=== PATIENT | female | born 1995 | race Caucasian/White ===

== ENCOUNTER → 2022-03-19 | Outpatient (CLI) | payer OTHER, SELFPAY ==
[2022-03-27 15:16] LABS: HPV Reflexed? NOT INDICATED
== END | disposition home or self-care (01) ==
PROVIDERS: Referring Provider Obstetrics & Gynecology; Visit Provider Obstetrics & Gynecology
DX: Z12.4 Encounter for screening for malignant neoplasm of cervix (principal)
CPT/HCPCS: 88175; G0145

== ENCOUNTER → 2024-02-29 | Outpatient (CLI) | payer OTHER, SELFPAY ==
[2024-02-29 18:03] LABS: hCG Titer Quant., Serum < 1 mIU/mL (1-3)
== END | disposition home or self-care (01) ==
PROVIDERS: PCP Family Medicine; Referring Provider Obstetrics & Gynecology; Visit Provider Obstetrics & Gynecology
DX: O20.9 Hemorrhage in early pregnancy, unspecified (principal); Z3A.00 Weeks of gestation of pregnancy not specified
CPT/HCPCS: 36415; 84702

== ENCOUNTER → 2024-08-16 | Outpatient (CLI) | payer OTHER, SELFPAY ==
[2024-08-16 12:13] LABS: Absolute Lymphocyte Count 2.32 X10^3/uL (0.83-4.51); Absolute Neutrophil Count 10.4 X10^3/uL (2.0-7.7); Basophil# 0.07 X10^3/uL; Basophil% 0.5 % (0-1); Eosinophil# 0.03 X10^3/uL; Eosinophils% 0.2 % (0-5); Hematocrit 40.3 % (37-47); Hemoglobin 14.1 g/dL (12.0-15.0); Lymphocyte # 2.32 X10^3/ul (0.83-4.51); Lymphocyte % 17.1 % (19-41); Mean Corpuscular Hgb 30.7 pg (27.0-32.0); Mean Corpuscular Volume 87.6 fL (81-99); Mean Platelet Vol. 11.5 fl (6.2-12.0); Monocyte# 0.68 X10^3/uL; NRBC Flagged by Analyzer 0 % (0-5); Neutrophil # 10.37 X10^3/uL (2.7-7.7); Neutrophil % 76.8 % (47-70); Platelet Count 282 K/mm3 (150-450); RBC Distribution Width CV 12.8 % (11.6-14.6); RBC Distribution Width SD 40.5 fl (35.1-43.9); White Blood Count 13.5 K/mm3 (4.4-11.0)
[2024-08-16 13:06] LABS: HIV - WCH Non-Reactive (Nonreactive); Hepatitis B Surface Antigen Non-Reactive (Nonreactive); Hepatitis C Antibody Non-Reactive (Nonreactive); Rubella IgG Reactive (Nonreactive); Syphilis Antibodies Non-reactive
[2024-08-18 23:07] LABS: Chlamydia By Nucleic Acid AMP Negative (Negative); Gonococcus By Nucleic Acid AMP Negative (Negative)
[2024-08-19 10:08] LABS: HPV APTIMA, High Risk Negative (Negative)
== END | disposition home or self-care (01) ==
LOC: BWCLAB 11:02
PROVIDERS: Obstetrics & Gynecology; PCP Family Medicine; Referring Provider Obstetrics & Gynecology; Visit Provider Obstetrics & Gynecology
DX: O09.90 Supervision of high risk pregnancy, unspecified, unspecified trimester (principal); Z3A.00 Weeks of gestation of pregnancy not specified
CPT/HCPCS: 36415; 85025; 86703; 86762; 86780; 86803; 86850; 86900; 86901; 87086; 87088; 87340; 87491; 87591; 87624; 88175; G0145

== ENCOUNTER → 2024-12-14 | Outpatient (CLI) | payer OTHER, SELFPAY ==
[2024-12-14 16:54] LABS: Absolute Lymphocyte Count 2.62 X10^3/uL (0.83-4.51); Absolute Neutrophil Count 13.6 X10^3/uL (2.0-7.7); Basophil# 0.06 X10^3/uL; Basophil% 0.3 % (0-1); Eosinophil# 0.12 X10^3/uL; Eosinophils% 0.7 % (0-5); Hematocrit 37.2 % (37-47); Hemoglobin 12.3 g/dL (12.0-15.0); Lymphocyte # 2.62 X10^3/ul (0.83-4.51); Lymphocyte % 15.1 % (19-41); Mean Corp Hgb Conc 33.1 g/dL (32-36); Mean Corpuscular Hgb 31.1 pg (27.0-32.0); Mean Corpuscular Volume 94.2 fL (81-99); Mean Platelet Vol. 11.3 fl (6.2-12.0); Monocyte% 4.6 % (0-10); NRBC Flagged by Analyzer 0 % (0-5); Neutrophil # 13.63 X10^3/uL (2.7-7.7); Neutrophil % 78.6 % (47-70); Platelet Count 272 K/mm3 (150-450); RBC Distribution Width CV 13.7 % (11.6-14.6); RBC Distribution Width SD 47.5 fl (35.1-43.9); Red Blood Count 3.95 M/mm3 (4.2-5.4); White Blood Count 17.4 K/mm3 (4.4-11.0)
[2024-12-15 11:29] LABS: Glucose Challenge Gest 1H 50g 159 mg/dL (70-140); HIV Nonreactive (Nonreactive); Syphilis Antibodies Nonreactive (Nonreactive)
== END | disposition home or self-care (01) ==
PROVIDERS: PCP Family Medicine; Visit Provider Obstetrics & Gynecology
DX: Z34.92 Encounter for supervision of normal pregnancy, unspecified, second trimester (principal); Z13.1 Encounter for screening for diabetes mellitus
CPT/HCPCS: 36415; 82950; 85025; 86703; 86780

== ENCOUNTER → 2024-12-27 | Outpatient (CLI) | payer OTHER, SELFPAY ==
--- OUTSIDE RECORDS SUMMARY | 2024-12-27 07:00 | XMS RPT_ITS | CCD ---
Author Organization [facility] Care Team Providers Care Aircraft Body Repairer Name Role Phone Avtar Marley Unavailable Unavailable JONNATHAN , DR ETIENNE Rudd Primary Care Physician Jonnathan , Etienne Primary Care Provider Jonnathan NGUYEN, Dr. Mustafa Primary Care Provider Jonnathan NGUEYN, Dr. Mustafa Referring Provider Dr. Malena Bean DO Attending Provider Reggie Means DO, Dr. Guy Referring Provider Heather Mahmood CNM Attending Provider Clarence VOSS, Dr. Carlisle Attending Provider Merlyn Acharya Attending Provider [phone] Jonnathan, Etienne Referring Unavailable Vande VeldeMalena Attending Unavailabl e Jonnathan, Etienne Primary Care Unavailable Jonnathan, Etienne Referring Unavailable Vande Velde, Malena Attending Unavailabl e Jonnathan, Etienne Primary Care Unavailable Jonnathan, Etienne Primary Care Unavailable Jonnathan, Etienne Referring Unavailable Vande Velde, Malena Attending Unavailabl e Jonnathan, Etienne Primary Care Unavailable Jonnathan, Etienne Referring Unavailable Vande Velde, Malena Attending Unavailabl e Jonnathan, Etienne Primary Care Unavailable Vande VeldeMalena Referring Unavailabl e Vande VeldeMalena Attending Unavailabl e Jonnathan, Etienne Primary Care Unavailable Vande VeldeMalena Attending Unavailabl e Vande VeldeMalena Referring Unavailabl e Vande Velde, Malena Referring Unavailabl e Vande VeldeMalena Attending Unavailabl e Jonnathan, Etienne Primary Care Unavailable Jonnathan, Etienne Primary Care Unavailable Malena Bean Attending Unavailabl e Jonnathan, Etienne Primary Care Unavailable Jonnathan, Etienne Referring Unavailable Merlyn Rios NP Attending Unavailable Jonnathan, Etienne Primary Care Unavailable Jonnathan, Etienne Referring Unavailable Heather Mahmood Attending Unavailable Jonnathan, Etienne Primary Care Unavailable Jonnathan, Etienne Referring Unavailable Maylin Lima Attending Unavailable Jonnathan, Etienne Primary Care Unavailable Jonnathan, Etienne Referring Unavailable Heather Mahmood Attending Unavailable VIRYEMALENA Referring Unavailab IRMA Garcia Attending Unavailable JONNATHAN, ETIENNE Primary Care Unavailable JONNATHAN, ETIENNE Primary Care Unavailable KATIA, ZACK Attending Unavailable JONNATHAN, ETIENNE Referring Unavailable JONNATHAN, ETIENNE Referring Unavailable JONNATHAN, ETIENNE Primary Care Unavailable KATIA, ZACK Attending Unavailable JONNATHAN, ETIENNE Primary Care Unavailable MARCANTHONY, MAYLIN Castilol Referring Unavailabl e JODIE FELIX Attending Unavailable WINSOME OLIVAS Attending Unavailable IRMA NORIEGA Referring Unavailable JONNATHAN, ETIENNE Primary Care Unavailable ALLAN LUTZ Attending Unavailable JONNATHAN, ETIENNE Primary Care Unavailable MARCANTHONY, MAYLIN E Referring Unavailabl e ALLAN LUTZ Attending Unavailable ALLAN LUTZ Referring Unavailable JONNATHAN, ETIENNE Primary Care Unavailable MALENA SCHNEIDER Referring Unavailab IRMA Garcia Attending Unavailable JONNATHAN, ETIENNE Primary Care Unavailable Holthouser CCC-CRYPTOGRAPHIC MACHINE OPERATOR, Ajilene G Unavailable Un available Medications Current Medications Medication Drug Class(es) Dates Sig (Normalized) Sig (Original) Multivit 17-Uwfl-Ubrfef 1-Dha (Pnv-Dha) 27 mg iron-1 mg -300 mg capsule (1 source) Start: 07-29-2024 Multivit 59-Ybzh-Wfycmf 1-Dha (Pnv-Dha) 27 mg iron-1 mg -300 mg capsule Active NMA PO July 29, 2024 1:00am Vit w/Vw-Uhrfzjygx-ZG (PNV PO) (2 sources) Vit w/Kv-Yarhciigr-QN (PNV PO) Take by mouth daily Active Completed/Discontinued Medications Medication Drug Class(es) Dates Sig (Normalized) Sig (Original) Norethindrone-E.Es tradiol-Iron (4 sources) Estrogen Start: 05-11-2023 End: 03-14-2024 take 1 tablet by mouth once daily Norethindrone-E.Est radiol-Iron (Lo Loestrin Fe) 1 mg-10 mcg (24)/10 mcg (2) tablet Discontinued 1 {tbl} PO DAILY May 11, 2023 12:11pm March 14, 2024 9:57am Start: 03-20-2023 End: 05-11-2023 take 1 tablet by mouth once daily Norethindrone-E.Estradiol-Iron (Lo Loest rin Fe) 1 mg-10 mcg (24)/10 mcg (2) tablet Discontinued 1 {tbl} PO DAILY March 20, 2023 1:32pm May 11, 2023 12:11pm Start: 03-19-2022 End: 03-20-2023 take 1 tablet by mouth once daily Norethindrone-E.Estradiol-Iron (Lo Loest rin Fe) 1 mg-10 mcg (24)/10 mcg (2) tablet Discontinued 1 {tbl} PO DAILY March 19, 2022 12:00am March 20, 2023 1:32pm Start: 11-23-2019 take 1 tablet by addy th once daily Lo Loestrin Fe oral tablet Dose = 1 tab( s), Oral, qDay, # 84 tab(s), 0 Refill(s) Start Date: 11/23/19 Status: Ordered lidocaine 0.05 mg/mg topical ointment (1 source) Antiarrhythmic, Amide Local Anesthetic Start: 03-19-2022 End: 05-11-2023 Lidocaine 5 % ointment Discontinued 1 NMA TOPICAL DAILY as needed for dyspareun March 19, 2022 12:00am May 11, 2023 11:45am Problems Active Problems Problem Classification Problem Date Documented Da te Episodic/Chronic Administrative/social admission (1 source) finding; Translations: [Other specified counseling] Onset: 11-11-2024 12-14-2024 Episodic Immunizations and screening for infectious disease (1 source) Encounter for immunization; Translations: [Encounter for immunization] Onset: 12-14-2024 Episodic Other complications of ; puerperium affecting management of mother (7 sources) condition affecting obstetrical care of mother; Translations: [ 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, fetus 1 of multiple gestation] Onset: 10-13-2024 11-10-2024 Episodic Comment on above: seen on anatomy US, treatment center referral. echo. Gave info on [facility] Other complications of (3 sources) H/O: miscarriage; Translations: [Supervision of with other poor reproductive or obstetric history, unspecified trimester] 10-07-2024 Episodic Comment on above: January 2024, 6 weeks Other complications of (3 sources) High risk ; Translations: [Supervision of high risk , unspecified, unspecified trimester] 10-07-2024 Episodic Other congenital anomalies (1 source) Cleft palate with cleft lip; Translations: [Unspecified cleft palate with unilateral cleft lip] 12-26-2024 Chronic Other female genital disorders (3 sources) Pain in female genitalia on intercourse; Translations: [Unspecified dyspareunia] 10-07-2024 Chronic Comment on above: lidocaine topical, v aginismus, PFPT. discussed dilators vs excision of hymenal remnant. Other female genital disorders (1 source) Unspecified dyspareunia; Translations: [Unspecified dyspareunia] Onset: 09-09-2024 Chronic Other and delivery including normal (14 sources) ; Translations: [Encounter for supervision of normal , unspecified, unspecified trimester] Onset: 10-07-2024 12-14-2024 Episodic Comment on above: NIPT low risk, katherine er neg. PRR , JONATHAN 5, gender surprise for family Nicanor Other screening for suspected conditions (not mental disorders or infectious disease) (1 source) Encounter for screening for diabetes mellitus; Translations: [Encounter for screening for diabetes mellitus] Onset: 12-20-2024 Episodic Residual codes; unclassified (1 source) 18 weeks gestation of ; Translations: [18 weeks gestation of ] Onset: 10-07-2024 Episodic Spontaneous (1 source) with abortive outcome; Translations: [Complete or unspecified spontaneous without complication] 07-29-2024 Episodic Past or Other Problems Problem Classification Problem Date Documented Da te Episodic/Chronic Hemorrhage during ; abruptio placenta; placenta previa (4 sources) Antepartum hemorrhage; Translations: [Hemorrhage in early , unspecified] Onset: 09-09-2024 10-07-2024 Episodic Other complications of (1 source) Supervision of high risk , unspecified, unspecified trimester; Translations: [Supervision of high risk , unspecified, unspecified trimester] Onset: 09-09-2024 Episodic Other complications of (1 source) Supervision of with other poor reproductive or obstetric history, unspecified trimester; Translations: [Supervision of with other poor reproductive or obstetric history, unspecified trimester] Onset: 09-09-2024 Episodic Residual codes; unclassified (1 source) 14 weeks gestation of ; Translations: [14 weeks gestation of ] Onset: 09-09-2024 Episodic Results Test Name Value Interpretation Reference Range Facility Progress Noteon 12-26-2024 Parts Department Supervisor Authentication Interface Message Text Jesus Asher is a 29 y.o. female with who is otherwise healthy, , whose ultrasound was found to have evidence of a cleft lip and palate. She has a family history of clefting (paternal (father's older sister) cousin-male). Father has no family history of clefting or craniofacial anomalies. She does not exposure to medications/drugs during conception or . There are no other environmental that may be implicated. Her main concerns are regarding 1. Feeding, 2. Timing of correction and 3. Overall health and development implications in the presence of a cleft. Her previous records, including the 19-wk ultrasound were reviewed. 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 The rest of the visit was spent in counseling the family regarding the issues mentioned above. We described the ultrasound findings of cleft lip and palate. We explained that cleft lip/palate can occur as an isolated finding (up to ~95%), as part of a chromosome disorder, or as part of another genetic syndrome with additional defects and/or intellectual disability. We explained that cleft lip/palate can be surgically repaired, but there may be residual difficulty with feeding and speech. Some children may need additional surgeries as they get older. Other associated problems can include issues with dentition, hearing loss, and other developmental problems. We explained that most cases of isolated cleft lip/palate are caused by a combination of genetic and environmental (multifactorial inheritance) with a 3-5% recurrence risk. The first step in the treatment of her child is to align the premaxilla with the lateral arches. I will refer this child to our tobacco packing machine operator for this process. After alignment of the arches the child will be ready for correction of the lip and nasal deformity. The lip correction is typically performed at around 4-5 months of age. Lastly, the palate is closed around 7-8 months of age. This will be before speech development and will hopefully provide the best chance for normal speech. I reviewed this with the parents and also reviewed other patient photographs and they understand the plan of care. During the first 1-2 months we will continue to keep in close contact to assure that the baby is feeding well and gaining weight. We also had her see our craniofacial coordinator so they can follow up with our [facility]io[facility] for a multidisciplinary evaluation after . They met with our administrator social welfare as well. I spent a total of 45 minutes with this patient, of which, >30 minutes was spent counseling and/or coordinating care. We discussed a summary of the treatment plan with the patient and family including details on coordination of care. Our discussion included: timing and duration of surgery; intraoperative details; possible risks (infection, bleeding, risk of injury to surrounding structures, possible recurrence and need for further surgery), benefits and surgical options; expected postoperative course and outcomes. Zack Douglass MD, FACS Chief, Division of Plastic Surgery [facility] 12/26/2024 Normal [facility] Glucose Challenge Gest 1H 50 minh 12-15-2024 GLU GEST 50g 1H 159 mg/dL High 70-140 [facility] Comment on above: Performed By: #### L 3890.6006, L509.8002, L100.0100, L501.0250 #### [facility] [address] [place], [place], [address] HIVon 12-15-2024 HIV Non-Reactive Normal Nonreactive [facility] Comment on above: Result Comment: Non- Reactive Reactive Repeatedly reactive samples must be confirmed according to CDC recommended confirmatory algorithms. The subresults for either HIVAG or AHIV can be used as an aid in the selection of the confirmation algorithm for reactive samples. Send out specimens with Reactive results to [facility] for confirmation. Order the HIV antibody detection and differentiation: #[id number] Performed By: #### L 3890.6006, L509.8002, L100.0100, L501.0250 #### [facility] [address] [place], [address] Syphilis Antibodieson 2024 Syphilis Abs Non-Reactive Normal Nonreactive [facility] Comment on above: Performed By: #### L 3890.6006, L509.8002, L100.0100, L501.0250 #### [facility] [address] [place], [address] CBC W/Diff, Automatedon 11-25 Absolute Lymph 2.62 X10 3/uL Normal 0.83-4.51 [facility] Comment on above: Performed By: #### L 3890.6006, L509.8002, L100.0100, L501.0250 #### [facility] [address] [place], [address] Absolute Neut 13.6 X10 3/uL High 2.0-7.7 [facility] Comment on above: Performed By: #### L 3890.6006, L509.8002, L100.0100, L501.0250 #### [facility] [address] [place], [address] Basophils/100 WBC (Bld) 0.3 % Normal 0-1 [facility] Comment on above: Performed By: #### L 3890.6006, L509.8002, L100.0100, L501.0250 #### [facility] [address] [place], [address] Eosinophils/100 WBC (Bld) 0.7 % Normal 0-5 [facility] Comment on above: Performed By: #### L 3890.6006, L509.8002, L100.0100, L501.0250 #### [facility] [address] [place], [address] Erythrocyte distribution width (RBC) [Ratio] 13.7 % Normal 11.6-14.6 [facility] Comment on above: Performed By: #### L 3890.6006, L509.8002, L100.0100, L501.0250 #### [facility] [address] [place], [address] Hematocrit (Bld) [Volume fraction] 37.2 % Normal 37-47 [facility] Comment on above: Performed By: #### L 3890.6006, L509.8002, L100.0100, L501.0250 #### [facility] [address] [place], [address] Hemoglobin (Bld) [Mass/Vol] 12.3 g/dL Normal 12.0-15.0 [facility] Comment on above: Performed By: #### L 3890.6006, L509.8002, L100.0100, L501.0250 #### [facility] [address] [place], [address] IG% 0.700 Normal 0.0-0.9 [facility] Comment on above: Result Comment: IG% - Immature Granulocytes (promyelocytes, myelocytes and metamyelocytes) > 1% indicates that a LEFT SHIFT is Present. Performed By: #### L 3890.6006, L509.8002, L100.0100, L501.0250 #### [facility] [address] [place], [address] Lymphocytes/100 WBC (Bld) 15.1 % Low 19-41 [facility] Comment on above: Performed By: #### L 3890.6006, L509.8002, L100.0100, L501.0250 #### [facility] [address] [place], [address] MCH (RBC) [Entitic mass] 31.1 pg Normal 27.0-32.0 [facility] Comment on above: Performed By: #### L 3890.6006, L509.8002, L100.0100, L501.0250 #### [facility] [address] [place], [address] MCHC (RBC) [Mass/Vol] 33.1 g/dL Normal 32-36 [facility] Comment on above: Performed By: #### L 3890.6006, L509.8002, L100.0100, L501.0250 #### [facility] [address] [place], [address] MCV (RBC) [Entitic vol] 94.2 fL Normal 81-99 [facility] Comment on above: Performed By: #### L 3890.6006, L509.8002, L100.0100, L501.0250 #### [facility] [address] [place], [address] Monocytes/100 WBC (Bld) 4.6 % Normal 0-10 [facility] Comment on above: Performed By: #### L 3890.6006, L509.8002, L100.0100, L501.0250 #### [facility] [address] [place], [address] Neutrophils/100 WBC (Bld) 78.6 % High 47-70 [facility] Comment on above: Performed By: #### L 3890.6006, L509.8002, L100.0100, L501.0250 #### [facility] [address] [place], [address] Nucleated RBC (Bld) [#/Vol] 0 10*3/uL Normal 0-5 [facility] Comment on above: Performed By: #### L 3890.6006, L509.8002, L100.0100, L501.0250 #### [facility] [address] [place], [address] Platelet mean volume (Bld) [Entitic vol] 11.3 fL Normal 6.2-12.0 [facility] Comment on above: Performed By: #### L 3890.6006, L509.8002, L100.0100, L501.0250 #### [facility] [address] [place], [address] Platelets (Bld) [#/Vol] 272 10*3/uL Normal 150-450 [facility] Comment on above: Performed By: #### L 3890.6006, L509.8002, L100.0100, L501.0250 #### [facility] [address] [place], [address] RBC (Bld) [#/Vol] 3.95 10*6/uL Low 4.2-5.4 [facility] Comment on above: Performed By: #### L 3890.6006, L509.8002, L100.0100, L501.0250 #### [facility] [address] [place], [address] RDW SD 47.5 fl High 35.1-43.9 [facility] Comment on above: Performed By: #### L 3890.6006, L509.8002, L100.0100, L501.0250 #### [facility] [address] [place], [address] WBC (Bld) [#/Vol] 17.4 10*3/uL High 4.4-11.0 [facility] Comment on above: Performed By: #### L 3890.6006, L509.8002, L100.0100, L501.0250 #### [facility] [address] [place], [address] Building Drafting Officer Office Visit Reporton 12-14-2024 Building Drafting Officer Office Visit Report [facility] [address], [address] [place] [address] OFFICE VISIT Date of Service: 12/14/24 MR#: [id number] Acct: [id number] Name: JESUS ASHER Rep #: [id number] : 1995 Provider: Dr. Malena Galdamez DO Age/Sex: 29/F Location: [facility] Status: Signed Intake Vital Signs 11/02/24 13:43 11/28/24 14:48 12/14/24 13:09 12/14/24 13:09 Height 5 ft 3 in 5 ft 3 in 5 ft 3 in 5 ft 3 in Weight: 125 lb 6 oz BMI 22.1 BP 122/76 H Intake Visit Reasons: 28 wk ob/glucose Software Sales Required: No Is patient in pain?: No Allergies No Known Allergies Allergy (Verified 12/14/24 13:09) Medications ???Medication ???Instructions ???Recorded ???Confirmed ???Type multivitamin no.47-iron fum 27 cap PO 07/29/24 12/14/24 History mg-folate no.1 1 mg-dha 300 mg capsule (PNV-DHA) Last Menstrual Period: 05/29/24 Zika: Zika virus screening: Negative : No PFSH PFSH Medical History Complete Dysmenorrhea Surgical History H/O wisdom tooth extraction Family History Grandmother Breast cancer Social History adopted: No household members: spouse current occupational status: employed 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 occupational exposures/hazards: No pets and animals: Yes pets and animals: dog(s) history of recent travel: Yes ([place]-Nov) out of state: Yes out of country: No sexually active: Yes Smoking Status: Never smoker alcohol intake: current details: social- not while substance use type: does not use well-balanced diet: daily or most days caffeine: Yes Type: coffee Number of servings: 1 eating out: 1-3 times/week during the past year weight has: remained stable what type of physical activity do you participate in: walking and yoga frequency: 1-2 times per week duration: 30-45 minutes/day nic/pentecostal: Orthodoxy seatbelt use: always do you feel safe at home: Yes additional social history: [place]- data analyzation Patient works at [employer] History 2 Elective abortions Hx Para 0 Spontaneous abortions 1 Hx # Term Pregnancies Ectopic pregnancies Hx # Pregnancies Multiple births # of living children 0 Past Pregnancies Del. Date Name GA/Weeks Outcome Route Bth Weight Gen Labor Lgth Anesthesia Del Locatn Provider FOB 02/18/24 6 spontaneous HPI 28 wk ob/glucose Details: JESUS ASHER is a 29 year old who presents for routine OB visit. OB Visit JONATHAN Calculator Estimated Delivery Date Method Current WG Current Estimate 03/05/25 LMP (Certain) 28w 3d Other Estimates 03/11/25 Ultrasound #1 27w 4d Expected Delivery Route/Plan Labor Preferences- CB/BF classes: [] labor support person: [] labor intervention preferences: [] pain management options preferred: [] cut cord/dad catch: [] : [] PP control planned: [] discussed possible routes of delivery and associated risks: [] special requests: [] Specific Issue/Plans Covid status: [] Flu vaccine: [] Tdap vaccine: [] Rhogam: [] LARC form signed: [] Problem list reviewed and updated with the most current plan of care details and appropriate orders placed. Relevant counseling for the gestational age provided. Continue routine care and follow up unless otherwise noted in visit notes/problem list details Initial Weight: Not Recorded Date -???-???-???-???-??? -???-???-???-???-??? -???-???- EGA Weight BP Urine Prot -???-???-???-???-??? -???-???-???-???-??? -???-???- Glucose FHR FuHt Pres Dilation -???-???-???-???-??? -???-???-???-???-??? -???-???- Effaced St Visit Note 08/16/24 -???-???-???-???-??? -???-???-???-???-??? -???-???- 11w 2d 104 lb 6 oz 130/80 -???-???-???-???-??? -???-???-???-???-??? -???-???- 185 -???-???-???-???-??? -???-???-???-???-??? -???-???- JV- CRL cons istent with LMP. Desires nipt. 09/09/24 -???-???-???-???-??? -???-???-???-???-??? -???-???- 14w 5d 106 lb 4 oz 127/84 Negative -???-???-???-???-??? -???-???-???-???-??? -???-???- Negative 150 -???-???-???-???-??? -???-???-???-???-??? -???-???- KW- no vb/cr amping. US scheduled. feeling better. AFP discussed and declines at this time. stretching and chiropractor for hip pain. 10/07/24 -???-???-???-???-??? -???-???-???-???-??? -???-???- 18w 5d 110 lb 6 oz 137/71 Negative -???-???-???-???-??? -???-???-???-???-??? -???-???- Negative 150 -???-???-???-???-??? -???-???-???-???-??? -???-???- SM- no vb cr amping 11/02/24 - (more content not included)... Normal [facility] - Chemistry and C hemistry - challengeOrdered By: Malena Means on 11-28-2024 Glucose Ql (U) Negative [facility] - UrinalysisOrder ed By: Malena Means on 11-28-2024 Protein Ql (U) Negative [facility] Building Drafting Officer Office Visit Reporton 11-28-2024 Building Drafting Officer Office Visit Report [facility] [address], [address] [place] [address] OFFICE VISIT Date of Service: 11/28/24 MR#: [id number] Acct: [id number] Name: JESUS ASHER Rep #: [id number] : 1995 Provider: Dr. Malena Galdamez DO Age/Sex: 28/F Location: [facility] Status: Signed Intake Vital Signs 10/07/24 15:03 11/02/24 13:43 11/28/24 14:46 11/28/24 14:48 Height 5 ft 3 in 5 ft 3 in 5 ft 3 in 5 ft 3 in Weight: 122 lb 4 oz BMI 21.7 BP 126/79 H Intake Visit Reasons: 26 WK OB Software Sales Required: No Allergies No Known Allergies Allergy (Verified 11/28/24 14:45) Medications ???Medication ???Instructions ???Recorded ???Confirmed ???Type multivitamin no.47-iron fum 27 cap PO 07/29/24 11/28/24 History mg-folate no.1 1 mg-dha 300 mg capsule (PNV-DHA) Last Menstrual Period: 05/29/24 Zika: Zika virus screening: Negative : No PFSH PFSH Medical History Complete Dysmenorrhea Surgical History H/O wisdom tooth extraction Family History Grandmother Breast cancer Social History adopted: No household members: spouse current occupational status: employed 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 occupational exposures/hazards: No pets and animals: Yes pets and animals: dog(s) history of recent travel: Yes ([place]-May) out of state: Yes out of country: No sexually active: Yes Smoking Status: Never smoker alcohol intake: current details: social- not while substance use type: does not use well-balanced diet: daily or most days caffeine: Yes Type: coffee Number of servings: 1 eating out: 1-3 times/week during the past year weight has: remained stable what type of physical activity do you participate in: walking and yoga frequency: 1-2 times per week duration: 30-45 minutes/day nic/pentecostal: Orthodoxy seatbelt use: always do you feel safe at home: Yes additional social history: [place]- data analyzation Patient works at [employer] History 2 Elective abortions Hx Para 0 Spontaneous abortions 1 Hx # Term Pregnancies Ectopic pregnancies Hx # Pregnancies Multiple births # of living children 0 Past Pregnancies Del. Date Name GA/Weeks Outcome Route Bth Weight Infant Gen Labor Lgth Anesthesia Del [facility] Provider FOB 02/18/24 6 spontaneous HPI 26 WK OB Details: JESUS ASHER is a 28 year old who presents for routine OB visit. OB Visit JONATHAN Calculator Estimated Delivery Date Method Current WG Current Estimate 03/05/25 LMP (Certain) 26w 1d Other Estimates 03/11/25 Ultrasound #1 25w 2d Expected Delivery Route/Plan Labor Preferences- CB/BF classes: [] labor support person: [] labor intervention preferences: [] pain management options preferred: [] cut cord/dad catch: [] : [] PP control planned: [] discussed possible routes of delivery and associated risks: [] special requests: [] Specific Issue/Plans Covid status: [] Flu vaccine: [] Tdap vaccine: [] Rhogam: [] LARC form signed: [] Problem list reviewed and updated with the most current plan of care details and appropriate orders placed. Relevant counseling for the gestational age provided. Continue routine care and follow up unless otherwise noted in visit notes/problem list details Initial Weight: Not Recorded Date -???-???-???-???-??? -???-???-???-???-??? -???-???- EGA Weight BP Urine Prot -???-???-???-???-??? -???-???-???-???-??? -???-???- Glucose FHR FuHt Pres Dilation -???-???-???-???-??? -???-???-???-???-??? -???-???- Effaced St Visit Note 08/16/24 -???-???-???-???-??? -???-???-???-???-??? -???-???- 11w 2d 104 lb 6 oz 130/80 -???-???-???-???-??? -???-???-???-???-??? -???-???- 185 -???-???-???-???-??? -???-???-???-???-??? -???-???- JV- CRL cons istent with LMP. Desires nipt. 09/09/24 -???-???-???-???-??? -???-???-???-???-??? -???-???- 14w 5d 106 lb 4 oz 127/84 Negative -???-???-???-???-??? -???-???-???-???-??? -???-???- Negative 150 -???-???-???-???-??? -???-???-???-???-??? -???-???- KW- no vb/cr amping. US scheduled. feeling better. AFP discussed and declines at this time. stretching and chiropractor for hip pain. 10/07/24 -???-???-???-???-??? -???-???-???-???-??? -???-???- 18w 5d 110 lb 6 oz 137/71 Negative -???-???-???-???-??? -???-???-???-???-??? -???-???- Negative 150 -???-???-???-???-??? -???-???-???-???-??? -???-???- SM- no vb cr amping 11/02/24 -???-???-???-???-??? -???-???-???-???-??? -?? (more content not included)... Normal [facility] Progress Noteon 11-10-2024 Parts Department Supervisor Authentication Interface Message Text [facility] - NEW PATIENT ASSESSMENT: I am pleased to report that today's echocardiogram was normal. There is no evidence of cardiovascular disease. Following the echocardiogram, I met with Ms. Asher to discuss today's findings and recommendations. I reviewed the normal cardiac anatomy, and explained that there is no evidence of significant cardiac disease in the fetus. I explained the limitations of echocardiography in general, including our inability to rule out mild valve abnormalities, smaller VSDs, certain aortic arch abnormalities, and persistent patency of the ductus arteriosus or the interatrial communication after . PLAN: Follow-up appointment, Heart Center: As needed. Preferred delivery location: No preference After , follow-up with Pediatric Cardiology: NOT indicated if isolated cleft lip and palate MAY BE indicated IF the baby is diagnosed with a genetic condition that is associated with congenital heart defects (ex: 22q11.2 deletion syndrome, CHARGE syndrome, Stickler Syndrome, etc) MAY BE indicated IF the home care physical therapist hears a murmur or otherwise is concerned SUBJECTIVE: We had the pleasure of seeing Jesus Asher in Cardiology at the [facility] at [facility] on 11/10/2024 at the request of Dr. Irma Noriega. Ms. Asher was referred due to cleft lip and palate. Obstetric History: Ms. Asher is 2 para 0 at [id number] estimated due date 03/05/2025. Number of fetuses: 1 - male Delivery Hospital, preferred: [place] Past medical history: Past Medical History: Diagnosis Date Treatment Center Plan of Care Current medications: Medications Ordered Prior to Encounter[1] Allergies: Allergies[2] Family history: The family history was reviewed and is otherwise negative for congenital heart disease, sudden unexplained , arrhythmia. Social History: Jesus Asher lives with her family in [place], [place]. OBJECTIVE: Echocardiogram (11/10/2024): (see Epic for full details) Maternal BMI: Body mass index is 21.61 kg/m . Total encounter time was 20 minutes, which includes chart review, counseling, documentation and/or coordination of care. This is separate from the time spent performing and interpreting the echocardiogram. Portions of this medical record have been created using voice recognition software and may have minor errors which are inherent in voice recognition systems. Winsome Olivas DO (he/him/his) Jury Consultant [place] [address] Toll-Free: [email or web address] [1] Current Outpatient Medications on File Prior to Visit Medication Sig Dispense Refill Vit w/Nk-Hnwcwcfll-RJ (PNV PO) Take by mouth daily No current facility-administere d medications on file prior to visit. [2] No Known Allergies Normal [facility] Parts Department Supervisor Authentication Interface Message Text [facility] Consult INDICATION FOR CONSULT: Cleft lip and suspected to be cleft palate HISTORY OF PRESENT ILLNESS: Patient is a 28 y.o. at 23w4d who presents for consultation regarding Cleft lip and suspected to be cleft palate. Obstetrical History OB History Para Term AB Living 2 0 0 0 1 0 SAB IAB Ectopic Multiple Live Births 1 0 0 0 0 # Outcome Date GA Lbr Darinel/2nd Weight Sex Type Anes PTL Lv 2 Current 1 SAB 01/2024 6w0d SAB Comments: no D&C needed History of a cousin with cleft lip as well. Past Medical History: Diagnosis Date Treatment Center Plan of Care Past Surgical History: Procedure Laterality Date WISDOM TOOTH EXTRACTION 2013 FAMILY HISTORY: See Genetic Counseling note Outpatient Medications Marked as Taking for the 11/10/24 encounter (Office Visit) with Allan Lutz MD Medication Sig Dispense Refill Vit w/Uc-Uiavywsye-CK (PNV PO) Take by mouth daily Social History Socioeconomic History Marital status: Spouse name: Not on file Number of children: Not on file Years of education: Not on file Highest education level: Not on file Occupational History Not on file Tobacco Use Smoking status: Never Smokeless tobacco: Never Substance and Sexual Activity Alcohol use: Not Currently Drug use: Never Sexual activity: Not on file Other Topics Concern Not on file Social History Narrative Not on file Social Drivers of Health Food Insecurity: Not on file Transportation Needs: Not on file Housing Stability: Not on file Allergies[1] Review of Systems - negative unless otherwise specified above Vitals: 11/10/24 0737 BP: 122/66 Pulse: 90 Resp: 18 SpO2: 98% Weight: 53 kg (116 lb 14.4 oz) BMI Readings from Last 1 Encounters: 11/10/24 21.61 kg/m Physical Examination: General appearance - alert, well appearing, and in no distress Mental status - alert, oriented to person, place, and time Chest - No difficulty with breathing Heart - Normal Rate Abdomen - Non tender during US exam Pelvic - Deferred Extremities - no edema noted Ultrasound performed today in the office: 1. Single, living IUP at 23w 4d by clinical JONATHAN. 2. EFW is 631 g at 49% with the Abdominal circumference at 65%. 3. Amniotic fluid volume appeared normal 4. Placenta is anterior. 5. Visualized anatomy appears normal besides the below, with limitations. 6. Left sided unilateral cutaneous defect of superior lip that extends through the alveolar ridge and appears to extend the secondary palate but not confirmed. Uvula not observed today. My Impression and recommendations include the following: Jesus Asher is a 28 y.o. year old at 23w4d 1) Today we discussed the above ultrasound finding. We discussed cleft lip including the degrees and definition. We then discussed the absence of additional ultrasound findings today. We discussed the possible genetic association at approximately 10 to 15% with unilateral complete cleft lip and palate. We discussed amniocentesis for diagnostic testing including the risk and benefits of the procedure. We discussed the cosmetic appearance of the child as well as the mechanical problem with breast-feeding/feedi ng in general. Patient will be followed with our treatment center and meet with pediatric plastics as well as . There is a 2 to 3% recurrence risk in future pregnancies. Patient will meet with genetic counseling to discuss amniocentesis and further genetic testing. All questions concerns addressed. Jesus Asher also met with our genetic counselor, see separate documentation for counseling. She met Rosalinda Julio, Clinical Tamale Maker from the [facility]. Rosalinda will continue to help coordinate and care. 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 Cell free DNA aneuploidy screening is low risk. Declined invasive testing. Plan: 1. Continued obstetrical care with her primary zone maintenance technician is recommended. 2. Follow up q4 weeks to evaluate biometric parameters and anatomy. These are planned with the [facility]. 3. echocardiogram completed. 4. surveillance as follows: as clinically indicated. 5. consultation with Plastic Surgery/Cleft Clinic and will be arranged. 6. Delivery is appropriate at your local institution. 7. Mode and timing of delivery are based on the usual obstetrical indications. 8. Management in the normal nursery appropriate unless clinically needs additional care. 9. Cleft lip/palate management per hospital protocol. 10. Follow up with [facility] within the first week of life. Please call [phone]. 11. Consultation with Medical Genetic (more content not included)... Normal [facility] Laboratory - Chemistry and C hemistry - challengeOrdered By: Merlyn Rios on 11-02-2024 Glucose Ql (U) Negative [facility] Laboratory - UrinalysisOrder ed By: Merlyn Rios on 11-02-2024 Protein Ql (U) Negative [facility] Building Drafting Officer Office Visit Reporton 11-02-2024 Building Drafting Officer Office Visit Report [facility] [address], [address] [place] [address] OFFICE VISIT Date of Service: 11/02/24 MR#: [id number] Acct: [id number] Name: JESUS ASEHR Rep #: [id number] : 1995 Provider: AIDEE crow Age/Sex: 28/F Location: [facility] Status: Signed Intake Vital Signs 09/09/24 14:14 10/07/24 15:03 11/02/24 13:43 Height 5 ft 3 in 5 ft 3 in 5 ft 3 in Weight: 116 lb 8 oz BMI 20.6 BP 120/72 Intake Visit Reasons: 22wk ob Chief Complaint: 22 Week OB Software Sales Required: No Is patient in pain?: No Allergies No Known Allergies Allergy (Verified 11/02/24 13:42) Medications ???Medication ???Instructions ???Recorded ???Confirmed ???Type multivitamin no.47-iron fum 27 cap PO 07/29/24 11/02/24 History mg-folate no.1 1 mg-dha 300 mg capsule (PNV-DHA) Last Menstrual Period: 05/29/24 Zika: Zika virus screening: Negative : No PFSH PFSH Medical History Complete Dysmenorrhea Surgical History H/O wisdom tooth extraction Family History Grandmother Breast cancer Social History adopted: No household members: spouse current occupational status: employed 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 occupational exposures/hazards: No pets and animals: Yes pets and animals: dog(s) history of recent travel: Yes ([place]-Nov) out of state: Yes out of country: No sexually active: Yes Smoking Status: Never smoker alcohol intake: current details: social- not while substance use type: does not use well-balanced diet: daily or most days caffeine: Yes Type: coffee Number of servings: 1 eating out: 1-3 times/week during the past year weight has: remained stable what type of physical activity do you participate in: walking and yoga frequency: 1-2 times per week duration: 30-45 minutes/day nic/pentecostal: Orthodoxy seatbelt use: always do you feel safe at home: Yes additional social history: [place]- data analyzation Patient works at [employer] History 2 Elective abortions Hx Para 0 Spontaneous abortions 1 Hx # Term Pregnancies Ectopic pregnancies Hx # Pregnancies Multiple births # of living children 0 Past Pregnancies Del. Date Name GA/Weeks Outcome Route Bth Weight Gen Labor Lgth Anesthesia Del Locatn Provider FOB 02/18/24 6 spontaneous HPI 22wk ob Details: JESUS ASHER is a 28 year old who presents for routine OB visit. OB Visit JONATHAN Calculator Estimated Delivery Date Method Current WG Current Estimate 03/05/25 LMP (Certain) 22w 3d Other Estimates 03/11/25 Ultrasound #1 21w 4d Expected Delivery Route/Plan Labor Preferences- CB/BF classes: [] labor support person: [] labor intervention preferences: [] pain management options preferred: [] cut cord/dad catch: [] : [] PP control planned: [] discussed possible routes of delivery and associated risks: [] special requests: [] Specific Issue/Plans Covid status: [] Flu vaccine: [] Tdap vaccine: [] Rhogam: [] LARC form signed: [] Problem list reviewed and updated with the most current plan of care details and appropriate orders placed. Relevant counseling for the gestational age provided. Continue routine care and follow up unless otherwise noted in visit notes/problem list details Initial Weight: Not Recorded Date -???-???-???-???-??? -???-???-???-???-??? -???-???- EGA Weight BP Urine Prot -???-???-???-???-??? -???-???-???-???-??? -???-???- Glucose FHR FuHt Pres Dilation -???-???-???-???-??? -???-???-???-???-??? -???-???- Effaced St Visit Note 08/16/24 -???-???-???-???-??? -???-???-???-???-??? -???-???- 11w 2d 104 lb 6 oz 130/80 -???-???-???-???-??? -???-???-???-???-??? -???-???- 185 -???-???-???-???-??? -???-???-???-???-??? -???-???- JV- CRL cons istent with LMP. Desires nipt. 09/09/24 -???-???-???-???-??? -???-???-???-???-??? -???-???- 14w 5d 106 lb 4 oz 127/84 Negative -???-???-???-???-??? -???-???-???-???-??? -???-???- Negative 150 -???-???-???-???-??? -???-???-???-???-??? -???-???- KW- no vb/cr amping. US scheduled. feeling better. AFP discussed and declines at this time. stretching and chiropractor for hip pain. 10/07/24 -???-???-???-???-??? -???-???-???-???-??? -???-???- 18w 5d 110 lb 6 oz 137/71 Negative -???-???-???-???-??? -???-???-???-???-??? -???-???- Negative 150 -???-???-???-???-??? -???-???-???-???-??? -???-???- SM- no vb cr amping 11/02/24 -???-???-???-???-??? -?? (more content not included)... Normal [facility] Progress Noteon 10-13-2024 Parts Department Supervisor Authentication Interface Message Text [facility]- MEDICINE CONSULT Referring/Requesting Provider: Malena Schneider, * PCP: Etienne De Santiago DO INDICATION FOR CONSULT: cleft lip and palate This is a telemedicine video visit requested by the patient/guardian that was performed with the patient's location at [place] office and the provider's location at [facility]. HISTORY OF PRESENT ILLNESS: Patient is a 28 y.o. at 19w4d who presents for consultation regarding cleft lip and palate diagnosed on today's anatomy ultrasound. OB History Para Term AB Living 2 0 0 0 1 0 SAB IAB Ectopic Multiple Live Births 1 0 0 0 0 # Outcome Date GA Lbr Darinel/2nd Weight Sex Type Anes PTL Lv 2 Current 1 SAB 01/2024 6w0d SAB Comments: no D&C needed Past Medical History: Diagnosis Date Treatment Center Plan of Care Past Surgical History: Procedure Laterality Date WISDOM TOOTH EXTRACTION 2013 PERTINENT FAMILY HISTORY: Family History Problem Relation Age of Onset Mitral Valve Regurgitation Mother Breast Cancer Maternal Grandmother MEDS: Outpatient Medications Marked as Taking for the 10/13/24 encounter (Telehealth) with Irma Noriega, Medication Sig Dispense Refill Vit w/Wz-Mbdklyqnj-NY (PNV PO) Take by mouth daily ALLERGY: Allergies[1] REVIEW OF SYSTEMS: ROS negative PHYSICAL EXAM: VITAL SIGNS: Ht 160 cm LMP 05/29/2024 Physical Exam via video assessment AAOx3, Resp effort normal IMAGIN. Medeiros living intrauterine at 19w 4d with biometry consistent with clinical dates. 2. Unilateral (left) cleft lip and palate. 3. The remainder of the anatomic survey was adequately visualized and appeared normal. 5. Amniotic fluid appeared normal. 5. Placenta is anterior, grade 0. Placenta appears low-lying. 6. Transvaginal cervical length to evaluate for risk for labor was performed and appeared normal, 39.1 mm. LABS: Low risk cell free and negative Horizon carrier screen per patient report IMPRESSION AND RECOMMENDATIONS: Jesus is a 28 y.o. at 19w4d with Active Non-Hospital Problems Diagnosis Date Noted Cleft lip and palate, , affecting care of mother, antepartum 10/13/2024 1. We reviewed the ultrasound findings of cleft lip and palate. 2. [facility], including coordination of care. 3. Growth every 4 weeks. 4. echocardiogram ordered with pediatric cardiology. 5. Recheck placental location at 28 weeks. Follow up with [facility] in 4 weeks. Chart review and preparation: 5 minutes. Face to face: 12 minutes. Documentation and care coordination: 15 minutes. Total time spent on patient care today: 32 minutes. [1] No Known Allergies Normal [facility] Laboratory - Chemistry and C hemistry - challengeOrdered By: Maylin Lima on 10-07-2024 Glucose Ql (U) Negative [facility] - UrinalysisOrder ed By: Maylin Lima on 10-07-2024 Protein Ql (U) Negative [facility] Building Drafting Officer Office Visit Reporton 10-07-2024 Building Drafting Officer Office Visit Report [facility] [address], [address] [place] [address] OFFICE VISIT Date of Service: 10/07/24 MR#: [id number] Acct: [id number] Name: JESUS ASHER Rep #: [id number] : 1995 Provider: Dr. Maylin manjarrez MD Age/Sex: 28/F Location: [facility] Status: Signed Intake Vital Signs 08/16/24 10:17 09/09/24 14:14 10/07/24 15:02 10/07/24 15:03 Height 5 ft 3 in 5 ft 3 in 5 ft 3 in 5 ft 3 in Weight: 110 lb 6 oz BMI 19.5 BP 137/71 H Intake Visit Reasons: 18 wk ob Software Sales Required: No Is patient in pain?: No Feel stressed/tense/nervo us/anxious/difficult y sleeping: not at all Allergies No Known Allergies Allergy (Verified 10/07/24 15:02) Medications ???Medication ???Instructions ???Recorded ???Confirmed ???Type multivitamin no.47-iron fum 27 cap PO 07/29/24 10/07/24 History mg-folate no.1 1 mg-dha 300 mg capsule (PNV-DHA) Last Menstrual Period: 05/29/24 Zika: Zika virus screening: Negative : No Have you fallen in the past year?: No PFSH PFSH Medical History Complete Dysmenorrhea Surgical History H/O wisdom tooth extraction Family History Grandmother Breast cancer Social History adopted: No household members: spouse current occupational status: employed 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 occupational exposures/hazards: No pets and animals: Yes pets and animals: dog(s) history of recent travel: Yes ([place]) out of state: Yes out of country: No sexually active: Yes Smoking Status: Never smoker alcohol intake: current details: social- not while substance use type: does not use well-balanced diet: daily or most days caffeine: Yes Type: coffee Number of servings: 1 eating out: 1-3 times/week during the past year weight has: remained stable what type of physical activity do you participate in: walking and yoga frequency: 1-2 times per week duration: 30-45 minutes/day nic/pentecostal: Orthodoxy seatbelt use: always do you feel safe at home: Yes additional social history: [place]- data analyzation Patient works at [employer] History 2 Elective abortions Hx Para 0 Spontaneous abortions 1 Hx # Term Pregnancies Ectopic pregnancies Hx # Pregnancies Multiple births # of living children 0 Past Pregnancies Del. Date Name GA/Weeks Outcome Route Bth Weight Infant Gen [facility] F[facility] 02/18/24 6 spontaneous HPI 18 wk ob Details: JESUS ASHER is a 28 year old who presents for routine OB visit. OB Visit JONATHAN Calculator Estimated Delivery Date Method Current WG Current Estimate 03/05/25 LMP (Certain) 18w 5d Other Estimates 03/11/25 Ultrasound #1 17w 6d Expected Delivery Route/Plan Labor Preferences- CB/BF classes: [] labor support person: [] labor intervention preferences: [] pain management options preferred: [] cut cord/dad catch: [] : [] PP control planned: [] discussed possible routes of delivery and associated risks: [] special requests: [] Specific Issue/Plans Covid status: [] Flu vaccine: [] Tdap vaccine: [] Rhogam: [] LARC form signed: [] Problem list reviewed and updated with the most current plan of care details and appropriate orders placed. Relevant counseling for the gestational age provided. Continue routine care and follow up unless otherwise noted in visit notes/problem list details Initial Weight: Not Recorded Date -???-???-???-???-??? -???-???-???-???-??? -???-???- EGA Weight BP Urine Prot -???-???-???-???-??? -???-???-???-???-??? -???-???- Glucose FHR FuHt Pres Dilation -???-???-???-???-??? -???-???-???-???-??? -???-???- Effaced St Visit Note 08/16/24 -???-???-???-???-??? -???-???-???-???-??? -???-???- 11w 2d 104 lb 6 oz 130/80 -???-???-???-???-??? -???-???-???-???-??? -???-???- 185 -???-???-???-???-??? -???-???-???-???-??? -???-???- JV- CRL cons istent with LMP. Desires nipt. 09/09/24 -???-???-???-???-??? -???-???-???-???-??? -???-???- 14w 5d 106 lb 4 oz 127/84 Negative -???-???-???-???-??? -???-???-???-???-??? -???-???- Negative 150 -???-???-???-???-??? -???-???-???-???-??? -???-???- KW- no vb/cr amping. US scheduled. feeling better. AFP discussed and declines at this time. stretching and chiropractor for hip pain. 10/07/24 -???-???-???-???-??? -???-???-???-???-??? -???-???- 18w 5d 110 lb 6 oz 137/71 Negative -???-???-???-???-??? -???-???-???-???-??? -???-???- Negative 150 -???-? (more content not included)... Normal [facility] - Chemistry and C hemistry - challengeOrdered By: Heather Mahmood on 09-09-2024 Glucose Ql (U) Negative [facility] - UrinalysisOrder ed By: Heather Mahmood on 09-09-2024 Protein Ql (U) Negative [facility] Building Drafting Officer Office Visit Reporton 09-09-2024 Building Drafting Officer Office Visit Report [facility] [address], [address] [place] [address] OFFICE VISIT Date of Service: 09/09/24 MR#: [id number] Acct: [id number] Name: JESUS ASHER Rep #: [id number] : 1995 Provider: MATT Harrison ams Age/Sex: 28/F Location: [facility] Status: Signed Intake Vital Signs 03/14/24 09:59 08/16/24 10:17 09/09/24 14:14 Height 5 ft 3 in 5 ft 3 in 5 ft 3 in Weight: 106 lb 4 oz BMI 18.8 BP 127/84 H Intake Visit Reasons: 14wk OB Chief Complaint: 14 wk OB Is patient in pain?: No Allergies No Known Allergies Allergy (Verified 09/09/24 14:18) Medications ???Medication ???Instructions ???Recorded ???Confirmed ???Type multivitamin no.47-iron fum 27 cap PO 07/29/24 09/09/24 History mg-folate no.1 1 mg-dha 300 mg capsule (PNV-DHA) Last Menstrual Period: 05/29/24 : No PFSH PFSH Medical History Complete Dysmenorrhea Surgical History H/O wisdom tooth extraction Family History Grandmother Breast cancer Social History adopted: No household members: spouse current occupational status: employed 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 occupational exposures/hazards: No pets and animals: Yes pets and animals: dog(s) history of recent travel: Yes ([place]) out of state: Yes out of country: No sexually active: Yes Smoking Status: Never smoker alcohol intake: current details: social- not while substance use type: does not use well-balanced diet: daily or most days caffeine: Yes Type: coffee Number of servings: 1 eating out: 1-3 times/week during the past year weight has: remained stable what type of physical activity do you participate in: walking and yoga frequency: 1-2 times per week duration: 30-45 minutes/day nic/pentecostal: Orthodoxy seatbelt use: always do you feel safe at home: Yes additional social history: [place]- data analyzation Patient works at [employer] History 2 Elective abortions Hx Para 0 Spontaneous abortions 1 Hx # Term Pregnancies Ectopic pregnancies Hx # Pregnancies Multiple births # of living children 0 Past Pregnancies Del. Date Name GA/Weeks Outcome Route Bth Weight Gen Labor Lgth Anesthesia Del Locatn Provider FOB 02/18/24 6 spontaneous HPI 14wk OB Details: JESUS ASHER is a 28 year old who presents for routine OB visit. OB Visit JONATHAN Calculator Estimated Delivery Date Method Current WG Current Estimate 03/05/25 LMP (Certain) 14w 5d Other Estimates 03/11/25 Ultrasound #1 13w 6d Expected Delivery Route/Plan Labor Preferences- CB/BF classes: [] labor support person: [] labor intervention preferences: [] pain management options preferred: [] cut cord/dad catch: [] : [] PP control planned: [] discussed possible routes of delivery and associated risks: [] special requests: [] Specific Issue/Plans Covid status: [] Flu vaccine: [] Tdap vaccine: [] Rhogam: [] LARC form signed: [] Problem list reviewed and updated with the most current plan of care details and appropriate orders placed. Relevant counseling for the gestational age provided. Continue routine care and follow up unless otherwise noted in visit notes/problem list details Initial Weight: Not Recorded Date -???-???-???-???-??? -???-???-???-???-??? -???-???- EGA Weight BP Urine Prot -???-???-???-???-??? -???-???-???-???-??? -???-???- Glucose FHR FuHt Pres Dilation -???-???-???-???-??? -???-???-???-???-??? -???-???- Effaced St Visit Note 08/16/24 -???-???-???-???-??? -???-???-???-???-??? -???-???- 11w 2d 104 lb 6 oz 130/80 -???-???-???-???-??? -???-???-???-???-??? -???-???- 185 -???-???-???-???-??? -???-???-???-???-??? -???-???- JV- CRL cons istent with LMP. Desires nipt. 09/09/24 -???-???-???-???-??? -???-???-???-???-??? -???-???- 14w 5d 106 lb 4 oz 127/84 Negative -???-???-???-???-??? -???-???-???-???-??? -???-???- Negative 150 -???-???-???-???-??? -???-???-???-???-??? -???-???- KW- no vb/cr amping. US scheduled. feeling better. AFP discussed and declines at this time. stretching and chiropractor for hip pain. ACOG First Trimester First Trimester: Discussed ROS Const Reports system reviewed and no additional complaints, except as documented Eyes Reports system reviewed and no additional complaints, except as documented ENT Reports system reviewed and no additional complaints, except as documented Card Reports system reviewed and no ad (more content not included)... Normal [facility] PAP IG HPV APTIMA 16/18,45on 08-19-2024 ADEQ Comment Normal . [facility] Comment on above: Order Comment: Speci men Comment: [id number] Specimen Comment: Source.............Cervix Specimen Comment: LMP / Prev Treat...[id number] Specimen Comment: Other.............. Specimen Comment: No. of containers..01 ThinPrep Vial Result Comment: Sati sfactory for evaluation. Endocervical and/or squamous metaplastic cells (endocervical component) are present. Performed By: #### L 7400.0280 #### [facility] [address] [place], [place], [id number] COMM . Normal . [facility] Comment on above: Order Comment: Speci men Comment: [id number] Specimen Comment: Source.............Cervix Specimen Comment: LMP / Prev Treat...[id number] Specimen Comment: Other.............. Specimen Comment: No. of containers..01 ThinPrep Vial Performed By: #### L 7400.0280 #### [facility] [address] [place], [address] COMMENT Comment Normal . [facility] Comment on above: Order Comment: Speci men Comment: [id number] Specimen Comment: Source.............Cervix Specimen Comment: LMP / Prev Treat...[id number] Specimen Comment: Other.............. Specimen Comment: No. of containers..01 ThinPrep Vial Result Comment: This liquid based ThinPrep(R) pap test was screened with the use of an image guided system. Performed By: #### L 7400.0280 #### [facility] [address] [place], [place], [id number] DIAG Comment Normal . [facility] Comment on above: Order Comment: Speci men Comment: [id number] Specimen Comment: Source.............Cervix Specimen Comment: LMP / Prev Treat...[id number] Specimen Comment: Other.............. Specimen Comment: No. of containers..01 ThinPrep Vial Result Comment: NEGA TIVE FOR INTRAEPITHELIAL LESION OR MALIGNANCY. Performed By: #### L 7400.0280 #### [facility] [address] [place], [place], [address] HPV APTIMA, HR Negative Normal Negative [facility] Comment on above: Order Comment: Speci men Comment: [id number] Specimen Comment: Source.............Cervix Specimen Comment: LMP / Prev Treat...[id number] Specimen Comment: Other.............. Specimen Comment: No. of containers..01 ThinPrep Vial Result Comment: This nucleic acid amplification test detects fourteen high- risk HPV types (16,18,31,33,35,39,45,51,52,56,58,59,66,68) without differentiation. Performed By: #### L 7400.0280 #### [facility] [address] [place], [place], [id number] HPV Elina Rfx Comment Normal . [facility] Comment on above: Order Comment: Speci men Comment: [id number] Specimen Comment: Source.............Cervix Specimen Comment: LMP / Prev Treat...[id number] Specimen Comment: Other.............. Specimen Comment: No. of containers..01 ThinPrep Vial Result Comment: Crit eria not met, HPV Genotype not performed. Performed at: [address] [id number] High School Math Tutor: Shabnam Mcnair MD, Phone: [phone] Performed at: =[address] [id number] High School Math Tutor: Shabnam Mcnair MD, Phone: [phone] Performed By: #### L 7400.0280 #### [facility] [address] [place], [place], [address] PAPSMR Comment Normal . [facility] Comment on above: Order Comment: Speci men Comment: [id number] Specimen Comment: Source.............Cervix Specimen Comment: LMP / Prev Treat...[id number] Specimen Comment: Other.............. Specimen Comment: No. of containers..01 ThinPrep Vial Result Comment: The Pap smear is a screening test designed to aid in the detection of premalignant and malignant conditions of the uterine cervix. It is not a diagnostic procedure and should not be used as the sole means of detecting cervical cancer. Both false-positive and false-negative reports do occur. Performed By: #### L 7400.0280 #### [facility] [address] [place], [place], [address] PERFORM Comment Normal . [facility] Comment on above: Order Comment: Speci men Comment: [id number] Specimen Comment: Source.............Cervix Specimen Comment: LMP / Prev Treat...[id number] Specimen Comment: Other.............. Specimen Comment: No. of containers..01 ThinPrep Vial Result Comment: Karolina Griffith Senior Biostatistician/Group Leader (ASCP) Performed By: #### L 7400.0280 #### [facility] [address] [place], [place], [address] Urine Cultureon 08-19-2024 URC Mixed Gram Positive Organisms Gary Count 11,000-25,000 MIXC Mixed contaminants. Submit a new specimen if indicated. Normal [facility] Comment on above: Performed By: #### M 100.2200, L7000.1800 #### [facility] [address] [place], [place], [address] Chlamydia/GC LUCAS aptimaon CHLAMY,NUC ACID Negative Normal Negative [facility] Comment on above: Performed By: #### M 100.2200, L7000.1800 #### [facility] [address] [place], [place], [id number] GC BY NUC ACID Negative Normal Negative [facility] Comment on above: Result Comment: Perf ormed at: =G - [facility] [address] [id number] High School Math Tutor: Shabnam Mcnair MD, Phone: [phone] Performed By: #### M 100.2200, L7000.1800 #### [facility] [address] [place], [place], [phone] Absolute lymphocyte countOrd ered By: Maylin Lima on 08-16-2024 Lymphocytes Auto (Unsp spec) [#/Vol] 2.32 10*3/uL 0.83-4.51 [facility] Absolute neutrophil countOrd ered By: Maylin Lima on 08-16-2024 Neutrophils (Bld) [#/Vol] 10.4 10*3/uL High 2.0-7.7 [facility] Automated lymphocyte count a s percentage of total leukocytesOrdered By: Maylin Lima on 08-16-2024 Lymphocytes/100 WBC Auto (Unsp spec) 17.1 % Low 19-41 [facility] Basophil percentageOrdered B y: Maylin Lima on 08-16-2024 Basophils/100 WBC (Bld) 0.5 % 0-1 [facility] CBC W/Diff, Automatedon 07-28 Absolute Lymph 2.32 X10 3/uL Normal 0.83-4.51 [facility] Comment on above: Performed By: #### L 3890.6005, L509.8000, L100.0100, L509.4005, BTS, L3890.6300, L900.0098, L3890.6100 ####[facility] [address] [place], [address] Absolute Neut 10.4 X10 3/uL High 2.0-7.7 [facility] Comment on above: Performed By: #### L 3890.6005, L509.8000, L100.0100, L509.4005, BTS, L3890.6300, L900.0098, L3890.6100 ####[facility] [address] [place], [address] Basophils/100 WBC (Bld) 0.5 % Normal 0-1 [facility] Comment on above: Performed By: #### L 3890.6005, L509.8000, L100.0100, L509.4005, BTS, L3890.6300, L900.0098, L3890.6100 ####[facility] [address] [place], [address] Eosinophils/100 WBC (Bld) 0.2 % Normal 0-5 [facility] Comment on above: Performed By: #### L 3890.6005, L509.8000, L100.0100, L509.4005, BTS, L3890.6300, L900.0098, L3890.6100 ####[facility] [address] [place], [address] Erythrocyte distribution width (RBC) [Ratio] 12.8 % Normal 11.6-14.6 [facility] Comment on above: Performed By: #### L 3890.6005, L509.8000, L100.0100, L509.4005, BTS, L3890.6300, L900.0098, L3890.6100 ####[facility] [address] [place], [address] Hematocrit (Bld) [Volume fraction] 40.3 % Normal 37-47 [facility] Comment on above: Performed By: #### L 3890.6005, L509.8000, L100.0100, L509.4005, BTS, L3890.6300, L900.0098, L3890.6100 ####[facility] [address] [place], [address] Hemoglobin (Bld) [Mass/Vol] 14.1 g/dL Normal 12.0-15.0 [facility] Comment on above: Performed By: #### L 3890.6005, L509.8000, L100.0100, L509.4005, BTS, L3890.6300, L900.0098, L3890.6100 ####[facility] [address] [place], [address] IG% 0.400 Normal 0.0-0.9 [facility] Comment on above: Result Comment: IG% - Immature Granulocytes (promyelocytes, myelocytes and metamyelocytes) > 1% indicates that a LEFT SHIFT is Present. Performed By: #### L 3890.6005, L509.8000, L100.0100, L509.4005, BTS, L3890.6300, L900.0098, L3890.6100 ####[facility] [address] [place], [address] Lymphocytes/100 WBC (Bld) 17.1 % Low 19-41 [facility] Comment on above: Performed By: #### L 3890.6005, L509.8000, L100.0100, L509.4005, BTS, L3890.6300, L900.0098, L3890.6100 ####[facility] [address] [place], [address] MCH (RBC) [Entitic mass] 30.7 pg Normal 27.0-32.0 [facility] Comment on above: Performed By: #### L 3890.6005, L509.8000, L100.0100, L509.4005, BTS, L3890.6300, L900.0098, L3890.6100 ####[facility] [address] [place], [address] MCHC (RBC) [Mass/Vol] 35.0 g/dL Normal 32-36 [facility] Comment on above: Performed By: #### L 3890.6005, L509.8000, L100.0100, L509.4005, BTS, L3890.6300, L900.0098, L3890.6100 ####[facility] [address] [place], [address] MCV (RBC) [Entitic vol] 87.6 fL Normal 81-99 [facility] Comment on above: Performed By: #### L 3890.6005, L509.8000, L100.0100, L509.4005, BTS, L3890.6300, L900.0098, L3890.6100 ####[facility] [address] [place], [address] Monocytes/100 WBC (Bld) 5.0 % Normal 0-10 [facility] Comment on above: Performed By: #### L 3890.6005, L509.8000, L100.0100, L509.4005, BTS, L3890.6300, L900.0098, L3890.6100 ####[facility] [address] [place], [address] Neutrophils/100 WBC (Bld) 76.8 % High 47-70 [facility] Comment on above: Performed By: #### L 3890.6005, L509.8000, L100.0100, L509.4005, BTS, L3890.6300, L900.0098, L3890.6100 ####[facility] [address] [place], [address] Nucleated RBC (Bld) [#/Vol] 0 10*3/uL Normal 0-5 [facility] Comment on above: Performed By: #### L 3890.6005, L509.8000, L100.0100, L509.4005, BTS, L3890.6300, L900.0098, L3890.6100 ####[facility] [address] [place], [address] Platelet mean volume (Bld) [Entitic vol] 11.5 fL Normal 6.2-12.0 [facility] Comment on above: Performed By: #### L 3890.6005, L509.8000, L100.0100, L509.4005, BTS, L3890.6300, L900.0098, L3890.6100 ####[facility] [address] [place], [address] Platelets (Bld) [#/Vol] 282 10*3/uL Normal 150-450 [facility] Comment on above: Performed By: #### L 3890.6005, L509.8000, L100.0100, L509.4005, BTS, L3890.6300, L900.0098, L3890.6100 ####[facility] [address] [place], [address] RBC (Bld) [#/Vol] 4.60 10*6/uL Normal 4.2-5.4 [facility] Comment on above: Performed By: #### L 3890.6005, L509.8000, L100.0100, L509.4005, BTS, L3890.6300, L900.0098, L3890.6100 ####[facility] [address] [place], [address] RDW SD 40.5 fl Normal 35.1-43.9 [facility] Comment on above: Performed By: #### L 3890.6005, L509.8000, L100.0100, L509.4005, BTS, L3890.6300, L900.0098, L3890.6100 ####[facility] [address] [place], [address] WBC (Bld) [#/Vol] 13.5 10*3/uL High 4.4-11.0 [facility] Comment on above: Performed By: #### L 3890.6005, L509.8000, L100.0100, L509.4005, BTS, L3890.6300, L900.0098, L3890.6100 ####[facility] [address] [place], [place], [id number] Cervical or vaginal specimen microscopic examination by liquid based cytology (reportOrdered By: Malena Means on 08-16-2024 Cytology report Cyto stain.thin prep Doc (Cvx/Vag) Comment . [facility] Comment on above: Criteria not met, HP V Genotype not performed.Performed at: [facility] [address] [id number] Director: Shabnam Mcnair MD, Phone: [phone] at: =[facility] [id number] Director: Shabnam Mcnair MD, Phone: [phone] Cervical or vagninal specime n microscopic examination by cytology stain (reported asOrdered By: Malena Means on 08-16-2024 Cytology report Cyto stain Doc (Cvx/Vag) Comment . [facility] Comment on above: The Pap smear is a s creening test designed to aid in thedetection of premalignant and malignant conditions of theuterine cervix. It is not a diagnostic procedure andshould not be used as the sole means of detecting cervicalcancer. Both false-positive and false-negative reports dooccur. Chlamydia trachomatis rRNA d etection by probe and target amplification methodOrdered By: Maylin Lima on 08-16-2024 C. trachomatis rRNA LUCAS+probe Ql (Unsp spec) Negative Negative [facility] Detection in cervical specim en of any of human papilloma virus (HPV) 16, 18, 31, 33,Ordered By: Malena Means on 08-16-2024 HPV 16+18+31+33+35+39+45+51 +52+56+58+59+66+68 DNA Probe+sig amp Ql (Cvx) Negative Negative [facility] Comment on above: This nucleic acid am plification test detects fourteen high-risk HPV types (16,18,31,33,35,39,45,51,52,56,58,59,66,68)without differentiation. Eosinophil percentageOrdered By: Maylin Lima on 08-16-2024 Eosinophils/100 WBC (Bld) 0.2 % 0-5 [facility] Erythrocyte distribution wid th ratioOrdered By: Maylin Lima on 08-16-2024 Erythrocyte distribution width (RBC) [Ratio] 12.8 % 11.6-14.6 [facility] Erythrocyte distribution wid th standard deviationOrdered By: Maylin Lima on 08-16-2024 Erythrocyte distribution width (RBC) [Ratio] 40.5 fl 35.1-43.9 [facility] HIV - WCHon 08-16-2024 HIV Non-Reactive Normal Nonreactive [facility] Comment on above: Order Comment: Reaso n for Exam: Performed By: #### L 3890.6005, L509.8000, L100.0100, L509.4005, BTS, L3890.6300, L900.0098, L3890.6100 ####[facility] [address] [place], [place], [id number] HIV 1 and HIV-2 antibody ass ay with HIV-1 p24 antigen detectionOrdered By: Maylin Lima on 08-16-2024 HIV 1+2 Ab+HIV1 p24 Ag IA Ql Non-Reactive Nonreactive [facility] Hematocrit Auto (Bld) [Volum e fraction]Ordered By: Maylin Lima on 08-16-2024 Hematocrit (Bld) [Volume fraction] 40.3 % 37-47 [facility] Hemoglobin measurementOrdere d By: Maylin Lima on 08-16-2024 Hemoglobin (Bld) [Mass/Vol] 14.1 g/dL 12.0-15.0 [facility] Hepatitis B Surface Antigeno n 08-16-2024 HEP B Surf Ag Non-Reactive Normal Nonreactive [facility] Comment on above: Order Comment: Reaso n for Exam: Performed By: #### L 3890.6005, L509.8000, L100.0100, L509.4005, BTS, L3890.6300, L900.0098, L3890.6100 ####[facility] [address] [place], [place], [phone]) Hepatitis C Antibodyon 08-16 Hepatitis C AB Non-Reactive Normal Nonreactive [facility] Comment on above: Order Comment: Reaso n for Exam: Result Comment: Non Reactive: < 0.8 Equivocal: >/= 0.8 to < 1.0 Reactive: >/= 1.0 The CDC requires that a reactive/equivocal HCV antibody result be sent out for confirmation. HCV Quant by PCR testing. Performed By: #### L 3890.6005, L509.8000, L100.0100, L509.4005, BTS, L3890.6300, L900.0098, L3890.6100 ####[facility] [address], [address] Immature granulocytes/100 WB C Auto (Bld)Ordered By: Maylin Lima on 08-16-2024 Immature granulocytes/100 WBC (Bld) 0.400 % 0.0-0.9 [facility] Comment on above: IG% - Immature Granu locytes (promyelocytes, myelocytes and metamyelocytes) > 1% indicates that a LEFT SHIFT is Present. L509.8000on 08-16-2024 Syphilis Abs Non-Reactive Normal [facility] Comment on above: Order Comment: Reaso n for Exam: Performed By: #### L 3890.6005, L509.8000, L100.0100, L509.4005, BTS, L3890.6300, L900.0098, L3890.6100 ####[facility] [address] [place], [place], [id number] Laboratory - CytologyOrdered By: Malena Means on 08-16-2024 Station Installer And Repairer Cyto stain Nom (Cvx/Vag) [ID] Comment . [facility] Comment on above: Karolina Kerdieh, Cytote chnologist (ASCP) Laboratory - Miscellaneous t estsOrdered By: Malena Means on 08-16-2024 Service comment (Unsp spec) [Interp] . . [facility] MCV (mean corpuscular volume ) determinationOrdered By: Maylin Lima on 08-16-2024 MCV (RBC) [Entitic vol] 87.6 fL 81-99 [facility] Mean corpuscular hemoglobin (MCH) determinationOrdered By: Maylin Lima on 08-16-2024 MCH (RBC) [Entitic mass] 30.7 pg 27.0-32.0 [facility] Mean corpuscular hemoglobin concentration (MCHC) determinationOrdered By: Maylin Lima on 08-16-2024 MCHC (RBC) [Mass/Vol] 35.0 g/dL 32-36 [facility] Mean platelet volume determi nationOrdered By: Maylin Lima on 08-16-2024 Platelet mean volume (Bld) [Entitic vol] 11.5 fL 6.2-12.0 [facility] Monocyte percentageOrdered B y: Maylin Lima on 08-16-2024 Monocytes/100 WBC (Bld) 5.0 % 0-10 [facility] NATERAon 08-16-2024 NATURA SEE SCANNED REPORT Normal [facility] Comment on above: Order Comment: Comme nts: elects NIPT Carrier Performed By: #### L 3890.6005, L509.8000, L100.0100, L509.4005, BTS, L3890.6300, L900.0098, L3890.6100 ####[facility] [address] [place], [place], [id number] Neisseria gonorrhoeae nuclei c acid detection by amplified probe techniqueOrdered By: Maylin Lima on 08-16-2024 N. gonorrhoeae DNA LUCAS+probe Ql (Unsp spec) Negative Negative [facility] Comment on above: Performed at: =[facility] [address] [id number] Director: Shabnam Mcnair MD, Phone: [phone] Neutrophil percentageOrdered By: Maylin Lima on 08-16-2024 Neutrophils/100 WBC (Bld) 76.8 % High 47-70 [facility] No Panel InformationOrdered By: Malena Means on 08-16-2024 Pap Smear Specimen Adequacy Comment . [facility] Comment on above: Satisfactory for tammy luation. Endocervical and/or squamous metaplasticcells (endocervical component) are present. Nucleated red blood cell per centageOrdered By: Maylin Lima on 08-16-2024 Nucleated RBC/100 WBC (Bld) [Ratio] 0 % 0-5 [facility] Building Drafting Officer Office Visit Reporton 08-16-2024 Building Drafting Officer Office Visit Report [facility] [address], [address] [place] [address] OFFICE VISIT Date of Service: 08/16/24 MR#: [id number] Acct: [id number] Name: JESUS ASHER KEIRA Rep #: [id number] : 1995 Provider: Dr. Malena Galdamez DO Age/Sex: 28/F Location: [facility] Status: Signed Intake Vital Signs 03/14/24 09:59 08/16/24 10:17 08/16/24 10:17 Height 5 ft 3 in 5 ft 3 in 5 ft 3 in Weight: 104 lb 6 oz BMI 18.4 BP 130/80 H Intake Visit Reasons: NOB LMP 11 Software Sales Required: No Is patient in pain?: No Allergies No Known Allergies Allergy (Verified 08/16/24 10:17) Medications ???Medication ???Instructions ???Recorded ???Confirmed ???Type multivitamin no.47-iron fum 27 cap PO 07/29/24 08/16/24 History mg-folate no.1 1 mg-dha 300 mg capsule (PNV-DHA) Last Menstrual Period: 05/29/24 Zika: Zika virus screening: Negative : No PFSH PFSH Medical History Complete Dysmenorrhea Surgical History H/O wisdom tooth extraction Family History Grandmother Breast cancer Social History adopted: No household members: spouse service: No current occupational status: employed 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 occupational exposures/hazards: No pets and animals: Yes pets and animals: dog(s) history of recent travel: Yes ([place]) out of state: Yes out of country: No sexually active: Yes Smoking Status: Never smoker alcohol intake: current details: social- not while substance use type: does not use well-balanced diet: daily or most days caffeine: Yes Type: coffee Number of servings: 1 eating out: 1-3 times/week during the past year weight has: remained stable what type of physical activity do you participate in: walking and yoga frequency: 1-2 times per week duration: 30-45 minutes/day nic/pentecostal: Orthodoxy seatbelt use: always do you feel safe at home: Yes additional social history: [place]- data analyzation Patient works at [employer] History 2 Elective abortions Hx Para 0 Spontaneous abortions 1 Hx # Term Pregnancies Ectopic pregnancies Hx # Pregnancies Multiple births # of living children 0 Past Pregnancies Del. Date Name GA/Weeks Outcome Route Bth Weight Infant Gen [facility]18[facility]24 6 spontaneous HPI NOB LMP 11/3 Details: JESUS ASHER is a 28 year old who presents for New OB visit. OB Visit JONATHAN Calculator Estimated Delivery Date Method Current WG Current Estimate 03/05/25 LMP (Certain) 11w 2d Other Estimates 03/11/25 Ultrasound #1 10w 3d Comments: HIV: Urine Culture: Sequential Screen: NIPT Screen: Estimated Due Date: 03/05/25 Expected Delivery Route/Plan Labor Preferences- CB/BF classes: [] labor support person: [] labor intervention preferences: [] pain management options preferred: [] cut cord/dad catch: [] : [] PP control planned: [] discussed possible routes of delivery and associated risks: [] special requests: [] Specific Issue/Plans Covid status: [] Flu vaccine: [] Tdap vaccine: [] Rhogam: [] LARC form signed: [] Problem list reviewed and updated with the most current plan of care details and appropriate orders placed. Relevant counseling for the gestational age provided. Continue routine care and follow up unless otherwise noted in visit notes/problem list details Initial Weight: Not Recorded Date -???-???-???-???-??? -???-???-???-???-??? -???-???- EGA Weight BP Urine Prot -???-???-???-???-??? -???-???-???-???-??? -???-???- Glucose FHR FuHt Pres Dilation -???-???-???-???-??? -???-???-???-???-??? -???-???- Effaced St Visit Note 08/16/24 -???-???-???-???-??? -???-???-???-???-??? -???-???- 11w 2d 104 lb 6 oz 130/80 -???-???-???-???-??? -???-???-???-???-??? -???-???- 185 -???-???-???-???-??? -???-???-???-???-??? -???-???- JV- CRL cons istent with LMP. Desires nipt. Menstrual History Last Menstrual Period: 05/29/24 Reported LMP: definite Normal amount/duration: Yes Frequency in days: irregular [id number] On hormonal BC at conception: No hCG+: 06/30/24 Antepartum Record Genetic Screening: Congenital Heart Defect: Other, Neural Tube Defect: Other, Hemoglobinopathy Or Carrier: Partner (brother platelet disorder ), Cystic Fibrosis: Other, Chromosome Abnormality: Other, Alvaro-Sachs: Other, Hemophilia: Other, Intellectual Disability/Autism: Other, Recurrent Loss (more content not included)... Normal [facility] Platelet countOrdered By: Lebron Lima on 08-16-2024 Platelets (Bld) [#/Vol] 282 10*3/uL 150-450 [facility] RBC Auto (Bld) [#/Vol]Ordere d By: Maylin Lima on 08-16-2024 RBC (Bld) [#/Vol] 4.60 10*6/uL 4.2-5.4 [facility] Rubella IgGon 08-16-2024 Rubella IgG Reactive Normal Nonreactive [facility] Comment on above: Order Comment: Reaso n for Exam: Result Comment: Anti body Results Interpretation of Immune Status Non Reactive Presumed Non-Immune Equivocal Equivocal Reactive Presumed Immune Performed By: #### L 3890.6005, L509.8000, L100.0100, L509.4005, BTS, L3890.6300, L900.0098, L3890.6100 ####[facility] [id number] [place], [address] Serum Treponema species anti body detectionOrdered By: Maylin Lima on 08-16-2024 Treponema sp Ab Ql (S) Non-Reactive [facility] Type AND Screenon 08-16-2024 ABO and Rh group Nom (Bld) Blood group B Rh(D) positive Normal [facility] Comment on above: Order Comment: PN Performed By: #### L 3890.6005, L509.8000, L100.0100, L509.4005, BTS, L3890.6300, L900.0098, L3890.6100 ####[facility] [id number] [place], [address] Urine cultureOrdered By: Lee Lima on 08-16-2024 Bacteria identified Cx Nom (U) Positive Abnormal [facility] White blood cell (WBC) count Ordered By: Maylin Lima on 08-16-2024 WBC (Bld) [#/Vol] 13.5 10*3/uL High 4.4-11.0 [facility] Building Drafting Officer Office Visit Reporton 03-14-2024 Building Drafting Officer Office Visit Report [facility] [address], [address] [place] [address] OFFICE VISIT Date of Service: 03/14/24 MR#: [id number] Acct: [id number] Name: JESUS ASHER Rep #: [id number] : 1995 Provider: Dr. Malena Galdamez DO Age/Sex: 28/F Location: [facility] Status: Signed Intake Vital Signs 02/08/24 17:45 03/14/24 09:57 03/14/24 09:59 Height 5 ft 3 in 5 ft 3 in 5 ft 3 in Weight: 102 lb 4 oz BMI 18.1 BP 125/86 H Intake Visit Reasons: Miscarriage F/U Software Sales Required: No Is patient in pain?: No Allergies No Known Allergies Allergy (Verified 03/14/24 09:57) Post menopausal: No Patient : No : No PFSH Medical History Dysmenorrhea Surgical History H/O wisdom tooth extraction Family History Grandmother Breast cancer Social History Smoking Status: Never smoker alcohol intake: current details: social substance use type: does not use caffeine: Yes what type of physical activity do you participate in: walking and yoga frequency: 1-2 times per week seatbelt use: always do you feel safe at home: Yes additional social history: [place]- data analyzation Patient works at [employer] HPI Miscarriage F/U Details: JESUS ASHER is a 28 year old who presents for follow up early miscarriage. she was on ocps for many years, stopped in September and was having regular periods x 4 months. Her LMP was January 01. She got a pos test on February 06 and then bled on February 17. Her last quant we did was <1. Her significant other has never fathered children and this was the first time she ever got . History 1 Elective abortions Hx Para 0 Spontaneous abortions 1 Hx # Term Pregnancies Ectopic pregnancies Hx # Pregnancies Multiple births # of living children 0 ROS Const ROS Unobtainable: All systems reviewed are unremarkable except as noted in H Resp Resp: Reports system reviewed and no additional complaints, except as documented; Denies cough GI GI: Reports as per HPI Psych Psych: Reports system reviewed and no additional complaints, except as documented Exam Const General: cooperative, healthy appearing, comfortable and no acute distress Resp Effort Inspection: normal respiratory effort Skin General: no rashes or lesions noted Psych Appearance: grossly normal Speech and Movement: speech and movement normal Coding Level of Care Code Off vis,est,level 3 Diagnoses Complete O03.9 Assessment and Plan Assessment and Plan (1) Complete : Status: Acute Plan: plan to start pnv. pt to track cycles and call when gets a positive test to order quant levels. rx for vulvodynia cream sent to pharmacy. 03/14/24 1029 Date [facility] Signature: Date (if applicable) CC: Normal [facility] hCG Titer Quant., Serumon HCG QUANT. < 1 Normal 1-3 [facility] Comment on above: Result Comment: hCG levels with Gestational Age Gestational Age hCG mIU/mL (IU/L) 0.2 - 1 week 5 - 50 1-2 weeks 50 - 500 2-3 weeks 100 - 5000 3-4 weeks 500 - 74184 4-5 weeks 1000 - 30412 5-6 weeks 20451 - 100,000 6-8 weeks 72495 - 200,000 2-3 months 09736 - 100,000 Performed By: #### L 700.8000 #### [facility] [place], [address] .Auto Diffon 03-29-2022 Basophil, Absolute 0.1 10 3/mcL Normal 0.0-0.2 [facility] ([place]) Comment on above: Performed By: #### G FR, CMP, TSH, LIPID #### [address] [address] Basophils/100 WBC (Bld) 1.0 % Normal 0.0-2.5 A [facility] ([place]) Comment on above: Performed By: #### G FR, CMP, TSH, LIPID #### [address] [address] Eosinophil, Absolute 0.1 10 3/mcL Normal 0.0-0.4 [facility] ([place]) Comment on above: Performed By: #### G FR, CMP, TSH, LIPID #### [address] [address] Eosinophils/100 WBC (Bld) 1.0 % Normal 0.0-7.0 [facility] ([place] Comment on above: Performed By: #### G FR, CMP, TSH, LIPID #### [address] [address] Lymphocyte, Absolute 2.8 10 3/mcL Normal 0.8-3.9 [facility] ([place]) Comment on above: Performed By: #### G FR, CMP, TSH, LIPID #### [address] [address] Lymphocytes/100 WBC (Bld) 32.1 % Normal 10.0-50.0 [facility] ([place] Comment on above: Performed By: #### G FR, CMP, TSH, LIPID #### [address] [address] Monocyte, Absolute 0.5 10 3/mcL Normal 0.2-1.0 [facility] ([place]) Comment on above: Performed By: #### G FR, CMP, TSH, LIPID #### [address] [address] Monocytes/100 WBC (Bld) 5.7 % Normal 1.7-13.0 A [facility] ([place]) Comment on above: Performed By: #### G FR, CMP, TSH, LIPID #### [address] [address] Neutrophils/100 WBC (Bld) 60.2 % Normal 37.0-80.0 [facility] ([place] Comment on above: Performed By: #### G FR, CMP, TSH, LIPID #### [address] [address] .GFRon 03-29-2022 GFR 99 ml/min/1.73sqm Normal [facility] ([place] Comment on above: Result Comment: GFR Population mean for , Non- Americans Ages 20-29 = 116 mL/min/1.73 sq.m. Ages 30-39 = 107 mL/min/1.73 sq.m. Ages 40-49 = 99 mL/min/1.73 sq.m. Ages 50-59 = 93 mL/min/1.73 sq.m. Ages 60-69 = 85 mL/min/1.73 sq.m. Ages 70+ = 75 mL/min/1.73 sq.m. Chronic Kidney Disease: Less than 60 mL/min/1.73 square meters End Stage Renal Disease: Less than 15 mL/min/1.73 square meters Performed By: #### G FR, CMP, TSH, LIPID #### [address] [address] GFR Non- 82 ml/min/1.73sqm Normal [facility] ([place] Comment on above: Result Comment: GFR Population mean for , Non- Americans Ages 20-29 = 116 mL/min/1.73 sq.m. Ages 30-39 = 107 mL/min/1.73 sq.m. Ages 40-49 = 99 mL/min/1.73 sq.m. Ages 50-59 = 93 mL/min/1.73 sq.m. Ages 60-69 = 85 mL/min/1.73 sq.m. Ages 70+ = 75 mL/min/1.73 sq.m. Chronic Kidney Disease: Less than 60 mL/min/1.73 square meters End Stage Renal Disease: Less than 15 mL/min/1.73 square meters Performed By: #### G FR, CMP, TSH, LIPID #### [place] [address] .NEUABSon 03-29-2022 Neutrophil, Absolute 5.2 10 3/mcL Normal 2.9-6.2 [facility] ([place]) Comment on above: Performed By: #### G FR, CMP, TSH, LIPID #### [place] [address] CBCon 03-29-2022 Erythrocyte distribution width (RBC) [Ratio] 13.2 % Normal 11.5-14.5 [facility] ([place] Comment on above: Performed By: #### G FR, CMP, TSH, LIPID #### [place] [address] Hematocrit (Bld) [Volume fraction] 43.4 % Normal 37.0-47.0 [facility] ([place] Comment on above: Performed By: #### G FR, CMP, TSH, LIPID #### [place] [address] Hgb 14.9 G/dL Normal 12.0-16.0 [facility] ([place] Comment on above: Performed By: #### G FR, CMP, TSH, LIPID #### [place] [address] MCH (RBC) [Entitic mass] 29.9 pg Normal 27.0-31.2 [facility] ([place] Comment on above: Performed By: #### G FR, CMP, TSH, LIPID #### [place] [address] MCHC 34.3 G/dL Normal 33.0-37.0 [facility] ([place] Comment on above: Performed By: #### G FR, CMP, TSH, LIPID #### [place] [address] MCV (RBC) [Entitic vol] 87.4 fL Normal 80.0-94.0 A [facility] ([place] Comment on above: Performed By: #### G FR, CMP, TSH, LIPID #### [address] [address] Platelet 267 10 3/mcL Normal 130-400 [facility] ([place] Comment on above: Performed By: #### G FR, CMP, TSH, LIPID #### [address] [address] Platelet mean volume (Bld) [Entitic vol] 9.6 fL Normal 7.4-10.4 [facility] ([place] Comment on above: Performed By: #### G FR, CMP, TSH, LIPID #### [address] [address] RBC 4.97 10 6/mcL Normal 4.20-5.40 [facility] ([place] Comment on above: Performed By: #### G FR, CMP, TSH, LIPID #### [address] [address] WBC 8.7 10 3/mcL Normal 4.6-10.8 [facility] ([place] Comment on above: Performed By: #### G FR, CMP, TSH, LIPID #### [address] [address] CMPon 03-29-2022 Albumin Level 4.0 G/dL Normal 3.5-5.0 [facility] ([place] Comment on above: Performed By: #### G FR, CMP, TSH, LIPID #### [address] [address] Albumin/Globulin [Mass ratio] 1.1 {ratio} Normal 1.1-2.5 [facility] ([place] Comment on above: Performed By: #### G FR, CMP, TSH, LIPID #### [address] [address] ALP [Catalytic activity/Vol] 60 U/L Normal 40-135 [facility] ([place] Comment on above: Performed By: #### G FR, CMP, TSH, LIPID #### [address] [address] ALT [Catalytic activity/Vol] 19 U/L Normal 14-59 [facility] ([place] Comment on above: Performed By: #### G FR, CMP, TSH, LIPID #### [address] [address] AST [Catalytic activity/Vol] 18 U/L Normal 10-40 [facility] ([place] Comment on above: Performed By: #### G FR, CMP, TSH, LIPID #### [address] [address] Bili Total 1.2 mg/dL High 0.2-1.0 [facility] ([place] Comment on above: Result Comment: Use of this assay is not recommended for patients undergoing treatment with eltrombopag due to the potential for falsely elevated results. Performed By: #### G FR, CMP, TSH, LIPID #### [address] [address] BUN/Creatinine Ratio 13 ratio Normal 7-27 [facility] ([place]) Comment on above: Performed By: #### G FR, CMP, TSH, LIPID #### [address] [address] Calcium [Mass/Vol] 9.5 mg/dL Normal 8.4-10.2 [facility] ([place]) Comment on above: Performed By: #### G FR, CMP, TSH, LIPID #### [address] [address] Chloride [Moles/Vol] 104 mmol/L Normal 98-107 [facility] ([place]) Comment on above: Performed By: #### G FR, CMP, TSH, LIPID #### [address] [address] CO2 [Moles/Vol] 28 mmol/L Normal 22-29 [facility] ([place] Comment on above: Performed By: #### G FR, CMP, TSH, LIPID #### [address] [address] Creatinine [Mass/Vol] 0.83 mg/dL Normal 0.55-1.02 [facility] ([place]) Comment on above: Performed By: #### G FR, CMP, TSH, LIPID #### [address] [address] Electrolyte Balance 7.0 mEq/L Normal 4.0-15.0 [facility] Comment on above: Performed By: #### G FR, CMP, TSH, LIPID #### [address] [address] Globulin 3.8 G/dL Normal [facility] ([place] Comment on above: Performed By: #### G FR, CMP, TSH, LIPID #### [address] [address] Glucose [Mass/Vol] 81 mg/dL Normal 70-105 [facility] ([place] Comment on above: Performed By: #### G FR, CMP, TSH, LIPID #### [address] [address] Potassium [Moles/Vol] 5.3 mmol/L High 3.5-5.1 [facility] ([place]) Comment on above: Performed By: #### G FR, CMP, TSH, LIPID #### [address] [address] Sodium [Moles/Vol] 139 mmol/L Normal 136-145 [facility] ([place] Comment on above: Performed By: #### G FR, CMP, TSH, LIPID #### [address] [address] Total Protein 7.8 G/dL Normal 6.4-8.2 [facility] ([place] Comment on above: Performed By: #### G FR, CMP, TSH, LIPID #### [address] [address] Urea nitrogen [Mass/Vol] 11 mg/dL Normal 7-18 [facility] ([place] Comment on above: Performed By: #### G FR, CMP, TSH, LIPID #### [address] [address] LABORATORYOrdered By: Cherise Faith on 03-29-2022 Albumin BCP dye [Mass/Vol] 4.0 G/dL Invalid Interpretation Code 3.5 - 5.0 G/dL AO ADM SS Albumin/Globulin [Mass ratio] 1.1 {ratio} Invalid Interpretation Code 1.1 - 2.5 ratio AO ADM SS ALP [Catalytic activity/Vol] 60 U/L Invalid Interpretation Code 40 - 135 U/L AO ADM SS ALT With P-5'-P [Catalytic activity/Vol] 19 U/L Invalid Interpretation Code 14 - 59 U/L AO ADM SS AST With P-5'-P [Catalytic activity/Vol] 18 U/L Invalid Interpretation Code 10 - 40 U/L AO ADM SS Basophil, Absolute 0.1 103/mcL Invalid Interpretation Code 0.0 - 0.2 10^3/mcL AO Workflow SS Basophils/100 WBC (Bld) 1.0 % Invalid Interpretation Code 0.0 - 2.5 % AO Workflow SS Bilirubin [Mass/Vol] 1.2 mg/dL Invalid Interpretation Code 0.2 - 1.0 mg/dL AO ADM SS Calcium [Mass/Vol] 9.5 mg/dL Invalid Interpretation Code 8.4 - 10.2 mg/dL AO ADM SS Chloride [Moles/Vol] 104 mmol/L Invalid Interpretation Code 98 - 107 mmol/L AO ADM SS Cholesterol [Mass/Vol] 192 mg/dL Invalid Interpretation Code 0 - 200 mg/dL AO ADM SS Cholesterol in HDL [Mass/Vol] 57 mg/dL Invalid Interpretation Code 40 - 60 mg/dL AO ADM SS Cholesterol in LDL [Mass/Vol] 115 mg/dL Invalid Interpretation Code 0 - 130 mg/dL AO ADM SS CO2 [Moles/Vol] 28 mmol/L Invalid Interpretation Code 22 - 29 mmol/L AO ADM SS Creatinine [Mass/Vol] 0.83 mg/dL Invalid Interpretation Code 0.55 - 1.02 mg/dL AO ADM SS Electrolyte Balance 7.0 mEq/L Invalid Interpretation Code 4.0 - 15.0 mEq/L AO ADM SS Eosinophil, Absolute 0.1 103/mcL Invalid Interpretation Code 0.0 - 0.4 10^3/mcL AO Workflow SS Eosinophils/100 WBC (Bld) 1.0 % Invalid Interpretation Code 0.0 - 7.0 % AO Workflow SS Erythrocyte distribution width (RBC) [Ratio] 13.2 % Invalid Interpretation Code 11.5 - 14.5 % AO Workflow SS Globulin 3.8 G/dL Invalid Interpretation Code AO ADM SS Glucose [Mass/Vol] 81 mg/dL Invalid Interpretation Code 70 - 105 mg/dL AO ADM SS Hematocrit (Bld) [Volume fraction] 43.4 % Invalid Interpretation Code 37.0 - 47.0 % AO Workflow SS Hemoglobin (Bld) [Mass/Vol] 14.9 G/dL Invalid Interpretation Code 12.0 - 16.0 G/dL AO Workflow SS Lymphocyte, Absolute 2.8 103/mcL Invalid Interpretation Code 0.8 - 3.9 10^3/mcL AO Workflow SS Lymphocytes/100 WBC (Bld) 32.1 % Invalid Interpretation Code 10.0 - 50.0 % AO Workflow SS MCH (RBC) [Entitic mass] 29.9 pg Invalid Interpretation Code 27.0 - 31.2 pg AO Workflow SS MCHC 34.3 G/dL Invalid Interpretation Code 33.0 - 37.0 G/dL AO Workflow SS MCV (RBC) [Entitic vol] 87.4 fL Invalid Interpretation Code 80.0 - 94.0 fL AO Workflow SS Monocyte, Absolute 0.5 103/mcL Invalid Interpretation Code 0.2 - 1.0 10^3/mcL AO Workflow SS Monocytes/100 WBC (Bld) 5.7 % Invalid Interpretation Code 1.7 - 13.0 % AO Workflow SS Neutrophil, Absolute 5.2 103/mcL Invalid Interpretation Code 2.9 - 6.2 10^3/mcL AO Workflow SS Neutrophils/100 WBC (Bld) 60.2 % Invalid Interpretation Code 37.0 - 80.0 % AO Workflow SS Platelet mean volume (Bld) [Entitic vol] 9.6 fL Invalid Interpretation Code 7.4 - 10.4 fL AO Workflow SS Platelets (Bld) [#/Vol] 267 103/mcL Invalid Interpretation Code 130 - 400 10^3/mcL AO Workflow SS Potassium [Moles/Vol] 5.3 mmol/L Invalid Interpretation Code 3.5 - 5.1 mmol/L AO ADM SS Protein [Mass/Vol] 7.8 G/dL Invalid Interpretation Code 6.4 - 8.2 G/dL AO ADM SS RBC (Bld) [#/Vol] 4.97 106/mcL Invalid Interpretation Code 4.20 - 5.40 10^6/mcL AO Workflow SS Sodium [Moles/Vol] 139 mmol/L Invalid Interpretation Code 136 - 145 mmol/L AO ADM SS Triglyceride [Mass/Vol] 99 mg/dL Invalid Interpretation Code 0 - 150 mg/dL AO ADM SS TSH Qn 1.45 m[IU]/L Invalid Interpretation Code 0.36 - 3.74 mcIU/mL AO ADM SS Urea nitrogen [Mass/Vol] 11 mg/dL Invalid Interpretation Code 7 - 18 mg/dL AO ADM SS Urea nitrogen/Creatinine [Mass ratio] 13 ratio Invalid Interpretation Code 7 - 27 ratio AO ADM SS WBC (Bld) [#/Vol] 8.7 103/mcL Invalid Interpretation Code 4.6 - 10.8 10^3/mcL AO Workflow SS LABORATORYOrdered By: SYSTEM SYSTEM on 03-29-2022 GFR 99 ml/min/1.73sqm Invalid Interpretation Code AO Chemistry S GFR Non- 82 ml/min/1.73sqm Invalid Interpretation Code AO Chemistry S LIPIDon 03-29-2022 Cholesterol [Mass/Vol] 192 mg/dL Normal 0-200 [facility] ([place]) Comment on above: Result Comment: Chol esterol Reference Interval: Less than 200 Desirable 200-239 Borderline high risk 240 and above High risk Performed By: #### G FR, CMP, TSH, LIPID #### [address] [address] Cholesterol in HDL [Mass/Vol] 57 mg/dL Normal 40-60 [facility] ([place]) Comment on above: Performed By: #### G FR, CMP, TSH, LIPID #### [address] [address] Cholesterol in LDL [Mass/Vol] 115 mg/dL Normal 0-130 [facility] ([place]) Comment on above: Performed By: #### G FR, CMP, TSH, LIPID #### [address] [address] Triglyceride [Mass/Vol] 99 mg/dL Normal 0-150 A [facility] ([place]) Comment on above: Result Comment: Trig lyceride Reference Interval: Less than 150 Normal 150-199 Borderline high risk 200-499 High risk 500 or higher Very high risk Performed By: #### G FR, CMP, TSH, LIPID #### [place] [address] [place], [place] [address] TSHon 03-29-2022 TSH Qn 1.45 m[IU]/L Normal 0.36-3.74 [facility] ([place]) Comment on above: Performed By: #### G FR, CMP, TSH, LIPID #### [facility] [address] [place], [place] [address] Covid 19 Resultson 1 SARS-CoV-2 (COVID-19) RNA LUCAS+probe Ql (Unsp spec) NEGATIVE COVID-19 Test Coronaviruses are common world-wide and are the cause of many common colds. SARS-COV2 is a new coronavirus that began circulating worldwide in 2019 so we are calling it COVID-19. It has been estimated that four out of five patients with COVID-19 will recover at home without the need for medical attention. Symptoms of COVID-19 may include cough, fever, shortness of breath, loss of taste or smell and other flu-like symptoms including chills, sore muscles, sore throat, and headache. Severe illness is more common in older people and people with other health problems such as high blood pressure, obesity, and immune system problems. If the test is positive, you have COVID-19. You will be contacted by the ordering physicians office and instructed to remain on home isolation, in accordance with CDC guidelines. You may also be contacted by the [place] Department [facility] to see if any of your close contacts may have been exposed to the virus and need to quarantine. If the test is negative, you likely do not have COVID-19 at this time, but you still may have a different illness that can spread to other people (like Influenza, or the Flu) and could still be at risk for getting COVID-19. We recommend that you stay away from other people to limit the spread of illness until your symptoms are improving and you are fever-free for 24 hours without the use of fever lowering medications such as acetaminophen or ibuprofen. No test is 100% accurate so if you are still concerned you may have COVID-19, talk to your doctor about the need to continue to stay away from others. Medicines Unless your provider told you not to use the following: Acetaminophen (Tylenol and others) is generally safe. Anti-inflammatory medications, such as Ibuprofen (Advil or Motrin) or Naproxen (Aleve) can also be used. Udze-ygv-ldvwuzp cough and cold medicines can be used according to the instructions on the package. Some xvhp-osw-zlffvzy medicines also contain acetaminophen. Make sure you are not taking more than your recommended dose. For those not hospitalized, there is no specific treatment available for this illness. Antibiotics do not treat Coronaviruses. Follow-Up Follow up with your doctor by scheduling a virtual visit or consider follow-up at one of our urgent care fever clinics. If you are having difficulty breathing, or are very weak and having difficulty standing, this is a medical emergency. Call 911 or have someone take you to the nearest emergency room immediately. If possible, wear a facemask. Additional guidance from the CDC for patients who tested POSITIVE for COVID-19 How to isolate: Isolate yourself in a specific room at home and limit your contact with others. Use a separate bathroom from other members of the household, when possible. Leave home only to get essential medical care. Do not go to work, school or public areas. Avoid using public transportation, ride-sharing, or taxis. Restrict contact with pets and other animals. If you must care for your pet or be around animals while you are sick, wash your hands before and after your interaction and wear a facemask. Make sure that shared spaces in the home have good airflow, such as by an air conditioner or an opened window, weather permitting. Personal Hygiene Procedures: Wear a face mask when in the same room as other people or pets. If a face mask interferes with your breathing, others should wear a mask when sharing space with you. Frequent hand-washing: wash your hands with soap and water for at least 20 seconds. If soap and water are not available, use alcohol-based hand public health professor. Avoid touching your eyes, nose, and mouth with unwashed hands. Household Hygiene Procedures: Avoid sharing personal household items such as dishes, glassware, cups, eating utensils, towels or bedding with other people or pets in your home. After use, these items should be washed with soap and hot water. Disinfect all high-touch surfaces every day with antibacterial cleaning solutions such as Lysol wipes, bleach, cleansers, etc. High-touch surfaces include tabletops, doorknobs, bathroom fixtures, toilets, phones, keyboards, tablets and bedside tables. Immediately clean any surfaces that may have blood, poop or body fluids on them, using antibacterial cleaning solutions such as Lysol wipes, bleach, cleansers, etc. If clothing or bedding come into contact with blood, poop or body fluids, they should be washed immediately. Follow the directions on the laundry detergent and clothing labels but hot water is recommended when possible. Stopping home isolation precautions: If possible, consult your doctor before stopping home isolation precautions. According to the CDC, you can discontinue home isolation precautions when you have met both of these criteria: Your fever and respiratory symptoms have been gone for 24 nahid (more content not included)... Normal [facility] Covid 19 Resultson 1 SARS-CoV-2 (COVID-19) RNA LUCAS+probe Ql (Unsp spec) NEGATIVE COVID-19 Test Coronaviruses are common world-wide and are the cause of many common colds. SARS-COV2 is a new coronavirus that began circulating worldwide in 2019 so we are calling it COVID-19. It has been estimated that four out of five patients with COVID-19 will recover at home without the need for medical attention. Symptoms of COVID-19 may include cough, fever, shortness of breath, loss of taste or smell and other flu-like symptoms including chills, sore muscles, sore throat, and headache. Severe illness is more common in older people and people with other health problems such as high blood pressure, obesity, and immune system problems. If the test is positive, you have COVID-19. You will be contacted by the ordering physicians office and instructed to remain on home isolation, in accordance with CDC guidelines. You may also be contacted by the [facility] to see if any of your close contacts may have been exposed to the virus and need to quarantine. If the test is negative, you likely do not have COVID-19 at this time, but you still may have a different illness that can spread to other people (like Influenza, or the Flu) and could still be at risk for getting COVID-19. We recommend that you stay away from other people to limit the spread of illness until your symptoms are improving and you are fever-free for 24 hours without the use of fever lowering medications such as acetaminophen or ibuprofen. No test is 100% accurate so if you are still concerned you may have COVID-19, talk to your doctor about the need to continue to stay away from others. Medicines Unless your provider told you not to use the following: Acetaminophen (Tylenol and others) is generally safe. Anti-inflammatory medications, such as Ibuprofen (Advil or Motrin) or Naproxen (Aleve) can also be used. Ppsg-hkv-iksfolg cough and cold medicines can be used according to the instructions on the package. Some joqo-uzv-wxtfagd medicines also contain acetaminophen. Make sure you are not taking more than your recommended dose. For those not hospitalized, there is no specific treatment available for this illness. Antibiotics do not treat Coronaviruses. Follow-Up Follow up with your doctor by scheduling a virtual visit or consider follow-up at one of our urgent care fever clinics. If you are having difficulty breathing, or are very weak and having difficulty standing, this is a medical emergency. Call 911 or have someone take you to the nearest emergency room immediately. If possible, wear a facemask. Additional guidance from the CDC for patients who tested POSITIVE for COVID-19 How to isolate: Isolate yourself in a specific room at home and limit your contact with others. Use a separate bathroom from other members of the household, when possible. Leave home only to get essential medical care. Do not go to work, school or public areas. Avoid using public transportation, ride-sharing, or taxis. Restrict contact with pets and other animals. If you must care for your pet or be around animals while you are sick, wash your hands before and after your interaction and wear a facemask. Make sure that shared spaces in the home have good airflow, such as by an air conditioner or an opened window, weather permitting. Personal Hygiene Procedures: Wear a face mask when in the same room as other people or pets. If a face mask interferes with your breathing, others should wear a mask when sharing space with you. Frequent hand-washing: wash your hands with soap and water for at least 20 seconds. If soap and water are not available, use alcohol-based hand public health professor. Avoid touching your eyes, nose, and mouth with unwashed hands. Household Hygiene Procedures: Avoid sharing personal household items such as dishes, glassware, cups, eating utensils, towels or bedding with other people or pets in your home. After use, these items should be washed with soap and hot water. Disinfect all high-touch surfaces every day with antibacterial cleaning solutions such as Lysol wipes, bleach, cleansers, etc. High-touch surfaces include tabletops, doorknobs, bathroom fixtures, toilets, phones, keyboards, tablets and bedside tables. Immediately clean any surfaces that may have blood, poop or body fluids on them, using antibacterial cleaning solutions such as Lysol wipes, bleach, cleansers, etc. If clothing or bedding come into contact with blood, poop or body fluids, they should be washed immediately. Follow the directions on the laundry detergent and clothing labels but hot water is recommended when possible. Stopping home isolation precautions: If possible, consult your doctor before stopping home isolation precautions. According to the CDC, you can discontinue home isolation precautions when you have met both of these criteria: Your fever and respiratory symptoms have been gone for 24 nahid (more content not included)... Normal [facility] Covid 19 Resultson 1 SARS-CoV-2 (COVID-19) RNA LUCAS+probe Ql (Unsp spec) NEGATIVE COVID-19 Test Coronaviruses are common world-wide and are the cause of many common colds. SARS-COV2 is a new coronavirus that began circulating worldwide in 2019 so we are calling it COVID-19. It has been estimated that four out of five patients with COVID-19 will recover at home without the need for medical attention. Symptoms of COVID-19 may include cough, fever, shortness of breath, loss of taste or smell and other flu-like symptoms including chills, sore muscles, sore throat, and headache. Severe illness is more common in older people and people with other health problems such as high blood pressure, obesity, and immune system problems. If the test is positive, you have COVID-19. You will be contacted by the ordering physicians office and instructed to remain on home isolation, in accordance with CDC guidelines. You may also be contacted by the [facility] to see if any of your close contacts may have been exposed to the virus and need to quarantine. If the test is negative, you likely do not have COVID-19 at this time, but you still may have a different illness that can spread to other people (like Influenza, or the Flu) and could still be at risk for getting COVID-19. We recommend that you stay away from other people to limit the spread of illness until your symptoms are improving and you are fever-free for 24 hours without the use of fever lowering medications such as acetaminophen or ibuprofen. No test is 100% accurate so if you are still concerned you may have COVID-19, talk to your doctor about the need to continue to stay away from others. Medicines Unless your provider told you not to use the following: Acetaminophen (Tylenol and others) is generally safe. Anti-inflammatory medications, such as Ibuprofen (Advil or Motrin) or Naproxen (Aleve) can also be used. Ggvf-lny-lbzxgbp cough and cold medicines can be used according to the instructions on the package. Some ekdh-eld-pjlxiyx medicines also contain acetaminophen. Make sure you are not taking more than your recommended dose. For those not hospitalized, there is no specific treatment available for this illness. Antibiotics do not treat Coronaviruses. Follow-Up Follow up with your doctor by scheduling a virtual visit or consider follow-up at one of our urgent care fever clinics. If you are having difficulty breathing, or are very weak and having difficulty standing, this is a medical emergency. Call 911 or have someone take you to the nearest emergency room immediately. If possible, wear a facemask. Additional guidance from the CDC for patients who tested POSITIVE for COVID-19 How to isolate: Isolate yourself in a specific room at home and limit your contact with others. Use a separate bathroom from other members of the household, when possible. Leave home only to get essential medical care. Do not go to work, school or public areas. Avoid using public transportation, ride-sharing, or taxis. Restrict contact with pets and other animals. If you must care for your pet or be around animals while you are sick, wash your hands before and after your interaction and wear a facemask. Make sure that shared spaces in the home have good airflow, such as by an air conditioner or an opened window, weather permitting. Personal Hygiene Procedures: Wear a face mask when in the same room as other people or pets. If a face mask interferes with your breathing, others should wear a mask when sharing space with you. Frequent hand-washing: wash your hands with soap and water for at least 20 seconds. If soap and water are not available, use alcohol-based hand public health professor. Avoid touching your eyes, nose, and mouth with unwashed hands. Household Hygiene Procedures: Avoid sharing personal household items such as dishes, glassware, cups, eating utensils, towels or bedding with other people or pets in your home. After use, these items should be washed with soap and hot water. Disinfect all high-touch surfaces every day with antibacterial cleaning solutions such as Lysol wipes, bleach, cleansers, etc. High-touch surfaces include tabletops, doorknobs, bathroom fixtures, toilets, phones, keyboards, tablets and bedside tables. Immediately clean any surfaces that may have blood, poop or body fluids on them, using antibacterial cleaning solutions such as Lysol wipes, bleach, cleansers, etc. If clothing or bedding come into contact with blood, poop or body fluids, they should be washed immediately. Follow the directions on the laundry detergent and clothing labels but hot water is recommended when possible. Stopping home isolation precautions: If possible, consult your doctor before stopping home isolation precautions. According to the CDC, you can discontinue home isolation precautions when you have met both of these criteria: Your fever and respiratory symptoms have been gone for 24 nahid (more content not included)... Normal [facility] Covid 19 Resultson 1 SARS-CoV-2 (COVID-19) RNA LUCAS+probe Ql (Unsp spec) NEGATIVE COVID-19 Test Coronaviruses are common world-wide and are the cause of many common colds. SARS-COV2 is a new coronavirus that began circulating worldwide in 2019 so we are calling it COVID-19. It has been estimated that four out of five patients with COVID-19 will recover at home without the need for medical attention. Symptoms of COVID-19 include cough, fever, shortness of breath, loss of taste or smell and other flu-like symptoms including chills, sore muscles, sore throat, and headache. Severe illness is more common in older people and people with other health problems such as high blood pressure, obesity, and immune system problems. If the test is positive, you have COVID-19. You will be contacted by the ordering physicians office and instructed to remain on home isolation, in accordance with CDC guidelines. You may also be contacted by the [facility] to see if any of your close contacts may have been exposed to the virus and need to quarantine. If the test is negative, you likely do not have COVID-19 at this time, but you still may have a different illness that can spread to other people (like Influenza, or the Flu) and could still be at risk for getting COVID-19. We recommend that you stay away from other people to limit the spread of illness until your symptoms are improving and you are fever-free for 24 hours without the use of fever lowering medications such as acetaminophen or ibuprofen. No test is 100% accurate so if you are still concerned you may have COVID-19, talk to your doctor about the need to continue to stay away from others. Medicines Acetaminophen (Tylenol and others) is generally safe. Anti-inflammatory medications, such as Ibuprofen (Advil or Motrin) or Naproxen (Aleve) can also be used. Fhki-ewj-lswhinm cough and cold medicines can be used according to the instructions on the package. Some rftc-sue-cyrksbv medicines also contain acetaminophen. Make sure you are not taking more than your recommended dose For those not hospitalized, there is no specific treatment available for this illness. Antibiotics do not treat Coronaviruses. Follow-Up Follow up with your doctor by scheduling a virtual visit or consider follow-up at one of our urgent care fever clinics. If you are having difficulty breathing, or are very weak and having difficulty standing, this is a medical emergency. Call 911 or have someone take you to the nearest emergency room immediately. If possible, wear a facemask. Additional guidance from the CDC for patients who tested POSITIVE for COVID-19 How to isolate: Isolate yourself in a specific room at home and limit your contact with others. Use a separate bathroom from other members of the household, when possible. Leave home only to get essential medical care. Do not go to work, school or public areas. Avoid using public transportation, ride-sharing, or taxis. Restrict contact with pets and other animals. If you must care for your pet or be around animals while you are sick, wash your hands before and after your interaction and wear a facemask. Make sure that shared spaces in the home have good airflow, such as by an air conditioner or an opened window, weather permitting. Personal Hygiene Procedures: Wear a face mask when in the same room as other people or pets. If a face mask interferes with your breathing, others should wear a mask when sharing space with you. Frequent hand-washing: wash your hands with soap and water for at least 20 seconds. If soap and water are not available, use alcohol-based hand public health professor. Avoid touching your eyes, nose, and mouth with unwashed hands. Household Hygiene Procedures: Avoid sharing personal household items such as dishes, glassware, cups, eating utensils, towels or bedding with other people or pets in your home. After use, these items should be washed with soap and hot water. Disinfect all high-touch surfaces every day with antibacterial cleaning solutions such as Lysol wipes, bleach, cleansers, etc. High-touch surfaces include tabletops, doorknobs, bathroom fixtures, toilets, phones, keyboards, tablets and bedside tables. Immediately clean any surfaces that may have blood, poop or body fluids on them, using antibacterial cleaning solutions such as Lysol wipes, bleach, cleansers, etc. If clothing or bedding come into contact with blood, poop or body fluids, they should be washed immediately. Follow the directions on the laundry detergent and clothing labels but hot water is recommended when possible. Stopping home isolation precautions: If possible, consult your doctor before stopping home isolation precautions. According to the CDC, you can discontinue home isolation precautions when you have met both of these criteria: Your fever and respiratory symptoms have been gone for 24 hours without the use of any medicines like ibuprofen (Motrin) (more content not included)... Normal [facility] Vital Signs Date Time Vital Sign Value Performing Clinician Willie preston 12-14-2024 13:09-0400 Body height 160.[address] Etienne De Santiago DO Work Phone: [facility] 12-14-2024 13:09-0400 Body mass index (BMI) [Ratio] 22.1 kg/m2 Dr. Etienne De Santiago DO Work Phone: [facility] 12-14-2024 13:09-0400 Body weight 56.[address] Etienne De Santiago DO Work Phone: [facility] 12-14-2024 13:09-0400 Diastolic blood pressure 76 mm[Hg] Dr. Etienne De Santiago DO Work Phone: [facility] 12-14-2024 13:09-0400 Systolic blood pressure 122 mm[Hg] Dr. Etienne De Santiago DO Work Phone: [facility] 11-28-2024 14:46-0400 Body mass index (BMI) [Ratio] 21.7 kg/m2 Dr. Etienne De Santiago DO Work Phone: [facility] 11-28-2024 14:46-0400 Body weight 55.[address] Etienne De Santiago DO Work Phone: [facility] 11-28-2024 14:46-0400 Diastolic blood pressure 79 mm[Hg] Dr. Etienne De Santiago DO Work Phone: [facility] 11-28-2024 14:46-0400 Systolic blood pressure 126 mm[Hg] Dr. Etienne De Santiago DO Work Phone: [facility] 11-02-2024 13:43-0400 Body mass index (BMI) [Ratio] 20.6 kg/m2 Dr. Etienne De Santiago DO Work Phone: [facility] 11-02-2024 13:43-0400 Body weight 52.[address] Etienne De Santiago DO Work Phone: [facility] 11-02-2024 13:43-0400 Diastolic blood pressure 72 mm[Hg] Dr. Etienne De Santiago DO Work Phone: [facility] 11-02-2024 13:43-0400 Systolic blood pressure 120 mm[Hg] Dr. Etienne De Santiago DO Work Phone: [facility] 10-07-2024 15:02-0400 Body mass index (BMI) [Ratio] 19.5 kg/m2 Dr. Etienne De Santiago DO Work Phone: [facility] 10-07-2024 15:02-0400 Body weight 50.[address] Etienne De Santiago DO Work Phone: [facility] 10-07-2024 15:02-0400 Diastolic blood pressure 71 mm[Hg] Dr. Etienne De Santiago DO Work Phone: [facility] 10-07-2024 15:02-0400 Systolic blood pressure 137 mm[Hg] Dr. Etienne De Santiago DO Work Phone: [facility] 09-09-2024 14:14-0500 Body mass index (BMI) [Ratio] 18.8 kg/m2 Dr. Etienne De Santiago DO Work Phone: [facility] 09-09-2024 14:14-0500 Body weight 48.[address] Etienne De Santiago DO Work Phone: [facility] 09-09-2024 14:14-0500 Diastolic blood pressure 84 mm[Hg] Dr. Etienne De Santiago DO Work Phone: [facility] 09-09-2024 14:14-0500 Systolic blood pressure 127 mm[Hg] Dr. Etienne De Santiago DO Work Phone: [facility] 08-16-2024 10:17-0500 Body mass index (BMI) [Ratio] 18.4 kg/m2 Dr. Etienne De Santiago DO Work Phone: [facility] 08-16-2024 10:17-0500 Body weight 47.[address] Etienne De Santiago DO Work Phone: [facility] 08-16-2024 10:17-0500 Diastolic blood pressure 80 mm[Hg] Dr. Etienne De Santiago DO Work Phone: [facility] 08-16-2024 10:17-0500 Systolic blood pressure 130 mm[Hg] Dr. Etienne De Santiago DO Work Phone: [facility] Encounters Encounter Date Encounter Type Care Provider Facility Start: 12-29-2024 ambulatory Etienne Jonnathan Facility:[facility] Start: 12-27-2024 ambulatory Etienne Jonnathan Facility:[facility] Start: 12-26-2024 End: 12-26-2024 Subsequent hospital visit by physician Zack Douglass MD [facility] Comment on above: Cleft lip and cleft palate (Primary Dx) Start: 12-26-2024 End: 12-26-2024 ambulatory ETIENNE JONNATHAN [facility] Start: 12-14-2024 End: 12-14-[address] Malena Bean DO -[facility] Work Phone: Start: 12-14-2024 End: 12-14-[address] Etienne De Santiago DO Work Phone: [facility] Work Phone: Start: 12-14-2024 End: 12-14-2024 ambulatory Etienne Jonnathan Facility:[facility] Start: 12-06-2024 End: 12-06-2024 ambulatory ETIENNE JONNATHAN [facility] Start: 11-28-2024 End: 11-28-[address] Malena Bean DO -[facility] Work Phone: Start: 11-28-2024 End: 11-28-2024 ambulatory Etienne Jonnathan Facility:[facility] Start: 11-10-2024 End: 11-10-2024 Subsequent hospital visit by physician Allan Lutz MD Work Phone: [facility] Comment on above: 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, fetus 1 of multiple gestation Start: 11-10-2024 End: 11-10-2024 ambulatory [facility] Start: 11-10-2024 End: 11-10-2024 ambulatory WINSOME OLIVAS [facility] Start: 11-10-2024 End: 11-10-2024 ambulatory [facility] Start: 11-02-2024 End: 11-02-2024 Patient encounter procedure Merlyn HOSKINS -[facility] Work Phone: Start: 11-02-2024 End: 11-02-2024 ambulatory Etienne Jonnathan Facility:[facility] Start: 10-13-2024 End: 10-13-2024 [facility] Start: 10-13-2024 End: 10-13-2024 [facility] Start: 10-07-2024 End: 10-07-[address] Maylin Lima MD -[facility] Work Phone: Start: 10-07-2024 End: 10-07-2024 ambulatory Etienne Jonnathan Facility:[facility] Start: 09-09-2024 End: 09-09-2024 Patient encounter procedure Heather Mahmood CNM -[facility] Work Phone: Start: 09-09-2024 End: 09-09-2024 ambulatory Etienne Jonnathan Facility:[facility] Start: 08-16-2024 End: 08-16-[address] Malena Bean DO -[facility] Work Phone: Start: 08-16-2024 End: 08-16-2024 ambulatory Etienne Jonnathan Facility:[facility] Start: 08-16-2024 End: 08-16-2024 ambulatory Etienne Jonnathan Facility:[facility] Start: 03-14-2024 End: 03-14-2024 ambulatory Etienne Jonnathan Facility:[facility] Start: 02-29-2024 End: 02-29-2024 ambulatory Malena Bean Facility:[facility] Start: 03-29-2022 End: 03-29-[address] ETIENNE DE SANTIAGO DO [facility] Procedures Date Procedure Procedure Detail Performing Clinician Start: 08-16-2024 Liquid based cervica l cytology screening Dr. Etienne De Santiago DO Work Phone: Comment on above: NEGATIVE FOR INTRAEP ITHELIAL LESION OR MALIGNANCY. This liquid based Th inPrep(R) pap test was screened withthe use of an image guided system. Start: 08-16-[address] Etienne De Santiago DO Work Phone: Start: 08-16-2024 Hepatitis B surface antigen measurement Dr. Etienne De Santiago DO Work Phone: Start: 08-16-2024 Hepatitis C antibody measurement Dr. Etienne De Santiago DO Work Phone: Comment on above: Non Reactive: < 0.8 Equivocal: >/= 0.8 to < 1.0 Reactive: >/= 1.0The CDC requires that a reactive/equivocal HCV antibody result be sent out for confirmation. HCV Quant by PCR testing. Start: 08-16-[address] Etienne De Santiago DO Work Phone: Start: 08-16-[address] Etienne De Santiago DO Work Phone: Comment on above: Antibody Results Int erpretation of Immune Status Non Reactive Presumed Non-Immune Equivocal Equivocal Reactive Presumed Immune Start: 06-29-2019 Follow-up visit Plan of Treatment Date Care Activity Detail Author Start: 06-16-2025 Tetanus Diphtheria a nd Pertussis Vaccines (3 - Td or Tdap) Tetanus Diphtheria and Pertussis Vaccines (3 - Td or Tdap) [facility] Start: 03-27-2025 FLU (Season Ended) FLU (Season Ended ) [facility] Start: 01-31-2025 End: 01-31-2025 Professional / ancillary services management 01/31/2025 8:00 AM EDT Ancillary Procedure Visit [facility] [address], [address] [place], [place] [id number] Patient needs scheduled at [facility] US60 on 01/31 at 8:00 a.m. and 02/28 at 8:00 a.m [facility] Comment on above: Patient needs schedu led at [facility] for [facility] US60 on 01/31 at 8:00 a.m. and 02/28 at 8:00 a.m Start: 01-03-2025 End: 01-03-2025 Professional / ancillary services management 01/03/2025 8:00 AM EDT Ancillary Procedure Visit [facility] [address] [place] [address] Growth FTC 60 mins [facility] Comment on above: Growth FTC 60 mins Start: 12-14-2024 CBC W Auto Different ial panel - Blood [facility] Start: 12-14-2024 Measurement of gluco se 2 hours after glucose challenge for glucose tolerance test [facility] Start: 12-14-2024 Serologic test for syphilis [facility] Start: 12-14-2024 [facility] Start: 12-06-2024 End: 12-06-2024 Professional / ancillary services management 12/06/2024 1:30 PM EDT Ancillary Procedure Visit [facility] [address] [place] [address] Growth FTC 60 mins [facility] Comment on above: Growth FTC 60 mins Start: 03-27-2024 COVID-19 (2023-2 5 season) COVID-19 ( season) [facility] Start: 03-27-2024 COVID-19 (2023-2 5 season) COVID-19 ( season) [facility] Start: 03-27-2024 FLU (#1) FLU (#1) [facility] Start: 03-09-2017 Tetanus Diphtheria a nd Pertussis Vaccines (2 - Td or Tdap) Tetanus Diphtheria and Pertussis Vaccines (2 - Td or Tdap) [facility] Start: 2014 Microscopic observat ion [Identifier] in Cervix by Cyto stain Pap Smear [facility] Start: 2012 Hepatitis B (1 of 3 - 19+ 3-dose series) Hepatitis B (1 of 3 - 19+ 3-dose series) [facility] Start: 2009 MenB (1 of 2 - MenB 2-Dose Series Bexsero) MenB (1 of 2 - MenB 2-Dose Series Bexsero) [facility] Start: 2006 Varicella (1 of 2 - 13+ 2-dose series) Varicella (1 of 2 - 13+ 2-dose series) [facility] Start: 1994 MMR (1 of 1 - Standa rd series) MMR (1 of 1 - Standard series) [facility] Erythrocyte mean corpuscular volume determination [facility] Hematocrit [Volume Fraction] of Blood [facility] Hemoglobin [Mass/vol ume] in Blood [facility] Leukocytes [#/volume ] in Blood [facility] Mean corpuscular hemoglobin concentration determination [facility] Mean corpuscular hemoglobin determination [facility] Neutrophil count [facility] Neutrophil percent differential count [facility] Platelets [#/volume] in Blood [facility] Red blood cell count [facility] Red cell distributio n width determination [facility] End: 11-10-2024 [facility] Work Phone: Comment on above: 1 Occurrences starti ng 11/10/2024 until 11/10/2024 Immunizations Immunization Date Immunization Notes Care Provider Fa [facility] 12-14-2024 tetanus toxoid, redu kitty diphtheria toxoid, and acellular pertussis vaccine, adsorbed Dr. Etienne De Santiago DO Work Phone: [facility] Payers Date Payer Category Payer Unknown [employer] [id number] 2024 Self-pay 2024 Unknown [id number] 1995 Unknown [id number] 1993 Unknown [id number] 2.840.1.380790.3.579.2.479 1993 Unknown [id number] 2.16840.1.906555.3.579.2.479 1993 Unknown [id number] 2.840.1.711849.3.579.247 1993 Unknown [id number] 2.840.1.309286.3.579.2479 1993 Unknown [id number] 2.840.1.848701.3.579.247 1993 Unknown [id number] 2.840.1.743817.3.579.247 1993 Unknown [id number] 2.840.1.181132.3.579.2.479 Unknown [id number] 2.840.1.648032.3.579.2.462 Unknown [id number] 2.840.1.203754.3.579.2.462 Unknown [id number] 2.840.1.076353.3.579.2.462 Unknown [id number] 2.840.1.434641.3.579.2.462 Unknown [id number] 2.840.1.389702.3.579.2.462 Unknown [id number] 2.840.1.255461.3.579.2.462 Unknown [id number] 2.840.1.209327.3.579.2.462 Unknown [id number] 2.16840.1.862361.3.579.2.462 Unknown [id number] 2.840.1.358776.3.579.2.462 Unknown [id number] 2.16840.1.443670.3.579.2.462 Unknown [id number] 2.16.840.1.840688.3.579.2.462 Unknown [id number] 2.16.840.1.965765.3.579.2.462 Social History Date Type Detail Facility Assertion Unknown if ever smoked [facility] [employer] Phone: Start: 11-23-2019 End: 10-13-2024 Tobacco smoking status Never smoked tobacco (finding) [facility] Start: 1995 Sex Assigned At Female A [facility] Start: 10-13-2024 Tobacco use and exposure Smokeless tobacco non-user [facility] Start: 11-10-2024 End: 12-26-2024 Alcoholic beverage intake Ex-drinker (finding) [facility] Start: 06-12-[address] [facility] Start: 1995 Sex assigned at Not on file A [facility] Gender identity Not on file [facility] Functional Status Date Assessment Result Facility NEGATED: Highlighted row Functional performance Functional status health issues are not documented [facility] Phone: Mental Status Date Assessment Result Facility NEGATED: Highlighted row Cognitive function [Interpretation] Cognitive status health issues are not documented [facility] Phone: Consult note 12-26-2024 Ancillary Consult - Jailene Ayers CCC-CRYPTOGRAPHIC MACHINE OPERATOR - 12/26/2024 8:40 AM EDT Note Date & Type Note Facility 12-26-2024 Consult note Formatting of th is note might be different from the original. [facility] Speech/Language Pathology Pre-megan Consultation 12/26/2024 Patient Name: Jesus Asher Date of : 1995 Age: 29 y.o. Length of Session: 20 minutes Pain: NPR Pertinent History: Jesus is here today with her self and parent for a consult following a diagnosis for her baby of cleft lip and palate. She has had good reported care until this point. Her has been unremarkable other than the cleft diagnosis. Parents report no family history of cleft/craniofacial anomalies in extended family. Feeding Education: Verbal and written education materials were provided regarding feeding a baby with a cleft lip and/or palate. Discussed in depth the reasoning for feeding difficulties in infants with cleft diagnoses. Reviewed the anatomy needed for sucking and the lack of anatomy present. Reviewed in depth the different specialty cleft bottles (Enfamil, Yoli, and Dr. Ray's Specialty Feeder), including how to assemble, feed with each bottle, and pros/cons of each system. Provided tutorial on holding infants with clefts during feeding (upright, semi-upright, sidelying). Discussed other feeding tips related to feeding an with a cleft (i.e., ensuring nipple is under the intact gumline, burping frequently, completing feeds in under 30 minutes, etc.). Discussed the difficulty related to when a cleft palate is present. We discussed that she will still be able to put her baby to breast for breast milk production and bonding, but that her baby will need support from a bottle to get the nutrition they need to grow. Mom did express interest in pumping and also putting her child to breast. I encouraged mother to talk with our Consultants, who also work with our cleft population so that they can develop a plan that works for her and her baby. We also discussed the need for a quality breast pump, if they plan to primarily feed with breast milk vs formula. Description of Feeding Team: Reviewed that we have comprehensive cleft feeding teams at [facility]. Discussed the members of the team (speech, nutrition, nursing, and social work) and their roles on the team. We discussed the expectation and timeline for feeding team. Reviewed feeding and nutrition evaluation within the first week of life and subsequent follow-up appointments are weekly/biweekly depending on feeding quality and weight gain. Reviewed the importance of weight gain in infants with regard to brain development and timing/readiness for surgery. Reviewed feeding team's role in assisting with feeding progression of cup drinking and spoon feeding. Speech/Language: Verbal education materials were provided regarding how clefts affect speech and how to provide appropriate speech/language stimulation. Discussed how cleft palates impact a baby's ability to produce oral pressure for oral speech sounds, similar to the difficulties they have trying to extract milk while feeding. Parents were taught how their baby may use fewer sounds, but they should continue to model sounds and words the same way they would if their child did not have a cleft. Discussed yearly speech assessment through their child's adolescent years through our yearly craniofacial team visits. Written resources provided included: -Dr. Ray's Specialty Feeding System Assembly and Feeding Instructions (www.[employer]/medical/produ cts/specialty-feeding/) -Nipple Level Selection Guidelines for Parents & Caregivers (www.[employer]/medical/nippl e-guidelines) -Where to Buy Dr. Ray's Specialty Feeding system (www.[employer]/medical/where -to-buy) Equipment provided included: - bag with contact information on side of bag. -Pack of fully assembled Dr. Ray's Specialty feeding systems with Level 1 nipples -2 Level 2 nipples and 2 Transition nipples -Extra blue feeding inserts (blue discs) Recommendations: -Family to contact craniofacial team RN when baby is born to set up initial feeding consultation for an Outpatient Oral Motor Feeding Evaluation, pending initial Plastics visit. Thank you for the referral. MILENA Yeboah [facility] Note 12-26-2024 Ancillary Consult - Jailene Ayers CCC-SLP - 12/26/2024 8:40 AM EDT Note Date & Type Note Facility 12-26-2024 Miscellaneous Notes Formattin g of this note might be different from the original. [facility] Speech/Language Pathology Pre-megan Consultation 12/26/2024 Patient Name: Jesus Asher Date of : 1995 Age: 29 y.o. Length of Session: 20 minutes Pain: NPR Pertinent History: Jesus is here today with her self and parent for a consult following a diagnosis for her baby of cleft lip and palate. She has had good reported care until this point. Her has been unremarkable other than the cleft diagnosis. Parents report no family history of cleft/craniofacial anomalies in extended family. Feeding Education: Verbal and written education materials were provided regarding feeding a baby with a cleft lip and/or palate. Discussed in depth the reasoning for feeding difficulties in infants with cleft diagnoses. Reviewed the anatomy needed for sucking and the lack of anatomy present. Reviewed in depth the different specialty cleft bottles (Enkeyonnamiromel, Yoli, and Dr. Ray's Specialty Feeder), including how to assemble, feed with each bottle, and pros/cons of each system. Provided tutorial on holding infants with clefts during feeding (upright, semi-upright, sidelying). Discussed other feeding tips related to feeding an infant with a cleft (i.e., ensuring nipple is under the intact gumline, burping frequently, completing feeds in under 30 minutes, etc.). Discussed the difficulty related to when a cleft palate is present. We discussed that she will still be able to put her baby to breast for breast milk production and bonding, but that her baby will need support from a bottle to get the nutrition they need to grow. Mom did express interest in pumping and also putting her child to breast. I encouraged mother to talk with our Consultants, who also work with our cleft population so that they can develop a plan that works for her and her baby. We also discussed the need for a quality breast pump, if they plan to primarily feed with breast milk vs formula. Description of Feeding Team: Reviewed that we have comprehensive cleft feeding teams at [facility]. Discussed the members of the team (speech, nutrition, nursing, and social work) and their roles on the team. We discussed the expectation and timeline for feeding team. Reviewed feeding and nutrition evaluation within the first week of life and subsequent follow-up appointments are weekly/biweekly depending on feeding quality and weight gain. Reviewed the importance of weight gain in infants with regard to brain development and timing/readiness for surgery. Reviewed feeding team's role in assisting with feeding progression of cup drinking and spoon feeding. Speech/Language: Verbal education materials were provided regarding how clefts affect speech and how to provide appropriate speech/language stimulation. Discussed how cleft palates impact a baby's ability to produce oral pressure for oral speech sounds, similar to the difficulties they have trying to extract milk while feeding. Parents were taught how their baby may use fewer sounds, but they should continue to model sounds and words the same way they would if their child did not have a cleft. Discussed yearly speech assessment through their child's adolescent years through our yearly craniofacial team visits. Written resources provided included: -Dr. Ray's Specialty Feeding System Assembly and Feeding Instructions (www.[employer]/medical/ products/specialty-feeding/) -Nipple Level Selection Guidelines for Parents & Caregivers (www.[employer]/medical/ nipple-guidelines) -Where to Buy Dr. Ray's Specialty Feeding system (www.[employer]/medical/ rkwhj-oh-xqx) Equipment provided included: - bag with contact information on side of bag. -Pack of fully assembled Dr. Ray's Specialty feeding systems with Level 1 nipples -2 Level 2 nipples and 2 Transition nipples -Extra blue feeding inserts (blue discs) Recommendations: -Family to contact craniofacial team RN when baby is born to set up initial feeding consultation for an Outpatient Oral Motor Feeding Evaluation, pending initial Plastics visit. Thank you for the referral. TA YeboahCRYPTOGRAPHIC MACHINE OPERATOR documented in this encounter [facility] Evaluation note 08-16-2024 Note Date & Type Note Facility 08-16-2024 Evaluation note Diagnosis Onset Date Resolution acute August 16, 2024 10:15am Bleeding in early resolved August 16 10:15am Dyspareunia, female resolved 2024 10:15am History of miscarriage, currently resolved August 16, 2024 10:15am Supervision of high-risk resolved July 10:15am acute September 09, 2024 1:58pm Bleeding in early resolved September 09, 2 025 1:58pm Dyspareunia, female resolved Febru 2024 1:58pm History of miscarriage, currently resolved August 1:58pm Supervision of high-risk resolved August 1:58pm acute October 07 2:50pm Supervision of low-risk acute October 07, 2024 2:50pm Cleft lip and palate, , affecting care of mother, antepartum acute November 02, 2024 1:37pm acute Anabel 9th, 202 5 1:37pm Supervision of low-risk acute November 02, 2024 1:37pm Cleft lip and palate, , affecting care of mother, antepartum acute November 28, 2 025 2:42pm acute November 28, 2024 2:42pm Supervision of low-risk acute November 28, 2024 2: 42pm Cleft lip and palate, , affecting care of mother, antepartum acute December 14, 2024 1:01pm acute December 14, 2024 1:01pm Supervision of low-risk acute December 14, 2024 1 :01pm [facility] Work Phone: Evaluation + Plan note Note Date & Type Note Facility Evaluation + Plan note No data available for this section [facility] Evaluation note Note Date & Type Note Facility Evaluation note Diagnosis 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, fetus 1 of multiple gestation documented in this encounter [facility] Evaluation note Note Date & Type Note Facility Evaluation note Diagnosis Cleft lip and cleft palate- Primary Cleft lip and cleft palate, unspecified documented in this encounter [facility] Discharge instructions Note Date & Type Note Facility Hospital Discharge instructions No data available for this section [facility] Progress note Note Date & Type Note Facility Progress note No data available for this section [facility] Reason for referral (narrative) Note Date & Type Note Facility Reason for referral (narrative) No reason for referral information available [facility] Work Phone: Summary Purpose Family History Relationship Condition Age at Onset Recorded Date/T scotty grandmother Malignant neoplasm of breast Unknown Advance Directives No Advanced Directives Records FoundNo Advanced Directives Records FoundNo Advanced Directives Records FoundNo Advanced Directives Records FoundNo Advanced Directives Records Found Chief Complaint and Reason for Visit Chief Complaint Admit Date NOB LMP /August 16, 2024 1 0:15am 14wk OB September 09, 2024 1:58pm 18 wk ob October 07, 2024 2:5 0pm 22wk ob November 02, 2024 1:37 pm 26 WK OB November 28, 2024 2:42pm 28 wk ob/glucose December 14, 2024 1:01p m Reason for Visit Admit Date August 16, 2024 1 0:15am Bleeding in early July 10:15am Dyspareunia, female August 16, 2024 1 0:15am History of miscarriage, currently pregna nt August 16, 2024 10:15am Supervision of high-risk Janua 2024 10:15am September 09, 2024 1:58pm Bleeding in early August 1:58pm Dyspareunia, female September 09, 2024 1:58pm History of miscarriage, currently pregna nt September 09, 2024 1:58pm Supervision of high-risk Febru teetee 2024 1:58pm October 07, 2024 2:5 0pm Supervision of low-risk October 07, 2024 2:50pm Cleft lip and palate, , affecting care of mother, antepartum November 02, 2024 1:37pm November 02, 2024 1:37 pm Supervision of low-risk November 02, 2024 1:37pm Cleft lip and palate, , affecting care of mother, antepartum November 28, 2024 2:42pm November 28, 2024 2:42pm Supervision of low-risk November 2:42pm Cleft lip and palate, , affecting care of mother, antepartum December 14, 2024 1:01pm December 14, 2024 1:01p m Supervision of low-risk December 142024 1:01pm Additional Source Comments INFORMATION SOURCE (unrecogn ized section and content) DATE CREATED AUTHOR 07/01/2019 Beem DATE CREATED AUTHOR AUTHOR'S ORGANIZ ATION 07/25/2021 [facility] [place] DATE CREATED AUTHOR AUTHOR'S ORGANIZ ATION 04/04/2022 [facility] ([place]) DATE CREATED AUTHOR AUTHOR'S ORGANIZ ATION 12/24/2024 [facility] DATE CREATED AUTHOR AUTHOR'S ORGANIZ ATION 12/26/2024 [facility] Care Team (unrecognized sect ion and content) Care Team Personnel Name: ETIENNE DE SANTIAGO DO Position: P4 Physician - Primary Care Member Role: Primary Care Physician Address: Address: [address] [facility] [place], [place] [address] Care Team Related Persons Name: NICANOR ASHER Address: Home [address] [place], [place] [id number] Address: Temporary [address] [place], [place] [id number] Care Teams (unrecognized sec tion and content) Aircraft Body Repairer Relationship Specialty Start Date End Date Etienne De Santiago DO [address] [place] [address] PCP - General 10/08/24 Team Status: Active Member Role Status Dates Dr. Etienne De Santiago DO Primary Care Provider Active Team Status: Inactive Member Role Status Dates Dr. Etienne De Santiago DO Primary Care Provider Active Start: August 16, 2024 End: August 16, 2024 Dr. Etienne De Santiago DO Referring Provider Active Start: August 16, 2024 End: August 16, 2024 Dr. Malena Bean DO Attending Provider Activ e Start: August 16, 2024 End: August 16, 2024 Team Status: Inactive Member Role Status Dates Dr. Etienne De Santiago DO Primary Care Provider Active Start: August 16, 2024 End: August 16, 2024 Dr. Malena Bean DO Attending Provider Activ e Start: August 16, 2024 End: August 16, 2024 Dr. Malena Bean DO Referring Provider Activ e Start: August 16, 2024 End: August 16, 2024 Team Status: Inactive Member Role Status Dates Dr. Etienne De Santiago DO Primary Care Provider Active Start: September 09, 2024 End: September 09, 2024 Dr. Etienne De Santiago DO Referring Provider Active Start: September 09, 2024 End: September 09, 2024 Heather Mahmood CNM Attending Provider Active S tart: September 09, 2024 End: September 09, 2024 Team Status: Inactive Member Role Status Dates Dr. Etienne De Santiago DO Primary Care Provider Active Start: October 07, 2024 End: October 07, 2024 Dr. Etienne De Santiago DO Referring Provider Active Start: October 07, 2024 End: October 07, 2024 Dr. Maylin Lima MD Attending Provider Active Start: October 07, 2024 End: October 07, 2024 Team Status: Inactive Member Role Status Dates Dr. Etienne De Santiago DO Primary Care Provider Active Start: November 02, 2024 End: November 02, 2024 Dr. Etienne De Santiago DO Referring Provider Active Start: November 02, 2024 End: November 02, 2024 Merlyn Rios NP, CIVIL PREPAREDNESS OFFICER-C Attending Provider Active Start: November 02, 2024 End: November 02, 2024 Team Status: Inactive Member Role Status Dates Dr. Etienne De Santiago DO Primary Care Provider Active Start: November 28, 2024 End: November 28, 2024 Dr. Etienne De Santiago DO Referring Provider Active Start: November 28, 2024 End: November 28, 2024 Dr. Malena Bean DO Attending Provider Activ e Start: November 28, 2024 End: November 28, 2024 Team Status: Inactive Member Role Status Dates Dr. Etienne De Santiago DO Primary Care Provider Active Start: December 14, 2024 End: December 14, 2024 Dr. Etienne De Santiago DO Referring Provider Active Start: December 14, 2024 End: December 14, 2024 Dr. Malena Bean DO Attending Provider Activ e Start: December 14, 2024 End: December 14, 2024 Team Status: Active Member Role Status Dates Dr. Etienne De Santiago DO Primary Care Provider Active Start: December 14, 2024 Dr. Malena Bean DO Attending Provider Activ e Start: December 14, 2024 Aircraft Body Repairer Relationship Specialty Start Date End Date Etienne De Santiago DO [address] [place] [id number] PCP - General 10/08/24 Jailene Ayers [facility]-CRYPTOGRAPHIC [place] [address] Speech Language Pathologist Speech Pathology 12/26/24 Goals (unrecognized section and content) Goals may be documented in a n alternate section FOR RECORDS PERTAINING TO PATIENTS WHO ARE OR HAVE BEEN ENROLLED IN A CHEMICAL DEPENDENCY/SUBSTANCEABUSE PROGRAM, SOME INFORMATION MAY BE OMITTED. This clinical summary was aggregated from multiple sources. Caution should be exercised in using it in the provision of clinical care. This summary normalizes information from multiple sources, and as a consequence, information in this document may materially change the coding, format and clinical context of patient data. In addition, data may be omitted in some cases. CLINICAL DECISIONS SHOULD BE BASED ON THE PRIMARY CLINICAL RECORDS. [employer] [facility]. provides no warranty or guarantee of the accuracy or completeness of information in this document.
[2024-12-27 07:06] LABS: Absolute Lymphocyte Count 3.24 X10^3/uL (0.83-4.51); Absolute Neutrophil Count 13.9 X10^3/uL (2.0-7.7); Basophil# 0.08 X10^3/uL; Basophil% 0.4 % (0-1); Eosinophils% 1.1 % (0-5); Hemoglobin 11.9 g/dL (12.0-15.0); Lymphocyte # 3.24 X10^3/ul (0.83-4.51); Lymphocyte % 17.1 % (19-41); Mean Corpuscular Hgb 31.3 pg (27.0-32.0); Mean Corpuscular Volume 92.1 fL (81-99); Mean Platelet Vol. 10.4 fl (6.2-12.0); Monocyte# 1.21 X10^3/uL; Monocyte% 6.4 % (0-10); NRBC Flagged by Analyzer 0 % (0-5); Neutrophil # 13.85 X10^3/uL (2.7-7.7); Neutrophil % 72.9 % (47-70); Platelet Count 256 K/mm3 (150-450); RBC Distribution Width CV 13.4 % (11.6-14.6); RBC Distribution Width SD 45.2 fl (35.1-43.9)
[2024-12-27 07:28] LABS: Glucose GTT-Gestation. Fasting 101 mg/dL (<105)
[2024-12-27 09:17] LABS: Glucose GTT-Gestational 1 Hr 160 mg/dL (<190)
[2024-12-27 11:14] LABS: Glucose GTT-Gestational 2 Hr 133 mg/dL (<165)
[2024-12-27 11:47] LABS: Glucose GTT-Gestational 3 Hr 124 L (<145)
== END | disposition home or self-care (01) ==
LOC: LAB 06:51
PROVIDERS: PCP Family Medicine; Referring Provider Obstetrics & Gynecology; Visit Provider Obstetrics & Gynecology
DX: D72.829 Elevated white blood cell count, unspecified (principal); O99.113 Other diseases of the blood and blood-forming organs and certain disorders involving the immune mechanism complicating pregnancy, third trimester; Z3A.28 28 weeks gestation of pregnancy
CPT/HCPCS: 36415; 82951; 82952; 85025; 87086; 87088

== ENCOUNTER → 2025-01-03 | Outpatient (CLI) | payer OTHER, SELFPAY ==
--- OUTSIDE RECORDS SUMMARY | 2025-01-03 09:28 | XMS RPT_ITS | CCD ---
Author Organization [facility]iniSy[facility] Care Team Providers Care Pipe Coremaker Name Role Phone Avtar Marley Unavailable Unavailable JONNATHAN , DR ETIENNE Rudd Primary Care Physician Jonnathan , Etienne Primary Care Provider Jonnathan NGUYEN, Dr. Mustafa Primary Care Provider [phone] Jonnathan NGUYEN, Dr. Mustafa Referring Provider Dr. Malena Bean DO Attending Provider Reggie Means DO, Dr. Guy Referring Provider Heather Mahmood CNM Attending Provider Dr. Maylin Cadena MD Attending Provider [phone] Gabriel MANAGER OF INTERNATIONAL-CMerlyn Attending Provider Andria [facility] CONTOUR WIRE SPECIALIST, Jailene Rivas Unavailable Un available Jonnathan , Dr. Mustafa Primary Care Provider [phone] Jonnathan NGUYEN, Dr. Mustafa Referring Provider Dr. Malena Bean DO Attending Provider Reggie Means DO, Dr. Guy Referring Provider ALLAN LUTZ Attending Unavailable JONNATHAN, ETIENNE Primary Care Unavailable MAYLIN CADENA Referring Unavailabl e WINSOME OLIVAS Attending Unavailable IRMA NORIEGA Referring Unavailable JONNATHAN, ETIENNE Primary Care Unavailable JONNATHAN, ETIENNE Primary Care Unavailable MAYLIN CADENA Referring Unavailabl e JODIE FELIX Attending Unavailable JONNATHAN, ETIENNE Referring Unavailable JONNATHAN, ETIENNE Primary Care Unavailable ZACK DOUGLASS Attending Unavailable ALLAN LUTZ Attending Unavailable ALLAN LUTZ Referring Unavailable JONNATHAN, ETIENNE Primary Care Unavailable JONNATHAN, ETIENNE Primary Care Unavailable KATIAZACK YIN Attending Unavailable JONNATHAN, ETIENNE Referring Unavailable SIMEONEVMALENA LYON R Referring Unavailab IRMA Garcia Attending Unavailable JONNATHAN, ETIENNE Primary Care Unavailable VANDEVELDE, MALENA R Referring Unavailab IRMA Garcia Attending Unavailable JONNATHAN, ETIENNE Primary Care Unavailable Jonnathan, Etienne Referring Unavailable [...] e Jonnathan, Etienne Primary Care Unavailable Vande Velde, Malena Referring Unavailabl e Vande Velde, Malena Attending Unavailabl e Vande Velde, Malena Referring Unavailabl e Vande Velde, Malena Attending Unavailabl e Jonnathan, Etienne Primary Care Unavailable Jonnathan, Etienne Primary Care Unavailable Vande Velde, Malena Attending Unavailabl e Vande Velde, Malena Referring Unavailabl e Jonnathan, Etienne Primary Care Unavailable Vande Velde, Malena Attending Unavailabl e Jonnathan, Etienne Primary Care Unavailable Jonnathan, Etienne Referring Unavailable Gabriel MANAGER OF INTERNATIONALMerlyn Attending Unavailable Jonnathan, Etienne Primary Care Unavailable Jonnathan, Etienne Referring Unavailable Maylin Cadena Attending Unavailable Jonnathan, Etienne Primary Care Unavailable Jonnathan, Etienne Referring Unavailable Heather Mahmood Attending Unavailable Jonnathan, Etienne Referring Unavailable Vande Velde, Malena Attending Unavailabl e Jonnathan, Etienne Primary Care Unavailable Medications Current Medications Medication Drug Class(es) Dates Sig (Normalized) Sig (Original) Multivit 40-Nwae-Oxcrje 1-Dha (Pnv-Dha) 27 mg iron-1 mg -300 mg capsule (3 sources) Start: 07-29-2024 Multivit 61-Cnsq-Rffisb 1-Dha (Pnv-Dha) 27 mg iron-1 mg -300 mg capsule Active NMA PO July 29, 2024 1:00am Vit w/Gs-Gzytrseek-RX (PNV PO) (2 sources) Vit w/Fh-Dkmrdjaar-NB (PNV PO) Take by mouth daily Active Completed/Discontinued Medications Medication Drug Class(es) Dates Sig (Normalized) Sig (Original) Norethindrone-E.Es tradiol-Iron (10 sources) Estrogen Start: 05-11-2023 End: 03-14-2024 take [...] Status: Ordered lidocaine 0.05 mg/mg topical ointment (3 sources) Antiarrhythmic, Amide Local Anesthetic Start: 03-19-2022 End: 05-11-2023 Lidocaine 5 % ointment Discontinued 1 NMA TOPICAL DAILY as needed for dyspareun March 19, 2022 12:00am May 11, 2023 11:45am Problems Active Problems Problem Classification Problem Date Documented Da te Episodic/Chronic Administrative/social admission (1 source) finding; Translations: [Other specified counseling] Onset: 11-11-2024 12-14-2024 Episodic Bacterial infection; unspecified site (4 sources) Bacteria present; Translations: [Streptococcus, group B, as the cause of diseases classified elsewhere] 12-29-2024 Episodic Comment on above: treat in labor Diabetes or abnormal glucose tolerance complicating ; childbirth; or the puerperium (4 sources) Abnormal glucose level; Translations: [Abnormal glucose complicating ] 12-29-2024 Episodic Comment on above: normal 3 hour Diseases of white blood cells (5 sources) Leukocytosis; Translations: [Elevated white blood cell count, unspecified] Onset: 12-30-2024 12-29-2024 Chronic Comment on above: redraw in one week Immunizations and screening for infectious disease (1 source) Encounter for immunization; Translations: [Encounter for immunization] Onset: 12-14-2024 Episodic Other complications of ; puerperium affecting management of mother (17 sources) condition affecting obstetrical care of mother; Translations: [ 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, fetus 1 of multiple gestation] Onset: 10-13-2024 11-10-2024 Episodic Comment on above: seen on anatomy US, treatment center referral. echo. Gave info on [facility] worksheet se nt, seen on anatomy US, treatment center referral. echo. Gave info on [facility] Other complications of (7 sources) H/O: miscarriage; Translations: [Supervision of with other poor reproductive or obstetric history, unspecified trimester] 10-07-2024 Episodic Comment on above: January 2024, 6 weeks Other complications of (7 sources) High risk ; Translations: [Supervision of high risk , unspecified, unspecified trimester] 10-07-2024 Episodic Other congenital anomalies (1 source) Cleft palate with cleft lip; Translations: [Unspecified cleft palate with unilateral cleft lip] 12-26-2024 Chronic Other female genital disorders (7 sources) Pain in female genitalia on intercourse; Translations: [Unspecified dyspareunia] 10-07-2024 Chronic Comment on above: lidocaine topical, v aginismus, PFPT. discussed dilators vs excision of hymenal remnant. Other female genital disorders (1 source) Unspecified dyspareunia; Translations: [Unspecified dyspareunia] Onset: 09-09-2024 Chronic Other and delivery including normal (20 sources) ; Translations: [Encounter for supervision of normal , unspecified, unspecified trimester] Onset: 10-07-2024 12-14-2024 Episodic Comment on above: NIPT low risk, katherine er neg. PRR , JONATHAN 03/05/ 5, gender surprise for family Nicanor NIPT low risk, katherine er neg. . GBS+ in urine. Residual codes; unclassified (1 source) 18 weeks gestation of ; Translations: [18 weeks gestation of ] Onset: 10-07-2024 Episodic Spontaneous (3 sources) with abortive outcome; Translations: [Complete or unspecified spontaneous without complication] 07-29-2024 Episodic Past or Other Problems Problem Classification Problem Date Documented Da te Episodic/Chronic Hemorrhage during ; abruptio placenta; placenta previa (8 sources) Antepartum hemorrhage; Translations: [Hemorrhage in early [...] Test Name Value Interpretation Reference Range Facility Esthetician/Owner Office Visit Reporton 12-29-2024 Esthetician/Owner Office Visit Report [facility] [address], [address] [place] [address] OFFICE VISIT Date of Service: 12/29/24 MR#: [id number] Acct: [id number] Name: JESUS ASHER Rep #: [id number] : 1995 Provider: MATT Harrison ams Age/Sex: 29/F Location: [facility] Status: Signed Intake Vital Signs 11/02/24 13:43 12/14/24 13:09 12/29/24 11:42 Height 5 ft 3 in 5 ft 3 in 5 ft 3 in Weight: 129 lb 8 oz BMI 22.9 BP 122/80 H Intake Visit Reasons: 30 wk ob Chief Complaint: 30wk OB Cash Register Balancer Required: No Is patient in pain?: No Allergies No Known Allergies Allergy (Verified 12/29/24 11:40) Medications ???Medication ???Instructions ???Recorded ???Confirmed ???Type multivitamin no.47-iron fum 27 cap PO 07/29/24 12/29/24 History mg-folate no.1 1 mg-dha 300 mg capsule (PNV-DHA) Last Menstrual Period: 05/29/24 : No Have you fallen in the past year?: No PFSH PFSH Medical History Complete Dysmenorrhea Surgical History H/O wisdom tooth extraction Family History Grandmother Breast cancer Social History adopted: No household members: spouse current occupational status: employed 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 Date Name GA/Weeks Outcome Route Bth Weight Infant Gen Labor Lgth Anesthesia Del Darrelatn Provider FOB 02/18/24 6 spontaneous HPI 30 wk ob Details: JESUS ASHER is a 29 year old who presents for routine OB visit. OB Visit JONATHAN Calculator Estimated Delivery Date Method Current WG Current Estimate 03/05/25 LMP (Certain) 30w 4d Other Estimates 03/11/25 Ultrasound #1 29w 5d Expected Delivery Route/Plan Labor Preferences- CB/BF classes: [...] no vb cr amping 11/02/24 -???-???-???-???-??? -???-???-???-???-??? -???-? (more content not included)... Normal [facility] Urine Cultureon 12-29-2024 [facility] Comments: [place] Mixed Gram Positive Organisms Schroeder Count 25,000-50,000 MIXC Mixed contaminants. Submit a new specimen if indicated. Normal [facility] Comment on above: Performed By: #### L 7400.0280 #### [facility] [address] [place], [address] Absolute lymphocyte countOrd ered By: Malena Miguelangel on 12-27-2024 Lymphocytes Auto (Unsp spec) [#/Vol] 3.24 10*3/uL 0.83-4.51 [facility] Absolute neutrophil countOrd ered By: Malena Miguelangel on 12-27-2024 Neutrophils (Bld) [#/Vol] 13.9 10*3/uL High 2.0-7.7 [facility] Automated lymphocyte count a s percentage of total leukocytesOrdered By: Malena Means on 12-27-2024 Lymphocytes/100 WBC Auto (Unsp spec) 17.1 % Low 19-41 [facility] Basophil percentageOrdered B y: Malena Miguelangel on 12-27-2024 Basophils/100 WBC (Bld) 0.4 % 0-1 [facility] CBC W/Diff, Automatedon Absolute Lymph 3.24 X10 3/uL Normal 0.83-4.51 [facility] Comment on above: Order Comment: Comme nts: Thai Baldwin [place] Performed By: #### M 100.2200, L7000.1800 #### [facility] [address] [place], [address] Absolute Neut 13.9 X10 3/uL High 2.0-7.7 [facility] Comment on above: Order Comment: Comme nts: Thai Baldwin AL Performed By: #### M 100.2200, L7000.1800 #### [facility] [address] [place], [address] Basophils/100 WBC (Bld) 0.4 % Normal 0-1 [facility] Comment on above: Order Comment: Comme nts: Thai Baldwin [place] Performed By: #### M 100.2200, L7000.1800 #### [facility] [address] [place], [address] Eosinophils/100 WBC (Bld) 1.1 % Normal 0-5 [facility] Comment on above: Order Comment: Comme nts: Thai Baldwin AL Performed By: #### M 100.2200, L7000.1800 #### [facility] [address] [place], [address] Erythrocyte distribution width (RBC) [Ratio] 13.4 % Normal 11.6-14.6 [facility] Comment on above: Order Comment: Comme nts: Thai Baldwin AL Performed By: #### M 100.2200, L7000.1800 #### [facility] [address] [place], [address] Hematocrit (Bld) [Volume fraction] 35.0 % Low 37-47 [facility] Comment on above: Order Comment: Comme nts: Thai Baldwin [place] Performed By: #### M 100.2200, L7000.1800 #### [facility] [address] [place], [address] Hemoglobin (Bld) [Mass/Vol] 11.9 g/dL Low 12.0-15.0 [facility] Comment on above: Order Comment: Comme nts: Thai Baldwin [place] Performed By: #### M 100.2200, L7000.1800 #### [facility] [address] [place], [address] IG% 2.100 High 0.0-0.9 [facility] Comment on above: Order Comment: Commanna nts: Thai Baldwin AL Result Comment: IG% - Immature Granulocytes (promyelocytes, myelocytes and metamyelocytes) > 1% indicates that a LEFT SHIFT is Present. Performed By: #### M 100.2200, L7000.1800 #### [facility] [address] [place], [address] Lymphocytes/100 WBC (Bld) 17.1 % Low 19-41 [facility] Comment on above: Order Comment: Comme nts: Thai [place], [place] Performed By: #### M 100.2200, L7000.1800 #### [facility] [address] [place], [address] MCH (RBC) [Entitic mass] 31.3 pg Normal 27.0-32.0 [facility] Comment on above: Order Comment: Comme nts: Thai Baldwin AL Performed By: #### M 100.2200, L7000.1800 #### [facility] [address] [place], [address] MCHC (RBC) [Mass/Vol] 34.0 g/dL Normal 32-36 [facility] Comment on above: Order Comment: Comme nts: Thai Baldwin AL Performed By: #### M 100.2200, L7000.1800 #### [facility] [address] [place], [address] MCV (RBC) [Entitic vol] 92.1 fL Normal 81-99 [facility] Comment on above: Order Comment: Comme nts: Thai [place], [place] Performed By: #### M 100.2200, L7000.1800 #### [facility] [address] [place], [address] Monocytes/100 WBC (Bld) 6.4 % Normal 0-10 [facility] Comment on above: Order Comment: Comme nts: Thai [place], [place] Performed By: #### M 100.2200, L7000.1800 #### [facility] [address] [place], [address] Neutrophils/100 WBC (Bld) 72.9 % High 47-70 [facility] Comment on above: Order Comment: Comme nts: [place], [place] Performed By: #### M 100.2200, L7000.1800 #### [facility] [address] [place], [address] Nucleated RBC (Bld) [#/Vol] 0 10*3/uL Normal 0-5 [facility] Comment on above: Order Comment: Comme nts: [place] Performed By: #### M 100.2200, L7000.1800 #### [facility] [address] [place], [address] Platelet mean volume (Bld) [Entitic vol] 10.4 fL Normal 6.2-12.0 [facility] Comment on above: Order Comment: Comme nts: [place] Performed By: #### M 100.2200, L7000.1800 #### [facility] [address] [place], [address] Platelets (Bld) [#/Vol] 256 10*3/uL Normal 150-450 [facility] Comment on above: Order Comment: Comme nts: [place] Performed By: #### M 100.2200, L7000.1800 #### [facility] [address] [place], [address] RBC (Bld) [#/Vol] 3.80 10*6/uL Low 4.2-5.4 [facility] Comment on above: Order Comment: Comme nts: [place] Performed By: #### M 100.2200, L7000.1800 #### [facility] [address] [place], [address] RDW SD 45.2 fl High 35.1-43.9 [facility] Comment on above: Order Comment: Comme nts: [place] Performed By: #### M 100.2200, L7000.1800 #### [facility] [address] [place], [address] WBC (Bld) [#/Vol] 19.0 10*3/uL High 4.4-11.0 [facility] Comment on above: Order Comment: Comme nts: [place] Performed By: #### M 100.2200, L7000.1800 #### [facility] [address] [place], [address] Eosinophil percentageOrdered By: Malena Means on 12-27-2024 Eosinophils/100 WBC (Bld) 1.1 % 0-5 [facility] Erythrocyte distribution wid th ratioOrdered By: Malena Means on 12-27-2024 Erythrocyte distribution width (RBC) [Ratio] 13.4 % 11.6-14.6 [facility] Erythrocyte distribution wid th standard deviationOrdered By: Malena Means on 12-27-2024 Erythrocyte distribution width (RBC) [Ratio] 45.2 fl High 35.1-43.9 [facility] Gestational GTT 3HR 100gon 0 12-27-2024 GEST GTT 100gm Normal [facility] Comment on above: Order Comment: ARASH Vu Result Comment: FAST ING 101 Col: 12/27/24 0659 GLUCOSE TOLERANCE TEST FOR Reference Interval GESTATIONAL DIABETES Fasting <105 mg/dL 1 hour <190 mg/dl 2 hour <165 mg/dl 3 hour <145 mg/dl 1 HR GLU 160 Col: 12/27/24 0833 2 HR GLU 133 Col: 12/27/24 0936 3 HR GLU 124 Col: 12/27/24 1035 Performed By: #### M 100.2200, L7000.1800 #### [facility] [address] [place], [address] Hematocrit Auto (Bld) [Volum e fraction]Ordered By: Malena Means on 12-27-2024 Hematocrit (Bld) [Volume fraction] 35.0 % Low 37-47 [facility] Hemoglobin measurementOrdere d By: Malena Means on 12-27-2024 Hemoglobin (Bld) [Mass/Vol] 11.9 g/dL Low 12.0-15.0 [facility] Immature granulocytes/100 WB C Auto (Bld)Ordered By: Malena Means on 12-27-2024 Immature granulocytes/100 WBC (Bld) 2.100 % High 0.0-0.9 [facility] Comment on above: IG% - Immature Granu locytes (promyelocytes, myelocytes and metamyelocytes) > 1% indicates that a LEFT SHIFT is Present. MCV (mean corpuscular volume ) determinationOrdered By: Malena Means on 12-27-2024 MCV (RBC) [Entitic vol] 92.1 fL 81-99 [facility] Mean corpuscular hemoglobin (MCH) determinationOrdered By: Malena Means on 12-27-2024 MCH (RBC) [Entitic mass] 31.3 pg 27.0-32.0 [facility] Mean corpuscular hemoglobin concentration (MCHC) determinationOrdered By: Malena Means on 12-27-2024 MCHC (RBC) [Mass/Vol] 34.0 g/dL 32-36 [facility] Mean platelet volume determi nationOrdered By: Malena Means on 12-27-2024 Platelet mean volume (Bld) [Entitic vol] 10.4 fL 6.2-12.0 [facility] Monocyte percentageOrdered B y: Malena Means on 12-27-2024 Monocytes/100 WBC (Bld) 6.4 % 0-10 [facility] Neutrophil percentageOrdered By: Malena Means on 12-27-2024 Neutrophils/100 WBC (Bld) 72.9 % High 47-70 [facility] Nucleated red blood cell per centageOrdered By: Malena Means on 12-27-2024 Nucleated RBC/100 WBC (Bld) [Ratio] 0 % 0-5 [facility] Platelet countOrdered By: Joaquin Means on 12-27-2024 Platelets (Bld) [#/Vol] 256 10*3/uL 150-450 [facility] Quantitative serum or plasma 3 hour gestational glucose tolerance panelOrdered By: Malena Means on 12-27-2024 Glucose tolerance 3 hours gestational panel See comment [facility] Comment on above: FASTING 101 Col: 10/18 0659GLUCOSE TOLERANCE TEST FOR Reference Interval GESTATIONAL DIABETES Fasting <105 mg/dL 1 hour <190 mg/dl 2 hour <165 mg/dl 3 hour <145 mg/dl 1 HR GLU 160 Col: 12/27/24 0833 2 HR GLU 133 Col: 12/27/24 0936 3 HR GLU 124 Col: 12/27/24 1035 RBC Auto (Bld) [#/Vol]Ordere d By: Malena Means on 12-27-2024 RBC (Bld) [#/Vol] 3.80 10*6/uL Low 4.2-5.4 [facility] Urine cultureOrdered By: Angelica Means on 12-27-2024 Bacteria identified Cx Nom (U) Positive Abnormal [facility] White blood cell (WBC) count Ordered By: Malena Means on 12-27-2024 WBC (Bld) [#/Vol] 19.0 10*3/uL High 4.4-11.0 [facility] Progress Noteon 12-26-2024 Pipe Bowl Paint Trimmer Authentication Interface Message Text Jesus Asher is [...] I will refer this child to our md pediatric allergist for this process. After alignment of the [...] evaluation after . They met with our social worker assistant as well. I spent a total of [...] MD, FACS Chief, Division of Plastic Surgery [facility] 12/26/2024 Normal [facility] Glucose Challenge Gest 1H 50 minh 12-15-2024 GLU GEST 50g 1H 159 mg/dL High 70-140 [facility] Comment on above: Performed By: #### M 100.2200, L7000.1800 #### [facility] [address] [place], [address] HIVon 12-15-2024 HIV Non-Reactive Normal Nonreactive [facility] Comment on above: Result Comment: Non- Reactive Reactive Repeatedly reactive samples must be confirmed according to CDC recommended confirmatory algorithms. The subresults for either HIVAG or AHIV can be used as an aid in the selection of the confirmation algorithm for reactive samples. Send out specimens with Reactive results to [facility] for confirmation. Order the HIV antibody detection and differentiation: lc#[id number] Performed By: #### M 100.2200, L7000.1800 #### [facility] [address] [place], [place], [address] Syphilis Antibodieson 2024 Syphilis Abs Non-Reactive Normal Nonreactive [facility] Comment on above: Performed By: #### M 100.2200, L7000.1800 #### [facility] [address] [place], [place], [id number] Absolute lymphocyte countOrd ered By: Malena Means on 12-14-2024 Lymphocytes Auto (Unsp spec) [#/Vol] 2.62 10*3/uL 0.83-4.51 [facility] Absolute neutrophil countOrd ered By: Malena Means on 12-14-2024 Neutrophils (Bld) [#/Vol] 13.6 10*3/uL High 2.0-7.7 [facility] Automated lymphocyte count a s percentage of total leukocytesOrdered By: Malena Means on 12-14-2024 Lymphocytes/100 WBC Auto (Unsp spec) 15.1 % Low 19-41 [facility] Basophil percentageOrdered B y: Malena Means on 12-14-2024 Basophils/100 WBC (Bld) 0.3 % 0-1 [facility] CBC W/Diff, Automatedon 11-25 Absolute Lymph 2.62 X10 3/uL Normal 0.83-4.51 [facility] Comment on above: Performed By: #### M 100.2200, L7000.1800 #### [facility] [address] [place], [address] Absolute Neut 13.6 X10 3/uL High 2.0-7.7 [facility] Comment on above: Performed By: #### M 100.2200, L7000.1800 #### [facility] [address] [place], [address] Basophils/100 WBC (Bld) 0.3 % Normal 0-1 [facility] Comment on above: Performed By: #### M 100.2200, L7000.1800 #### [facility] [address] [place], [address] Eosinophils/100 WBC (Bld) 0.7 % Normal 0-5 [facility] Comment on above: Performed By: #### M 100.2200, L7000.1800 #### [facility] [address] [place], [address] Erythrocyte distribution width (RBC) [Ratio] 13.7 % Normal 11.6-14.6 [facility] Comment on above: Performed By: #### M 100.2200, L7000.1800 #### [facility] [address] [place], [address] Hematocrit (Bld) [Volume fraction] 37.2 % Normal 37-47 [facility] Comment on above: Performed By: #### M 100.2200, L7000.1800 #### [facility] [address] [place], [address] Hemoglobin (Bld) [Mass/Vol] 12.3 g/dL Normal 12.0-15.0 [facility] Comment on above: Performed By: #### M 100.2200, L7000.1800 #### [facility] [address] [place], [address] IG% 0.700 Normal 0.0-0.9 [facility] Comment on above: Result Comment: IG% - Immature Granulocytes (promyelocytes, myelocytes and metamyelocytes) > 1% indicates that a LEFT SHIFT is Present. Performed By: #### M 100.2200, L7000.1800 #### [facility] [address] [place], [address] Lymphocytes/100 WBC (Bld) 15.1 % Low 19-41 [facility] Comment on above: Performed By: #### M 100.2200, L7000.1800 #### [facility] [address] [place], [address] MCH (RBC) [Entitic mass] 31.1 pg Normal 27.0-32.0 [facility] Comment on above: Performed By: #### M 100.2200, L7000.1800 #### [facility] [address] [place], [address] MCHC (RBC) [Mass/Vol] 33.1 g/dL Normal 32-36 [facility] Comment on above: Performed By: #### M 100.2200, L7000.1800 #### [facility] [address] [place], [address] MCV (RBC) [Entitic vol] 94.2 fL Normal 81-99 [facility] Comment on above: Performed By: #### M 100.2200, L7000.1800 #### [facility] [address] [place], [address] Monocytes/100 WBC (Bld) 4.6 % Normal 0-10 [facility] Comment on above: Performed By: #### M 100.2200, L7000.1800 #### [facility] [address] [place], [address] Neutrophils/100 WBC (Bld) 78.6 % High 47-70 [facility] Comment on above: Performed By: #### M 100.2200, L7000.1800 #### [facility] [address] [place], [address] Nucleated RBC (Bld) [#/Vol] 0 10*3/uL Normal 0-5 [facility] Comment on above: Performed By: #### M 100.2200, L7000.1800 #### [facility] [address] [place], [address] Platelet mean volume (Bld) [Entitic vol] 11.3 fL Normal 6.2-12.0 [facility] Comment on above: Performed By: #### M 100.2200, L7000.1800 #### [facility] [address] [place], [address] Platelets (Bld) [#/Vol] 272 10*3/uL Normal 150-450 [facility] Comment on above: Performed By: #### M 100.2200, L7000.1800 #### [facility] [address] [place], [address] RBC (Bld) [#/Vol] 3.95 10*6/uL Low 4.2-5.4 [facility] Comment on above: Performed By: #### M 100.2200, L7000.1800 #### [facility] [address] [place], [address] RDW SD 47.5 fl High 35.1-43.9 [facility] Comment on above: Performed By: #### M 100.2200, L7000.1800 #### [facility] [address] [place], [address] WBC (Bld) [#/Vol] 17.4 10*3/uL High 4.4-11.0 [facility] Comment on above: Performed By: #### M 100.2200, L7000.1800 #### [facility] [address] [place], [address] Eosinophil percentageOrdered By: Malena Means on 12-14-2024 Eosinophils/100 WBC (Bld) 0.7 % 0-5 [facility] Erythrocyte distribution wid th ratioOrdered By: Malena Means on 12-14-2024 Erythrocyte distribution width (RBC) [Ratio] 13.7 % 11.6-14.6 [facility] Erythrocyte distribution wid th standard deviationOrdered By: Malena Means on 12-14-2024 Erythrocyte distribution width (RBC) [Ratio] 47.5 fl High 35.1-43.9 [facility] Glucose measurement at 2 nahid rs post-dose gestational glucose tolerance testOrdered By: Malena Means on 12-14-2024 Glucose [Mass/Vol] 159 mg/dL High 70-140 [facility] Hematocrit Auto (Bld) [Volum e fraction]Ordered By: Malena Means on 12-14-2024 Hematocrit (Bld) [Volume fraction] 37.2 % 37-47 [facility] Hemoglobin measurementOrdere d By: Malena Means on 12-14-2024 Hemoglobin (Bld) [Mass/Vol] 12.3 g/dL 12.0-15.0 [facility] Immature granulocytes/100 WB C Auto (Bld)Ordered By: Malena Means on 12-14-2024 Immature granulocytes/100 WBC (Bld) 0.700 % 0.0-0.9 [facility] Comment on above: IG% - Immature Granu locytes (promyelocytes, myelocytes and metamyelocytes) > 1% indicates that a LEFT SHIFT is Present. Laboratory - Chemistry and C hemistry - challengeOrdered By: Malena Means on 12-14-2024 Glucose Ql (U) Negative [facility] - UrinalysisOrder ed By: Malena Means on 12-14-2024 Protein Ql (U) Negative [facility] MCV (mean corpuscular volume ) determinationOrdered By: Malena Means on 12-14-2024 MCV (RBC) [Entitic vol] 94.2 fL 81-99 [facility] Mean corpuscular hemoglobin (MCH) determinationOrdered By: Malena Means on 12-14-2024 MCH (RBC) [Entitic mass] 31.1 pg 27.0-32.0 [facility] Mean corpuscular hemoglobin concentration (MCHC) determinationOrdered By: Malena Means on 12-14-2024 MCHC (RBC) [Mass/Vol] 33.1 g/dL 32-36 [facility] Mean platelet volume determi nationOrdered By: Malena Means on 12-14-2024 Platelet mean volume (Bld) [Entitic vol] 11.3 fL 6.2-12.0 [facility] Monocyte percentageOrdered B y: Malena Means on 12-14-2024 Monocytes/100 WBC (Bld) 4.6 % 0-10 [facility] Neutrophil percentageOrdered By: Malena Means on 12-14-2024 Neutrophils/100 WBC (Bld) 78.6 % High 47-70 [facility] No Panel InformationOrdered By: Malena Means on 12-14-2024 HIV (1&2) Antibody Non-Reactive Nonreactive [facility] Comment on above: Non-ReactiveReactive Repeatedly reactive samples must be confirmed according to CDC recommended confirmatory algorithms. The subresults for either HIVAG or AHIV can be used as an aid in the selection of the confirmation algorithm for reactive samples.Send out specimens with Reactive results to [facility] for confirmation.Order the HIV antibody detection and differentiation: #[id number] Nucleated red blood cell per centageOrdered By: Malena Means on 12-14-2024 Nucleated RBC/100 WBC (Bld) [Ratio] 0 % 0-5 [facility] Esthetician/Owner Office Visit Reporton 12-14-2024 Esthetician/Owner Office Visit Report [facility]'[address], [address] [place] [address] OFFICE VISIT Date of Service: 12/14/24 MR#: [id number] Acct: [id number] Name: HYUNJESUSCHRISTOFER CROCKETT Rep #: [id number] : 1995 Provider: Dr. 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 Normal [facility] Platelet countOrdered By: Joaquin Means on 12-14-2024 Platelets (Bld) [#/Vol] 272 10*3/uL 150-450 [facility] RBC Auto (Bld) [#/Vol]Ordere d By: Malena Means on 12-14-2024 RBC (Bld) [#/Vol] 3.95 10*6/uL Low 4.2-5.4 [facility] White blood cell (WBC) count Ordered By: Malena Means on 12-14-2024 WBC (Bld) [#/Vol] 17.4 10*3/uL High 4.4-11.0 [facility] Laboratory - Chemistry and C hemistry - challengeOrdered By: Malena Means on 11-28-2024 Glucose Ql (U) Negative [facility] - UrinalysisOrder ed By: Malena Means on 11-28-2024 Protein Ql (U) Negative [facility] Esthetician/Owner Office Visit Reporton 11-28-2024 Esthetician/Owner Office Visit Report [facility]'s [address], [address] [place] [address] OFFICE VISIT Date of Service: 11/28/24 MR#: [id number] Acct: [id number] Name: HYUNJESUS HUGHES KEIRA Rep #: [id number] : 1995 Provider: Dr. 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 Date Name GA/Weeks Outcome Route Bth Weight Infant Gen Labor Lgth Anesthesia Del [facility] Provider FOB 02/18/24 6 spontaneous [...] -???-???-???-???-??? -?? (more content not included)... Normal [facility] Progress Noteon 11-10-2024 [employer] Trimmer Authentication Interface Message Text [facility] - [...] Syndrome, etc) MAY BE indicated IF the logistics officer hears a murmur or otherwise is concerned SUBJECTIVE: We had the pleasure of seeing Jesus Asher in Cardiology at the [facility] at [facility] on 11/10/2024 at the request of Dr. Irma Noriega. Ms. Asher was referred due to cleft lip and palate. Obstetric History: Ms. Asher is 2 para 0 at [id number] estimated due date 03/05/2025. Number of fetuses: 1 - male Delivery Hospital, preferred: [place] Past medical history: Past Medical History: Diagnosis Date Treatment Center Plan of Care Current medications: Medications Ordered Prior to Encounter[1] Allergies: Allergies[2] Family history: The family history was reviewed and is otherwise negative for congenital heart disease, sudden unexplained , arrhythmia. Social History: Jesus Asher lives with her family in [place], [place]. OBJECTIVE: Echocardiogram (11/10/2024): (see Epic for [...] voice recognition systems. Winsome Olivas DO (he/him/his) Manager [place] [address] Toll-Free: [email or web address] [1] Current Outpatient Medications on File Prior to Visit Medication Sig Dispense Refill Vit w/Mh-Hvfvjohrv-[place] (PNV PO) Take by mouth daily No current facility-administere d medications on file prior to visit. [2] No Known Allergies Normal [facility] P[employer] Trimmer Authentication Interface Message Text [facility] Consult INDICATION FOR CONSULT: Cleft [...] Lutz MD Medication Sig Dispense Refill Vit w/Dv-Rzdrlymtt-BX (PNV PO) Take by mouth daily Social [...] Impression and recommendations include the following: Jesus Hyun is a 28 y.o. year old at [...] for counseling. She met Rosalinda Julio, Clinical Power Plant Superintendent from the [facility]. Rosalinda will continue to help coordinate and care. 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 Cell free DNA aneuploidy screening is low risk. Declined invasive testing. Plan: 1. Continued obstetrical care with her primary delivery truck driver is recommended. 2. Follow up q4 weeks to evaluate biometric parameters and anatomy. These are planned with the [facility]. 3. echocardiogram completed. 4. surveillance as follows: as clinically indicated. 5. consultation with Plastic Surgery/Cleft Clinic and will be arranged. 6. Delivery is appropriate at your local institution. 7. Mode and timing of delivery are based on the usual obstetrical indications. 8. Management in the normal nursery appropriate unless clinically infant needs additional care. 9. Cleft lip/palate management per hospital protocol. 10. Follow up with [facility]astic [facility] Surgery within the first week of life. Please call [phone]. 11. Consultation with Medical Genetic (more content not included)... Normal [facility] Laboratory - Chemistry and C hemistry - challengeOrdered By: Merlyn Rios on 11-02-2024 Glucose Ql (U) Negative [facility] - UrinalysisOrder ed By: Merlyn Rios on 11-02-2024 Protein Ql (U) Negative [facility] Esthetician/Owner Office Visit Reporton 11-02-2024 Esthetician/Owner Office Visit Report [facility]'s [address], [address] [place] [address] OFFICE VISIT Date of Service: 11/02/24 MR#: [id number] Acct: [id number] Name: JESUS ASHER Rep #: [id number] : 1995 Provider: AIDEE crow Age/Sex: 28/F Location: [facility] Status: Signed Intake Vital Signs 09/09/24 14:14 10/07/24 15:03 11/02/24 13:43 Height 5 ft 3 in 5 ft 3 in 5 ft 3 in Weight: 116 lb 8 oz BMI 20.6 BP 120/72 Intake Visit Reasons: 22wk ob Chief Complaint: 22 Week OB Cash Register Balancer Required: No Is patient in pain?: No [...] spouse current occupational status: employed 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 Date Name GA/Weeks Outcome Route Bth Weight Infant Gen Labor Lgth Anesthesia Del Locatn Provider [...] -???-???-???-???-??? -?? (more content not included)... Normal [facility] Progress Noteon 10-13-2024 [employer] Trimmer Authentication Interface Message Text [facility] MATERNAL- MEDICINE CONSULT Referring/Requesting Provider: Malena Bustillo, * PCP: Etienne De Santiago DO INDICATION FOR CONSULT: cleft lip and palate This is a telemedicine video visit requested by the patient/guardian that was performed with the patient's location at [place] office and the provider's location at [facility]. HISTORY OF PRESENT ILLNESS: Patient is a [...] for the 10/13/24 encounter (Telehealth) with Irma Noriega DO Medication Sig Dispense Refill Vit w/Nu-Wasvrzays-DD (PNV PO) Take by mouth daily ALLERGY: [...] location at 28 weeks. Follow up with [facility] in 4 weeks. Chart review and preparation: 5 minutes. Face to face: 12 minutes. Documentation and care coordination: 15 minutes. Total time spent on patient care today: 32 minutes. [1] No Known Allergies Normal [facility] Laboratory - Chemistry and C hemistry - challengeOrdered By: Maylin Cadena on 10-07-2024 Glucose Ql (U) Negative [facility] - UrinalysisOrder ed By: Maylin Cadena on 10-07-2024 Protein Ql (U) Negative [facility] Esthetician/Owner Office Visit Reporton 10-07-2024 Esthetician/Owner Office Visit Report [facility] [address], [address] [place] [address] OFFICE VISIT Date of Service: 10/07/24 MR#: [id number] Acct: [id number] Name: JESUS ASHER Rep #: [id number] : 1995 Provider: Dr. 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 Date Name GA/Weeks Outcome Route Bth Weight Gen Labor Lgth Anesthesia Del Locatn Provider FOB 02/18/24 6 spontaneous HPI 18 [...] 150 -???-? (more content not included)... Normal [facility] - Chemistry and C hemistry - challengeOrdered By: Heather Mahmood on 09-09-2024 Glucose Ql (U) Negative [facility] - UrinalysisOrder ed By: Heather Mahmood on 09-09-2024 Protein Ql (U) Negative [facility] Esthetician/Owner Office Visit Reporton 09-09-2024 Esthetician/Owner Office Visit Report [address], [address] [place] [address] OFFICE VISIT Date of Service: 09/09/24 MR#: [id number] Acct: [id number] Name: JESUS ASHER Rep #: [id number] : 1995 Provider: MATT Harrison ams Age/Sex: 28/F Location: [facility] Status: Signed Intake Vital Signs 03/14/24 09:59 [...] spouse current occupational status: employed 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 Date Name GA/Weeks Outcome Route Bth Weight [facility] 02/18/24 6 spontaneous HPI 14wk [...] no ad (more content not included)... Normal [facility] PAP IG HPV APTIMA 16/18,45on 08-19-2024 ADEQ Comment Normal . [facility] Comment on above: Order Comment: Speci men Comment: [id number] Specimen Comment: Source.............Cervix Specimen Comment: LMP / Prev Treat...[id number] Specimen Comment: Other.............. Specimen Comment: No. of containers..01 ThinPrep Vial Result Comment: Sati sfactory for evaluation. Endocervical and/or squamous metaplastic cells (endocervical component) are present. Performed By: #### L 7400.0280 #### [facility] [address] [place], [place], [id number] COMM . Normal . [facility] Comment on above: Order Comment: Speci men Comment: [id number] Specimen Comment: Source.............Cervix Specimen Comment: LMP / Prev Treat...[id number] Specimen Comment: Other.............. Specimen Comment: No. of containers..01 ThinPrep Vial Performed By: #### L 7400.0280 #### [facility] [address] [place], [place], [id number] COMMENT Comment Normal . [facility] Comment on above: Order Comment: Speci men Comment: [id number] Specimen Comment: Source.............Cervix Specimen Comment: LMP / Prev Treat...[id number] Specimen Comment: Other.............. Specimen Comment: No. of containers..01 ThinPrep Vial Result Comment: This liquid based ThinPrep(R) pap test was screened with the use of an image guided system. Performed By: #### L 7400.0280 #### [facility] [address] [place], [place], [address] DIAG Comment Normal . [facility] Comment on above: Order Comment: Speci men Comment: [id number] Specimen Comment: Source.............Cervix Specimen Comment: LMP / Prev Treat...[id number] Specimen Comment: Other.............. Specimen Comment: No. of containers..01 ThinPrep Vial Result Comment: NEGA TIVE FOR INTRAEPITHELIAL LESION OR MALIGNANCY. Performed By: #### L 7400.0280 #### [facility] [address] [place], [place], [id number] HPV APTIMA, HR Negative Normal Negative [facility] Comment on above: Order Comment: Speci men Comment: [id number] Specimen Comment: Source.............Cervix Specimen Comment: LMP / Prev Treat...[id number] Specimen Comment: Other.............. Specimen Comment: No. of containers..01 ThinPrep Vial Result Comment: This nucleic acid amplification test detects fourteen high- risk HPV types (16,18,31,33,35,39,45,51,52,56,58,59,66,68) without differentiation. Performed By: #### L 7400.0280 #### [facility] [address] [place], [address] HPV Elina Rfx Comment Normal . [facility] Comment on above: Order Comment: Speci men Comment: [id number] Specimen Comment: Source.............Cervix Specimen Comment: LMP / Prev Treat...[id number] Specimen Comment: Other.............. Specimen Comment: No. of containers..01 ThinPrep Vial Result Comment: Crit eria not met, HPV Genotype not performed. Performed at: [address] [id number] Cat Scan Technologist: Shabnam Mcnair MD, Phone: [phone] Performed at: = - [address] [id number] Cat Scan Technologist: Shabnam Mcnair MD, Phone: [phone] Performed By: #### L 7400.0280 #### [facility] [address] [place], [place], [address] PAPSMR Comment Normal . [facility] Comment on above: Order Comment: Speci men Comment: [id number] Specimen Comment: Source.............Cervix Specimen Comment: LMP / Prev Treat...[id number] Specimen Comment: Other.............. Specimen Comment: No. of [...] occur. Performed By: #### L 7400.0280 #### [facility] [address] [place], [place], [address] PERFORM Comment Normal . [facility] Comment on above: Order Comment: Speci men Comment: [id number] Specimen Comment: Source.............Cervix Specimen Comment: LMP / Prev Treat...[id number] Specimen Comment: Other.............. Specimen Comment: No. of containers..01 ThinPrep Vial Result Comment: Karolina [employer] Truck Driver (ASCP) Performed By: #### L 7400.0280 #### [facility] [address] [place], [place], [address] Urine Cultureon 08-19-2024 [facility] Mixed Gram Positive Organisms Schroeder Count 11,000-25,000 MIXC Mixed contaminants. Submit a new specimen if indicated. Normal [facility] Comment on above: Performed By: #### M 100.2200, L7000.1800 #### [facility] [address] [place], [place], [id number] Chlamydia/GC LUCAS aptimaon CHLAMY,NUC ACID Negative Normal Negative [facility] Comment on above: Performed By: #### M 100.2200, L7000.1800 #### [facility] [address] [place], [place], [address] GC BY NUC ACID Negative Normal Negative [facility] Comment on above: Result Comment: Perf ormed at: =G - [facility] [address], [place] [id number] Cat Scan Technologist: Shabnam Mcnair MD, Phone: [phone] Performed By: #### M 100.2200, L7000.1800 #### [facility] [address] [place], [place], [address] Absolute lymphocyte countOrd ered By: Maylin Cadena on 08-16-2024 Lymphocytes Auto (Unsp spec) [#/Vol] 2.32 10*3/uL 0.83-4.51 [facility] Absolute neutrophil countOrd ered By: Maylin Cadena on 08-16-2024 Neutrophils (Bld) [#/Vol] 10.4 10*3/uL High 2.0-7.7 [facility] Automated lymphocyte count a s percentage of total leukocytesOrdered By: Maylin Cadena on 08-16-2024 Lymphocytes/100 WBC Auto (Unsp spec) 17.1 % Low 19-41 [facility] Basophil percentageOrdered B y: Maylin Cadena on 08-16-2024 Basophils/100 WBC (Bld) 0.5 % 0-1 [facility] CBC W/Diff, Automatedon 07-28 Absolute Lymph 2.32 X10 3/uL Normal 0.83-4.51 [facility] Comment on above: Performed By: #### L 3890.6005, L509.8000, L100.0100, L509.4005, BTS, L3890.6300, L900.0098, L3890.6100 #### [facility] [address] [place], [address] Absolute Neut 10.4 X10 3/uL High 2.0-7.7 [facility] Comment on above: Performed By: #### L 3890.6005, L509.8000, L100.0100, L509.4005, BTS, L3890.6300, L900.0098, L3890.6100 #### [facility] Laboratory [address] [place], [address] Basophils/100 WBC (Bld) 0.5 % Normal 0-1 [facility] Comment on above: Performed By: #### L 3890.6005, L509.8000, L100.0100, L509.4005, BTS, L3890.6300, L900.0098, L3890.6100 #### [facility] Laboratory [address] [place], [address] Eosinophils/100 WBC (Bld) 0.2 % Normal 0-5 [facility] Comment on above: Performed By: #### L 3890.6005, L509.8000, L100.0100, L509.4005, BTS, L3890.6300, L900.0098, L3890.6100 #### [facility] Laboratory [address] [place], [address] Erythrocyte distribution width (RBC) [Ratio] 12.8 % Normal 11.6-14.6 [facility] Comment on above: Performed By: #### L 3890.6005, L509.8000, L100.0100, L509.4005, BTS, L3890.6300, L900.0098, L3890.6100 #### [facility] [address] [place], [address] Hematocrit (Bld) [Volume fraction] 40.3 % Normal 37-47 [facility] Comment on above: Performed By: #### L 3890.6005, L509.8000, L100.0100, L509.4005, BTS, L3890.6300, L900.0098, L3890.6100 #### [facility] [address] [place], [address] Hemoglobin (Bld) [Mass/Vol] 14.1 g/dL Normal 12.0-15.0 [facility] Comment on above: Performed By: #### L 3890.6005, L509.8000, L100.0100, L509.4005, BTS, L3890.6300, L900.0098, L3890.6100 #### [facility] [address] [place], [address] IG% 0.400 Normal 0.0-0.9 [facility] Comment on above: Result Comment: IG% - Immature Granulocytes (promyelocytes, myelocytes and metamyelocytes) > 1% indicates that a LEFT SHIFT is Present. Performed By: #### L 3890.6005, L509.8000, L100.0100, L509.4005, BTS, L3890.6300, L900.0098, L3890.6100 #### [facility] [address] [place], [address] Lymphocytes/100 WBC (Bld) 17.1 % Low 19-41 [facility] Comment on above: Performed By: #### L 3890.6005, L509.8000, L100.0100, L509.4005, BTS, L3890.6300, L900.0098, L3890.6100 #### [facility] Laboratory [address] [place], [address] MCH (RBC) [Entitic mass] 30.7 pg Normal 27.0-32.0 [facility] Comment on above: Performed By: #### L 3890.6005, L509.8000, L100.0100, L509.4005, BTS, L3890.6300, L900.0098, L3890.6100 #### [facility] [address] [place], [address] MCHC (RBC) [Mass/Vol] 35.0 g/dL Normal 32-36 [facility] Comment on above: Performed By: #### L 3890.6005, L509.8000, L100.0100, L509.4005, BTS, L3890.6300, L900.0098, L3890.6100 #### [facility] [address] [place], [address] MCV (RBC) [Entitic vol] 87.6 fL Normal 81-99 [facility] Comment on above: Performed By: #### L 3890.6005, L509.8000, L100.0100, L509.4005, BTS, L3890.6300, L900.0098, L3890.6100 #### [facility] [address] [facility] [place], [address] Monocytes/100 WBC (Bld) 5.0 % Normal 0-10 [facility] Comment on above: Performed By: #### L 3890.6005, L509.8000, L100.0100, L509.4005, BTS, L3890.6300, L900.0098, L3890.6100 #### [facility] [address] [facility] [place], [address] Neutrophils/100 WBC (Bld) 76.8 % High 47-70 [facility] Comment on above: Performed By: #### L 3890.6005, L509.8000, L100.0100, L509.4005, BTS, L3890.6300, L900.0098, L3890.6100 #### [facility] Laboratory [address] [place], [address] Nucleated RBC (Bld) [#/Vol] 0 10*3/uL Normal 0-5 [facility] Comment on above: Performed By: #### L 3890.6005, L509.8000, L100.0100, L509.4005, BTS, L3890.6300, L900.0098, L3890.6100 #### [facility] [address] [place], [address] Platelet mean volume (Bld) [Entitic vol] 11.5 fL Normal 6.2-12.0 [facility] Comment on above: Performed By: #### L 3890.6005, L509.8000, L100.0100, L509.4005, BTS, L3890.6300, L900.0098, L3890.6100 #### [facility] [address] [place], [address] Platelets (Bld) [#/Vol] 282 10*3/uL Normal 150-450 [facility] Comment on above: Performed By: #### L 3890.6005, L509.8000, L100.0100, L509.4005, BTS, L3890.6300, L900.0098, L3890.6100 #### [facility] [address] [place], [address] RBC (Bld) [#/Vol] 4.60 10*6/uL Normal 4.2-5.4 [facility] Comment on above: Performed By: #### L 3890.6005, L509.8000, L100.0100, L509.4005, BTS, L3890.6300, L900.0098, L3890.6100 #### [facility] [address] [place], [address] RDW SD 40.5 fl Normal 35.1-43.9 [facility] Comment on above: Performed By: #### L 3890.6005, L509.8000, L100.0100, L509.4005, BTS, L3890.6300, L900.0098, L3890.6100 #### [facility] [address] [place], [address] WBC (Bld) [#/Vol] 13.5 10*3/uL High 4.4-11.0 [facility] Comment on above: Performed By: #### L 3890.6005, L509.8000, L100.0100, L509.4005, BTS, L3890.6300, L900.0098, L3890.6100 #### [facility] [place], [address] Cervical or vaginal specimen microscopic examination by liquid based cytology (reportOrdered By: Malena Means on 08-16-2024 Cytology report Cyto stain.thin prep Doc (Cvx/Vag) Comment . [facility] Comment on above: Criteria not met, HP V Genotype not performed.Performed at: - [address] [id number] Director: Shabnam Mcnair MD, Phone: [phone] at: =[address] [id number] Director: Shabnam Mcnair MD, Phone: [phone] Cervical or vagninal specime n microscopic examination by cytology stain (reported asOrdered By: Malena Means on 08-16-2024 Cytology report Cyto stain Doc (Cvx/Vag) Comment . [facility] Comment on above: The Pap smear is a s creening test designed to aid in thedetection of premalignant and malignant conditions of theuterine cervix. It is not a diagnostic procedure andshould not be used as the sole means of detecting cervicalcancer. Both false-positive and false-negative reports dooccur. Chlamydia trachomatis rRNA d etection by probe and target amplification methodOrdered By: Maylin Cadena on 08-16-2024 C. trachomatis rRNA LUCAS+probe Ql (Unsp spec) Negative Negative [facility] Detection in cervical specim en of any of human papilloma virus (HPV) 16, 18, 31, 33,Ordered By: Malena Means on 08-16-2024 HPV 16+18+31+33+35+39+45+51 +52+56+58+59+66+68 DNA Probe+sig amp Ql (Cvx) Negative Negative [facility] Comment on above: This nucleic acid am plification test detects fourteen high-risk HPV types (16,18,31,33,35,39,45,51,52,56,58,59,66,68)without differentiation. Eosinophil percentageOrdered By: Maylin Cadena on 08-16-2024 Eosinophils/100 WBC (Bld) 0.2 % 0-5 [facility] Erythrocyte distribution wid th ratioOrdered By: Maylin Cadena on 08-16-2024 Erythrocyte distribution width (RBC) [Ratio] 12.8 % 11.6-14.6 [facility] Erythrocyte distribution wid th standard deviationOrdered By: Maylin Cadena on 08-16-2024 Erythrocyte distribution width (RBC) [Ratio] 40.5 fl 35.1-43.9 [facility] HIV - WCHon 08-16-2024 HIV Non-Reactive Normal Nonreactive [facility] Comment on above: Order Comment: Reaso n for Exam: Performed By: #### L 3890.6005, L509.8000, L100.0100, L509.4005, BTS, L3890.6300, L900.0098, L3890.6100 #### [facility] Laboratory [address] [place] [address], [address] HIV 1 and HIV-2 antibody ass ay with HIV-1 p24 antigen detectionOrdered By: Maylin Cadena on 08-16-2024 HIV 1+2 Ab+HIV1 p24 Ag IA Ql Non-Reactive Nonreactive [facility] Hematocrit Auto (Bld) [Volum e fraction]Ordered By: Maylin Cadena on 08-16-2024 Hematocrit (Bld) [Volume fraction] 40.3 % 37-47 [facility] Hemoglobin measurementOrdere d By: Maylin Cadena on 08-16-2024 Hemoglobin (Bld) [Mass/Vol] 14.1 g/dL 12.0-15.0 [facility] Hepatitis B Surface Antigeno n 08-16-2024 HEP B Surf Ag Non-Reactive Normal Nonreactive [facility] Comment on above: Order Comment: Reaso n for Exam: Performed By: #### L 3890.6005, L509.8000, L100.0100, L509.4005, BTS, L3890.6300, L900.0098, L3890.6100 #### [facility] Laboratory [address] [place], [address] Hepatitis C Antibodyon 08-16 Hepatitis C AB Non-Reactive Normal Nonreactive [facility] Comment on above: Order Comment: Reaso n for Exam: Result Comment: Non Reactive: < 0.8 Equivocal: >/= 0.8 to < 1.0 Reactive: >/= 1.0 The [facility] requires that a reactive/equivocal HCV antibody result be sent out for confirmation. HCV Quant by PCR testing. Performed By: #### L 3890.6005, L509.8000, L100.0100, L509.4005, BTS, L3890.6300, L900.0098, L3890.6100 #### [facility] [address] [place], [address] Immature granulocytes/100 WB C Auto (Bld)Ordered By: Maylin Cadena on 08-16-2024 Immature granulocytes/100 WBC (Bld) 0.400 % 0.0-0.9 [facility] Comment on above: IG% - Immature Granu locytes (promyelocytes, myelocytes and metamyelocytes) > 1% indicates that a LEFT SHIFT is Present. L509.8000on 08-16-2024 Syphilis Abs Non-Reactive Normal [facility] Comment on above: Order Comment: Reaso n for Exam: Performed By: #### L 3890.6005, L509.8000, L100.0100, L509.4005, BTS, L3890.6300, L900.0098, L3890.6100 #### [facility] [address] [place], [address] Laboratory - CytologyOrdered By: Malena Means on 08-16-2024 Security Intelligence Analyst Cyto stain Nom (Cvx/Vag) [ID] Comment . [facility] Comment on above: Karolina Griffith, Cytote chnologist (ASCP) Laboratory - Miscellaneous t estsOrdered By: Malena Means on 08-16-2024 Service comment (Unsp spec) [Interp] . . [facility] MCV (mean corpuscular volume ) determinationOrdered By: Maylin Cadena on 08-16-2024 MCV (RBC) [Entitic vol] 87.6 fL 81-99 [facility] Mean corpuscular hemoglobin (MCH) determinationOrdered By: Maylin Cadena on 08-16-2024 MCH (RBC) [Entitic mass] 30.7 pg 27.0-32.0 [facility] Mean corpuscular hemoglobin concentration (MCHC) determinationOrdered By: Maylin Cadena on 08-16-2024 MCHC (RBC) [Mass/Vol] 35.0 g/dL 32-36 [facility] Mean platelet volume determi nationOrdered By: Maylin Cadena on 08-16-2024 Platelet mean volume (Bld) [Entitic vol] 11.5 fL 6.2-12.0 [facility] Monocyte percentageOrdered B y: Maylin Cadena on 08-16-2024 Monocytes/100 WBC (Bld) 5.0 % 0-10 [facility] NATERAon 08-16-2024 NATURA SEE SCANNED REPORT Normal [facility] Comment on above: Order Comment: Comme nts: elects NIPT Carrier Performed By: #### L 3890.6005, L509.8000, L100.0100, L509.4005, BTS, L3890.6300, L900.0098, L3890.6100 #### [facility] [address] [facility] [place], [place], [id number] Neisseria gonorrhoeae nuclei c acid detection by amplified probe techniqueOrdered By: Maylin Cadena on 08-16-2024 N. gonorrhoeae DNA LUCAS+probe Ql (Unsp spec) Negative Negative [facility] Comment on above: Performed at: =[address] [id number] Director: Shabnam Mcnair MD, Phone: [phone] Neutrophil percentageOrdered By: Maylin Cadena on 08-16-2024 Neutrophils/100 WBC (Bld) 76.8 % High 47-70 [facility] No Panel InformationOrdered By: Malena Means on 08-16-2024 Pap Smear Specimen Adequacy Comment . [facility] Comment on above: Satisfactory for tammy luation. Endocervical and/or squamous metaplasticcells (endocervical component) are present. Nucleated red blood cell per centageOrdered By: Maylin Cadena on 08-16-2024 Nucleated RBC/100 WBC (Bld) [Ratio] 0 % 0-5 [facility] Esthetician/Owner Office Visit Reporton 08-16-2024 Esthetician/Owner Office Visit Report [facility]'s [address], [address] [place] [address] OFFICE VISIT Date of Service: 08/16/24 MR#: [id number] Acct: [id number] Name: JESUS ASHER Rep #: [id number] : 1995 Provider: Dr. 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 Date Name GA/Weeks Outcome Route Bth Weight Gen [facility] FOB 02/18/24 6 spontaneous HPI NOB LMP 05/29 Details: JESUS ASHER is a 28 year [...] Normal amount/duration: Yes Frequency in days: irregular [id number]-23-51 On hormonal BC at conception: No hCG+: 06/30/24 Antepartum Record Genetic Screening: Congenital Heart Defect: Other, Neural Tube Defect: Other, Hemoglobinopathy Or Carrier: Partner (brother platelet disorder ), Cystic Fibrosis: Other, Chromosome Abnormality: Other, Alvaro-Sachs: Other, Hemophilia: Other, Intellectual Disability/Autism: Other, Recurrent Loss (more content not included)... Normal [facility] Platelet countOrdered By: Lebron Cadena on 08-16-2024 Platelets (Bld) [#/Vol] 282 10*3/uL 150-450 [facility] RBC Auto (Bld) [#/Vol]Ordere d By: Maylin Cadena on 08-16-2024 RBC (Bld) [#/Vol] 4.60 10*6/uL 4.2-5.4 [facility] Rubella IgGon 08-16-2024 Rubella IgG Reactive Normal Nonreactive [facility] Comment on above: Order Comment: Reaso n for Exam: Result Comment: Anti body Results Interpretation of Immune Status Non Reactive Presumed Non-Immune Equivocal Equivocal Reactive Presumed Immune Performed By: #### L 3890.6005, L509.8000, L100.0100, L509.4005, BTS, L3890.6300, L900.0098, L3890.6100 #### [facility] Laboratory [address] [place], [place], [id number] Serum Treponema species anti body detectionOrdered By: Maylin Cadena on 08-16-2024 Treponema sp Ab Ql (S) Non-Reactive [facility] Type AND Screenon 08-16-2024 ABO and Rh group Nom (Bld) Blood group B Rh(D) positive Normal [facility] Comment on above: Order Comment: PN Performed By: #### M 100.2200, L7000.1800 #### [facility] [address] [place], [place], [id number] Urine cultureOrdered By: Lee Cadena on 08-16-2024 Bacteria identified Cx Nom (U) Positive Abnormal [facility] White blood cell (WBC) count Ordered By: Maylin Cadena on 08-16-2024 WBC (Bld) [#/Vol] 13.5 10*3/uL High 4.4-11.0 [facility] Esthetician/Owner Office Visit Reporton 03-14-2024 Esthetician/Owner Office Visit Report [facility]'[address], [address] [place] [address] OFFICE VISIT Date of Service: 03/14/24 MR#: [id number] Acct: [id number] Name: JESUS ASHER Rep #: [id number] : 1995 Provider: Dr. 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 03/14/24 1029 Date Malena Bean DO [facility] Signature: Date (if applicable) CC: Normal [facility] hCG Titer Quant., Serumon HCG QUANT. < 1 Normal 1-3 [facility] Comment on above: Result Comment: hCG levels with Gestational Age Gestational Age hCG mIU/mL (IU/L) 0.2 - 1 week 5 - 50 1-2 weeks 50 - 500 2-3 weeks 100 - 5000 3-4 weeks 500 - 88017 4-5 weeks 1000 - 58031 5-6 weeks 98923 - 100,000 6-8 weeks 20351 - 200,000 2-3 months 52410 - 100,000 Performed By: #### M 100.2200, L7000.1800 #### [facility] [address] [place], [place], [id number] .Auto Diffon 03-29-2022 Basophil, Absolute 0.1 10 3/mcL Normal 0.0-0.2 [facility] ([place]) Comment on above: Performed By: #### G FR, CMP, TSH, LIPID #### [place] [address] [place], [place] [address] Basophils/100 WBC (Bld) 1.0 % Normal 0.0-2.5 [facility] ([place]) Comment on above: Performed By: #### G FR, CMP, TSH, LIPID #### [address] [address] Eosinophil, Absolute 0.1 10 3/mcL Normal 0.0-0.4 [facility] ([place]) Comment on above: Performed By: #### G FR, CMP, TSH, LIPID #### [address] [address] Eosinophils/100 WBC (Bld) 1.0 % Normal 0.0-7.0 [facility] ([place]) Comment on above: Performed By: #### G FR, CMP, TSH, LIPID #### [address] [address] Lymphocyte, Absolute 2.8 10 3/mcL Normal 0.8-3.9 [facility] ([place]) Comment on above: Performed By: #### G FR, CMP, TSH, LIPID #### [address] [address] Lymphocytes/100 WBC (Bld) 32.1 % Normal 10.0-50.0 [facility] ([place]) Comment on above: Performed By: #### G FR, CMP, TSH, LIPID #### [address] [address] Monocyte, Absolute 0.5 10 3/mcL Normal 0.2-1.0 [facility] ([place]) Comment on above: Performed By: #### G FR, CMP, TSH, LIPID #### [address] [address] Monocytes/100 WBC (Bld) 5.7 % Normal 1.7-13.0 [facility] ([place]) Comment on above: Performed By: #### G FR, CMP, TSH, LIPID #### [address] [address] Neutrophils/100 WBC (Bld) 60.2 % Normal 37.0-80.0 [facility] ([place]) Comment on above: Performed By: #### G FR, CMP, TSH, LIPID #### Daniel [address] [address] .GFRon 03-29-2022 GFR 99 ml/min/1.73sqm Normal [facility] ([place]) Comment on above: Result Comment: GFR Population [...] #### G FR, CMP, TSH, LIPID #### [address] [address] GFR Non- 82 ml/min/1.73sqm Normal [facility] ([place]) Comment on above: Result Comment: GFR Population [...] #### G FR, CMP, TSH, LIPID #### [address] [address] .NEUABSon 03-29-2022 Neutrophil, Absolute 5.2 10 3/mcL Normal 2.9-6.2 [facility] ([place]) Comment on above: Performed By: #### G FR, CMP, TSH, LIPID #### [address] [address] CBCon 03-29-2022 Erythrocyte distribution width (RBC) [Ratio] 13.2 % Normal 11.5-14.5 [facility] ([place]) Comment on above: Performed By: #### G FR, CMP, TSH, LIPID #### [address] [address] Hematocrit (Bld) [Volume fraction] 43.4 % Normal 37.0-47.0 [facility] ([place]) Comment on above: Performed By: #### G FR, CMP, TSH, LIPID #### [address] [address] Hgb 14.9 G/dL Normal 12.0-16.0 [facility] ([place]) Comment on above: Performed By: #### G FR, CMP, TSH, LIPID #### [address] [address] MCH (RBC) [Entitic mass] 29.9 pg Normal 27.0-31.2 [facility] ([place]) Comment on above: Performed By: #### G FR, CMP, TSH, LIPID #### [address] [address] MCHC 34.3 G/dL Normal 33.0-37.0 [facility] ([place]) Comment on above: Performed By: #### G FR, CMP, TSH, LIPID #### [address] [address] MCV (RBC) [Entitic vol] 87.4 fL Normal 80.0-94.0 [facility] ([place]) Comment on above: Performed By: #### G FR, CMP, TSH, LIPID #### [address] [address] Platelet 267 10 3/mcL Normal 130-400 [facility] ([place]) Comment on above: Performed By: #### G FR, CMP, TSH, LIPID #### [address] [address] Platelet mean volume (Bld) [Entitic vol] 9.6 fL Normal 7.4-10.4 [facility] ([place]) Comment on above: Performed By: #### G FR, CMP, TSH, LIPID #### [address] [address] RBC 4.97 10 6/mcL Normal 4.20-5.40 [facility] ([place]) Comment on above: Performed By: #### G FR, CMP, TSH, LIPID #### [place] [address] WBC 8.7 10 3/mcL Normal 4.6-10.8 [facility] ([place]) Comment on above: Performed By: #### G FR, CMP, TSH, LIPID #### [place] [id number] CMPon 03-29-2022 Albumin Level 4.0 G/dL Normal 3.5-5.0 [facility] ([place]) Comment on above: Performed By: #### G FR, CMP, TSH, LIPID #### [place] [id number] Albumin/Globulin [Mass ratio] 1.1 {ratio} Normal 1.1-2.5 [facility] ([place]) Comment on above: Performed By: #### G FR, CMP, TSH, LIPID #### [address] [address] ALP [Catalytic activity/Vol] 60 U/L Normal 40-135 [facility] ([place]) Comment on above: Performed By: #### G FR, CMP, TSH, LIPID #### [address] [address] ALT [Catalytic activity/Vol] 19 U/L Normal 14-59 [facility] ([place]) Comment on above: Performed By: #### G FR, CMP, TSH, LIPID #### [place] [id number] AST [Catalytic activity/Vol] 18 U/L Normal 10-40 [facility] ([place]) Comment on above: Performed By: #### G FR, CMP, TSH, LIPID #### [address] [address] Bili Total 1.2 mg/dL High 0.2-1.0 [facility] ([place]) Comment on above: Result Comment: Use of this assay is not recommended for patients undergoing treatment with eltrombopag due to the potential for falsely elevated results. Performed By: #### G FR, CMP, TSH, LIPID #### [address] [address] BUN/Creatinine Ratio 13 ratio Normal 7-27 [facility] ([place]) Comment on above: Performed By: #### G FR, CMP, TSH, LIPID #### [address] [address] Calcium [Mass/Vol] 9.5 mg/dL Normal 8.4-10.2 [facility] ([place]) Comment on above: Performed By: #### G FR, CMP, TSH, LIPID #### [address] [address] Chloride [Moles/Vol] 104 mmol/L Normal 98-107 [facility] ([place]) Comment on above: Performed By: #### G FR, CMP, TSH, LIPID #### [address] [address] CO2 [Moles/Vol] 28 mmol/L Normal 22-29 [facility] ([place]) Comment on above: Performed By: #### G FR, CMP, TSH, LIPID #### [address] [address] Creatinine [Mass/Vol] 0.83 mg/dL Normal 0.55-1.02 [facility] ([place]) Comment on above: Performed By: #### G FR, CMP, TSH, LIPID #### [address] [address] Electrolyte Balance 7.0 mEq/L Normal 4.0-15.0 [facility] ([place]) Comment on above: Performed By: #### G FR, CMP, TSH, LIPID #### [address] [address] Globulin 3.8 G/dL Normal [facility] ([place]) Comment on above: Performed By: #### G FR, CMP, TSH, LIPID #### [address] [address] Glucose [Mass/Vol] 81 mg/dL Normal 70-105 [facility] ([place]) Comment on above: Performed By: #### G FR, CMP, TSH, LIPID #### [address] [address] Potassium [Moles/Vol] 5.3 mmol/L High 3.5-5.1 [facility] ([place]) Comment on above: Performed By: #### G FR, CMP, TSH, LIPID #### [address] [address] Sodium [Moles/Vol] 139 mmol/L Normal 136-145 [facility] ([place]) Comment on above: Performed By: #### G FR, CMP, TSH, LIPID #### [address] [address] Total Protein 7.8 G/dL Normal 6.4-8.2 [facility] ([place]) Comment on above: Performed By: #### G FR, CMP, TSH, LIPID #### [address] [address] Urea nitrogen [Mass/Vol] 11 mg/dL Normal 7-18 [facility] ([place]) Comment on above: Performed By: #### G FR, CMP, TSH, LIPID #### [address] [address] LABORATORYOrdered By: Cherise Faith on 03-29-2022 Albumin [...] 03-29-2022 Cholesterol [Mass/Vol] 192 mg/dL Normal 0-200 [facility] ([place]) Comment on above: Result Comment: Chol esterol Reference Interval: Less than 200 Desirable 200-239 Borderline high risk 240 and above High risk Performed By: #### G FR, CMP, TSH, LIPID #### [address] [address] Cholesterol in HDL [Mass/Vol] 57 mg/dL Normal 40-60 [facility] ([place]) Comment on above: Performed By: #### G FR, CMP, TSH, LIPID #### [address] [address] Cholesterol in LDL [Mass/Vol] 115 mg/dL Normal 0-130 [facility] ([place]) Comment on above: Performed By: #### G FR, CMP, TSH, LIPID #### [address] [address] Triglyceride [Mass/Vol] 99 mg/dL Normal 0-150 [facility] ([place]) Comment on above: Result Comment: Trig lyceride Reference Interval: Less than 150 Normal 150-199 Borderline high risk 200-499 High risk 500 or higher Very high risk Performed By: #### G FR, CMP, TSH, LIPID #### [address] [address] TSHon 03-29-2022 TSH Qn 1.45 m[IU]/L Normal 0.36-3.74 [facility] ([place]) Comment on above: Performed By: #### G FR, CMP, TSH, LIPID #### [address] [place], [place] [address] Covid 19 Resultson 1 SARS-CoV-2 (COVID-19) RNA [...] You may also be contacted by the [facility] to see if any of [...] or Naproxen (Aleve) can also be used. Jatu-gyq-xhpixpv cough and cold medicines can be used according to the instructions on the package. Some aygp-ydt-wshsxsb medicines also contain acetaminophen. Make sure you [...] water are not available, use alcohol-based hand protective signal repairer. Avoid touching your eyes, nose, and mouth [...] 24 nahid (more content not included)... Normal [facility] Covid 19 Resultson 1 SARS-CoV-2 (COVID-19) [...] You may also be contacted by the [facility] to see if any of [...] or Naproxen (Aleve) can also be used. Prbp-mrh-qrqqigv cough and cold medicines can be used according to the instructions on the package. Some nrcy-tjt-jevjazu medicines also contain acetaminophen. Make sure you [...] water are not available, use alcohol-based hand protective signal repairer. Avoid touching your eyes, nose, and mouth [...] 24 nahid (more content not included)... Normal [facility] Covid 19 Resultson 1 SARS-CoV-2 (COVID-19) [...] You may also be contacted by the [facility] to see if any of your close [...] or Naproxen (Aleve) can also be used. Hqmn-tne-mtulnre cough and cold medicines can be used according to the instructions on the package. Some qkxo-hpl-qxtvhgm medicines also contain acetaminophen. Make sure you [...] water are not available, use alcohol-based hand protective signal repairer. Avoid touching your eyes, nose, and mouth [...] 24 nahid (more content not included)... Normal [facility] Covid 19 Resultson 1 SARS-CoV-2 (COVID-19) [...] You may also be contacted by the [facility] to see if any of your close [...] or Naproxen (Aleve) can also be used. Srmh-nfa-shwdjym cough and cold medicines can be used according to the instructions on the package. Some jwrh-nly-lidqkfd medicines also contain acetaminophen. Make sure you [...] water are not available, use alcohol-based hand protective signal repairer. Avoid touching your eyes, nose, and mouth [...] ibuprofen (Motrin) (more content not included)... Normal [facility] Vital Signs Date Time Vital Sign Value Performing Clinician Willie preston 12-29-2024 11:42-0400 Body height 160.[address] Etienne De Santiago DO Work Phone: [facility] 12-29-2024 11:42-0400 Body mass index (BMI) [Ratio] 22.9 kg/m2 Dr. Etienne De Santiago DO Work Phone: [facility] 12-29-2024 11:42-0400 Body weight 58.[address] Etienne De Santiago DO Work Phone: [facility] 12-29-2024 11:42-0400 Diastolic blood pressure 80 mm[Hg] Dr. Etienne De Santiago DO Work Phone: [facility] 12-29-2024 11:42-0400 Systolic blood pressure 122 mm[Hg] Dr. Etienne De Santiago DO Work Phone: [facility] 12-14-2024 13:09-0400 Body height 160.[address] Etienne De Santiago DO Work Phone: [facility] 12-14-2024 13:09-0400 Body mass index (BMI) [Ratio] 22.1 kg/m2 Dr. Etienne De Santiago DO Work Phone: [facility] 12-14-2024 13:09-0400 Body weight 56.[address] Etienne De Santiago DO Work Phone: [facility] 12-14-2024 13:09-0400 Diastolic blood pressure 76 mm[Hg] Dr. Etienne De Santiago DO Work Phone: [facility] 12-14-2024 13:09-0400 Systolic blood pressure 122 mm[Hg] Dr. Etienne De Santiago DO Work Phone: [facility] 11-28-2024 14:46-0400 Body mass index (BMI) [Ratio] 21.7 kg/m2 Dr. Etienne De Santiago DO Work Phone: [facility] 11-28-2024 14:46-0400 Body weight 55.[address] Etienne De Santiago DO Work Phone: [facility] 11-28-2024 14:46-0400 Diastolic blood pressure 79 mm[Hg] Dr. Etienne De Santiago DO Work Phone: [facility] 11-28-2024 14:46-0400 Systolic blood pressure 126 mm[Hg] Dr. Etienne De Santiago DO Work Phone: [facility] 11-02-2024 13:43-0400 Body mass index (BMI) [Ratio] 20.6 kg/m2 Dr. Etienne De Santiago DO Work Phone: [facility] 11-02-2024 13:43-0400 Body weight 52.[address] Etienne De Santiago DO Work Phone: [facility] 11-02-2024 13:43-0400 Diastolic blood pressure 72 mm[Hg] Dr. Etienne De Santiago DO Work Phone: [facility] 11-02-2024 13:43-0400 Systolic blood pressure 120 mm[Hg] Dr. Etienne De Santiago DO Work Phone: [facility] 10-07-2024 15:02-0400 Body mass index (BMI) [Ratio] 19.5 kg/m2 Dr. Etienne De Santiago DO Work Phone: [facility] 10-07-2024 15:02-0400 Body weight 50.[address] Etienne De Santiago DO Work Phone: [facility] 10-07-2024 15:02-0400 Diastolic blood pressure 71 mm[Hg] Dr. Etienne De Santiago DO Work Phone: [facility] 10-07-2024 15:02-0400 Systolic blood pressure 137 mm[Hg] Dr. Etienne De Santiago DO Work Phone: [facility] 09-09-2024 14:14-0500 Body mass index (BMI) [Ratio] 18.8 kg/m2 Dr. Etienne De Santiago DO Work Phone: [facility] 09-09-2024 14:14-0500 Body weight 48.[address] Etienne De Santiago DO Work Phone: [facility] 09-09-2024 14:14-0500 Diastolic blood pressure 84 mm[Hg] Dr. Etienne De Santiago DO Work Phone: [facility] 09-09-2024 14:14-0500 Systolic blood pressure 127 mm[Hg] Dr. Etienne De Santiago DO Work Phone: [facility] 08-16-2024 10:17-0500 Body mass index (BMI) [Ratio] 18.4 kg/m2 Dr. Etienne De Santiago DO Work Phone: [facility] 08-16-2024 10:17-0500 Body weight 47.[address] Etienne De Santiago DO Work Phone: [facility] 08-16-2024 10:17-0500 Diastolic blood pressure 80 mm[Hg] Dr. Etienne De Santiago DO Work Phone: [facility] 08-16-2024 10:17-0500 Systolic blood pressure 130 mm[Hg] Dr. Etienne De Santiago DO Work Phone: [facility] Encounters Encounter Date Encounter Type Care Provider Facility Start: 12-29-2024 End: 12-29-2024 Patient encounter procedure Heather Mahmood CNM -[facility] Work Phone: Start: 12-29-2024 End: 12-29-[address] Etienne De Santiago DO Work Phone: [facility] Work Phone: Start: 12-27-2024 End: 12-27-[address] Etienne De Santiago DO Work Phone: [facility] Work Phone: Start: 12-27-2024 End: 12-27-[address] Malena Bean DO -Laboratory Work Phone: Start: 12-26-2024 End: 12-26-2024 Subsequent hospital visit by physician Zack Douglass MD Work Phone: [facility] Comment on above: Cleft lip and cleft palate (Primary Dx) Start: 12-26-2024 End: 12-27-2024 ambulatory ETIENNE DE SANTIAGO [facility] Start: 12-14-2024 End: 12-14-[address] Malena Bean DO -[facility] Work Phone: Start: 12-14-2024 End: 12-14-[address] Etienne De Santiago DO Work Phone: [facility] Work Phone: Start: 12-14-2024 End: 12-14-2024 ambulatory Etienne Jonnathan Facility:[facility] Start: 12-06-2024 End: 12-06-2024 ambulatory ETIENNE JONNATHAN [facility] Start: 11-28-2024 End: 11-28-[address] 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, fetus 1 of multiple gestation Start: 11-10-2024 End: 11-10-2024 ambulatory ALLAN LUTZ [facility] Start: 11-10-2024 End: 11-10-2024 ambulatory WINSOME OLIVAS [facility] Start: 11-10-2024 End: 11-10-2024 ambulatory ALLAN LUTZ [facility] Start: 11-02-2024 End: 11-02-2024 Patient encounter procedure Merlyn HOSKINS -[facility] Work Phone: Start: 11-02-2024 End: 11-02-2024 ambulatory Etienne Jonnathan Facility:[facility] Start: 10-13-2024 End: 10-13-2024 ambulatory MALENA Simon [facility] Start: 10-13-2024 End: 10-13-2024 [facility] Start: 10-07-2024 End: 10-07-[address] Maylin Cadena MD -[facility] Work Phone: Start: 10-07-2024 End: 10-07-2024 ambulatory Etienne Jonnathan Facility:[facility] Start: 09-09-2024 End: 09-09-2024 Patient encounter procedure Heather Mahmood CNM -[facility] Work Phone: Start: 09-09-2024 End: 09-09-2024 ambulatory Etienne Jonnathan Facility:[facility] Start: 08-16-2024 End: 08-16-[address] Malena Bean DO -[facility] Work Phone: Start: 08-16-2024 End: 08-16-2024 ambulatory Etienne Jonnathan Facility:[facility] Start: 08-16-2024 End: 08-16-2024 ambulatory Etienne Jonnathan Facility:[facility] Start: 03-14-2024 End: 03-14-2024 ambulatory Etienne Jonnathan Facility:[facility] Start: 02-29-2024 End: 02-29-2024 ambulatory Malena Bean Facility:[facility] Start: 03-29-2022 End: 03-29-[address] ETIENNE DE SANTIAGO DO [facility] Procedures Date Procedure Procedure Detail Performing Clinician Start: 12-27-[address] Etienne De Santiago DO Work Phone: Start: 12-14-2024 Serologic test for syphilis Dr. Etienne De Santiago DO Work Phone: Start: 08-16-2024 Liquid based cervica l cytology [...] Pertussis Vaccines (3 - Td or Tdap) [facility] Start: 03-27-2025 FLU (Season Ended) FLU (Season Ended ) [facility] Start: 01-31-2025 End: 01-31-2025 Professional / ancillary services management 01/31/2025 8:00 AM EDT Ancillary Procedure Visit Maternal Medicine [address], [facility] [address] [place] [address] Patient needs scheduled at [place] for growth US60 on 01/31 at 8:00 a.m. and 02/28 at 8:00 a.m [facility] [place] Comment on above: Patient needs schedu led at [place] for growth US60 on 01/31 at 8:00 a.m. and 02/28 at 8:00 a.m Start: 01-03-2025 End: 01-03-2025 Professional / ancillary services management 01/03/2025 8:00 AM EDT Ancillary Procedure Visit Maternal Medicine [address], [address] [place] [address] Growth FTC 60 mins [facility] [place] Comment on above: Growth FTC 60 mins Start: 12-14-2024 CBC W Auto Different ial panel - Blood [facility] Start: 12-14-2024 Measurement of gluco se 2 hours after glucose challenge for glucose tolerance test [facility] Start: 12-14-2024 Serologic test for syphilis [facility] Start: 12-14-2024 [facility] Start: 12-06-2024 End: 12-06-2024 Professional / ancillary services management 12/06/2024 1:30 PM EDT Ancillary Procedure Visit Maternal [place] [address] Growth FTC 60 mins [facility]aternal Medicine Comment on above: Growth FTC 60 mins Start: 03-27-2024 COVID-19 (2023-08 season) COVID-19 ( season) [facility] Start: 03-27-2024 COVID-19 (2023-08 season) COVID-19 ( season) [facility] Start: 03-27-2024 FLU (#1) FLU (#1) [facility] Start: 03-09-2017 Tetanus Diphtheria a nd Pertussis Vaccines (2 - Td or Tdap) Tetanus Diphtheria and Pertussis Vaccines (2 - Td or Tdap) [facility] Start: 2014 Microscopic observat ion [Identifier] in Cervix by Cyto stain Pap Smear [facility] Start: 2012 Hepatitis B (1 of 3 - 19+ 3-dose series) Hepatitis B (1 of 3 - 19+ 3-dose series) [facility] Start: 2009 MenB (1 of 2 - MenB 2-Dose Series Bexsero) MenB (1 of 2 - MenB 2-Dose Series Bexsero) [facility] Start: 2006 Varicella (1 of 2 - 13+ 2-dose series) Varicella (1 of 2 - 13+ 2-dose series) [facility] Start: 1994 MMR (1 of 1 - Standa rd series) MMR (1 of 1 - Standard series) [facility] CBC W Auto Different ial panel - Blood [facility] Erythrocyte mean corpuscular volume determination [facility] Hematocrit [Volume Fraction] of Blood [facility] Hemoglobin [Mass/vol ume] in Blood [facility] Leukocytes [#/volume ] in Blood [facility] Mean corpuscular hemoglobin concentration determination [facility] Mean corpuscular hemoglobin determination [facility] Neutrophil count [facility] Neutrophil percent differential count [facility] Platelets [#/volume] in Blood [facility] Red blood cell count [facility] Red cell distributio n width determination [facility] End: 11-10-2024 Jhony [facility] Work Phone: Comment on above: 1 Occurrences starti ng 11/10/2024 until 11/10/2024 Immunizations Immunization Date Immunization Notes Care Provider Fa loy 12-14-2024 tetanus toxoid, redu kitty diphtheria toxoid, and acellular pertussis vaccine, adsorbed Dr. Etienne De Santiago DO Work Phone: [facility] Payers Date Payer Category Payer Unknown [employer] [id number] 2024 Self-pay 2024 Unknown [id number] 1993 Unknown [id number] 1993 Unknown [id number] [id number] 1993 Unknown [id number] 2.840.1.682346.3.579.2 1993 Unknown [id number] [id number] 1993 Unknown [id number] 2.16.840.1.570115.3.579.2.479 1993 Unknown [id number] [id number]9 1993 Unknown [id number] 2.16.840.1.435585.3.579.2.479 1993 Unknown [id number] 2.16.840.1.873357.3.579.2.479 Unknown [id number] [id number] Unknown [id number] 2.16.840.1.108986.3.579.2.462 Unknown [id number] [id number] Unknown [id number] [id number] Unknown [id number] [id number] Unknown [id number] [id number] Unknown [id number] [id number] Unknown [id number] [id number] Unknown [id number] 2.16.840.1.150705.3.579.2.462 Unknown [id number] 2.16.840.1.517814.3.579.2.462 Unknown [id number] [id number] Unknown [id number] [id number] Social History Date Type Detail Facility Assertion Unknown if ever smoked [facility] Phone: Start: 11-23-2019 End: 07-29-2024 Tobacco smoking status Never smoked tobacco (finding) [facility] Start: 1995 Sex Assigned At Female A [facility] Start: 10-13-2024 Tobacco use and exposure Smokeless tobacco non-user [facility] Start: 11-10-2024 End: 12-26-2024 Alcoholic beverage intake Ex-drinker (finding) [facility] Start: 06-12-2024 [facility] Start: 1995 Sex assigned at Not on file A [facility] Gender identity Not on file [facility] Functional Status Date Assessment Result Facility NEGATED: Highlighted row Functional performance Functional status health issues are not documented Disease [facility] Work Phone: Mental Status Date Assessment Result Facility NEGATED: Highlighted row Cognitive function [Interpretation] Cognitive status health issues are not documented [facility] Work Phone: Consult note 12-26-2024 Ancillary Consult - Jailene Ayers CCC-DENTURE CONTOUR WIRE SPECIALIST - 12/26/2024 8:40 AM EDT Note Date & Type Note Facility 12-26-2024 Consult note Formatting of th is note might be different from the original. [facility] Speech/Language Pathology Pre- Consultation 12/26/2024 Patient Name: Jesus Asher Date [...] in depth the different specialty cleft bottles (Sebas, Yoli, and Dr. Ray's Specialty Feeder), including [...] we have comprehensive cleft feeding teams at [facility]. Discussed the members of the team (speech, [...] Specialty Feeding System Assembly and Feeding Instructions (www.Welcare.Fifty100/medical/produ cts/specialty-feeding/) -Nipple Level Selection Guidelines for Parents & Caregivers (www.Welcare.Fifty100/medical/nippl e-guidelines) -Where to Buy Dr. Ray's Specialty Feeding system (www.StyleQ.Fifty100/medical/where -to-buy) Equipment provided included: - bag with [...] Thank you for the referral. MILENA Yeboah [facility] Note 12-26-2024 Ancillary Consult - Jailene Ayers CCC-SLP - 12/26/2024 8:40 AM EDT Note Date & Type Note Facility 12-26-2024 Miscellaneous Notes Formattin g of this note might be different from the original. [facility] Speech/Language Pathology Pre-megan Consultation 12/26/2024 Patient [...] we have comprehensive cleft feeding teams at [facility]. Discussed the members of the team (speech, [...] Specialty Feeding System Assembly and Feeding Instructions (www.OP3Nvoice/medical/ products/specialty-feeding/) -Nipple Level Selection Guidelines for Parents & Caregivers (www.Welcare.Fifty100/medical/ nipple-guidelines) -Where to Buy Dr. Ray's Specialty Feeding system (www.OP3Nvoice/medical/ agyea-cw-lvf) Equipment provided included: - bag with contact [...] Thank you for the referral. MILENA Yeboah documented in this encounter [facility] Evaluation note 09-09-2024 Note Date & Type Note Facility 09-09-2024 Evaluation note Diagnosis Onset Date Resolution acute September 09, 2024 1:58pm Bleeding in early resolved September 09, 2 025 1:58pm Dyspareunia, female resolved [email or web address] 1:58pm History of miscarriage, currently resolved August 1:58pm Supervision of high-risk resolved August 1:58pm acute October 07 2:50pm Supervision of low-risk acute October 07, 2024 2:50pm Cleft lip and palate, , affecting care of mother, antepartum acute November 02, 2024 1:37pm acute November 02 1:37pm Supervision of low-risk acute November 02, [...] low-risk acute December 14, 2024 1 :01pm Abnormal glucose affecting acute December 29 11:33am Cleft lip and palate, , affecting care of mother, antepartum acute December 29, 2024 11:33am Elevated white blood cell count acute December 29, 2024 11:33am Positive GBS test acute December 11:33am acute December 29, 2024 11:33am Supervision of low-risk acute December 29, 2024 11:33am [employer] Work Phone: Evaluation note 08-16-2024 Note Date & Type [...] 09, 2 025 1:58pm Dyspareunia, female resolved 2024 1:58pm History of miscarriage, currently resolved August 1:58pm Supervision of high-risk resolved August 1:58pm acute October 07 2:50pm Supervision of low-risk acute October 07, 2024 2:50pm Cleft lip and palate, , affecting care of mother, antepartum acute November 02, 2024 1:37pm acute November 02 1:37pm Supervision of low-risk acute November 02, [...] low-risk acute December 14, 2024 1 :01pm [employer] Work Phone: Evaluation + Plan note Note Date & Type Note Facility Evaluation + Plan note No data available for this section [facility] Evaluation note Note Date & Type Note Facility Evaluation note Diagnosis 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, fetus 1 of multiple gestation documented in this encounter [facility] Evaluation note Note Date & Type Note Facility Evaluation note Diagnosis Cleft lip and cleft palate- Primary Cleft lip and cleft palate, unspecified documented in this encounter [facility] Discharge instructions Note Date & Type Note Facility Hospital Discharge instructions No data available for this section [facility] Progress note Note Date & Type Note Facility Progress note No data available for this section [facility] Reason for referral (narrative) Note Date & Type Note Facility Reason for referral (narrative) No reason for referral information available [facility] Work Phone: Summary Purpose Family History No Family History Records Found Relationship Condition Age at Onset Recorded Date/T scotty grandmother Malignant neoplasm of breast Unknown Advance Directives No Advanced Directives Records FoundNo Advanced Directives Records FoundNo Advanced Directives Records FoundNo Advanced Directives Records FoundNo Advanced Directives Records Found Chief Complaint and Reason for Visit Chief Complaint Admit Date NOB LMP 05/29August 16, 2024 1 0:15am 14wk OB September [...] 09, 2024 1:58pm Supervision of high-risk Febru [email or web address] 1:58pm October 07, 2024 2:5 0pm Supervision of low-risk October 07, 2024 2:50pm Cleft lip and palate, , affecting care of mother, antepartum November 02, 2024 1:37pm November 02, 2024 1:37 pm Supervision of low-risk November 02, 2024 1:37pm Cleft lip and palate, , affecting care of mother, antepartum November 28, 2024 2:42pm November 28, 2024 2:42pm Supervision of low-risk November 5t h2024 2:42pm Cleft lip and palate, , affecting care of mother, antepartum December 14, 2024 1:01pm December 14, 2024 1:01p m Supervision of low-risk December [id number] 1:01pm Chief Complaint Admit Date wk OB September 09, 2024 1:58pm 18 wk ob October 07, 2024 2:5 0pm 22wk ob November 02, 2024 1:37 pm 26 WK OB November 28, 2024 2:42pm 28 wk ob/glucose December 14, 2024 1:01p m SCREEN FOR GESTATIONAL DM December 27, 2024 6:48am 30 wk ob December 29, 2024 11:33 am Reason for Visit Admit Date September 09, 2024 1:58pm Bleeding in early August 1:58pm Dyspareunia, female September 09, 2024 1:58pm History of miscarriage, currently pregna nt September 09, 2024 1:58pm Supervision of high-risk Febru [email or web address] 1:58pm October 07, 2024 2:5 0pm Supervision of low-risk October 07, 2024 2:50pm Cleft lip and palate, , affecting care of mother, antepartum November 02, 2024 1:37pm November 02, 2024 1:37 pm Supervision of low-risk November 02, 2024 1:37pm Cleft lip and palate, , affecting care of mother, antepartum November 28, 2024 2:42pm November 28, 2024 2:42pm Supervision of low-risk November 5t h2024 2:42pm Cleft lip and palate, , affecting care of mother, antepartum December 14, 2024 1:01pm December 14, 2024 1:01p m Supervision of low-risk December 142024 1:01pm Abnormal glucose affecting Arthur e 2024 11:33am Cleft lip and palate, , affecting care of mother, antepartum December 29, 2024 11:33am Elevated white blood cell count December 11:33am Positive GBS test December 29, 2024 11:33 am December 29, 2024 11:33 am Supervision of low-risk December [id number] 11:33am Additional Source Comments INFORMATION SOURCE (unrecogn ized section and content) DATE CREATED AUTHOR 07/01/2019 [employer] DATE CREATED AUTHOR AUTHOR'S ORGANIZ ATION 07/25/2021 [facility] DATE CREATED AUTHOR AUTHOR'S ORGANIZ ATION 04/04/2022 [facility] DATE CREATED AUTHOR AUTHOR'S ORGANIZ ATION 12/31/2024 [facility] DATE CREATED AUTHOR AUTHOR'S ORGANIZ ATION 12/31/2024 [facility] Care Team (unrecognized sect ion and content) Care Team Personnel Name: ETIENNE DE SANTIAGO DO Position: P4 Physician - Primary Care Member Role: Primary Care Physician Address: Address: [address] [place] [address]- [place] Care Team Related Persons Name: NICANOR ASHER Address: Home [address], [place] [id number] Address: Temporary [address], [place] [phone] Care Teams (unrecognized sec tion and content) Pipe Coremaker Relationship Specialty Start Date End Date Etienne De Santiago DO [address] [place] [id number] PCP - General 10/08/24 Team Status: Active [...] 2024 End: October 07, 2024 Dr. Maylin Cadena MD Attending Provider Active Start: October 07, 2024 End: October 07, 2024 Team Status: Inactive Member Role Status Dates Dr. Etienne De Santiago DO Primary Care Provider Active Start: November 02, 2024 End: November 02, 2024 Dr. Etienne De Santiago DO Referring Provider Active Start: November 02, 2024 End: November 02, 2024 Merlyn Rios MANAGER OF INTERNATIONAL, MANAGER OF INTERNATIONAL-C Attending Provider Active Start: November 02, 2024 [...] Provider Activ e Start: December 14, 2024 Pipe Coremaker Relationship Specialty Start Date End Date Etienne De Santiago DO [address] [place] [id number] PCP - General 10/08/24 Jailene Ayers, CCC-[place]URE [place] [address] Speech Language Pathologist Speech Pathology 12/26/24 Team Status: Inactive Member Role Status Dates Dr. Etienne De Santiago DO Primary Care Provider Active Start: December 14, 2024 End: December 14, 2024 Dr. Malena Bean DO Attending Provider Activ e Start: December 14, 2024 End: December 14, 2024 Team Status: Active Member Role Status Dates Dr. Etienne De Santiago DO Primary Care Provider Active Start: December 27, 2024 Dr. Malena Bean DO Attending Provider Activ e Start: December 27, 2024 Dr. Malena Bean DO Referring Provider Activ e Start: December 27, 2024 Team Status: Inactive Member Role Status Dates Dr. Etienne De Santiago DO Primary Care Provider Active Start: December 29, 2024 End: December 29, 2024 Dr. Etienne De Santiago DO Referring Provider Active Start: December 29, 2024 End: December 29, 2024 Heather Mahmood CNM Attending Provider Active S tart: December 29, 2024 End: December 29, 2024 Team Status: Inactive Member Role Status Dates Dr. Etienne De Santiago DO Primary Care Provider Active Start: December 27, 2024 End: December 27, 2024 Dr. Malena Bean DO Attending Provider Activ e Start: December 27, 2024 End: December 27, 2024 Dr. Malena Bean DO Referring Provider Activ e Start: December 27, 2024 End: December 27, 2024 Goals (unrecognized section and content) Goals may [...] BE BASED ON THE PRIMARY CLINICAL RECORDS. [facility]. provides no warranty or guarantee of the accuracy or completeness of information in this document.
[2025-01-03 12:23] LABS: Absolute Lymphocyte Count 2.25 X10^3/uL (0.83-4.51); Absolute Neutrophil Count 13.4 X10^3/uL (2.0-7.7); Basophil# 0.06 X10^3/uL; Basophil% 0.4 % (0-1); Eosinophil# 0.11 X10^3/uL; Eosinophils% 0.6 % (0-5); Hematocrit 35.8 % (37-47); Hemoglobin 11.8 g/dL (12.0-15.0); Lymphocyte # 2.25 X10^3/ul (0.83-4.51); Lymphocyte % 13.2 % (19-41); Mean Corpuscular Hgb 31.3 pg (27.0-32.0); Mean Platelet Vol. 11.6 fl (6.2-12.0); Monocyte# 0.95 X10^3/uL; Monocyte% 5.6 % (0-10); NRBC Flagged by Analyzer 0 % (0-5); Neutrophil % 78.8 % (47-70); Platelet Count 256 K/mm3 (150-450); RBC Distribution Width CV 13.8 % (11.6-14.6); RBC Distribution Width SD 47.5 fl (35.1-43.9); Red Blood Count 3.77 M/mm3 (4.2-5.4)
== END | disposition home or self-care (01) ==
PROVIDERS: PCP Family Medicine; Referring Provider Advanced Practice Midwife; Visit Provider Advanced Practice Midwife
DX: D72.829 Elevated white blood cell count, unspecified (principal)
CPT/HCPCS: 36415; 85025

== ENCOUNTER 2025-03-08 09:29 | Inpatient (IN) | payer OTHER, SELFPAY ==
[2025-03-08] VITALS (80 sets, daily range): BP systolic 101–136; BP diastolic 55–83; PULSE 79–127; RESP 13–16; TEMP 36.4–37; O2SAT 88–100; BMI 23.3
--- OUTSIDE RECORDS SUMMARY | 2025-03-08 07:33 | XMS RPT_ITS | CCD ---
Author Organization [facility] Care Team Providers Care Reordering Clerk Name Role Phone Donell Gallitoquan Unavailable Unavailable JONNATHAN , DR ETIENNE Rudd Primary Care Physician Jonnathan NGUYEN, Etienne Primary Care Provider [phone] Jonnathan NGUYEN, Dr. Mustafa Primary Care Provider [phone] Jonnathan NGUYEN, Dr. Mustafa Referring Provider [phone] Reggie Means DO, Dr. Guy Attending Provider Reggie Means DO, Dr. Guy Referring Provider Heather Mahmood CNM Attending Provider Dr. Maylin Cadena MD Attending Provider Gabriel IT PROJECT COORDINATOR-CMerlyn Attending Provider And[facility], Jailene Rivas Unavailable Un available Jonnathan , Dr. Mustafa Primary Care Provider Jonnathan NGUYEN, Dr. Mutsafa Referring Provider Reggie Means DO, Dr. Guy Attending Provider Dr. Malena Bean DO Referring Provider Heather Mahmood CNM Referring Provider Jonnathan NGUYEN, Dr. Mustafa Primary Care Provider Jonnathan NGUYEN, Dr. Mustafa Referring Provider [phone] Heather Mahmood CNM Attending Provider Jonnathan NGUYEN, Dr. Mustafa Primary Care Provider Jonnathan NGUYEN, Dr. Mustafa Referring Provider Dr. Maylin Cadena MD Attending Provider [phone] WINSOME OLIVAS Attending Unavailable IRMA NORIEGA Referring Unavailable JONNATHAN, ETIENNE Primary Care Unavailable JONNATHAN, ETIENNE Primary Care Unavailable MAYLIN CADENA Referring Unavailabl e JODIE FELIX Attending Unavailable JONNATHAN, ETIENNE Primary Care Unavailable MAYLIN CADENA Referring Unavailabl e ALLAN LUTZ Attending Unavailable MALENA SCHNEIDER Referring Unavailab le IRMA NORIEGA Attending Unavailable JONNATHAN, ETIENNE Primary Care Unavailable JONNATHAN, ETIENNE Primary Care Unavailable JONNATHAN, ETIENNE Referring Unavailable KATIAZACK Attending Unavailable JONNATHAN, ETIENNE Primary Care Unavailable ALLAN LUTZ D Attending Unavailable KELVIN LUTZIN D Referring Unavailable JONNATHAN, ETIENNE Primary Care Unavailable JONNATHAN, ETIENNE Referring Unavailable KATIA, ZACK Attending Unavailable JONNATHAN, ETIENNE Primary Care Unavailable MAYLIN CADENA Referring Unavailabl e MARY LOU WEINER Attending Unavailable IRMA NORIEGA Attending Unavailable JONNATHAN, ETIENNE Primary Care Unavailable MALENA SCHNEIDER Referring Unavailab le JONNATHAN, ETIENNE Primary Care Unavailable MAYLIN CADENA Referring Unavailabl e ALLAN LUTZ Attending Unavailable PETR MANSFIELD Attending Unavailable JONNATHAN, ETIENNE Primary Care Unavailable MAYLIN CADENA Referring Unavailabl e IRMA NORIEGA Attending Unavailable JONNATHAN, ETIENNE Primary Care Unavailable BERHANEANTHMAYLIN TATE Referring Unavailabl e Jonnathan DO, Dr. Mustafa Primary Care Provider Jonnathan DO, Dr. Mustafa Referring Provider [phone] Jonnathan, Etienne Primary Care Unavailable Jonnathan, Etienne Referring Unavailable Vande Malena Means Attending Unavailabl e Jonnathan, Etienne Primary Care Unavailable Jonnathan, Etienne Referring Unavailable Heather Mahmood Attending Unavailable Jonnathan, Etienne Referring Unavailable Jonnathan, Etienne Primary Care Unavailable Vande VeldeMalena Attending Unavailabl e Ojnnathan, Etienne Primary Care Unavailable Jonnathan, Etienne Referring Unavailable Vande VeldeMalena Attending Unavailabl e Jonnathan, Etienne Primary Care Unavailable Jonnathan, Etienne Referring Unavailable Heather Mahmood Attending Unavailable Jonnathan, Etienne Primary Care Unavailable Maylin Cadena Attending Unavailable Jonnathan, Etienne Referring Unavailable Jonnathan, Etienne Referring Unavailable Jonnathan, Etienne Primary Care Unavailable Heather Mahmood Attending Unavailable Jonnathan, Etienne Referring Unavailable Jonnathan, Etienne Primary Care Unavailable Merlyn Rios NP Attending Unavailable Vande Velde, Malena Attending Unavailabl e Jonnathan, Etienne Referring Unavailable Jonnathan, Etienne Primary Care Unavailable Jonnathan, Etienne Referring Unavailable Jonnathan, Etienne Primary Care Unavailable Maylin Cadena Attending Unavailable Jonnathan, Etienne Primary Care Unavailable Vande Velde, Malena Attending Unavailabl e Jonnathan, Etienne Referring Unavailable Vande Velde, Malena Attending Unavailabl e Jonnathan, Etienne Primary Care Unavailable Jonnathan, Etienne Referring Unavailable Jonnathan, Etienne Primary Care Unavailable Jonnathan, Etienne Referring Unavailable Heather Mahmood Attending Unavailable Jonnathan, Etienne Primary Care Unavailable Jonnathan, Etienne Referring Unavailable Vande Velde, Malena Attending Unavailabl e Jonnathan, Etienne Primary Care Unavailable Jonnathan, Etienne Referring Unavailable Maylin Cadena Attending Unavailable Vande Velde, Malena Attending Unavailabl e Jonnathan, Etienne Primary Care Unavailable Vande Velde, Malena Referring Unavailabl e Jonnathan, Etienne Primary Care Unavailable Vande Velde, Malena Attending Unavailabl e Jonnathan, Etienne Primary Care Unavailable Vande Velde, Malena Attending Unavailabl e Vande Velde, Malena Referring Unavailabl e Jonnathan, Etienne Primary Care Unavailable Heather Mahmood Referring Unavailable Heather Mahmood Attending Unavailable Medications Current Medications Medication Drug Class(es) Dates Sig (Normalized) Sig (Original) Multivit 73-Axfa-Rfukta 1-Dha (Pnv-Dha) 27 mg iron-1 mg -300 mg capsule (11 sources) Start: 07-29-2024 Multivit 71-Htox-Roguzy 1-Dha (Pnv-Dha) 27 mg iron-1 mg -300 mg capsule Active NMA PO July 29, 2024 1:00am Vit w/Au-Bdivkpbdk-MG (PNV PO) (2 sources) Vit w/Au-Nvygcoabx-MA (PNV PO) Take by mouth daily Active Completed/Discontinued Medications Medication Drug Class(es) Dates Sig (Normalized) Sig (Original) Norethindrone-E.Es tradiol-Iron (20 sources) Estrogen Start: 05-11-2023 End: 03-14-2024 take 1 tablet by mouth once daily Norethindrone-E.Est radiol-Iron (Lo Loestrin Fe) 1 mg-10 mcg (24)/10 mcg (2) tablet Discontinued 1 {tbl} PO DAILY 23 07May 11, 2023 12:11pm March 14, 2024 9:57am Start: 05-11-2023 End: 03-14-2024 take 1 tablet [...] (2) tablet Discontinued 1 {tbl} PO DAILY 23 07March 20, 2023 1:32pm May 11, 2023 12:11pm Start: 03-20-2023 End: 05-11-2023 take 1 tablet [...] (2) tablet Discontinued 1 {tbl} PO DAILY 23 07March 19, 2022 12:00am March 20, 2023 1:32pm Start: 03-19-2022 End: 03-20-2023 take 1 tablet by mouth once daily Norethindrone-E.Estradiol-Iron (Lo Loest rin Fe) 1 mg-10 mcg (24)/10 mcg (2) tablet Discontinued 1 {tbl} PO DAILY March 19, 2022 12:00am March 20, 2023 1:32pm Start: 11-23-2019 take 1 tablet by addy once daily Lo Loestrin Fe oral tablet Dose = 1 tab( s), Oral, qDay, # 84 tab(s), 0 Refill(s) Start Date: 11/23/19 Status: Ordered lidocaine 0.05 mg/mg topical ointment (11 sources) Antiarrhythmic, Amide Local Anesthetic Start: 03-19-2022 End: 05-11-2023 Lidocaine 5 % ointment Discontinued 1 NMA TOPICAL DAILY as needed for dyspareun 50 5 March 19, 2022 12:00am May 11, 2023 11:45am Problems Active Problems Problem Classification Problem Date Documented Da te Episodic/Chronic Administrative/social admission (1 source) finding; Translations: [Other specified counseling] Onset: 11-11-2024 12-14-2024 Episodic Bacterial infection; unspecified site (20 sources) Bacteria present; Translations: [Streptococcus, group B, as the cause of diseases classified elsewhere] Onset: 02-22-2025 12-29-2024 Episodic Comment on above: treat in labor Diabetes or abnormal glucose tolerance complicating ; childbirth; or the puerperium (20 sources) Abnormal glucose level; Translations: [Abnormal glucose complicating ] Onset: 02-22-2025 12-29-2024 Episodic Comment on above: normal 3 hour Diseases of white blood cells (20 sources) Leukocytosis; Translations: [Elevated white blood cell count, unspecified] Onset: 01-05-2025 12-29-2024 Chronic Comment on above: redraw in one week Immunizations and screening for infectious disease (1 source) Encounter for immunization; Translations: [Encounter for immunization] Onset: 12-14-2024 Episodic Other complications of ; puerperium affecting management of mother (20 sources) condition affecting obstetrical care of mother; Translations: [ 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, fetus 1 of multiple gestation] Onset: 10-13-2024 11-10-2024 Episodic Comment on above: seen on anatomy US, treatment center referral. echo. Gave info on [facility] worksheet nt, seen on anatomy US, treatment center referral. echo. Gave info on [facility] worksheet se nt and approved to deliver at [facility], seen on anatomy US, treatment center referral. echo. Gave info on [facility]. Approved to deliver [facility]. Other complications of (16 sources) H/O: miscarriage; Translations: [Supervision of with other poor reproductive or obstetric history, unspecified trimester] 10-07-2024 Episodic Comment on above: January 2024, 6 weeks Other complications of (16 sources) High risk ; Translations: [Supervision of high risk , unspecified, unspecified trimester] 10-07-2024 Episodic Other congenital anomalies (1 source) Cleft palate with cleft lip; Translations: [Unspecified cleft palate with unilateral cleft lip] 12-26-2024 Chronic Other female genital disorders (16 sources) Pain in female genitalia on intercourse; [...] in urine. Residual codes; unclassified (1 source) 38 weeks gestation of ; Translations: [38 weeks gestation of ] Onset: 02-22-2025 Episodic Residual codes; unclassified (1 source) 37 weeks gestation of ; Translations: [37 weeks gestation of ] Onset: 02-13-2025 Episodic Residual codes; unclassified (1 source) 36 weeks gestation of ; Translations: [36 weeks gestation of ] Onset: 02-07-2025 Episodic Residual codes; unclassified (1 source) 34 weeks gestation of ; Translations: [34 weeks gestation of ] Onset: 01-26-2025 Episodic Spontaneous (11 sources) with abortive outcome; Translations: [Complete or unspecified spontaneous without complication] 07-29-2024 Episodic Unclassified (1 source) Maternal care for other (suspected) abnormality and damage, facial anomalies, not applicable or unspecified; Translations: [Maternal care for other (suspected) abnormality and damage, facial anomalies, not applicable or unspecified] Onset: 02-22-2025 Past or Other Problems Problem Classification Problem Date Documented Da te Episodic/Chronic Hemorrhage during ; abruptio placenta; placenta previa (17 sources) Antepartum hemorrhage; Translations: [Hemorrhage in early , unspecified] Onset: 09-09-2024 10-07-2024 Episodic Other complications of (1 source) Supervision of with other poor reproductive or obstetric history, unspecified trimester; Translations: [Supervision of with other poor reproductive or obstetric history, unspecified trimester] Onset: 09-09-2024 Episodic Other complications of (1 source) Supervision of high risk , unspecified, unspecified trimester; Translations: [Supervision of high risk , unspecified, unspecified trimester] Onset: 09-09-2024 Episodic Residual codes; unclassified (1 source) 18 weeks gestation of ; Translations: [18 weeks gestation of ] Onset: 10-07-2024 Episodic Residual codes; unclassified (1 source) 14 weeks gestation of ; Translations: [14 weeks gestation of ] Onset: 09-09-2024 Episodic Results Test Name Value Interpretation Reference Range Facility Credit Risk Review Officer Office Visit Reporton 03-06-2025 Credit Risk Review Officer Office Visit Report [facility] [address], [address] [place] [address] OFFICE VISIT Date of Service: 03/06/25 MR#: [id number] Acct: [id number] Name: JESUS ASHER Rep #: [id number] : 1995 Provider: Dr. Maylin manjarrez MD Age/Sex: 29/F Location: [facility] [place] Status: Signed Intake Vital Signs 01/12/25 10:10 03/01/25 13:15 03/06/25 11:30 03/06/25 11:33 03/06/25 11:33 Height 5 ft 3 in 5 ft 3 in 5 ft 3 in 5 ft 3 in Weight: 139 lb 4 oz BMI 24.6 BP 141/84 H 131/89 H Intake Visit Reasons: 40 wk ob Due date 03/05 Carrot Tier Required: No Is patient in pain?: No Feel stressed/tense/nervo us/anxious/difficult y sleeping: not at all Allergies No Known Allergies Allergy (Verified 03/06/25 11:29) Medications ???Medication ???Instructions ???Recorded ???Confirmed ???Type multivitamin no.47-iron fum 27 cap PO 07/29/24 03/06/25 History mg-folate no.1 1 mg-dha 300 mg capsule (PNV-DHA) Last Menstrual Period: 05/29/24 Zika: Zika virus screening: Negative : No [facility] Medical History Complete Dysmenorrhea Surgical History H/O wisdom tooth extraction Family History Grandmother Breast cancer Social History adopted: No household members: spouse current occupational status: employed 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 Date Name GA/Weeks Outcome Route Bt Weight Infant Gen Labor Lgth Anesthesia Del Darrelatn Provider FOB 02/18/24 6 spontaneous HPI 40 wk ob Due date 03/05 Details: JESUS ASHER is a 29 year old who presents for routine OB visit. OB Visit JONATHAN Calculator Estimated Delivery Date Method Current WG Current Estimate 03/05/25 LMP (Certain) 40w 1d Other Estimates 03/11/25 Ultrasound #1 39w 2d Expected Delivery Route/Plan Labor Preferences- CB/BF classes: [] labor support person: [] labor intervention preferences: [] pain management options preferred: [] cut cord/dad catch: [] : [] PP control planned: [] discussed possible routes of delivery and associated risks: [] special requests: [] Specific Issue/Plans Covid status: [] Flu vaccine: [] Tdap vaccine: given Rhogam: na LARC form signed: declined] Problem list reviewed and updated with the [...] lb 6 oz 137/71 Negative -???-???-???-???-??? -???-???-???-???-??? -?? (more content not included)... Normal [facility] - Chemistry and C hemistry - challengeOrdered By: Heather Mahmood on 03-01-2025 Glucose Ql (U) Negative [facility] - UrinalysisOrder ed By: Heather Mahmood on 03-01-2025 Protein Ql (U) Negative [facility] Credit Risk Review Officer Office Visit Reporton 03-01-2025 Credit Risk Review Officer Office Visit Report [facility] [address], [address] [place] [address] OFFICE VISIT Date of Service: 03/01/25 MR#: [id number] Acct: [id number] Name: JESUS ASHER Rep #: [id number] : 1995 Provider: MATT Harrison ams Age/Sex: 29/F Location: [facility] [place] Status: Signed Intake Vital Signs 01/12/25 10:10 02/22/25 14:39 03/01/25 13:15 Height 5 ft 3 in 5 ft 3 in 5 ft 3 in Weight: 139 lb 9 oz BMI 24.7 BP 132/78 H Intake Visit Reasons: 39 wk ob Carrot Tier Required: No Is patient in pain?: No Allergies No Known Allergies Allergy (Verified 03/01/25 13:12) Medications ???Medication ???Instructions ???Recorded ???Confirmed ???Type multivitamin no.47-iron fum 27 cap PO 07/29/24 03/01/25 History mg-folate no.1 1 mg-dha 300 mg capsule (PNV-DHA) Last Menstrual Period: 05/29/24 Zika: Zika virus screening: Negative : No PFSH PFSH Medical History Complete Dysmenorrhea Surgical History H/O wisdom tooth extraction Family History Grandmother Breast cancer Social History adopted: No household members: spouse current occupational status: employed 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 Date Name GA/Weeks Outcome Route Bth Weight Gen Labor Lgth Anesthesia Del Locatn Provider FOB 02/18/24 6 spontaneous HPI 39 wk ob Details: JESUS ASHER is a 29 year old who presents for routine OB visit. OB Visit JONATHAN Calculator Estimated Delivery Date Method Current WG Current Estimate 03/05/25 LMP (Certain) 39w 3d Other Estimates 03/11/25 Ultrasound #1 38w 4d Expected Delivery Route/Plan Labor Preferences- CB/BF classes: [] labor support person: [] labor intervention preferences: [] pain management options preferred: [] cut cord/dad catch: [] : [] PP control planned: [] discussed possible routes of delivery and associated risks: [] special requests: [] Specific Issue/Plans Covid status: [] Flu vaccine: [] Tdap vaccine: given Rhogam: na LARC form signed: declined] Problem list reviewed and updated with the [...] -???-???-???-???-??? -???-? (more content not included)... Normal [facility] - Chemistry and C hemistry - challengeOrdered By: Malena Means on 02-22-2025 Glucose Ql (U) Negative [facility] - UrinalysisOrder ed By: Malena Means on 02-22-2025 Protein Ql (U) Negative [facility] Credit Risk Review Officer Office Visit Reporton 02-22-2025 Credit Risk Review Officer Office Visit Report [facility] [address], [address] [place] [address] OFFICE VISIT Date of Service: 02/22/25 MR#: [id number] Acct: [id number] Name: JESUS ASHER Rep #: [id number] : 1995 Provider: Dr. Malena Galdamez DO Age/Sex: 29/F Location: [facility] [place] Status: Signed Intake Vital Signs 01/12/25 10:10 02/13/25 14:47 02/22/25 14:34 02/22/25 14:39 Height 5 ft 3 in 5 ft 3 in 5 ft 3 in 5 ft 3 in Weight: 141 lb 6 oz BMI 25.0 BP 137/82 H Intake Visit Reasons: 38 wk ob Carrot Tier Required: No Is patient in pain?: No Allergies No Known Allergies Allergy (Verified 02/22/25 14:34) Medications ???Medication ???Instructions ???Recorded ???Confirmed ???Type multivitamin no.47-iron fum 27 cap PO 07/29/24 02/22/25 History mg-folate no.1 1 mg-dha 300 mg capsule (PNV-DHA) Last Menstrual Period: 05/29/24 Zika: Zika virus screening: Negative : No PFSH PFSH Medical History Complete Dysmenorrhea Surgical History H/O wisdom tooth extraction Family History Grandmother Breast cancer Social History adopted: No household members: spouse current occupational status: employed 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 Date Name GA/Weeks Outcome Route Bth Weight Gen Labor Lgth Anesthesia Del [facility] Provider FOB 02/18/24 6 spontaneous HPI 38 wk ob Details: JESUS ASHER is a 29 year old who presents for routine OB visit. OB Visit JONATHAN Calculator Estimated Delivery Date Method Current WG Current Estimate 03/05/25 LMP (Certain) 38w 3d Other Estimates 03/11/25 Ultrasound #1 37w 4d Expected Delivery Route/Plan Labor Preferences- CB/BF classes: [] labor support person: [] labor intervention preferences: [] pain management options preferred: [] cut cord/dad catch: [] : [] PP control planned: [] discussed possible routes of delivery and associated risks: [] special requests: [] Specific Issue/Plans Covid status: [] Flu vaccine: [] Tdap vaccine: given Rhogam: na LARC form signed: declined] Problem list reviewed and updated with the [...] 11/02/24 - (more content not included)... Normal [facility] - Chemistry and C hemistry - challengeOrdered By: Heather Mahmood on 02-13-2025 Glucose Ql (U) Negative [facility] - UrinalysisOrder ed By: Heather Mahmood on 02-13-2025 Protein Ql (U) Negative [facility] Credit Risk Review Officer Office Visit Reporton 02-13-2025 Credit Risk Review Officer Office Visit Report [facility] [address], [address] [place] [address] OFFICE VISIT Date of Service: 02/13/25 MR#: [id number] Acct: [id number] Name: JESUS ASHER Rep #: [id number] : 1995 Provider: MATT Harrison ams Age/Sex: 29/F Location: [facility] [place] Status: Signed Intake Vital Signs 01/12/25 10:10 02/07/25 09:52 02/13/25 14:47 02/13/25 14:47 Height 5 ft 3 in 5 ft 3 in 5 ft 3 in 5 ft 3 in Weight: 138 lb 8 oz BMI 24.5 BP 116/74 Intake Visit Reasons: 37 wk ob Chief Complaint: 37wk OB Carrot Tier Required: No Is patient in pain?: No Allergies No Known Allergies Allergy (Verified 02/13/25 14:46) Medications ???Medication ???Instructions ???Recorded ???Confirmed ???Type multivitamin no.47-iron fum 27 cap PO 07/29/24 02/13/25 History mg-folate no.1 1 mg-dha 300 mg capsule (PNV-DHA) Last Menstrual Period: 05/29/24 : No Have you fallen in the past year?: No PFSH PFSH Medical History Complete Dysmenorrhea Surgical History H/O wisdom tooth extraction Family History Grandmother Breast cancer Social History adopted: No household members: spouse current occupational status: employed 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 Date Name GA/Weeks Outcome Route B[facility]24 6 spontaneous HPI 37 wk ob Details: JESUS ASHER is a 29 year old who presents for routine OB visit. OB Visit JONATHAN Calculator Estimated Delivery Date Method Current WG Current Estimate 03/05/25 LMP (Certain) 37w 1d Other Estimates 03/11/25 Ultrasound #1 36w 2d Expected Delivery Route/Plan Labor Preferences- CB/BF classes: [] labor support person: [] labor intervention preferences: [] pain management options preferred: [] cut cord/dad catch: [] : [] PP control planned: [] discussed possible routes of delivery and associated risks: [] special requests: [] Specific Issue/Plans Covid status: [] Flu vaccine: [] Tdap vaccine: given Rhogam: na LARC form signed: declined] Problem list reviewed and updated with the [...] -???-???- SM- no vb cr amping 11/02/24 -???- (more content not included)... Normal [facility] - Chemistry and C hemistry - challengeOrdered By: Malena Means on 02-07-2025 Glucose Ql (U) Negative [facility] - UrinalysisOrder ed By: Malena Means on 02-07-2025 Protein Ql (U) Negative [facility] Credit Risk Review Officer Office Visit Reporton 02-07-2025 Credit Risk Review Officer Office Visit Report [facility] [address], [address] [place] [address] OFFICE VISIT Date of Service: 02/07/25 MR#: [id number] Acct: [id number] Name: JESUS ASHER Rep #: [id number] : 1995 Provider: Dr. Malena Galdamez DO Age/Sex: 29/F Location: [facility] [place] Status: Signed Intake Vital Signs 11/28/24 14:48 01/26/25 15:08 02/07/25 09:52 Height 5 ft 3 in 5 ft 3 in 5 ft 3 in Weight: 135 lb 6 oz 137 lb 2 oz BMI 24.0 24.3 BP 125/74 H 122/73 H Intake Visit Reasons: 36 wk ob Chief Complaint: 36wk OB Carrot Tier Required: No Is patient in pain?: No Allergies No Known Allergies Allergy (Verified 02/07/25 09:50) Medications ???Medication ???Instructions ???Recorded ???Confirmed ???Type multivitamin no.47-iron fum 27 cap PO 07/29/24 02/07/25 History mg-folate no.1 1 mg-dha 300 mg capsule (PNV-DHA) Last Menstrual Period: 05/29/24 : No PFSH PFSH Medical History Complete Dysmenorrhea Surgical History H/O wisdom tooth extraction Family History Grandmother Breast cancer Social History adopted: No household members: spouse current occupational status: employed 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 Date Name GA/Weeks Outcome Route Bth Weight Gen Labor Lgth Anesthesia Del Locatn Provider FOB 02/18/24 6 spontaneous HPI 36 wk ob Details: JESUS ASHER is a 29 year old who presents for routine OB visit. OB Visit JONATHAN Calculator Estimated Delivery Date Method Current WG Current Estimate 03/05/25 LMP (Certain) 36w 2d Other Estimates 03/11/25 Ultrasound #1 35w 3d Expected Delivery Route/Plan Labor Preferences- CB/BF classes: [] labor support person: [] labor intervention preferences: [] pain management options preferred: [] cut cord/dad catch: [] : [] PP control planned: [] discussed possible routes of delivery and associated risks: [] special requests: [] Specific Issue/Plans Covid status: [] Flu vaccine: [] Tdap vaccine: given Rhogam: na LARC form signed: declined] Problem list reviewed and updated with the [...] SM- no vb cr amping 11/02/24 -???-???-???-???-??? -???-???-???-? (more content not included)... Normal [facility] Laboratory - Chemistry and C hemistry - challengeOrdered By: Maylin Cadena on 01-26-2025 Glucose Ql (U) Negative [facility] - UrinalysisOrder ed By: Maylin Cadena on 01-26-2025 Protein Ql (U) Negative [facility] Credit Risk Review Officer Office Visit Reporton 01-26-2025 Credit Risk Review Officer Office Visit Report [facility]'[address], [facility] [address] [place] [address] OFFICE VISIT Date of Service: 01/26/25 MR#: [id number] Acct: [id number] Name: JESUS ASHER Rep #: [id number] : 1995 Provider: Dr. Maylin manjarrez MD Age/Sex: 29/F Location: [facility] [place] Status: Signed Intake Vital Signs 11/28/24 14:48 01/12/25 10:10 01/26/25 15:08 Height 5 ft 3 in 5 ft 3 in 5 ft 3 in Weight: 135 lb 6 oz BMI 24.0 BP 125/74 H Intake Visit Reasons: 34 wk ob Carrot Tier Required: No Is patient in pain?: No Allergies No Known Allergies Allergy (Verified 01/26/25 15:09) Medications ???Medication ???Instructions ???Recorded ???Confirmed ???Type multivitamin no.47-iron fum 27 cap PO 07/29/24 01/26/25 History mg-folate no.1 1 mg-dha 300 mg capsule (PNV-DHA) Last Menstrual Period: 05/29/24 Zika: Zika virus screening: Negative : No PFSH PFSH Medical History Complete Dysmenorrhea Surgical History H/O wisdom tooth extraction Family History Grandmother Breast cancer Social History adopted: No household members: spouse current occupational status: employed 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 Date Name GA/Weeks Outcome Route Bth Weight Gen Labor Lgth Anesthesia Del Locatn Provider FOB 02/18/24 6 spontaneous HPI 34 wk ob Details: JESUS ASHER is a 29 year old who presents for routine OB visit. OB Visit JONATHAN Calculator Estimated Delivery Date Method Current WG Current Estimate 03/05/25 LMP (Certain) 34w 4d Other Estimates 03/11/25 Ultrasound #1 33w 5d Expected Delivery Route/Plan Labor Preferences- CB/BF classes: [] labor support person: [] labor intervention preferences: [] pain management options preferred: [] cut cord/dad catch: [] : [] PP control planned: [] discussed possible routes of delivery and associated risks: [] special requests: [] Specific Issue/Plans Covid status: [] Flu vaccine: [] Tdap vaccine: given Rhogam: na LARC form signed: declined] Problem list reviewed and updated with the [...] SM- no vb cr amping 11/02/24 -???-???-???-???-??? -???-???-???-???-? (more content not included)... Normal [facility] Progress Noteon 01-23-2025 Clerical Grader Authentication Interface Message Text Assessment Patient: Jesus Asher Chief Complaint: Consult Encounter for antepartum consultation regarding [Z71.89] Baby with cleft lip/palate Plan -discussed that likely most or all nutrition will come from bottles, so discussed pumping -discussed frequency of pumping, volumes, pump recommendations -discussed milk storage guidelines -recommend hand expression after pumping after delivery for colostrum. Consider colostrum collection, not until after 36 weeks unless other contraindications, stop if any contractions -goal is early introduction of pumping, ideally right after immediate skin to skin -can latch for comfort as desired Subjective Jesus presents for consult. 34 weeks with her first, a boy. He was found to have cleft lip and palate, unilateral left, on ultrasound. Otherwise ultrasound appeared normal. Pregnany otherwise uncomplicated. Plan to deliver at [place]. She has not yet ordered a pump. She will be staying home with baby after delivery. Objective Exam: Gen: alert, oriented, no distress. Conversant, mood and affect appropriate. Resp: no distress I Spent 45 minutes on this patient in direct [id number] care, chart review of OB/MFM notes, and documentation. Normal [facility] Laboratory - Chemistry and C hemistry - challengeOrdered By: Malena Means on 01-12-2025 Glucose Ql (U) Negative [facility] Laboratory - UrinalysisOrder ed By: Malena Means on 01-12-2025 Protein Ql (U) Negative [facility] Credit Risk Review Officer Office Visit Reporton 01-12-2025 Credit Risk Review Officer Office Visit Report [facility] [address], [address] [place] [address] OFFICE VISIT Date of Service: 01/12/25 MR#: [id number] Acct: [id number] Name: JESUS ASHER Rep #: [id number] : 1995 Provider: Dr. Malena Galdamez, Age/Sex: 29/F Location: [facility] [place] Status: Signed Intake Vital Signs 11/28/24 14:48 12/29/24 11:42 01/12/25 10:09 01/12/25 10:10 Height 5 ft 3 in 5 ft 3 in 5 ft 3 in 5 ft 3 in Weight: 129 lb 8 oz 131 lb 4 oz BMI 22.9 23.2 BP 122/80 H 129/89 H Intake Visit Reasons: 32 wk ob Carrot Tier Required: No Is patient in pain?: No Allergies No Known Allergies Allergy (Verified 01/12/25 10:08) Medications ???Medication ???Instructions ???Recorded ???Confirmed ???Type multivitamin no.47-iron fum 27 cap PO 07/29/24 01/12/25 History mg-folate no.1 1 mg-dha 300 mg capsule (PNV-DHA) Last Menstrual Period: 05/29/24 Zika: Zika virus screening: Negative : No PFSH PFSH Medical History Complete Dysmenorrhea Surgical History H/O wisdom tooth extraction Family History Grandmother Breast cancer Social History adopted: No household members: spouse current occupational status: employed 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 Date Name GA/Weeks Outcome Route Bth Weight Infant Gen Labor Lgth Anesthesia Del Locatn Provider FOB 02/18/24 6 spontaneous HPI 32 wk ob Details: JESUS ASHER is a 29 year old who presents for routine OB visit. OB Visit JONATHAN Calculator Estimated Delivery Date Method Current WG Current Estimate 03/05/25 LMP (Certain) 32w 4d Other Estimates 03/11/25 Ultrasound #1 31w 5d Expected Delivery Route/Plan Labor Preferences- CB/BF [...] -???-???-???-???-??? -???-???- SM- no vb cr amping 04 (more content not included)... Normal [facility] Absolute lymphocyte countOrd ered By: Heather Mahmood on 01-03-2025 Lymphocytes Auto (Unsp spec) [#/Vol] 2.25 10*3/uL 0.83-4.51 [facility] Absolute neutrophil countOrd ered By: Heather Mahmood on 01-03-2025 Neutrophils (Bld) [#/Vol] 13.4 10*3/uL High 2.0-7.7 [facility] Automated lymphocyte count a s percentage of total leukocytesOrdered By: Heather Mahmood on 01-03-2025 Lymphocytes/100 WBC Auto (Unsp spec) 13.2 % Low 19-41 [facility] Basophil percentageOrdered B y: Heather Mahmood on 01-03-2025 Basophils/100 WBC (Bld) 0.4 % 0-1 [facility] CBC W/Diff, Automatedon 12-25 0-2024 Absolute Lymph 2.25 X10 3/uL Normal 0.83-4.51 [facility] Comment on above: Performed By: #### L 100.0100 ####[facility] [address] [place], [address] Absolute Neut 13.4 X10 3/uL High 2.0-7.7 [facility] Comment on above: Performed By: #### L 100.0100 ####[facility] [address] [place], [address] Basophils/100 WBC (Bld) 0.4 % Normal 0-1 [facility] Comment on above: Performed By: #### L 100.0100 ####[facility] [address] [place], [address] Eosinophils/100 WBC (Bld) 0.6 % Normal 0-5 [facility] Comment on above: Performed By: #### L 100.0100 ####[facility] [address] [place], [address] Erythrocyte distribution width (RBC) [Ratio] 13.8 % Normal 11.6-14.6 [facility] Comment on above: Performed By: #### L 100.0100 ####[facility] [address] [place], [address] Hematocrit (Bld) [Volume fraction] 35.8 % Low 37-47 [facility] Comment on above: Performed By: #### L 100.0100 ####[facility] [address] [place], [address] Hemoglobin (Bld) [Mass/Vol] 11.8 g/dL Low 12.0-15.0 [facility] Comment on above: Performed By: #### L 100.0100 ####[facility] [address] [place], [address] IG% 1.400 High 0.0-0.9 [facility] Comment on above: Result Comment: IG% - Immature Granulocytes (promyelocytes, myelocytes and metamyelocytes) > 1% indicates that a LEFT SHIFT is Present. Performed By: #### L 100.0100 ####[facility] [address] [place], [address] Lymphocytes/100 WBC (Bld) 13.2 % Low 19-41 [facility] Comment on above: Performed By: #### L 100.0100 ####[facility] [address] [place], [address] MCH (RBC) [Entitic mass] 31.3 pg Normal 27.0-32.0 [facility] Comment on above: Performed By: #### L 100.0100 ####[facility] [address] [place], [address] MCHC (RBC) [Mass/Vol] 33.0 g/dL Normal 32-36 [facility] Comment on above: Performed By: #### L 100.0100 ####[facility] [address] [place], [address] MCV (RBC) [Entitic vol] 95.0 fL Normal 81-99 [facility] Comment on above: Performed By: #### L 100.0100 ####[facility] [address] [place], [address] Monocytes/100 WBC (Bld) 5.6 % Normal 0-10 [facility] Comment on above: Performed By: #### L 100.0100 ####[facility] [address] [place], [address] Neutrophils/100 WBC (Bld) 78.8 % High 47-70 [facility] Comment on above: Performed By: #### L 100.0100 ####[facility] [address] [place], [address] Nucleated RBC (Bld) [#/Vol] 0 10*3/uL Normal 0-5 [facility] Comment on above: Performed By: #### L 100.0100 ####[facility] [address] [place], [address] Platelet mean volume (Bld) [Entitic vol] 11.6 fL Normal 6.2-12.0 [facility] Comment on above: Performed By: #### L 100.0100 ####[facility] [address] [place], [address] Platelets (Bld) [#/Vol] 256 10*3/uL Normal 150-450 [facility] Comment on above: Performed By: #### L 100.0100 ####[facility] [address] [place], [address] RBC (Bld) [#/Vol] 3.77 10*6/uL Low 4.2-5.4 [facility] Comment on above: Performed By: #### L 100.0100 ####[facility] [address] [place], [address] RDW SD 47.5 fl High 35.1-43.9 [facility] Comment on above: Performed By: #### L 100.0100 ####[facility] [address] [place], [address] WBC (Bld) [#/Vol] 17.0 10*3/uL High 4.4-11.0 [facility] Comment on above: Performed By: #### L 100.0100 ####[facility] [address] [place], [address] Eosinophil percentageOrdered By: Heather Mahmood on 01-03-2025 Eosinophils/100 WBC (Bld) 0.6 % 0-5 [facility] Erythrocyte distribution wid th ratioOrdered By: Heather Mahmood on 01-03-2025 Erythrocyte distribution width (RBC) [Ratio] 13.8 % 11.6-14.6 [facility] Erythrocyte distribution wid th standard deviationOrdered By: Heather Mahmood on 01-03-2025 Erythrocyte distribution width (RBC) [Ratio] 47.5 fl High 35.1-43.9 [facility] Hematocrit Auto (Bld) [Volum e fraction]Ordered By: Heather Mahmood on 01-03-2025 Hematocrit (Bld) [Volume fraction] 35.8 % Low 37-47 [facility] Hemoglobin measurementOrdere d By: Heather Mahmood on 01-03-2025 Hemoglobin (Bld) [Mass/Vol] 11.8 g/dL Low 12.0-15.0 [facility] Immature granulocytes/100 WB C Auto (Bld)Ordered By: Heather Mahmood on 01-03-2025 Immature granulocytes/100 WBC (Bld) 1.400 % High 0.0-0.9 [facility] Comment on above: IG% - Immature Granu locytes (promyelocytes, myelocytes and metamyelocytes) > 1% indicates that a LEFT SHIFT is Present. MCV (mean corpuscular volume ) determinationOrdered By: Heather Mahmood on 01-03-2025 MCV (RBC) [Entitic vol] 95.0 fL 81-99 [facility] Mean corpuscular hemoglobin (MCH) determinationOrdered By: Heather Mahmood on 01-03-2025 MCH (RBC) [Entitic mass] 31.3 pg 27.0-32.0 [facility] Mean corpuscular hemoglobin concentration (MCHC) determinationOrdered By: Heather Mahmood on 01-03-2025 MCHC (RBC) [Mass/Vol] 33.0 g/dL 32-36 [facility] Mean platelet volume determi nationOrdered By: Heather Mahmood on 01-03-2025 Platelet mean volume (Bld) [Entitic vol] 11.6 fL 6.2-12.0 [facility] Monocyte percentageOrdered B y: Heather Mahmood on 01-03-2025 Monocytes/100 WBC (Bld) 5.6 % 0-10 [facility] Neutrophil percentageOrdered By: Heather Mahmood on 01-03-2025 Neutrophils/100 WBC (Bld) 78.8 % High 47-70 [facility] Nucleated red blood cell per centageOrdered By: Heather Mahmood on 01-03-2025 Nucleated RBC/100 WBC (Bld) [Ratio] 0 % 0-5 [facility] Platelet countOrdered By: Deejay Mahmood on 01-03-2025 Platelets (Bld) [#/Vol] 256 10*3/uL 150-450 [facility] RBC Auto (Bld) [#/Vol]Ordere d By: Heather Mahmood on 01-03-2025 RBC (Bld) [#/Vol] 3.77 10*6/uL Low 4.2-5.4 [facility] White blood cell (WBC) count Ordered By: Heather Mahmood on 01-03-2025 WBC (Bld) [#/Vol] 17.0 10*3/uL High 4.4-11.0 [facility] Laboratory - Chemistry and C hemistry - challengeOrdered By: Heather Mahmood on 12-29-2024 Glucose Ql (U) Negative [facility] Laboratory - UrinalysisOrder ed By: Heather Mahmood on 12-29-2024 Protein Ql (U) Negative [facility] Credit Risk Review Officer Office Visit Reporton 12-29-2024 Credit Risk Review Officer Office Visit Report [facility]'[address], [address] [place] [address] OFFICE VISIT Date of Service: 12/29/24 MR#: [id number] Acct: [id number] Name: HYUNJESUS KEIRA Rep #: [id number] : 1995 Provider: MATT Harrison ams Age/Sex: 29/F Location: [facility] [place] Status: Signed Intake Vital Signs 11/02/24 13:43 12/14/24 13:09 12/29/24 11:42 Height 5 ft 3 in 5 ft 3 in 5 ft 3 in Weight: 129 lb 8 oz BMI 22.9 BP 122/80 H Intake Visit Reasons: 30 wk ob Chief Complaint: 30wk OB Carrot Tier Required: No Is patient in pain?: No [...] spouse current occupational status: employed 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 Date Name GA/Weeks Outcome Route Bth Weight Gen Labor Lgth Anesthesia Del Locatn Provider FOB 02/18/24 6 spontaneous HPI 30 [...] -???-???-???-???-??? -???-? (more content not included)... Normal [facility] Urine Cultureon 12-29-2024 [facility] Comments: [place] Mixed Gram Positive Organisms [place] Count 25,000-50,000 MIX[facility] Mixed contaminants. Submit a new specimen if indicated. [facility] Comment on above: Performed By: #### M 100.2200 #### [facility] [address] [place], [address] Absolute lymphocyte countOrd ered By: Malena Posadajohny on 12-27-2024 Lymphocytes Auto (Unsp spec) [#/Vol] 3.24 10*3/uL 0.83-4.51 [facility] Absolute neutrophil countOrd ered By: Malena Means on 12-27-2024 Neutrophils (Bld) [#/Vol] 13.9 10*3/uL High 2.0-7.7 [facility] Automated lymphocyte count a s percentage of total leukocytesOrdered By: Malena Posadajohny on 12-27-2024 Lymphocytes/100 WBC Auto (Unsp spec) 17.1 % Low 19-41 [facility] Basophil percentageOrdered B y: Malena Means on 12-27-2024 Basophils/100 WBC (Bld) 0.4 % 0-1 [facility] CBC W/Diff, Automatedon Absolute Lymph 3.24 X10 3/uL Normal 0.83-4.51 [facility] Comment on above: Order Comment: Comme nts: Thai Baldwin [place] Performed By: #### L 100.0100, L500.4710 #### [facility] [address] [place], [address] Absolute Neut 13.9 X10 3/uL High 2.0-7.7 [facility] Comment on above: Order Comment: Comme nts: Thai [place] Performed By: #### L 100.0100, L500.4710 #### [facility] [address] [place], [address] Basophils/100 WBC (Bld) 0.4 % Normal 0-1 [facility] Comment on above: Order Comment: Comme nts: Thai [place] Performed By: #### L 100.0100, L500.4710 #### [facility] [address] [place], [address] Eosinophils/100 WBC (Bld) 1.1 % Normal 0-5 [facility] Comment on above: Order Comment: Comme nts: Thai [place] Performed By: #### L 100.0100, L500.4710 #### [facility] [address] [place], [address] Erythrocyte distribution width (RBC) [Ratio] 13.4 % Normal 11.6-14.6 [facility] Comment on above: Order Comment: Comme nts: Thai [place] Performed By: #### L 100.0100, L500.4710 #### [facility] [address] [place], [address] Hematocrit (Bld) [Volume fraction] 35.0 % Low 37-47 [facility] Comment on above: Order Comment: Comme nts: Thai [place] Performed By: #### L 100.0100, L500.4710 #### [facility] [address] [place], [address] Hemoglobin (Bld) [Mass/Vol] 11.9 g/dL Low 12.0-15.0 [facility] Comment on above: Order Comment: Commanna nts: Thai [place] Performed By: #### L 100.0100, L500.4710 #### [facility] [address] [place], [address] IG% 2.100 High 0.0-0.9 [facility] Comment on above: Order Comment: Commanna nts: Thai [place] Result Comment: IG% - Immature Granulocytes (promyelocytes, myelocytes and metamyelocytes) > 1% indicates that a LEFT SHIFT is Present. Performed By: #### L 100.0100, L500.4710 #### [facility] [address] [place], [address] Lymphocytes/100 WBC (Bld) 17.1 % Low 19-41 [facility] Comment on above: Order Comment: Commanna nts: Thai [place] Performed By: #### L 100.0100, L500.4710 #### [facility] [address] [place], [address] MCH (RBC) [Entitic mass] 31.3 pg Normal 27.0-32.0 [facility] Comment on above: Order Comment: Comme nts: [place], [place] Performed By: #### L 100.0100, L500.4710 #### [facility] [address] [place], [address] MCHC (RBC) [Mass/Vol] 34.0 g/dL Normal 32-36 [facility] Comment on above: Order Comment: Comme nts: [place], [place] Performed By: #### L 100.0100, L500.4710 #### [facility] [address] [place], [address] MCV (RBC) [Entitic vol] 92.1 fL Normal 81-99 [facility] Comment on above: Order Comment: Comme nts: [place], [place] Performed By: #### L 100.0100, L500.4710 #### [facility] [address] [place], [address] Monocytes/100 WBC (Bld) 6.4 % Normal 0-10 [facility] Comment on above: Order Comment: Comme nts: [place], [place] Performed By: #### L 100.0100, L500.4710 #### [facility] [address] [place], [address] Neutrophils/100 WBC (Bld) 72.9 % High 47-70 [facility] Comment on above: Order Comment: Comme nts: [place], [place] Performed By: #### L 100.0100, L500.4710 #### [facility] [address] [place], [address] Nucleated RBC (Bld) [#/Vol] 0 10*3/uL Normal 0-5 [facility] Comment on above: Order Comment: Comme nts: [place] Performed By: #### L 100.0100, L500.4710 #### [facility] [address] [place], [address] Platelet mean volume (Bld) [Entitic vol] 10.4 fL Normal 6.2-12.0 [facility] Comment on above: Order Comment: Comme nts: [place], [place] Performed By: #### L 100.0100, L500.4710 #### [facility] [address] [place], [address] Platelets (Bld) [#/Vol] 256 10*3/uL Normal 150-450 [facility] Comment on above: Order Comment: Comme nts: [place], [place] Performed By: #### L 100.0100, L500.4710 #### [facility] [address] [place], [address] RBC (Bld) [#/Vol] 3.80 10*6/uL Low 4.2-5.4 [facility] Comment on above: Order Comment: Comme nts: [place] Performed By: #### L 100.0100, L500.4710 #### [facility] [address] [place], [address] RDW SD 45.2 fl High 35.1-43.9 [facility] Comment on above: Order Comment: Comme nts: [place] Performed By: #### L 100.0100, L500.4710 #### [facility] [address] [place], [address] WBC (Bld) [#/Vol] 19.0 10*3/uL High 4.4-11.0 [facility] Comment on above: Order Comment: Comme nts: [place] Performed By: #### L 100.0100, L500.4710 #### [facility] [address] [place], [place], [address] Eosinophil percentageOrdered By: Malena Means on 12-27-2024 Eosinophils/100 WBC (Bld) 1.1 % 0-5 [facility] Erythrocyte distribution wid th ratioOrdered By: Malena Means on 12-27-2024 Erythrocyte distribution width (RBC) [Ratio] 13.4 % 11.6-14.6 [facility] Erythrocyte distribution wid th standard deviationOrdered By: Malena Means on 12-27-2024 Erythrocyte distribution width (RBC) [Ratio] 45.2 fl High 35.1-43.9 [facility] Gestational GTT 3HR 100gon 0 12-27-2024 GEST GTT 100gm Normal [facility] Comment on above: Order Comment: ARASH Maldonado Result Comment: FAST ING 101 Col: 12/27/24 0659 GLUCOSE TOLERANCE TEST FOR Reference Interval GESTATIONAL DIABETES Fasting <105 mg/dL 1 hour <190 mg/dl 2 hour <165 mg/dl 3 hour <145 mg/dl 1 HR GLU 160 Col: 12/27/24 0833 2 HR GLU 133 Col: 12/27/24 0936 3 HR GLU 124 Col: 12/27/24 1035 Performed By: #### L 100.0100, L500.4710 #### [facility] [address] [place], [address] Hematocrit Auto (Bld) [Volum e fraction]Ordered By: Malena Means on 12-27-2024 Hematocrit (Bld) [Volume fraction] 35.0 % Low 37-47 [facility] Hemoglobin measurementOrdere d By: Malena Means on 12-27-2024 Hemoglobin (Bld) [Mass/Vol] 11.9 g/dL Low 12.0-15.0 [facility] Immature granulocytes/100 WB C Auto (Bld)Ordered By: Malena Means on 12-27-2024 Immature granulocytes/100 WBC (Bld) 2.100 % High 0.0-0.9 [facility] Comment on above: IG% - Immature Granu locytes (promyelocytes, myelocytes and metamyelocytes) > 1% indicates that a LEFT SHIFT is Present. MCV (mean corpuscular volume ) determinationOrdered By: Malena Means on 12-27-2024 MCV (RBC) [Entitic vol] 92.1 fL 81-99 [facility] Mean corpuscular hemoglobin (MCH) determinationOrdered By: Malena Means on 12-27-2024 MCH (RBC) [Entitic mass] 31.3 pg 27.0-32.0 [facility] Mean corpuscular hemoglobin concentration (MCHC) determinationOrdered By: Malena Means on 12-27-2024 MCHC (RBC) [Mass/Vol] 34.0 g/dL 32-36 [facility] Mean platelet volume determi nationOrdered By: Malena Means on 12-27-2024 Platelet mean volume (Bld) [Entitic vol] 10.4 fL 6.2-12.0 [facility] Monocyte percentageOrdered B y: Malena Means on 12-27-2024 Monocytes/100 WBC (Bld) 6.4 % 0-10 [facility] Neutrophil percentageOrdered By: Malena Means on 12-27-2024 Neutrophils/100 WBC (Bld) 72.9 % High 47-70 [facility] Nucleated red blood cell per centageOrdered By: Malena Means on 12-27-2024 Nucleated RBC/100 WBC (Bld) [Ratio] 0 % 0-5 [facility] Platelet countOrdered By: Joaquin Means on 12-27-2024 Platelets (Bld) [#/Vol] 256 10*3/uL 150-450 [facility] Quantitative serum or plasma 3 hour gestational glucose tolerance panelOrdered By: Malena Means on 12-27-2024 Glucose tolerance 3 hours gestational panel See comment [facility] Comment on above: FASTING 101 Col: 10/18 [...] RBC (Bld) [#/Vol] 3.80 10*6/uL Low 4.2-5.4 [facility] Urine cultureOrdered By: Angelica Means on 12-27-2024 Bacteria identified Cx Nom (U) Positive Abnormal [facility] White blood cell (WBC) count Ordered By: Malena Means on 12-27-2024 WBC (Bld) [#/Vol] 19.0 10*3/uL High 4.4-11.0 [facility] Progress Noteon 12-26-2024 Clerical Grader Authentication Interface Message Text Jesus Asher is [...] I will refer this child to our mold cleaner for this process. After alignment of the [...] evaluation after . They met with our foster care social worker as well. I spent a total of [...] MD, FACS Chief, Division of Plastic Surgery [facility] 12/26/2024 Normal [facility] Glucose Challenge Gest 1H 50 minh 12-15-2024 GLU GEST 50g 1H 159 mg/dL High 70-140 [facility] Comment on above: Performed By: #### L 501.0250, L3890.6006, L509.8002, L100.0100 ####[facility] [address] [place], [address] HIVon 12-15-2024 HIV Non-Reactive Normal Nonreactive [facility] Comment on above: Result Comment: Non- Reactive Reactive Repeatedly reactive samples must be confirmed according to CDC recommended confirmatory algorithms. The subresults for either HIVAG or AHIV can be used as an aid in the selection of the confirmation algorithm for reactive samples. Send out specimens with Reactive results to [facility] for confirmation. Order the HIV antibody detection and differentiation: #[id number] Performed By: #### L 501.0250, L3890.6006, L509.8002, L100.0100 ####[facility] [address] [place], [address] Syphilis Antibodieson 2024 Syphilis Abs Non-Reactive Normal Nonreactive [facility] Comment on above: Performed By: #### L 501.0250, L3890.6006, L509.8002, L100.0100 ####[facility] [address] [place], [address] Absolute lymphocyte countOrd ered By: Malena Miguelangel on 12-14-2024 Lymphocytes Auto (Unsp spec) [#/Vol] 2.62 10*3/uL 0.83-4.51 [facility] Absolute neutrophil countOrd ered By: Malena Means on 12-14-2024 Neutrophils (Bld) [#/Vol] 13.6 10*3/uL High 2.0-7.7 [facility] Automated lymphocyte count a s percentage of total leukocytesOrdered By: Malena Means on 12-14-2024 Lymphocytes/100 WBC Auto (Unsp spec) 15.1 % Low 19-41 [facility] Basophil percentageOrdered B y: Malena Means on 12-14-2024 Basophils/100 WBC (Bld) 0.3 % 0-1 [facility] CBC W/Diff, Automatedon 11-25 Absolute Lymph 2.62 X10 3/uL Normal 0.83-4.51 [facility] Comment on above: Performed By: #### L 501.0250, L3890.6006, L509.8002, L100.0100 ####[facility] [address] [place], [address] Absolute Neut 13.6 X10 3/uL High 2.0-7.7 [facility] Comment on above: Performed By: #### L 501.0250, L3890.6006, L509.8002, L100.0100 ####[facility] [address] [place], [address] Basophils/100 WBC (Bld) 0.3 % Normal 0-1 [facility] Comment on above: Performed By: #### L 501.0250, L3890.6006, L509.8002, L100.0100 ####[facility] [address] [place], [address] Eosinophils/100 WBC (Bld) 0.7 % Normal 0-5 [facility] Comment on above: Performed By: #### L 501.0250, L3890.6006, L509.8002, L100.0100 ####[facility] [address] [place], [address] Erythrocyte distribution width (RBC) [Ratio] 13.7 % Normal 11.6-14.6 [facility] Comment on above: Performed By: #### L 501.0250, L3890.6006, L509.8002, L100.0100 ####[facility] [address] [place], [address] Hematocrit (Bld) [Volume fraction] 37.2 % Normal 37-47 [facility] Comment on above: Performed By: #### L 501.0250, L3890.6006, L509.8002, L100.0100 ####[facility] [address] [place], [address] Hemoglobin (Bld) [Mass/Vol] 12.3 g/dL Normal 12.0-15.0 [facility] Comment on above: Performed By: #### L 501.0250, L3890.6006, L509.8002, L100.0100 ####[facility] [address] [place], [address] IG% 0.700 Normal 0.0-0.9 [facility] Comment on above: Result Comment: IG% - Immature Granulocytes (promyelocytes, myelocytes and metamyelocytes) > 1% indicates that a LEFT SHIFT is Present. Performed By: #### L 501.0250, L3890.6006, L509.8002, L100.0100 ####[facility] [address] [place], [address] Lymphocytes/100 WBC (Bld) 15.1 % Low 19-41 [facility] Comment on above: Performed By: #### L 501.0250, L3890.6006, L509.8002, L100.0100 ####[facility] [address] [place], [address] MCH (RBC) [Entitic mass] 31.1 pg Normal 27.0-32.0 [facility] Comment on above: Performed By: #### L 501.0250, L3890.6006, L509.8002, L100.0100 ####[facility] [address] [place], [address] MCHC (RBC) [Mass/Vol] 33.1 g/dL Normal 32-36 [facility] Comment on above: Performed By: #### L 501.0250, L3890.6006, L509.8002, L100.0100 ####[facility] [address] [place], [address] MCV (RBC) [Entitic vol] 94.2 fL Normal 81-99 [facility] Comment on above: Performed By: #### L 501.0250, L3890.6006, L509.8002, L100.0100 ####[facility] [address] [place], [address] Monocytes/100 WBC (Bld) 4.6 % Normal 0-10 [facility] Comment on above: Performed By: #### L 501.0250, L3890.6006, L509.8002, L100.0100 ####[facility] [address] [place], [address] Neutrophils/100 WBC (Bld) 78.6 % High 47-70 [facility] Comment on above: Performed By: #### L 501.0250, L3890.6006, L509.8002, L100.0100 ####[facility] [address] [place], [address] Nucleated RBC (Bld) [#/Vol] 0 10*3/uL Normal 0-5 [facility] Comment on above: Performed By: #### L 501.0250, L3890.6006, L509.8002, L100.0100 ####[facility] [address] [place], [address] Platelet mean volume (Bld) [Entitic vol] 11.3 fL Normal 6.2-12.0 [facility] Comment on above: Performed By: #### L 501.0250, L3890.6006, L509.8002, L100.0100 ####[facility] [address] [place], [address] Platelets (Bld) [#/Vol] 272 10*3/uL Normal 150-450 [facility] Comment on above: Performed By: #### L 501.0250, L3890.6006, L509.8002, L100.0100 ####[facility] [address] [place], [address] RBC (Bld) [#/Vol] 3.95 10*6/uL Low 4.2-5.4 [facility] Comment on above: Performed By: #### L 501.0250, L3890.6006, L509.8002, L100.0100 ####[facility] [address] [place], [address] RDW SD 47.5 fl High 35.1-43.9 [facility] Comment on above: Performed By: #### L 501.0250, L3890.6006, L509.8002, L100.0100 ####[facility] [address] [place], [address] WBC (Bld) [#/Vol] 17.4 10*3/uL High 4.4-11.0 [facility] Comment on above: Performed By: #### L 501.0250, L3890.6006, L509.8002, L100.0100 ####[facility] [address] [place], [address] Eosinophil percentageOrdered By: Malena Means on 12-14-2024 Eosinophils/100 WBC (Bld) 0.7 % 0-5 [facility] Erythrocyte distribution wid th ratioOrdered By: Malena Means on 12-14-2024 Erythrocyte distribution width (RBC) [Ratio] 13.7 % 11.6-14.6 [facility] Erythrocyte distribution wid th standard deviationOrdered By: Malena Means on 12-14-2024 Erythrocyte distribution width (RBC) [Ratio] 47.5 fl High 35.1-43.9 [facility] Glucose measurement at 2 nahid rs post-dose gestational glucose tolerance testOrdered By: Malena Means on 12-14-2024 Glucose [Mass/Vol] 159 mg/dL High 70-140 [facility] Hematocrit Auto (Bld) [Volum e fraction]Ordered By: Malena Means on 12-14-2024 Hematocrit (Bld) [Volume fraction] 37.2 % 37-47 [facility] Hemoglobin measurementOrdere d By: Malena Means on 12-14-2024 Hemoglobin (Bld) [Mass/Vol] 12.3 g/dL 12.0-15.0 [facility] Immature granulocytes/100 WB C Auto (Bld)Ordered By: Malena Means on 12-14-2024 Immature granulocytes/100 WBC (Bld) 0.700 % 0.0-0.9 [facility] Comment on above: IG% - Immature Granu locytes (promyelocytes, myelocytes and metamyelocytes) > 1% indicates that a LEFT SHIFT is Present. Laboratory - Chemistry and C hemistry - challengeOrdered By: Malena Means on 12-14-2024 Glucose Ql (U) Negative [facility] - UrinalysisOrder ed By: Malena Means on 12-14-2024 Protein Ql (U) Negative [facility] MCV (mean corpuscular volume ) determinationOrdered By: Malena Means on 12-14-2024 MCV (RBC) [Entitic vol] 94.2 fL 81-99 [facility] Mean corpuscular hemoglobin (MCH) determinationOrdered By: Malena Means on 12-14-2024 MCH (RBC) [Entitic mass] 31.1 pg 27.0-32.0 [facility] Mean corpuscular hemoglobin concentration (MCHC) determinationOrdered By: Malena Means on 12-14-2024 MCHC (RBC) [Mass/Vol] 33.1 g/dL 32-36 [facility] Mean platelet volume determi nationOrdered By: Malena Means on 12-14-2024 Platelet mean volume (Bld) [Entitic vol] 11.3 fL 6.2-12.0 [facility] Monocyte percentageOrdered B y: Malena Means on 12-14-2024 Monocytes/100 WBC (Bld) 4.6 % 0-10 [facility] Neutrophil percentageOrdered By: Malena Means on 12-14-2024 Neutrophils/100 WBC (Bld) 78.6 % High 47-70 [facility] No Panel InformationOrdered By: Malena Means on 12-14-2024 HIV (1&2) Antibody Non-Reactive Nonreactive [facility] Comment on above: Non-ReactiveReactive Repeatedly reactive samples must be confirmed according to CDC recommended confirmatory algorithms. The subresults for either HIVAG or AHIV can be used as an aid in the selection of the confirmation algorithm for reactive samples.Send out specimens with Reactive results to [facility] for confirmation.Order the HIV antibody detection and differentiation: #[id number] Nucleated red blood cell per centageOrdered By: Malena Means on 12-14-2024 Nucleated RBC/100 WBC (Bld) [Ratio] 0 % 0-5 [facility] Credit Risk Review Officer Office Visit Reporton 12-14-2024 Credit Risk Review Officer Office Visit Report [facility] [address], [address] [place] [address] OFFICE VISIT Date of Service: 12/14/24 MR#: [id number] Acct: [id number] Name: JESUS ASHER Rep #: [id number] : 1995 Provider: Dr. 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 Normal [facility] Platelet countOrdered By: Joaquin Means on 12-14-2024 Platelets (Bld) [#/Vol] 272 10*3/uL 150-450 [facility] RBC Auto (Bld) [#/Vol]Ordere d By: Malena Means on 12-14-2024 RBC (Bld) [#/Vol] 3.95 10*6/uL Low 4.2-5.4 [facility] White blood cell (WBC) count Ordered By: Malena Means on 12-14-2024 WBC (Bld) [#/Vol] 17.4 10*3/uL High 4.4-11.0 [facility] Laboratory - Chemistry and C hemistry - challengeOrdered By: Malena Means on 11-28-2024 Glucose Ql (U) Negative [facility] - UrinalysisOrder ed By: Malena Means on 11-28-2024 Protein Ql (U) Negative [facility] Credit Risk Review Officer Office Visit Reporton 11-28-2024 Credit Risk Review Officer Office Visit Report [facility] [address], [address] [place] [address] OFFICE VISIT Date of Service: 11/28/24 MR#: [id number] Acct: [id number] Name: HYUNJESUS KEIRA Rep #: [id number] : 1995 Provider: Dr. 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 Date Name GA/Weeks Outcome Route Bth Weight Gen Labor Lgth Anesthesia Del Locatn Provider FOB 02/18/24 6 spontaneous HPI 26 [...] -???-???-???-???-??? -?? (more content not included)... Normal [facility] Progress Noteon 11-10-2024 Clerical Grader Authentication Interface Message Text [facility] - NEW PATIENT ASSESSMENT: I [...] interatrial communication after . PLAN: Follow-up appointment, [facility]: As needed. Preferred delivery location: No preference After , follow-up with Pediatric Cardiology: NOT indicated if isolated cleft lip and palate MAY BE indicated IF the baby is diagnosed with a genetic condition that is associated with congenital heart defects (ex: 22q11.2 deletion syndrome, CHARGE syndrome, Stickler Syndrome, etc) MAY BE indicated IF the deputy county clerk hears a murmur or otherwise is concerned SUBJECTIVE: We had the pleasure of seeing Jesus Asher in Cardiology at the [facility] on 11/10/2024 at the request of Dr. Irma Noriega. Ms. Asher was referred due to cleft lip and palate. Obstetric History: Ms. Asher is 2 para 0 at [id number] estimated due date 03/05/2025. Number of fetuses: 1 - male Delivery Hospital, preferred: [facility] Past medical history: Past Medical History: Diagnosis Date Treatment Center Plan of Care Current medications: Medications Ordered Prior to Encounter[1] Allergies: Allergies[2] Family history: The family history was reviewed and is otherwise negative for congenital heart disease, sudden unexplained , arrhythmia. Social History: Jesus Asher lives with her family in [place], [place]. OBJECTIVE: Echocardiogram (11/10/2024): (see Epic for [...] voice recognition systems. Winsome Olivas DO (he/him/his) [employer] [place] [address] Toll-Free: [email or web address] [1] Current Outpatient Medications on File Prior to Visit Medication Sig Dispense Refill Vit w/Qf-Rrgxypkjr-OX (PNV PO) Take by mouth daily No current facility-administere d medications on file prior to visit. [2] No Known Allergies Normal [facility] Clerical Grader Authentication Interface Message Text [facility] Consult INDICATION FOR CONSULT: Cleft lip and [...] as well. Past Medical History: Diagnosis Date [facility] Plan of Care Past Surgical History: Procedure Laterality Date WISDOM TOOTH EXTRACTION 2013 FAMILY HISTORY: See Genetic Counseling note Outpatient Medications Marked as Taking for the 11/10/24 encounter (Office Visit) with Allan Lutz MD Medication Sig Dispense Refill Vit w/Nu-Gzpopeqsl-AC (PNV PO) Take by mouth daily Social [...] general. Patient will be followed with our [facility] and meet with pediatric plastics as well as . There is a 2 to 3% recurrence risk in future pregnancies. Patient will meet with genetic counseling to discuss amniocentesis and further genetic testing. All questions concerns addressed. Jesus Asher also met with our genetic counselor, see separate documentation for counseling. She met Rosalinda Julio, Clinical Electrical Line Worker from the [facility]. Rosalinda will continue to help coordinate and care. 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 Cell free DNA aneuploidy screening is low risk. Declined invasive testing. Plan: 1. Continued obstetrical care with her primary network engineer is recommended. 2. Follow up q4 weeks to evaluate biometric parameters and anatomy. These are planned with the [facility]. 3. echocardiogram completed. 4. surveillance as follows: [...] per hospital protocol. 10. Follow up with [facility] within the first week of life. Please call [phone]. 11. Consultation with Medical Genetic (more content not included)... Normal [facility] Laboratory - Chemistry and C hemistry - challengeOrdered By: Merlyn Rios on 11-02-2024 Glucose Ql (U) Negative [facility] - UrinalysisOrder ed By: Merlyn Rios on 11-02-2024 Protein Ql (U) Negative [facility] Credit Risk Review Officer Office Visit Reporton 11-02-2024 Credit Risk Review Officer Office Visit Report [facility] [address], [address] [place] [address] OFFICE VISIT Date of Service: 11/02/24 MR#: [id number] Acct: [id number] Name: JESUS ASHER Rep #: [id number] : 1995 Provider: AIDEE crow Age/Sex: 28/F Location: [facility] Status: Signed Intake Vital Signs 09/09/24 14:14 10/07/24 15:03 11/02/24 13:43 Height 5 ft 3 in 5 ft 3 in 5 ft 3 in Weight: 116 lb 8 oz BMI 20.6 BP 120/72 Intake Visit Reasons: 22wk ob Chief Complaint: 22 Week OB Carrot Tier Required: No Is patient in pain?: No [...] spouse current occupational status: employed 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 Date Name GA/Weeks Outcome Route Bth Weight Gen Labor Lgth Anesthesia Del [facility] Provider FOB 02/18/24 6 spontaneous HPI 22wk [...] -???-???-???-???-??? -?? (more content not included)... Normal [facility] Progress Noteon 10-13-2024 Clerical Grader Authentication Interface Message Text [facility] MATERNAL- MEDICINE CONSULT Referring/Requesting Provider: Malena Schneider, * PCP: Etienne De Santiago DO INDICATION FOR CONSULT: cleft lip and palate This is a telemedicine video visit requested by the patient/guardian that was performed with the patient's location at [place] office and the provider's location at [facility]. HISTORY OF PRESENT ILLNESS: Patient is [...] the 10/13/24 encounter (Telehealth) with Irma Noriega, DO Medication Sig Dispense Refill Vit w/Ss-Vqzrbsicg-OV (PNV PO) Take by mouth daily ALLERGY: [...] 28 weeks. Follow up with [facility] in 4 weeks. Chart review and preparation: 5 minutes. Face to face: 12 minutes. Documentation and care coordination: 15 minutes. Total time spent on patient care today: 32 minutes. [1] No Known Allergies Normal [facility] Laboratory - Chemistry and C hemistry - challengeOrdered By: Maylin Cadena on 10-07-2024 Glucose Ql (U) Negative [facility] Laboratory - UrinalysisOrder ed By: Maylin Cadena on 10-07-2024 Protein Ql (U) Negative [facility] Credit Risk Review Officer Office Visit Reporton 10-07-2024 Credit Risk Review Officer Office Visit Report [facility] [address], [address] [place] [address] OFFICE VISIT Date of Service: 10/07/24 MR#: [id number] Acct: [id number] Name: JESUS ASHER Rep #: [id number] : 1995 Provider: Dr. 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 (more content not included)... Normal [facility] Laboratory - Chemistry and C hemistry - challengeOrdered By: Heather Mahmood on 09-09-2024 Glucose Ql (U) Negative [facility] Laboratory - UrinalysisOrder ed By: Heather Mahmood on 09-09-2024 Protein Ql (U) Negative [facility] Credit Risk Review Officer Office Visit Reporton 09-09-2024 Credit Risk Review Officer Office Visit Report [facility] [address], [address] [place] [address] OFFICE VISIT Date of Service: 09/09/24 MR#: [id number] Acct: [id number] Name: HYUNJESUS KEIRA Rep #: [id number] : 1995 Provider: MATT Harrison ams Age/Sex: 28/F Location[place] [facility] Status: Signed Intake Vital Signs 03/14/24 09:59 [...] spouse current occupational status: employed 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 Date Name GA/Weeks Outcome Route Bth Weight Gen Labor Lgth Anesthesia Del [facility] Provider FOB 02/18/24 6 spontaneous HPI 14wk [...] no ad (more content not included)... Normal [facility] PAP IG HPV APTIMA 16/18,45on 08-19-2024 ADEQ Comment Normal . [facility] Comment on above: Order Comment: Speci men Comment: [id number] Specimen Comment: Source.............Cervix Specimen Comment: LMP / Prev Treat...[id number] Specimen Comment: Other.............. Specimen Comment: No. of containers..01 ThinPrep Vial Result Comment: Sati sfactory for evaluation. Endocervical and/or squamous metaplastic cells (endocervical component) are present. Performed By: #### L 7400.0280 #### [facility] [address] [place], [place], [id number] COMM . Normal . [facility] Comment on above: Order Comment: Speci men Comment: [id number] Specimen Comment: Source.............Cervix Specimen Comment: LMP / Prev Treat...[id number] Specimen Comment: Other.............. Specimen Comment: No. of containers..01 ThinPrep Vial Performed By: #### L 7400.0280 #### [facility] [address] [facility] [place], [place], [id number] COMMENT Comment Normal . [facility] Comment on above: Order Comment: Speci men Comment: [id number] Specimen Comment: Source.............Cervix Specimen Comment: LMP / Prev Treat...[id number] Specimen Comment: Other.............. Specimen Comment: No. of containers..01 ThinPrep Vial Result Comment: This liquid based ThinPrep(R) pap test was screened with the use of an image guided system. Performed By: #### L 7400.0280 #### [facility] [address] [place], [place], [address] DIAG Comment Normal . [facility] Comment on above: Order Comment: Speci men Comment: [id number] Specimen Comment: Source.............Cervix Specimen Comment: LMP / Prev Treat...[id number] Specimen Comment: Other.............. Specimen Comment: No. of containers..01 ThinPrep Vial Result Comment: NEGA TIVE FOR INTRAEPITHELIAL LESION OR MALIGNANCY. Performed By: #### L 7400.0280 #### [facility] [address] [place], [place], [address] HPV APTIMA, HR Negative Normal Negative [facility] Comment on above: Order Comment: Speci men Comment: [id number] Specimen Comment: Source.............Cervix Specimen Comment: LMP / Prev Treat...[id number] Specimen Comment: Other.............. Specimen Comment: No. of containers..01 ThinPrep Vial Result Comment: This nucleic acid amplification test detects fourteen high- risk HPV types (16,18,31,33,35,39,45,51,52,56,58,59,66,68) without differentiation. Performed By: #### L 7400.0280 #### [facility] [address] [place], [place], [address] HPV Elina Rfx Comment Normal . [facility] Comment on above: Order Comment: Speci men Comment: [id number] Specimen Comment: Source.............Cervix Specimen Comment: LMP / Prev Treat...[id number] Specimen Comment: Other.............. Specimen Comment: No. of containers..01 ThinPrep Vial Result Comment: Airamt micha not met, HPV Genotype not performed. Performed at: - [address] [id number] Alemite Operator: Shabnam Mcnair MD, Phone: [phone] Performed at: = - [facility] [id number] Alemite Operator: Shabnam Mcnair MD, Phone: [phone] Performed By: #### L 7400.0280 #### [facility] [address] [facility], [address] PAPSMR Comment Normal . [facility] Comment on above: Order Comment: Speci men Comment: [id number] Specimen Comment: Source.............Cervix Specimen Comment: LMP / Prev Treat...[id number] Specimen Comment: Other.............. Specimen Comment: No. of [...] occur. Performed By: #### L 7400.0280 #### [facility] [address] [place], [address] PERFORM Comment Normal . [facility] Comment on above: Order Comment: Speci men Comment: [id number] Specimen Comment: Source.............Cervix Specimen Comment: LMP / Prev Treat...[id number] Specimen Comment: Other.............. Specimen Comment: No. of containers..01 ThinPrep Vial Result Comment: Karolina Griffith, Car Repairer Apprentice (ASCP) Performed By: #### L 7400.0280 #### [facility] [address] [place], [address] Urine Cultureon 08-19-2024 URC Mixed Gram Positive Organisms [place] Count 11,000-25,000 MIXC Mixed contaminants. Submit a new specimen if indicated. Normal [facility] Comment on above: Performed By: #### M 100.2200, L7000.1800 ####[facility] [address] [place], [address] Chlamydia/GC LUCAS aptimaon CHLAMY,NUC ACID Negative Normal Negative [facility] Comment on above: Performed By: #### M 100.2200, L7000.1800 ####[facility] [address] [place], [address] GC BY NUC ACID Negative Normal Negative [facility] Comment on above: Result Comment: Perf ormed at: =G - [facility] [address] [id number] Alemite Operator: Shabnam Mcnair MD, Phone: [phone] Performed By: #### M 100.2200, L7000.1800 ####[facility] [address] [place], [address] Absolute lymphocyte countOrd ered By: Maylin Cadena on 08-16-2024 Lymphocytes Auto (Unsp spec) [#/Vol] 2.32 10*3/uL 0.83-4.51 [facility] Absolute neutrophil countOrd ered By: Maylin Cadena on 08-16-2024 Neutrophils (Bld) [#/Vol] 10.4 10*3/uL High 2.0-7.7 [facility] Automated lymphocyte count a s percentage of total leukocytesOrdered By: Maylin Cadena on 08-16-2024 Lymphocytes/100 WBC Auto (Unsp spec) 17.1 % Low 19-41 [facility] Basophil percentageOrdered B y: Maylin Cadena on 08-16-2024 Basophils/100 WBC (Bld) 0.5 % 0-1 [facility] CBC W/Diff, Automatedon 07-28 Absolute Lymph 2.32 X10 3/uL Normal 0.83-4.51 [facility] Comment on above: Performed By: #### L 3890.6005, L509.8000, L100.0100, L509.4005, BTS, L3890.6300, L900.0098, L3890.6100 ####[facility] [address] [place], [address] Absolute Neut 10.4 X10 3/uL High 2.0-7.7 [facility] Comment on above: Performed By: #### L 3890.6005, L509.8000, L100.0100, L509.4005, BTS, L3890.6300, L900.0098, L3890.6100 ####[facility] [address] [place], [address] Basophils/100 WBC (Bld) 0.5 % Normal 0-1 [facility] Comment on above: Performed By: #### L 3890.6005, L509.8000, L100.0100, L509.4005, BTS, L3890.6300, L900.0098, L3890.6100 ####[facility] [address] [place], [address] Eosinophils/100 WBC (Bld) 0.2 % Normal 0-5 [facility] Comment on above: Performed By: #### L 3890.6005, L509.8000, L100.0100, L509.4005, BTS, L3890.6300, L900.0098, L3890.6100 ####[facility] [address] [place], [address] Erythrocyte distribution width (RBC) [Ratio] 12.8 % Normal 11.6-14.6 [facility] Comment on above: Performed By: #### L 3890.6005, L509.8000, L100.0100, L509.4005, BTS, L3890.6300, L900.0098, L3890.6100 ####[facility] [address] [place], [address] Hematocrit (Bld) [Volume fraction] 40.3 % Normal 37-47 [facility] Comment on above: Performed By: #### L 3890.6005, L509.8000, L100.0100, L509.4005, BTS, L3890.6300, L900.0098, L3890.6100 ####[facility] [address] [place], [address] Hemoglobin (Bld) [Mass/Vol] 14.1 g/dL Normal 12.0-15.0 [facility] Comment on above: Performed By: #### L 3890.6005, L509.8000, L100.0100, L509.4005, BTS, L3890.6300, L900.0098, L3890.6100 ####[facility] [address] [place], [address] IG% 0.400 Normal 0.0-0.9 [facility] Comment on above: Result Comment: IG% - Immature Granulocytes (promyelocytes, myelocytes and metamyelocytes) > 1% indicates that a LEFT SHIFT is Present. Performed By: #### L 3890.6005, L509.8000, L100.0100, L509.4005, BTS, L3890.6300, L900.0098, L3890.6100 ####[facility] [address] [place], [address] Lymphocytes/100 WBC (Bld) 17.1 % Low 19-41 [facility] Comment on above: Performed By: #### L 3890.6005, L509.8000, L100.0100, L509.4005, BTS, L3890.6300, L900.0098, L3890.6100 ####[facility] [address] [place], [address] MCH (RBC) [Entitic mass] 30.7 pg Normal 27.0-32.0 [facility] Comment on above: Performed By: #### L 3890.6005, L509.8000, L100.0100, L509.4005, BTS, L3890.6300, L900.0098, L3890.6100 ####[facility] [address] [place], [address] MCHC (RBC) [Mass/Vol] 35.0 g/dL Normal 32-36 [facility] Comment on above: Performed By: #### L 3890.6005, L509.8000, L100.0100, L509.4005, BTS, L3890.6300, L900.0098, L3890.6100 ####[facility] [address] [place], [address] MCV (RBC) [Entitic vol] 87.6 fL Normal 81-99 [facility] Comment on above: Performed By: #### L 3890.6005, L509.8000, L100.0100, L509.4005, BTS, L3890.6300, L900.0098, L3890.6100 ####[facility] [address] [place], [address] Monocytes/100 WBC (Bld) 5.0 % Normal 0-10 [facility] Comment on above: Performed By: #### L 3890.6005, L509.8000, L100.0100, L509.4005, BTS, L3890.6300, L900.0098, L3890.6100 ####[facility] [address] [place], [address] Neutrophils/100 WBC (Bld) 76.8 % High 47-70 [facility] Comment on above: Performed By: #### L 3890.6005, L509.8000, L100.0100, L509.4005, BTS, L3890.6300, L900.0098, L3890.6100 ####[facility] [address] [place], [address] Nucleated RBC (Bld) [#/Vol] 0 10*3/uL Normal 0-5 [facility] Comment on above: Performed By: #### L 3890.6005, L509.8000, L100.0100, L509.4005, BTS, L3890.6300, L900.0098, L3890.6100 ####[facility] [address] [place], [address] Platelet mean volume (Bld) [Entitic vol] 11.5 fL Normal 6.2-12.0 [facility] Comment on above: Performed By: #### L 3890.6005, L509.8000, L100.0100, L509.4005, BTS, L3890.6300, L900.0098, L3890.6100 ####[facility] [address] [place], [address] Platelets (Bld) [#/Vol] 282 10*3/uL Normal 150-450 [facility] Comment on above: Performed By: #### L 3890.6005, L509.8000, L100.0100, L509.4005, BTS, L3890.6300, L900.0098, L3890.6100 ####[facility] [address] [place], [address] RBC (Bld) [#/Vol] 4.60 10*6/uL Normal 4.2-5.4 [facility] Comment on above: Performed By: #### L 3890.6005, L509.8000, L100.0100, L509.4005, BTS, L3890.6300, L900.0098, L3890.6100 ####[facility] [address] [place], [place], [address] RDW SD 40.5 fl Normal 35.1-43.9 [facility] Comment on above: Performed By: #### L 3890.6005, L509.8000, L100.0100, L509.4005, BTS, L3890.6300, L900.0098, L3890.6100 ####[facility] [address] [place], [address] WBC (Bld) [#/Vol] 13.5 10*3/uL High 4.4-11.0 [facility] Comment on above: Performed By: #### L 3890.6005, L509.8000, L100.0100, L509.4005, BTS, L3890.6300, L900.0098, L3890.6100 ####[facility] [address] [place], [address] Cervical or vaginal specimen microscopic examination by liquid based cytology (reportOrdered By: Malena Means on 08-16-2024 Cytology report Cyto stain.thin prep Doc (Cvx/Vag) Comment . [facility] Comment on above: Criteria not met, HP V Genotype not performed.Performed at: - [address] [id number] Director: Shabnam Mcnair MD, Phone: [phone] at: =[address] [id number] Director: Shabnam Mcnair MD, Phone: [phone] Cervical or vagninal specime n microscopic examination by cytology stain (reported asOrdered By: Malena Means on 08-16-2024 Cytology report Cyto stain Doc (Cvx/Vag) Comment . [facility] Comment on above: The Pap smear [...] rRNA LUCAS+probe Ql (Unsp spec) Negative Negative [facility] Detection in cervical specim en of any of human papilloma virus (HPV) 16, 18, 31, 33,Ordered By: Malena Means on 08-16-2024 HPV 16+18+31+33+35+39+45+51 +52+56+58+59+66+68 DNA Probe+sig amp Ql (Cvx) Negative Negative [facility] Comment on above: This nucleic acid am plification test detects fourteen high-risk HPV types (16,18,31,33,35,39,45,51,52,56,58,59,66,68)without differentiation. Eosinophil percentageOrdered By: Maylin Cadena on 08-16-2024 Eosinophils/100 WBC (Bld) 0.2 % 0-5 [facility] Erythrocyte distribution wid th ratioOrdered By: Maylin Cadena on 08-16-2024 Erythrocyte distribution width (RBC) [Ratio] 12.8 % 11.6-14.6 [facility] Erythrocyte distribution wid th standard deviationOrdered By: Maylin Cadena on 08-16-2024 Erythrocyte distribution width (RBC) [Ratio] 40.5 fl 35.1-43.9 [facility] HIV - WCHon 08-16-2024 HIV Non-Reactive Normal Nonreactive [facility] Comment on above: Order Comment: Reaso n for Exam: Performed By: #### L 3890.6005, L509.8000, L100.0100, L509.4005, BTS, L3890.6300, L900.0098, L3890.6100 ####[facility] [address] [place], [address] HIV 1 and HIV-2 antibody ass ay with HIV-1 p24 antigen detectionOrdered By: Maylin Cadena on 08-16-2024 HIV 1+2 Ab+HIV1 p24 Ag IA Ql Non-Reactive Nonreactive [facility] Hematocrit Auto (Bld) [Volum e fraction]Ordered By: Maylin Clarence on 08-16-2024 Hematocrit (Bld) [Volume fraction] 40.3 % 37-47 [facility] Hemoglobin measurementOrdere d By: Maylin Berhanemaxwell on 08-16-2024 Hemoglobin (Bld) [Mass/Vol] 14.1 g/dL 12.0-15.0 [facility] Hepatitis B Surface Antigeno n 08-16-2024 HEP B Surf Ag Non-Reactive Normal Nonreactive [facility] Comment on above: Order Comment: Reaso n for Exam: Performed By: #### L 3890.6005, L509.8000, L100.0100, L509.4005, BTS, L3890.6300, L900.0098, L3890.6100 ####[facility] [address] [place], [address] Hepatitis C Antibodyon 08-16 Hepatitis C AB Non-Reactive Normal Nonreactive [facility] Comment on above: Order Comment: Reaso n for Exam: Result Comment: Non Reactive: < 0.8 Equivocal: >/= 0.8 to < 1.0 Reactive: >/= 1.0 The CDC requires that a reactive/equivocal HCV antibody result be sent out for confirmation. HCV Quant by PCR testing. Performed By: #### L 3890.6005, L509.8000, L100.0100, L509.4005, BTS, L3890.6300, L900.0098, L3890.6100 ####[facility] [address] [place], [address] Immature granulocytes/100 WB C Auto (Bld)Ordered By: Maylin Cadena on 08-16-2024 Immature granulocytes/100 WBC (Bld) 0.400 % 0.0-0.9 [facility] Comment on above: IG% - Immature Granu locytes (promyelocytes, myelocytes and metamyelocytes) > 1% indicates that a LEFT SHIFT is Present. L509.8000on 08-16-2024 Syphilis Abs Non-Reactive Normal [facility] Comment on above: Order Comment: Reaso n for Exam: Performed By: #### L 3890.6005, L509.8000, L100.0100, L509.4005, BTS, L3890.6300, L900.0098, L3890.6100 ####[facility] [address] [place], [address] Laboratory - CytologyOrdered By: Malena Means on 08-16-2024 Laboratory Analyst Cyto stain Nom (Cvx/Vag) [ID] Comment . [facility] Comment on above: Karolina Griffith, Cytote chnologist (ASCP) Laboratory - Miscellaneous t estsOrdered By: Malena Means on 08-16-2024 Service comment (Unsp spec) [Interp] . . [facility] MCV (mean corpuscular volume ) determinationOrdered By: Maylin Cadena on 08-16-2024 MCV (RBC) [Entitic vol] 87.6 fL 81-99 [facility] Mean corpuscular hemoglobin (MCH) determinationOrdered By: Maylin Cadena on 08-16-2024 MCH (RBC) [Entitic mass] 30.7 pg 27.0-32.0 [facility] Mean corpuscular hemoglobin concentration (MCHC) determinationOrdered By: Maylin Cadena on 08-16-2024 MCHC (RBC) [Mass/Vol] 35.0 g/dL 32-36 [facility] Mean platelet volume determi nationOrdered By: Maylin Cadena on 08-16-2024 Platelet mean volume (Bld) [Entitic vol] 11.5 fL 6.2-12.0 [facility] Monocyte percentageOrdered B y: Maylin Cadena on 08-16-2024 Monocytes/100 WBC (Bld) 5.0 % 0-10 [facility] NATERAon 08-16-2024 NATURA SEE SCANNED REPORT Normal [facility] Comment on above: Order Comment: Comme nts: elects NIPT Carrier Performed By: #### L 3890.6005, L509.8000, L100.0100, L509.4005, BTS, L3890.6300, L900.0098, L3890.6100 ####[facility] [address] [place], [address] Neisseria gonorrhoeae nuclei c acid detection by amplified probe techniqueOrdered By: Maylin Cadena on 08-16-2024 N. gonorrhoeae DNA LUCAS+probe Ql (Unsp spec) Negative Negative [facility] Comment on above: Performed at: =[address] [id number] Director: Shabnam Mcnair MD, Phone: [phone] Neutrophil percentageOrdered By: Maylin Cadena on 08-16-2024 Neutrophils/100 WBC (Bld) 76.8 % High 47-70 [facility] No Panel InformationOrdered By: Malena Means on 08-16-2024 Pap Smear Specimen Adequacy Comment . [facility] Comment on above: Satisfactory for tammy luation. Endocervical and/or squamous metaplasticcells (endocervical component) are present. Nucleated red blood cell per centageOrdered By: Maylin Cadena on 08-16-2024 Nucleated RBC/100 WBC (Bld) [Ratio] 0 % 0-5 [facility] Credit Risk Review Officer Office Visit Reporton 08-16-2024 Credit Risk Review Officer Office Visit Report [facility] [address], [address] [place] [address] OFFICE VISIT Date of Service: 08/16/24 MR#: [id number] Acct: [id number] Name: JESUS ASHER KEIRA Rep #: [id number] : 1995 Provider: Dr. 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 Date Name GA/Weeks Outcome Route Bth Weight Gen Labor Lgth Anesthesia Del Locatn Provider FOB 02/18/24 6 spontaneous HPI NOB [...] Normal amount/duration: Yes Frequency in days: irregular [id number] On hormonal BC at conception: No hCG+: 06/30/24 Antepartum Record Genetic Screening: Congenital Heart Defect: Other, Neural Tube Defect: Other, Hemoglobinopathy Or Carrier: Partner (brother platelet disorder ), Cystic Fibrosis: Other, Chromosome Abnormality: Other, Alvaro-Sachs: Other, Hemophilia: Other, Intellectual Disability/Autism: Other, Recurrent Loss (more content not included)... Normal [facility] Platelet countOrdered By: Lebron Cadena on 08-16-2024 Platelets (Bld) [#/Vol] 282 10*3/uL 150-450 [facility] RBC Auto (Bld) [#/Vol]Ordere d By: Maylin Cadena on 08-16-2024 RBC (Bld) [#/Vol] 4.60 10*6/uL 4.2-5.4 [facility] Rubella IgGon 08-16-2024 Rubella IgG Reactive Normal Nonreactive [facility] Comment on above: Order Comment: Reaso n for Exam: Result Comment: Anti body Results Interpretation of Immune Status Non Reactive Presumed Non-Immune Equivocal Equivocal Reactive Presumed Immune Performed By: #### L 3890.6005, L509.8000, L100.0100, L509.4005, BTS, L3890.6300, L900.0098, L3890.6100 ####[facility] [id number] [place], [address] Serum Treponema species anti body detectionOrdered By: Maylin Cadena on 08-16-2024 Treponema sp Ab Ql (S) Non-Reactive [facility] Type AND Screenon 08-16-2024 ABO and Rh group Nom (Bld) Blood group B Rh(D) positive Normal [facility] Comment on above: Order Comment: PN Performed By: #### L 3890.6005, L509.8000, L100.0100, L509.4005, BTS, L3890.6300, L900.0098, L3890.6100 ####[facility] [id number] [place], [address] Urine cultureOrdered By: Lee Cadena on 08-16-2024 Bacteria identified Cx Nom (U) Positive Abnormal [facility] White blood cell (WBC) count Ordered By: Maylin Cadena on 08-16-2024 WBC (Bld) [#/Vol] 13.5 10*3/uL High 4.4-11.0 [facility] Credit Risk Review Officer Office Visit Reporton 03-14-2024 Credit Risk Review Officer Office Visit Report [facility] [address], [address] [place] [address] OFFICE VISIT Date of Service: 03/14/24 MR#: [id number] Acct: [id number] Name: JESUS ASHER Rep #: [id number] : 1995 Provider: Dr. 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 03/14/24 1029 Date Malena Faith Signature: Date (if applicable) CC: Normal [facility] .Auto Diffon 03-29-2022 Basophil, Absolute 0.1 10 3/mcL Normal 0.0-0.2 [facility]ly [facility] ([place]) Comment on above: Performed By: #### G FR, CMP, TSH, LIPID #### [address] [address] Basophils/100 WBC (Bld) 1.0 % Normal 0.0-2.5 [facility] ([place]) Comment on above: Performed By: #### G FR, CMP, TSH, LIPID #### [address] [address] Eosinophil, Absolute 0.1 10 3/mcL Normal 0.0-0.4 [facility] ([place]) Comment on above: Performed By: #### G FR, CMP, TSH, LIPID #### [address] [address] Eosinophils/100 WBC (Bld) 1.0 % Normal 0.0-7.0 [facility] ([place]) Comment on above: Performed By: #### G FR, CMP, TSH, LIPID #### [address] [address] Lymphocyte, Absolute 2.8 10 3/mcL Normal 0.8-3.9 [facility] ([place]) Comment on above: Performed By: #### G FR, CMP, TSH, LIPID #### [address] [address] Lymphocytes/100 WBC (Bld) 32.1 % Normal 10.0-50.0 [facility] ([place]) Comment on above: Performed By: #### G FR, CMP, TSH, LIPID #### [address] [address] Monocyte, Absolute 0.5 10 3/mcL Normal 0.2-1.0 [facility] ([place]) Comment on above: Performed By: #### G FR, CMP, TSH, LIPID #### [address] [address] Monocytes/100 WBC (Bld) 5.7 % Normal 1.7-13.0 [facility] ([place]) Comment on above: Performed By: #### G FR, CMP, TSH, LIPID #### [address] [address] Neutrophils/100 WBC (Bld) 60.2 % Normal 37.0-80.0 [facility] ([place]) Comment on above: Performed By: #### G FR, CMP, TSH, LIPID #### [address] [address] .GFRon 03-29-2022 GFR 99 ml/min/1.73sqm Normal [facility] ([place]) Comment on above: Result Comment: GFR Population [...] #### G FR, CMP, TSH, LIPID #### [address] [address] GFR Non- 82 ml/min/1.73sqm Normal [facility] ([place]) Comment on above: Result Comment: GFR Population [...] #### G FR, CMP, TSH, LIPID #### [address] [address] .NEUABSon 03-29-2022 Neutrophil, Absolute 5.2 10 3/mcL Normal 2.9-6.2 [facility] ([place]) Comment on above: Performed By: #### G FR, CMP, TSH, LIPID #### [address] [address] CBCon 03-29-2022 Erythrocyte distribution width (RBC) [Ratio] 13.2 % Normal 11.5-14.5 [facility] ([place]) Comment on above: Performed By: #### G FR, CMP, TSH, LIPID #### [address] [address] Hematocrit (Bld) [Volume fraction] 43.4 % Normal 37.0-47.0 [facility] ([place]) Comment on above: Performed By: #### G FR, CMP, TSH, LIPID #### [address] [address] Hgb 14.9 G/dL Normal 12.0-16.0 [facility] ([place]) Comment on above: Performed By: #### G FR, CMP, TSH, LIPID #### [address] [address] MCH (RBC) [Entitic mass] 29.9 pg Normal 27.0-31.2 [facility] ([place]) Comment on above: Performed By: #### G FR, CMP, TSH, LIPID #### [address] [address] MCHC 34.3 G/dL Normal 33.0-37.0 [facility] ([place]) Comment on above: Performed By: #### G FR, CMP, TSH, LIPID #### [address] [address] MCV (RBC) [Entitic vol] 87.4 fL Normal 80.0-94.0 [facility] ([place]) Comment on above: Performed By: #### G FR, CMP, TSH, LIPID #### [address] [address] Platelet 267 10 3/mcL Normal 130-400 [facility] ([place]) Comment on above: Performed By: #### G FR, CMP, TSH, LIPID #### [address] [address] Platelet mean volume (Bld) [Entitic vol] 9.6 fL Normal 7.4-10.4 [facility] ([place]) Comment on above: Performed By: #### G FR, CMP, TSH, LIPID #### [address] [address] RBC 4.97 10 6/mcL Normal 4.20-5.40 [facility] ([place]) Comment on above: Performed By: #### G FR, CMP, TSH, LIPID #### [address] [address] WBC 8.7 10 3/mcL Normal 4.6-10.8 [facility] ([place]) Comment on above: Performed By: #### G FR, CMP, TSH, LIPID #### [address] [address] CMPon 03-29-2022 Albumin Level 4.0 G/dL Normal 3.5-5.0 [facility] ([place]) Comment on above: Performed By: #### G FR, CMP, TSH, LIPID #### [address] [address] Albumin/Globulin [Mass ratio] 1.1 {ratio} Normal 1.1-2.5 [facility] ([place]) Comment on above: Performed By: #### G FR, CMP, TSH, LIPID #### [address] [address] ALP [Catalytic activity/Vol] 60 U/L Normal 40-135 [facility] ([place]) Comment on above: Performed By: #### G FR, CMP, TSH, LIPID #### [address] [address] ALT [Catalytic activity/Vol] 19 U/L Normal 14-59 [facility] ([place]) Comment on above: Performed By: #### G FR, CMP, TSH, LIPID #### [address] [address] AST [Catalytic activity/Vol] 18 U/L Normal 10-40 [facility] ([place]) Comment on above: Performed By: #### G FR, CMP, TSH, LIPID #### [address] [address] Bili Total 1.2 mg/dL High 0.2-1.0 [facility] ([place]) Comment on above: Result Comment: Use of this assay is not recommended for patients undergoing treatment with eltrombopag due to the potential for falsely elevated results. Performed By: #### G FR, CMP, TSH, LIPID #### [address] [address] BUN/Creatinine Ratio 13 ratio Normal 7-27 [facility] ([place]) Comment on above: Performed By: #### G FR, CMP, TSH, LIPID #### [address] [address] Calcium [Mass/Vol] 9.5 mg/dL Normal 8.4-10.2 [facility] ([place]) Comment on above: Performed By: #### G FR, CMP, TSH, LIPID #### [address] [address] Chloride [Moles/Vol] 104 mmol/L Normal 98-107 [facility] ([place]) Comment on above: Performed By: #### G FR, CMP, TSH, LIPID #### [address] [address] CO2 [Moles/Vol] 28 mmol/L Normal 22-29 [facility] ([place]) Comment on above: Performed By: #### G FR, CMP, TSH, LIPID #### [address] [address] Creatinine [Mass/Vol] 0.83 mg/dL Normal 0.55-1.02 [facility] ([place]) Comment on above: Performed By: #### G FR, CMP, TSH, LIPID #### [address] [address] Electrolyte Balance 7.0 mEq/L Normal 4.0-15.0 [facility] ([place]) Comment on above: Performed By: #### G FR, CMP, TSH, LIPID #### [address] [address] Globulin 3.8 G/dL Normal [facility] ([place]) Comment on above: Performed By: #### G FR, CMP, TSH, LIPID #### [address] [address] Glucose [Mass/Vol] 81 mg/dL Normal 70-105 [facility] ([place]) Comment on above: Performed By: #### G FR, CMP, TSH, LIPID #### [address] [address] Potassium [Moles/Vol] 5.3 mmol/L High 3.5-5.1 [facility] ([place]) Comment on above: Performed By: #### G FR, CMP, TSH, LIPID #### [address] [address] Sodium [Moles/Vol] 139 mmol/L Normal 136-145 [facility] ([place]) Comment on above: Performed By: #### G FR, CMP, TSH, LIPID #### [address] [address] Total Protein 7.8 G/dL Normal 6.4-8.2 [facility] ([place]) Comment on above: Performed By: #### G FR, CMP, TSH, LIPID #### [address] [address] Urea nitrogen [Mass/Vol] 11 mg/dL Normal 7-18 [facility] ([place]) Comment on above: Performed By: #### G FR, CMP, TSH, LIPID #### [address] [address] LABORATORYOrdered By: Cherise Faiht on 03-29-2022 Albumin BCP dye [Mass/Vol] 4.0 [...] 03-29-2022 Cholesterol [Mass/Vol] 192 mg/dL Normal 0-200 [facility] ([place]) Comment on above: Result Comment: Chol esterol Reference Interval: Less than 200 Desirable 200-239 Borderline high risk 240 and above High risk Performed By: #### G FR, CMP, TSH, LIPID #### [address] [address] Cholesterol in HDL [Mass/Vol] 57 mg/dL Normal 40-60 [facility] ([place]) Comment on above: Performed By: #### G FR, CMP, TSH, LIPID #### [address] [place], [place] [address] Cholesterol in LDL [Mass/Vol] 115 mg/dL Normal 0-130 [facility] ([place]) Comment on above: Performed By: #### G FR, CMP, TSH, LIPID #### [address] [place], [place] [address] Triglyceride [Mass/Vol] 99 mg/dL Normal 0-150 [facility] ([place]) Comment on above: Result Comment: Trig lyceride Reference Interval: Less than 150 Normal 150-199 Borderline high risk 200-499 High risk 500 or higher Very high risk Performed By: #### G FR, CMP, TSH, LIPID #### [address] [place], [place] [address] TSHon 03-29-2022 TSH Qn 1.45 m[IU]/L Normal 0.36-3.74 [facility] ([place]) Comment on above: Performed By: #### G FR, CMP, TSH, LIPID #### [address] [place], [place] [address] Covid 19 Resultson 1 SARS-CoV-2 (COVID-19) RNA [...] You may also be contacted by the [facility] to see if any [...] or Naproxen (Aleve) can also be used. Wubv-ixh-wvicjwz cough and cold medicines can be used according to the instructions on the package. Some hgcu-piv-penyyyn medicines also contain acetaminophen. Make sure you [...] water are not available, use alcohol-based hand teacher vocal. Avoid touching your eyes, nose, and mouth [...] 24 nahid (more content not included)... Normal [facility] Covid 19 Resultson 1 SARS-CoV-2 (COVID-19) RNA [...] You may also be contacted by the [facility] to see if any of your [...] or Naproxen (Aleve) can also be used. Lzyk-myy-tfvgtrx cough and cold medicines can be used according to the instructions on the package. Some kwkc-mrg-jvvtodg medicines also contain acetaminophen. Make sure you [...] water are not available, use alcohol-based hand teacher vocal. Avoid touching your eyes, nose, and mouth [...] 24 nahid (more content not included)... Normal [facility] Covid 19 Resultson 1 SARS-CoV-2 (COVID-19) RNA [...] You may also be contacted by the [facility] to see if any of your [...] or Naproxen (Aleve) can also be used. Abcp-etv-kxgmhdm cough and cold medicines can be used according to the instructions on the package. Some vizo-ovq-iryqeet medicines also contain acetaminophen. Make sure you [...] water are not available, use alcohol-based hand teacher vocal. Avoid touching your eyes, nose, and mouth [...] 24 nahid (more content not included)... Normal [facility] Covid 19 Resultson 1 SARS-CoV-2 (COVID-19) RNA [...] You may also be contacted by the [facility] to see if any [...] or Naproxen (Aleve) can also be used. Fube-foo-oxreveb cough and cold medicines can be used according to the instructions on the package. Some omcp-kym-ixliymc medicines also contain acetaminophen. Make sure you [...] water are not available, use alcohol-based hand teacher vocal. Avoid touching your eyes, nose, and mouth [...] ibuprofen (Motrin) (more content not included)... Normal [facility] Vital Signs Date Time Vital Sign Value Performing Clinician Willie preston 03-06-2025 11:33-0400 Body height 160.[address] Etienne De Santiago DO Work Phone: [facility] 03-06-2025 11:33-0400 Diastolic blood pressure 89 mm[Hg] Dr. Etienne De Santiago DO Work Phone: [facility] 03-06-2025 11:33-0400 Systolic blood pressure 131 mm[Hg] Dr. Etienne De Santiago DO Work Phone: [facility] 03-06-2025 11:30-0400 Body mass index (BMI) [Ratio] 24.6 kg/m2 Dr. Etienne De Santiago DO Work Phone: [facility] 03-06-2025 11:30-0400 Body weight 63.[address] Etienne De Santiago DO Work Phone: [facility] 03-01-2025 13:15-0400 Body height 160.[address] Etienne De Santiago DO Work Phone: [facility] 03-01-2025 13:15-0400 Body mass index (BMI) [Ratio] 24.7 kg/m2 Dr. Etienne De Santiago DO Work Phone: [facility] 03-01-2025 13:15-0400 Body weight 63.[address] Etienne De Santiago DO Work Phone: [facility] 03-01-2025 13:15-0400 Diastolic blood pressure 78 mm[Hg] Dr. Etienne De Santiago DO Work Phone: [facility] 03-01-2025 13:15-0400 Systolic blood pressure 132 mm[Hg] Dr. Etienne De Santiago DO Work Phone: [facility] 02-22-2025 14:39-0400 Body height 160.[address] Etienne De Santiago DO Work Phone: [facility] 02-22-2025 14:34-0400 Body mass index (BMI) [Ratio] 25 kg/m2 Dr. Etienne De Santiago DO Work Phone: [facility] 02-22-2025 14:34-0400 Body weight 64.[address] Etienne De Santiago DO Work Phone: [facility] 02-22-2025 14:34-0400 Diastolic blood pressure 82 mm[Hg] Dr. Etienne De Santiago DO Work Phone: [facility] 02-22-2025 14:34-0400 Systolic blood pressure 137 mm[Hg] Dr. Etienne De Santiago DO Work Phone: [facility] 02-13-2025 14:47-0400 Body height 160.[address] Etienne De Santiago DO Work Phone: [facility] 02-13-2025 14:47-0400 Body mass index (BMI) [Ratio] 24.5 kg/m2 Dr. Etienne De Santiago DO Work Phone: [facility] 02-13-2025 14:47-0400 Body weight 62.[address] Etienne De Santiago DO Work Phone: [facility] 02-13-2025 14:47-0400 Diastolic blood pressure 74 mm[Hg] Dr. Etienne De Santiago DO Work Phone: [facility] 02-13-2025 14:47-0400 Systolic blood pressure 116 mm[Hg] Dr. Etienne eD Santiago DO Work Phone: [facility] 02-07-2025 09:52-0400 Body height 160.[address] Etienne De Santiago DO Work Phone: [facility] 02-07-2025 09:52-0400 Body mass index (BMI) [Ratio] 24.3 kg/m2 Dr. Etienne De Santiago DO Work Phone: [facility] 02-07-2025 09:52-0400 Body weight 62.[address] Etienne De Santiago DO Work Phone: [facility] 02-07-2025 09:52-0400 Diastolic blood pressure 73 mm[Hg] Dr. Etienne De Santiago DO Work Phone: [facility] 02-07-2025 09:52-0400 Systolic blood pressure 122 mm[Hg] Dr. Etienne De Santiago DO Work Phone: [facility] 01-26-2025 15:08-0400 Body height 160.[address] Etienne De Santiago DO Work Phone: [facility] 01-26-2025 15:08-0400 Body mass index (BMI) [Ratio] 24 kg/m2 Dr. Etienne De Santiago DO Work Phone: [facility] 01-26-2025 15:08-0400 Body weight 61.[address] Etienne De Santiago DO Work Phone: [facility] 01-26-2025 15:08-0400 Diastolic blood pressure 74 mm[Hg] Dr. Etienne De Santiago DO Work Phone: [facility] 01-26-2025 15:08-0400 Systolic blood pressure 125 mm[Hg] Dr. Etienne De Santiago DO Work Phone: [facility] 01-12-2025 10:10-0400 Body height 160.[address] Etienne De Santiago DO Work Phone: [facility] 01-12-2025 10:09-0400 Body mass index (BMI) [Ratio] 23.2 kg/m2 Dr. Etienne De Sanitago DO Work Phone: [facility] 01-12-2025 10:09-0400 Body weight 59.[address] Etienne De Santiago DO Work Phone: [facility] 01-12-2025 10:09-0400 Diastolic blood pressure 89 mm[Hg] Dr. Etienne De Santiago DO Work Phone: [facility] 01-12-2025 10:09-0400 Systolic blood pressure 129 mm[Hg] Dr. Etienne De Santiago DO Work Phone: [facility] 12-29-2024 11:42-0400 Body height 160.[address] Etienne De Santiago DO Work Phone: [facility] 12-29-2024 11:42-0400 Body mass index (BMI) [Ratio] 22.9 kg/m2 Dr. Etienne De Santiago DO Work Phone: [facility] 12-29-2024 11:42-0400 Body weight 58.[address] Etienne De Santiago DO Work Phone: [facility] 12-29-2024 11:42-0400 Diastolic blood pressure 80 mm[Hg] Dr. Etienne De Santiago DO Work Phone: [facility] 12-29-2024 11:42-0400 Systolic blood pressure 122 mm[Hg] Dr. Etienne De Santiago DO Work Phone: [facility] 12-14-2024 13:09-0400 Body height 160.[address] Etienne De Santiago DO Work Phone: [facility] 12-14-2024 13:09-0400 Body mass index (BMI) [Ratio] 22.1 kg/m2 Dr. Etienne De Santiago DO Work Phone: [facility] 12-14-2024 13:09-0400 Body weight 56.[address] Etienne De Santiago DO Work Phone: [facility] 12-14-2024 13:09-0400 Diastolic blood pressure 76 mm[Hg] Dr. Etienne De Santiago DO Work Phone: [facility] 12-14-2024 13:09-0400 Systolic blood pressure 122 mm[Hg] Dr. Etienne De Santiago DO Work Phone: [facility] 11-28-2024 14:46-0400 Body mass index (BMI) [Ratio] 21.7 kg/m2 Dr. Etienne De Santiago DO Work Phone: [facility] 11-28-2024 14:46-0400 Body weight 55.[address] Etienne De Santiago DO Work Phone: [facility] 11-28-2024 14:46-0400 Diastolic blood pressure 79 mm[Hg] Dr. Etienne De Santiago DO Work Phone: [facility] 11-28-2024 14:46-0400 Systolic blood pressure 126 mm[Hg] Dr. Etienne De Santiago DO Work Phone: [facility] 11-02-2024 13:43-0400 Body mass index (BMI) [Ratio] 20.6 kg/m2 Dr. Etienne De Santiago DO Work Phone: [facility] 11-02-2024 13:43-0400 Body weight 52.[address] Etienne De Santiago DO Work Phone: [facility] 11-02-2024 13:43-0400 Diastolic blood pressure 72 mm[Hg] Dr. Etienne De Santiago DO Work Phone: [facility] 11-02-2024 13:43-0400 Systolic blood pressure 120 mm[Hg] Dr. Etienne De Santiago DO Work Phone: [facility] 10-07-2024 15:02-0400 Body mass index (BMI) [Ratio] 19.5 kg/m2 Dr. Etienne De Santiago DO Work Phone: [facility] 10-07-2024 15:02-0400 Body weight 50.[address] Etienne De Santiago DO Work Phone: [facility] 10-07-2024 15:02-0400 Diastolic blood pressure 71 mm[Hg] Dr. Etienne De Santiago DO Work Phone: [facility] 10-07-2024 15:02-0400 Systolic blood pressure 137 mm[Hg] Dr. Etienne De Santiago DO Work Phone: [facility] 09-09-2024 14:14-0500 Body mass index (BMI) [Ratio] 18.8 kg/m2 Dr. Etienne De Santiago DO Work Phone: [facility] 09-09-2024 14:14-0500 Body weight 48.[address] Etienne De Santiago DO Work Phone: [facility] 09-09-2024 14:14-0500 Diastolic blood pressure 84 mm[Hg] Dr. Etienne De Santiago DO Work Phone: [facility] 09-09-2024 14:14-0500 Systolic blood pressure 127 mm[Hg] Dr. Etienne De Santiago DO Work Phone: [facility] 08-16-2024 10:17-0500 Body mass index (BMI) [Ratio] 18.4 kg/m2 Dr. Etienne De Santiago DO Work Phone: [facility] 08-16-2024 10:17-0500 Body weight 47.[address] Etienne De Santiago DO Work Phone: [facility] 08-16-2024 10:17-0500 Diastolic blood pressure 80 mm[Hg] Dr. Etienne De Santiago DO Work Phone: [facility] 08-16-2024 10:17-0500 Systolic blood pressure 130 mm[Hg] Dr. Etienne De Santiago DO Work Phone: [facility] Encounters Encounter Date Encounter Type Care Provider Facility Start: 03-06-2025 End: 03-06-[address] Maylin Cadena MD -[facility] Work Phone: Start: 03-06-2025 End: 03-06-[address] Etienne De Santiago DO Work Phone: -[facility] Start: 03-01-2025 End: 03-01-2025 Patient encounter procedure Heather Mahmood CNM -[facility] Work Phone: Start: 03-01-2025 End: 03-01-[address] Etienne De Santiago DO Work Phone: -[facility] Start: 02-28-2025 End: 02-28-2025 ambulatory IRMA NORIEGA [facility] Start: 02-22-2025 End: 02-22-[address] Malena Bean DO -[facility] Work Phone: Start: 02-22-2025 End: 02-22-[address] Etienne De Santiago DO Work Phone: [facility] Start: 02-13-2025 End: 02-13-2025 Patient encounter procedure Heather Mahmood CNM -[facility] Work Phone: Start: 02-13-2025 End: 02-13-[address] Etienne De Santiago DO Work Phone: [facility] Start: 02-07-2025 End: 02-07-[address] Malena Bean DO -[facility] Work Phone: Start: 02-07-2025 End: 02-07-[address] Etienne De Santiago DO Work Phone: [facility] Start: 01-31-2025 End: 01-31-2025 [facility] Start: 01-26-2025 End: 01-26-[address] Maylin Cadena MD -[facility] Work Phone: Start: 01-26-2025 End: 01-26-[address] Etienne De Santiago DO Work Phone: [facility] Start: 01-23-2025 End: 01-23-2025 ambulatory ETIENNE DE SANTIAGO [facility] Start: 01-12-2025 End: 01-12-[address] Malena Bean DO -[facility] Work Phone: Start: 01-12-2025 End: 01-12-[address] Etienne De Santiago DO Work Phone: [facility] Work Phone: Start: 01-03-2025 End: 01-03-2025 Patient encounter procedure Heather Mahmood CNM -[facility] Start: 01-03-2025 End: 01-03-[address] Etienne De Santiago DO Work Phone: [facility] Work Phone: Start: 01-03-2025 End: 01-03-2025 ambulatory Etienne Jonnathan Facility:[facility] Start: 12-29-2024 End: 12-29-2024 Patient encounter procedure Heather Mahmood CNM -[facility] Work Phone: Start: 12-29-2024 End: 12-29-[address] Etienne De Santiago DO Work Phone: [facility] Work Phone: Start: 12-27-2024 End: 12-27-[address] Etienne De Santiago DO Work Phone: [facility] Work Phone: Start: 12-27-2024 End: 12-27-[address] Malena Bean DO -Laboratory Work Phone: Start: 12-26-2024 End: 12-26-2024 Subsequent hospital visit by physician Zack Douglass MD Work Phone: [facility] Comment on above: Cleft lip and cleft palate (Primary Dx) Start: 12-26-2024 End: 12-27-2024 ambulatory ETIENNE [facility] Start: 12-14-2024 End: 12-14-[address] Malena Bean DO -[facility] Work Phone: Start: 12-14-2024 End: 12-14-[address] Etienne De Santiago DO Work Phone: [facility] Work Phone: Start: 12-14-2024 End: 12-14-2024 ambulatory Etienne Jonnathan Facility:[facility] Start: 12-06-2024 End: 12-06-2024 [facility] Start: 11-28-2024 End: 11-28-[address] Malena Bean DO -[facility] Work Phone: Start: 11-28-2024 End: 11-28-2024 ambulatory Malena Bean Facility:[facility] Start: 11-10-2024 End: 11-10-2024 Subsequent hospital visit by physician Allan Lutz MD Work Phone: [facility] Comment on above: 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, fetus 1 of multiple gestation Start: 11-10-2024 End: 11-10-2024 ambulatory ETIENNE JONNATHAN [facility] Start: 11-10-2024 End: 11-10-2024 ambulatory WINSOME OLIVAS [facility] Start: 11-10-2024 End: 11-10-2024 ambulatory ETIENNE JONNATHAN [facility] Start: 11-02-2024 End: 11-02-2024 Patient encounter procedure Merlyn HOSKINS -[facility] Work Phone: Start: 11-02-2024 End: 11-02-2024 ambulatory Etienne Jonnathan Facility:[facility] Start: 10-13-2024 End: 10-13-2024 [facility] Start: 10-13-2024 End: 10-13-2024 [facility] Start: 10-07-2024 End: 10-07-[address] Maylin Cadena MD -[facility] Work Phone: Start: 10-07-2024 End: 10-07-2024 ambulatory Etienne Jonnathan Facility:[facility] Start: 09-09-2024 End: 09-09-2024 Patient encounter procedure Heather Mahmood CNM -[facility] Work Phone: Start: 09-09-2024 End: 09-09-2024 ambulatory Etienne Jonnathan Facility:[facility] Start: 08-16-2024 End: 08-16-[address] Malena Bean DO -[facility] Work Phone: Start: 08-16-2024 End: 08-16-2024 ambulatory Malena Bean Facility:[facility] Start: 08-16-2024 End: 08-16-2024 ambulatory Malena Bean Facility:[facility] Start: 03-14-2024 End: 03-14-2024 ambulatory Etienne De Santiago Facility:[facility] Start: 03-29-2022 End: 03-29-[address] ETIENNE DE SANTIAGO DO [facility] Procedures Date Procedure Procedure Detail [...] Pertussis Vaccines (3 - Td or Tdap) [facility] Start: 03-27-2025 FLU (Season Ended) FLU (Season Ended ) [facility] Start: 01-31-2025 End: 01-31-2025 Professional / ancillary services management 01/31/2025 8:00 AM EDT Ancillary Procedure Visit [facility] [place] [address], [address] [place] [address] Patient needs scheduled at [facility] for growth US60 on 01/31 at 8:00 a.m. and 02/28 at 8:00 a.m [facility] Comment on above: Patient needs schedu led at [facility] for growth US60 on 01/31 at 8:00 a.m. and 02/28 at 8:00 a.m Start: 01-03-2025 End: 01-03-2025 Professional / ancillary services management 01/03/2025 8:00 AM EDT Ancillary Procedure Visit [facility] [place] [address], [facility] [address] [place], [place] [address] Growth FTC 60 mins [facility] [place] Comment on above: Growth FTC 60 mins Start: 12-14-2024 CBC W Auto Different ial panel - Blood [facility] Start: 12-14-2024 Measurement of gluco se 2 hours after glucose challenge for glucose tolerance test [facility] Start: 12-14-2024 Serologic test for syphilis [facility] Start: 12-14-2024 [facility] Start: 12-06-2024 End: 12-06-2024 Professional / ancillary services management 12/06/2024 1:30 PM EDT Ancillary Procedure Visit Maternal Medicine [facility] [address] [place], [place] [id number] Growth FTC 60 mins [facility] Comment on above: Growth FTC 60 mins Start: 03-27-2024 COVID-19 (2023-08 season) COVID-19 () [facility] Start: 03-27-2024 COVID-19 (2023-08 5 season) COVID-19 ( season) [facility] Start: 03-27-2024 FLU (#1) FLU (#1) [facility] Start: 03-09-2017 Tetanus Diphtheria a nd Pertussis Vaccines (2 - Td or Tdap) Tetanus Diphtheria and Pertussis Vaccines (2 - Td or Tdap) [facility] Start: 2014 Microscopic observat ion [Identifier] in Cervix by Cyto stain Pap Smear [facility] Start: 2012 Hepatitis B (1 of 3 - 19+ 3-dose series) Hepatitis B (1 of 3 - 19+ 3-dose series) [facility] Start: 2009 MenB (1 of 2 - MenB 2-Dose Series Bexsero) MenB (1 of 2 - MenB 2-Dose Series Bexsero) [facility] Start: 2006 Varicella (1 of 2 - 13+ 2-dose series) Varicella (1 of 2 - 13+ 2-dose series) [facility] Start: 1994 MMR (1 of 1 - Standa rd series) MMR (1 of 1 - Standard series) [facility] CBC W Auto Different ial panel - Blood [facility] Erythrocyte mean corpuscular volume determination [facility] Hematocrit [Volume Fraction] of Blood [facility] Hemoglobin [Mass/vol ume] in Blood [facility] Leukocytes [#/volume ] in Blood [facility] Mean corpuscular hemoglobin concentration determination [facility] Mean corpuscular hemoglobin determination [facility] Neutrophil count [facility] Neutrophil percent differential count [facility] Platelets [#/volume] in Blood [facility] Red blood cell count [facility] Red cell distributio n width determination [facility] End: 11-10-2024 [facility]: Comment on above: 1 Occurrences starti ng 11/10/2024 until 11/10/2024 [facility] Immunizations Immunization Date Immunization Notes Care Provider Fa loy 12-14-2024 tetanus toxoid, redu kitty diphtheria toxoid, and acellular pertussis vaccine, adsorbed Dr. Etienne De Santiago DO Work Phone: [facility] Payers Date Payer Category Payer Unknown [employer] [id number] 2024 Self-pay 2024 Unknown [id number] 1993 Unknown [id number] 2.16.840.1.252104.3.579.2 1993 Unknown [id number] 2..840.1.684594.3.579.2 1993 Unknown [id number] 2..840.1.276354.3.579.2 1993 Unknown [id number] 2.16840.1.502037.3.579.2 1993 Unknown [id number] 2.16840.1.168815.3.579.2 1993 Unknown [id number] 2.16840.1.813461.3.579.2 1993 Unknown [id number] 2.16.840.1.493423.3.579.2 1993 Unknown [id number] 2.840.1.011717.3.579.2.479 1993 Unknown [id number] 2..840.1.764210.3.579.2.479 1993 Unknown [id number] 2..840.1.668611.3.579.2.479 1993 Unknown [id number] 2.840.1.339857.3.579.2.479 1993 Unknown [id number] 2.840.1.057290.3.579.2.479 Unknown [id number] 2.840.1.837646.3.579.2.462 Unknown [id number] 2.840.1.127767.3.579.2.462 Unknown [id number] 2.840.1.085822.3.579.2.462 Unknown [id number] 2.840.1.860870.3.579.2.462 Unknown [id number] .840.1.501262.3.579.2.462 Unknown [id number] 2.840.1.852487.3.579.2.462 Unknown [id number] 2.840.1.366404.3.579.2.462 Unknown [id number] 2840.1.686805.3.579.2.462 Unknown [id number] .840.1.939528.3.579.2.462 Unknown [id number] .840.1.470079.3.579.2.462 Unknown [id number] 2.840.1.674036.3.579.2.462 Unknown [id number] 2.840.1.223778.3.579.2.462 Unknown [id number] 2.840.1.856909.3.579.2.462 Unknown [id number] 2.16.840.1.285119.3.579.2.462 Unknown [id number] 2.16.840.1.871471.3.579.2.462 Unknown [id number] 2.16.840.1.046109.3.579.2.462 Unknown [id number] 2.16.840.1.472288.3.579.2.462 Unknown [id number] 2.16.840.1.670903.3.579.2.462 Unknown [id number] 2.16.840.1.187860.3.579.2.462 Social History Date Type Detail Facility Assertion Unknown if ever smoked [facility] Work Phone: Start: 11-23-2019 End: 07-29-2024 Tobacco smoking status Never smoked tobacco (finding) [facility] Start: 1995 Sex Assigned At Female [facility] Start: 10-13-2024 Tobacco use and exposure Smokeless tobacco non-user [facility] Start: 11-10-2024 End: 12-26-2024 Alcoholic beverage intake Ex-drinker (finding) [facility] Start: 06-12-2024 [facility] Start: 1995 Sex assigned at Not on file [facility] Gender identity Not on file [facility] Functional Status Date Assessment Result Facility NEGATED: Highlighted row Functional performance Functional status health issues are not documented Disease [facility] Work Phone: Mental Status Date Assessment Result Facility NEGATED: Highlighted row Cognitive function [Interpretation] Cognitive status health issues are not documented Disease [employer] Work Phone: Clinical Notes 08-16-2024 to 02-22-2025 Note Date & Type Note Facility 02-22-2025 Progress note [facility] 02-22-2025 Progress note Note Date/Time February 22, 2025 2:57pm [facility] [address] [place] [address], [address] [place] [address] OFFICE VISIT Date of Service: 02/22/25 MR#: [id number] Acct: [id number] Name: JESUS ASHER Rep #: [id number] : 1995 Provider: Dr. Amarilis Bean DO Age/Sex: 29/F Location: [facility] Status: Signed Intake Vital Signs 01/12/25 10:10 02/13/25 14:47 02/22/25 14:34 02/22/25 14:39 Height 5 ft 3 in 5 ft 3 in 5 ft 3 in 5 ft 3 in Weight: 141 lb 6 oz BMI 25.0 BP 137/82 H Intake Visit Reasons: 38 wk ob Carrot Tier Required: No Is patient in pain?: No Allergies No Known Allergies Allergy (Verified 02/22/25 14:34) Medications ?Medication ?Instructions ?Recorded ?Confirmed ?Type multivitamin no.47-iron fum 27 cap PO 07/29/24 5 History mg-folate no.1 1 mg-dha 300 mg capsule (PNV-DHA) Last Menstrual Period: 05/29/24 Zika: Zika virus screening: Negative : No [facility] Medical History Complete Dysmenorrhea Surgical History H/O wisdom tooth extraction Family History Grandmother Breast cancer Social History adopted: No household members: spouse current occupational status: employed 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 Date Name GA/Weeks Outcome Route Bth Weight Infant Gen Labor Lgth Anesthesia Del Locatn Provider FOB 02/18/24 6 spontaneous HPI 38 wk ob Details: JESUS ASHER is a 29 year old who presents for routine OB visit. OB Visit JONATHAN Calculator Estimated Delivery Date Method Current WG Current Estimate 03/05/25 LMP (Certain) 38w 3d Other Estimates 03/11/25 Ultrasound #1 37w 4d Expected Delivery Route/Plan Labor Preferences- CB/BF classes: [] labor support person: [] labor intervention preferences: [] pain management options preferred: [] cut cord/dad catch: [] : [] PP control planned: [] discussed possible routes of delivery and associated risks: [] special requests: [] Specific Issue/Plans Covid status: [] Flu vaccine: [] Tdap vaccine: given Rhogam: na LARC form signed: declined] Problem list reviewed and updated with the most current plan of care details andappropriate orders placed. Relevant counseling for the gestational age provided. Continue routine care and follow up unless otherwise noted in visit notes/problem list details Initial Weight: Not Recorded Date -?-?-?-?-?-?-?-?-?-?-?-?- EGA Weight BP Urine Prot -?-?-?-?-?-?-?-?-?-?-?-?- Glucose FHR FuHt Pres Dilation -?-?-?-?-?-?-?-?-?-?-?-?- Effaced St Visit Note 08/16/24 -?-?-?-?-?-?-?-?-?-?-?-?- 11w 2d 104 lb 6 oz 130/80 -?-?-?-?-?-?-?-?-?-?-?-?- 185 -?-?-?-?-?-?-?-?-?-?-?-?- JV- CRL consiste nt with LMP. Desires nipt. 09/09/24 -?-?-?-?-?-?-?-?-?-?-?-?- 14w 5d 106 lb 4 oz 127/84 Nega tive -?-?-?-?-?-?-?-?-?-?-?-?- Negative 150 -?-?-?-?-?-?-?-?-?-?-?-?- KW- no vb/crampi ng. US scheduled. feeling better. AFP discussed and declines at this time. stretching and chiropractor for hip pain. 10/07/24 -?-?-?-?-?-?-?-?-?-?-?-?- 18w 5d 110 lb 6 oz 137/71 Nega tive -?-?-?-?-?-?-?-?-?-?-?-?- Negative 150 -?-?-?-?-?-?-?-?-?-?-?-?- SM- no vb crampi ng 11/02/24 -?-?-?-?-?-?-?-?-?-?-?-?- 22w 3d 116 lb 8 oz 120/72 Nega tive -?-?-?-?-?-?-?-?-?-?-?-?- Negative 150 -?-?-?-?-?-?-?-?-?-?-?-?- MH-No VB, LOF. F eeling movement/ant placenta. Baby with cleft lip & palate. See treatment next week 11/28/24 -?-?-?-?-?-?-?-?-?-?-?-?- 26w 1d 122 lb 4 oz 126/79 Nega tive -?-?-?-?-?-?-?-?-?-?-?-?- Negative 145 26 -?-?-?-?-?-?-?-?-?-?-?-?- JV- no complaint s today. planning GCT and tdap next visit[place] 29 weeks. 12/14/24 -?-?-?-?-?-?-?-?-?-?-?-?- 28w 3d 125 lb 6 oz 122/76 Nega tive -?-?-?-?-?-?-?-?-?-?-?-?- Negative 140 28 -?-?-?-?-?-?-?-?-?-?-?-?- JV- no complaint s. GCT today. tdap given. us from [facility] shows now a cleft lip + palate. following up with plastics december 30. 12/29/24 -?-?-?-?-?-?-?-?-?-?-?-?- 30w 4d 129 lb 8 oz 122/80 Nega tive -?-?-?-?-?-?-?-?-?-?-?-?- Negative 160 29 -?-?-?-?-?-?-?-?-?-?-?-?- KW- no vb/crampi ng. good fm. feels like she has a cold- repeat WBC in 3-4 weeks. passed 3 hour glucose. had meeting with plastics already. KW- no vb/cramping. good fm. feels like she has a cold- repeat WBC in 1-2 weeks. passed 3 hour glucose. had meeting with plastics already. will send complications worksheet to pedi team. LARC done 01/12/25 -?-?-?-?-?-?-?-?-?-?-?-?- 32w 4d 131 lb 4 oz 129/89 Nega tive -?-?-?-?-?-?-?-?-?-?-?-?- Negative 154 32 -?-?-?-?-?-?-?-?-?-?-?-?- JV- we discussed RSV vaccine. no lof, vaginal bleeding, or dec fm. 01/26/25 -?-?-?-?-?-?-?-?-?-?-?-?- 34w 4d 135 lb 6 oz 125/74 Nega tive -?-?-?-?-?-?-?-?-?-?-?-?- Negative 145 32 -?-?-?-?-?-?-?-?-?-?-?-?- Sm- no vb lof go od fm no regular ctx 02/07/25 -?-?-?-?-?-?-?-?-?-?-?-?- 36w 2d 137 lb 2 oz 122/73 Nega tive -?-?-?--?-?-?-?-?-?-?-?-?- Negative 160 34 -?-?-?-?-?-?-?-?-?-?-?-?- JV- no lof vagin al bleeding, or dec fm. JV- no lof vaginal bleeding, or dec fm. measuring small, however growth and fluid were normal on 01/3102/13/25 -?-?-?-?-?-?-?-?-?-?-?-?- 37w 1d 138 lb 8 oz 116/74 Nega tive -?-?-?-?-?-?-?-?-?-?-?-?- Negative 155 36 Cephalic -?-?-?-?-?-?-?-?-?-?-?-?- KW- no vb/lof/ct x. good fm requesting IOL around 40 weeks. does not want to go to 41 weeks. 02/22/25 -?-?-?-?-?-?-?-?-?-?-?-?- 38w 3d 141 lb 6 oz 137/82 Nega tive -?-?-?-?-?-?-?-?-?-?-?-?- Negative 147 38 Cephalic 1 -?-?-?-?-?-?-?-?-?-?-?-?- 80 -2 JV- pt sta rted spotting right when she got here . on exam she has some bloody show but is overall comfortable. labor precautions discussed. ACOG First Trimester First Trimester: Discussed Results POC Urinalysis 2 Dip (Clinic) Office Urine Glucose Negative Last Edit by Rowan Brady on 02/22/25 14: 43 Office Urine Protein Negative Last Edit by Rowan Brady on 02/22/25 14: 43 Coding Level of Care Code OB Routine Diagnoses Positive GBS test B95.1 Abnormal glucose affecting O99.810 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, single or unspecified fetus O35.AXX0 Fetus number: single or unspecified fetus Encounter for supervision of low-risk in second trimester Z34.92 Trimester: second trimester 38 weeks gestation of Z3A.38 Weeks of gestation: 38 weeks Assessment and Plan Assessment and Plan (1) Positive GBS test: Status: Acute Comment: treat in labor (2) Abnormal glucose affecting : Status: Acute Comment: normal 3 hour (3) Cleft lip and palate, , affecting care of mother, antepartum: Status: Acute Qualifiers: Fetus number: single or unspecified fetus Qualified Code(s): O35.AXX0 -Maternal care for other (suspected) abnormality and damage, facial anomalies, not applicable or unspecified Comment: worksheet sent and approved to deliver at [facility], seen on anatomy US, fetaltreatment center referral. echo. Gave info on [facility]. Approved to deliver [facility]. (4) Supervision of low-risk : Status: Acute Qualifiers: Trimester: second trimester Qualified Code(s): Z34.92 - Encounter for supervision of normal , unspecified, second trimester Comment: PRR , JONATHAN 03/05/25, gender surprise for family Nicanor (5) : Status: Acute Qualifiers: Weeks of gestation: 38 weeks Qualified Code(s): Z3A.38 - 38 weeks gestation of Comment: NIPT low risk, carrier neg. . GBS+ in urine. Orders: Orders POC Urinalysis 2 Dip (Clinic) Today 02/22/25 5519 <Electronically signed by Malena Kraus DO> Date _ Malena Bean DO Cosigner Signature: Date (if applicable) CC: ~ [facility] Work Phone: 1(896) 448-333707-21-2025 [facility] [address], [address] [place] [address] OFFICE VISIT Date of Service: 02/13/25 MR#: [id number] Acct: [id number] Name: JESUS ASHER Rep #: [id number] : 1995 Provider: MATT Mahmood Age/Sex: 29/F Location: [facility] Status: Signed Intake Vital Signs 01/12/25 10:10 02/07/25 09:52 02/13/25 14:47 02/13/25 14:47 Height 5 ft 3 in 5 ft 3 in 5 ft 3 in 5 ft 3 in Weight: 138 lb 8 oz BMI 24.5 BP 116/74 Intake Visit Reasons: 37 wk ob Chief Complaint: 37wk OB Carrot Tier Required: No Is patient in pain?: No Allergies No Known Allergies Allergy (Verified 02/13/25 14:46) Medications ?Medication ?Instructions ?Recorded ?Confirmed ?Type multivitamin no.47-iron fum 27 cap PO 07/29/24 5 History mg-folate no.1 1 mg-dha 300 mg capsule (PNV-DHA) Last Menstrual Period: 05/29/24 : No Have you fallen in the past year?: No PFSH PFSH Medical History Complete Dysmenorrhea Surgical History H/O wisdom tooth extraction Family History Grandmother Breast cancer Social History adopted: No household members: spouse current occupational status: employed 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 Date Name GA/Weeks Outcome Route Bth Weight Infant Gen Labor Lgth Anesthesia Del [facility] Provider FOB 02/18/24 6 spontaneous HPI 37 wk ob Details: JESUS ASHER is a 29 year old who presents for routine OB visit. OB Visit JONATHAN Calculator Estimated Delivery Date Method Current WG Current Estimate 03/05/25 LMP (Certain) 37w 1d Other Estimates 03/11/25 Ultrasound #1 36w 2d Expected Delivery Route/Plan Labor Preferences- CB/BF classes: [] labor support person: [] labor intervention preferences: [] pain management options preferred: [] cut cord/dad catch: [] : [] PP control planned: [] discussed possible routes of delivery and associated risks: [] special requests: [] Specific Issue/Plans Covid status: [] Flu vaccine: [] Tdap vaccine: given Rhogam: na LARC form signed: declined] Problem list reviewed and updated with the most current plan of care details andappropriate orders placed. Relevant counseling for the gestational age provided. Continue routine care and follow up unless otherwise noted in visit notes/problem list details Initial Weight: Not Recorded Date -?-?-?-?-?-?-?-?-?-?-?-?- EGA Weight BP Urine Prot -?-?-?-?-?-?-?-?-?-?-?-?- Glucose FHR FuHt Pres Dilation -?-?-?-?-?-?-?-?-?-?-?-?- Effaced St Visit Note 08/16/24 -?-?-?-?-?-?-?-?-?-?-?-?- 11w 2d 104 lb 6 oz 130/80 -?-?-?-?-?-?-?-?-?-?-?-?- 185 -?-?-?-?-?-?-?-?-?-?-?-?- JV- CRL consiste nt with LMP. Desires nipt. 09/09/24 -?-?-?-?-?-?-?-?-?-?-?-?- 14w 5d 106 lb 4 oz 127/84 Nega tive -?-?-?-?-?-?-?-?-?-?--?-?- Negative 150 -?-?-?-?-?-?-?-?-?-?-?-?- KW- no vb/crampi ng. US scheduled. feeling better. AFP discussed and declines at this time. stretching and chiropractor for hip pain. 10/07/24 -?-?-?-?-?-?-?-?-?-?-?-?- 18w 5d 110 lb 6 oz 137/71 Nega tive -?-?-?-?-?-?-?-?-?-?-?-?- Negative 150 -?-?-?-?-?-?-?-?-?-?-?-?- SM- no vb crampi ng 11/02/24 -?-?-?-?-?-?-?-?-?-?-?-?- 22w 3d 116 lb 8 oz 120/72 Nega tive -?-?-?-?-?-?-?-?-?-?-?-?- Negative 150 -?-?-?-?-?-?-?-?-?-?-?-?- MH-No VB, LOF. F eeling movement/ant placenta. Baby with cleft lip & palate. See treatment next week 11/28/24 -?-?--?-?-?-?-?-?-?-?-?-?- 26w 1d 122 lb 4 oz 126/79 Nega tive -?-?-?-?-?-?-?-?-?-?-?-?- Negative 145 26 -?-?-?-?-?-?-?-?-?-?-?-?- JV- no complaint s today. planning GCT and tdap next visit. [place] 29 weeks. 12/14/24 -?-?-?-?-?-?-?-?-?-?-?-?- 28w 3d 125 lb 6 oz 122/76 Nega tive -?-?-?-?-?-?-?-?-?-?-?-?- Negative 140 28 -?-?-?-?-?-?-?-?-?-?-?-?- JV- no complaint s. GCT today. tdap given. us from [facility] shows now a cleft lip + palate. following up with plastics december 30. 12/29/24 -?-?-?-?-?-?-?-?-?-?-?-?- 30w 4d 129 lb 8 oz 122/80 Nega tive -?-?-?-?-?-?-?-?-?-?-?-?- Negative 160 29 -?-?-?-?-?-?-?--?-?-?-?-?- KW- no vb/crampi ng. good fm. feels like she has a cold- repeat WBC in 3-4 weeks. passed 3 hour glucose. had meeting with plastics already. KW- no vb/cramping. good fm. feels like she has a cold- repeat WBC in 1-2 weeks. passed 3 hour glucose. had meeting with plastics already. will send complications worksheetto pedi team. LARC done 01/12/25 -?-?-?-?-?-?-?-?-?-?-?-?- 32w 4d 131 lb 4 oz 129/89 Nega tive -?-?-?-?-?-?-?-?-?-?-?-?- Negative 154 32 -?-?-?-?-?-?-?-?-?-?-?-?- JV- we discussed RSV vaccine. no lof, vaginal bleeding, or dec fm. 01/26/25 -?-?-?-?-?-?-?-?-?-?-?-?- 34w 4d 135 lb 6 oz 125/74 Nega tive -?-?-?-?-?-?-?-?-?-?-?-?- Negative 145 32 -?-?-?-?-?-?-?-?-?-?-?-?- Sm- no vb lof go od fm no regular ctx 02/07/25 -?-?-?-?-?-?-?-?-?-?-?-?- 36w 2d 137 lb 2 oz 122/73 Nega tive -?-?-?-?-?-?-?-?-?-?-?-?- Negative 160 34 -?-?-?-?-?-?-?-?-?-?-?-?- JV- no lof vagin al bleeding, or dec fm. JV- no lof vaginal bleeding, or dec fm. measuring small, however growth and fluid were normal on 01/3102/13/25 -?-?-?-?-?-?-?-?-?-?-?-?- 37w 1d 138 lb 8 oz 116/74 Nega tive -?-?-?-?-?-?-?-?-?-?-?-?- Negative 155 36 Cephalic -?-?-?-?-?-?-?-?-?-?-?-?- KW- no vb/lof/ct x. good fm requesting IOL around 40 weeks. does not want to go to 41 weeks. ACOG First Trimester First Trimester: Discussed ROS Const Reports system reviewed and no additional complaints, except as documented Eyes Reports system reviewed and no additional complaints, except as documented ENT Reports system reviewed and no additional complaints, except as documented Card Reports system reviewed and no additional complaints, except as documented Resp Reports system reviewed and no additional complaints, except as documented GI Reports system reviewed and no additional complaints, except as documented, Denies nausea and Denies vomiting Reports system reviewed and no additional complaints, except as documented Musc Reports system reviewed and no additional complaints, except as documented Skin/Breast Reports system reviewed and no additional complaints, except as documented Neuro Yes system reviewed and no additional complaints, except as documented Psych Reports system reviewed and no additional complaints, except as documented Endo Reports system reviewed and no additional complaints, except as documented Jun/Lymph Reports system reviewed and no additional complaints, except as documented Aller/Immun Reports system reviewed and no additional complaints, except as documented Exam Const General: cooperative, healthy appearing and no acute distress Orientation: alert, awake and oriented x3 Neck Neck: normal visual inspection and full ROM Resp Effort & Inspection: normal respiratory effort, able to speak in complete sentences and symmetric chest movement GI Inspection: normal to inspection Palpation: soft and other Other: gravid Skin General: no rashes or lesions noted Neuro General: patient alert, patient awake and patient oriented x3 Cognition: normal cognition Speech: speech normal Gait: normal gait Motor: muscle tone normal throughout Extrem General: normal to inspection and full ROM Psych Appearance: grossly normal Mental Status: mental status grossly normal Mood: congruent mood Affect: normal affect Speech and Movement: speech and movement normal Attitude: cooperative Thought Process: normal Thought Content: normal Judgment: judgment good Results POC Urinalysis 2 Dip (Clinic) Office Urine Glucose Negative Last Edit by Codi Ray on 02/13/25 14:51 Office Urine Protein Negative Last Edit by Codi Ray on 02/13/25 14:51 Coding Level of Care Code OB Routine Diagnoses Positive GBS test B95.1 Abnormal glucose affecting O99.810 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, single or unspecified fetus O35.AXX0 Fetus number: single or unspecified fetus Encounter for supervision of low-risk in second trimester Z34.92 Trimester: second trimester 37 weeks gestation of Z3A.37 Weeks of gestation: 37 weeks Assessment and Plan Assessment and Plan (1) Positive GBS test: Status: Acute Comment: treat in labor (2) Abnormal glucose affecting : Status: Acute Comment: normal 3 hour (3) Cleft lip and palate, , affecting care of mother, antepartum: Status: Acute Qualifiers: Fetus number: single or unspecified fetus Qualified Code(s): O35.AXX0 -Maternal care for other (suspected) abnormality and damage, facial anomalies, not applicable or unspecified Comment: worksheet sent and approved to deliver at [facility], seen on anatomy US, fetaltreatment center referral. echo. Gave info on [facility]. Approved to deliver [facility]. (4) Supervision of low-risk : Status: Acute Qualifiers: Trimester: second trimester Qualified Code(s): Z34.92 - Encounter for supervision of normal , unspecified, second trimester Comment: PRR , JONATHAN 03/05/25, gender surprise for family Nicanor (5) : Status: Acute Qualifiers: Weeks of gestation: 37 weeks Qualified Code(s): Z3A.37 - 37 weeks gestation of Comment: NIPT low risk, carrier neg. . GBS+ in urine. Orders: Orders POC Urinalysis 2 Dip (Clinic) Today Plan Details Additional Comments: ACOG trimester education reviewed and updated. see problem list details for updated plan management information and see below for orders placed atthis visit. GA appropriate handout given. Clinical Quality Measures Falls Risk Screening/Assistive Devices Have you fallen in the past year?: No 02/13/25 1506 s RAMINM> Date _ Heather Mahmood CNM Cosigner Signature: Date (if applicable) CC: ~ [id number] Progress note Author Heather Mahm[facility] Note Date/Time February 13, 2025 3:[address] [facility] [address] [place] [address], [address] [place] [address] OFFICE VISIT Date of Service: 02/13/25 MR#: [id number] Acct: [id number] Name: JESUS ASHER Rep #: [id number] : 1995 Provider: MATT Mahmood Age/Sex: 29/F Location: [facility] Status: Signed Intake Vital Signs 01/12/25 10:10 02/07/25 09:52 02/13/25 14:47 02/13/25 14:47 Height 5 ft 3 in 5 ft 3 in 5 ft 3 in 5 ft 3 in Weight: 138 lb 8 oz BMI 24.5 BP 116/74 Intake Visit Reasons: 37 wk ob Chief Complaint: 37wk OB Carrot Tier Required: No Is patient in pain?: No Allergies No Known Allergies Allergy (Verified 02/13/25 14:46) Medications ?Medication ?Instructions ?Recorded ?Confirmed ?Type multivitamin no.47-iron fum 27 cap PO 07/29/24 5 History mg-folate no.1 1 mg-dha 300 mg capsule (PNV-DHA) Last Menstrual Period: 05/29/24 : No Have you fallen in the past year?: No PFSH PFSH Medical History Complete Dysmenorrhea Surgical History H/O wisdom tooth extraction Family History Grandmother Breast cancer Social History adopted: No household members: spouse current occupational status: employed 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 Date Name GA/Weeks Outcome Route Bth Weight Infant Gen Labor Lgth Anesthesia Del Locatn Provider FOB 02/18/24 6 spontaneous HPI 37 wk ob Details: JESUS ASHER is a 29 year old who presents for routine OB visit. OB Visit JONATHAN Calculator Estimated Delivery Date Method Current WG Current Estimate 03/05/25 LMP (Certain) 37w 1d Other Estimates 03/11/25 Ultrasound #1 36w 2d Expected Delivery Route/Plan Labor Preferences- CB/BF classes: [] labor support person: [] labor intervention preferences: [] pain management options preferred: [] cut cord/dad catch: [] : [] PP control planned: [] discussed possible routes of delivery and associated risks: [] special requests: [] Specific Issue/Plans Covid status: [] Flu vaccine: [] Tdap vaccine: given Rhogam: na LARC form signed: declined] Problem list reviewed and updated with the most current plan of care details andappropriate orders placed. Relevant counseling for the gestational age provided. Continue routine care and follow up unless otherwise noted in visit notes/problem list details Initial Weight: Not Recorded Date -?-?-?-?-?-?-?-?-?-?-?-?- EGA Weight BP Urine Prot -?-?-?-?-?-?-?-?-?-?-?-?- Glucose FHR FuHt Pres Dilation -?-?-?-?-?-?-?-?-?-?-?-?- Effaced St Visit Note 08/16/24 -?-?-?-?-?-?-?-?-?-?-?-?- 11w 2d 104 lb 6 oz 130/80 -?-?-?-?-?-?-?-?-?-?-?-?- 185 -?-?-?-?-?-?-?-?-?-?-?-?- JV- CRL consiste nt with LMP. Desires nipt. 09/09/24 -?-?-?-?-?-?-?-?-?-?-?-?- 14w 5d 106 lb 4 oz 127/84 Nega tive -?-?-?-?-?-?-?-?-?-?--?-?- Negative 150 -?-?-?-?-?-?-?-?-?-?-?-?- KW- no vb/crampi ng. US scheduled. feeling better. AFP discussed and declines at this time. stretching and chiropractor for hip pain. 10/07/24 -?-?-?-?-?-?-?-?-?-?-?-?- 18w 5d 110 lb 6 oz 137/71 Nega tive -?-?-?-?-?-?-?-?-?-?-?-?- Negative 150 -?-?-?-?-?-?-?-?-?-?-?-?- SM- no vb crampi ng 11/02/24 -?-?-?-?-?-?-?-?-?-?-?-?- 22w 3d 116 lb 8 oz 120/72 Nega tive -?-?-?-?-?-?-?-?-?-?-?-?- Negative 150 -?-?-?-?-?-?-?-?-?-?-?-?- MH-No VB, LOF. F eeling movement/ant placenta. Baby with cleft lip & palate. See treatment next week 11/28/24 -?-?--?-?-?-?-?-?-?-?-?-?- 26w 1d 122 lb 4 oz 126/79 Nega tive -?-?-?-?-?-?-?-?-?-?-?-?- Negative 145 26 -?-?-?-?-?-?-?-?-?-?-?-?- JV- no complaint s today. planning GCT and tdap next visit[place] 29 weeks. 12/14/24 -?-?-?-?-?-?-?-?-?-?-?-?- 28w 3d 125 lb 6 oz 122/76 Nega tive -?-?-?-?-?-?-?-?-?-?-?-?- Negative 140 28 -?-?-?-?-?-?-?-?-?-?-?-?- JV- no complaint s. GCT today. tdap given. us from [facility] shows now a cleft lip + palate. following up with plastics december 30. 12/29/24 -?-?-?-?-?-?-?-?-?-?-?-?- 30w 4d 129 lb 8 oz 122/80 Nega tive -?-?-?-?-?-?-?-?-?-?-?-?- Negative 160 29 -?-?-?-?-?-?-?--?-?-?-?-?- KW- no vb/crampi ng. good fm. feels like she has a cold- repeat WBC in 3-4 weeks. passed 3 hour glucose. had meeting with plastics already. KW- no vb/cramping. good fm. feels like she has a cold- repeat WBC in 1-2 weeks. passed 3 hour glucose. had meeting with plastics already. will send complications worksheet to pedi team. LARC done 01/12/25 -?-?-?-?-?-?-?-?-?-?-?-?- 32w 4d 131 lb 4 oz 129/89 Nega tive -?-?-?-?-?-?-?-?-?-?-?-?- Negative 154 32 -?-?-?-?-?-?-?-?-?-?-?-?- JV- we discussed RSV vaccine. no lof, vaginal bleeding, or dec fm. 01/26/25 -?-?-?-?-?-?-?-?-?-?-?-?- 34w 4d 135 lb 6 oz 125/74 Nega tive -?-?-?-?-?-?-?-?-?-?-?-?- Negative 145 32 -?-?-?-?-?-?-?-?-?-?-?-?- Sm- no vb lof go od fm no regular ctx 02/07/25 -?-?-?-?-?-?-?-?-?-?-?-?- 36w 2d 137 lb 2 oz 122/73 Nega tive -?-?-?-?-?-?-?-?-?-?-?-?- Negative 160 34 -?-?-?-?-?-?-?-?-?-?-?-?- JV- no lof vagin al bleeding, or dec fm. JV- no lof vaginal bleeding, or dec fm. measuring small, however growth and fluid were normal on 01/3102/13/25 -?-?-?-?-?-?-?-?-?-?-?-?- 37w 1d 138 lb 8 oz 116/74 Nega tive -?-?-?-?-?-?-?-?-?-?-?-?- Negative 155 36 Cephalic -?-?-?-?-?-?-?-?-?-?-?-?- KW- no vb/lof/ct x. good fm requesting IOL around 40 weeks. does not want to go to 41 weeks. ACOG First Trimester First Trimester: Discussed ROS Const Reports system reviewed and no additional complaints, except as documented Eyes Reports system reviewed and no additional complaints, except as documented ENT Reports system reviewed and no additional complaints, except as documented Card Reports system reviewed and no additional complaints, except as documented Resp Reports system reviewed and no additional complaints, except as documented GI Reports system reviewed and no additional complaints, except as documented, Denies nausea and Denies vomiting Reports system reviewed and no additional complaints, except as documented Musc Reports system reviewed and no additional complaints, except as documented Skin/Breast Reports system reviewed and no additional complaints, except as documented Neuro Yes system reviewed and no additional complaints, except as documented Psych Reports system reviewed and no additional complaints, except as documented Endo Reports system reviewed and no additional complaints, except as documented Jun/Lymph Reports system reviewed and no additional complaints, except as documented Aller/Immun Reports system reviewed and no additional complaints, except as documented Exam Const General: cooperative, healthy appearing and no acute distress Orientation: alert, awake and oriented x3 Neck Neck: normal visual inspection and full ROM Resp Effort & Inspection: normal respiratory effort, able to speak in complete sentences and symmetric chest movement GI Inspection: normal to inspection Palpation: soft and other Other: gravid Skin General: no rashes or lesions noted Neuro General: patient alert, patient awake and patient oriented x3 Cognition: normal cognition Speech: speech normal Gait: normal gait Motor: muscle tone normal throughout Extrem General: normal to inspection and full ROM Psych Appearance: grossly normal Mental Status: mental status grossly normal Mood: congruent mood Affect: normal affect Speech and Movement: speech and movement normal Attitude: cooperative Thought Process: normal Thought Content: normal Judgment: judgment good Results POC Urinalysis 2 Dip (Clinic) Office Urine Glucose Negative Last Edit by Codi Ray on 02/13/25 14:51 Office Urine Protein Negative Last Edit by Codi Ray on 02/13/25 14:51 Coding Level of Care Code OB Routine Diagnoses Positive GBS test B95.1 Abnormal glucose affecting O99.810 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, single or unspecified fetus O35.AXX0 Fetus number: single or unspecified fetus Encounter for supervision of low-risk in second trimester Z34.92 Trimester: second trimester 37 weeks gestation of Z3A.37 Weeks of gestation: 37 weeks Assessment and Plan Assessment and Plan (1) Positive GBS test: Status: Acute Comment: treat in labor (2) Abnormal glucose affecting : Status: Acute Comment: normal 3 hour (3) Cleft lip and palate, , affecting care of mother, antepartum: Status: Acute Qualifiers: Fetus number: single or unspecified fetus Qualified Code(s): O35.AXX0 -Maternal care for other (suspected) abnormality and damage, facial anomalies, not applicable or unspecified Comment: worksheet sent and approved to deliver at [facility], seen on anatomy US, fetaltreatment center referral. echo. Gave info on [facility]. Approved to deliver [facility]. (4) Supervision of low-risk : Status: Acute Qualifiers: Trimester: second trimester Qualified Code(s): Z34.92 - Encounter for supervision of normal , unspecified, second trimester Comment: PRR , JONATHAN 03/05/25, gender surprise for family Nicanor (5) : Status: Acute Qualifiers: Weeks of gestation: 37 weeks Qualified Code(s): Z3A.37 - 37 weeks gestation of Comment: NIPT low risk, carrier neg. 14/14. GBS+ in urine. Orders: Orders POC Urinalysis 2 Dip (Clinic) Today Plan Details Additional Comments: ACOG trimester education reviewed and updated. see problem list details for updated plan management information and see below for orders placed at this visit. [place] appropriate handout given. Clinical Quality Measures Falls Risk Screening/Assistive Devices Have you fallen in the past year?: No 02/13/25 1506 <Electronically signed by Heather dyer CNM> Date _ Heather Mahmood CNM Cosigner Signature: Date (if applicable) CC: ~ [facility] Work Phone: [phone] 434-452407-15-2025 [facility] [address], [place] [address] OFFICE VISIT Date of Service: 02/07/25 MR#: [id number] Acct: [id number] Name: HYUNJESUS KEIRA Rep #: [id number] : 1995 Provider: Dr. Amarilis Bean DO Age/Sex: 29/F Location: [facility] Status: Signed Intake Vital Signs 11/28/24 14:48 01/26/25 15:08 02/07/25 09:52 Height 5 ft 3 in 5 ft 3 in 5 ft 3 in Weight: 135 lb 6 oz 137 lb 2 oz BMI 24.0 24.3 BP 125/74 H 122/73 H Intake Visit Reasons: 36 wk ob Chief Complaint: 36wk OB Carrot Tier Required: No Is patient in pain?: No Allergies No Known Allergies Allergy (Verified 02/07/25 09:50) Medications ?Medication ?Instructions ?Recorded ?Confirmed ?Type multivitamin no.47-iron fum 27 cap PO 07/29/24 5 History mg-folate no.1 1 mg-dha 300 mg capsule (PNV-DHA) Last Menstrual Period: 05/29/24 : No PFSH PFSH Medical History Complete Dysmenorrhea Surgical History H/O wisdom tooth extraction Family History Grandmother Breast cancer Social History adopted: No household members: spouse current occupational status: employed 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 Date Name GA/Weeks Outcome Route Bth Weight Gen Labor Lgth Anesthesia Del [facility] Provider FOB 02/18/24 6 spontaneous HPI 36 wk ob Details: JESUS ASHER is a 29 year old who presents for routine OB visit. OB Visit JONATHAN Calculator Estimated Delivery Date Method Current WG Current Estimate 03/05/25 LMP (Certain) 36w 2d Other Estimates 03/11/25 Ultrasound #1 35w 3d Expected Delivery Route/Plan Labor Preferences- CB/BF classes: [] labor support person: [] labor intervention preferences: [] pain management options preferred: [] cut cord/dad catch: [] : [] PP control planned: [] discussed possible routes of delivery and associated risks: [] special requests: [] Specific Issue/Plans Covid status: [] Flu vaccine: [] Tdap vaccine: given Rhogam: na LARC form signed: declined] Problem list reviewed and updated with the most current plan of care details andappropriate orders placed. Relevant counseling for the gestational age provided. Continue routine care and follow up unless otherwise noted in visit notes/problem list details Initial Weight: Not Recorded Date -?-?-?-?-?-?-?-?-?-?-?-?- EGA Weight BP Urine Prot -?-?-?-?-?-?-?-?-?-?-?-?- Glucose FHR FuHt Pres Dilation -?-?-?-?-?-?-?-?-?-?-?-?- Effaced St Visit Note 08/16/24 -?-?-?-?-?-?-?-?-?-?-?-?- 11w 2d 104 lb 6 oz 130/80 -?-?-?-?-?-?-?-?-?-?-?-?- 185 -?-?-?-?-?-?-?-?-?-?-?-?- JV- CRL consiste nt with LMP. Desires nipt. 09/09/24 -?-?-?-?-?-?-?-?-?-?-?-?- 14w 5d 106 lb 4 oz 127/84 Nega tive -?-?-?-?-?-?-?-?-?-?-?-?- Negative 150 -?-?-?-?-?-?-?-?-?-?-?-?- KW- no vb/crampi ng. US scheduled. feeling better. AFP discussed and declines at this time. stretching and chiropractor for hip pain. 10/07/24 -?-?-?-?-?-?-?-?-?-?-?-?- 18w 5d 110 lb 6 oz 137/71 Nega tive -?-?-?-?-?-?-?-?-?-?-?-?- Negative 150 -?-?-?-?-?-?-?-?-?-?-?-?- SM- no vb crampi ng 11/02/24 -?-?-?-?-?-?-?-?-?-?-?-?- 22w 3d 116 lb 8 oz 120/72 Nega tive -?-?-?-?-?-?-?-?-?-?-?-?- Negative 150 -?-?-?-?-?-?-?-?-?-?-?-?- MH-No VB, LOF. F eeling movement/ant placenta. Baby with cleft lip & palate. See treatment next week 11/28/24 -?-?-?-?-?-?-?-?-?-?-?-?- 26w 1d 122 lb 4 oz 126/79 Nega tive -?-?-?-?-?-?-?-?-?-?-?-?- Negative 145 26 -?-?-?-?-?-?-?-?-?-?-?-?- JV- no complaint s today. planning GCT and tdap next visit. [place] 29 weeks. 12/14/24 -?-?-?-?-?-?-?-?-?-?-?-?- 28w 3d 125 lb 6 oz 122/76 Nega tive -?-?-?-?-?-?-?-?-?-?-?-?- Negative 140 28 -?-?-?-?-?-?-?-?-?-?-?-?- JV- no complaint s. GCT today. tdap given. us from [facility] shows now a cleft lip + palate. following up with plastics december 30. 12/29/24 -?-?-?-?-?-?-?-?-?-?-?-?- 30w 4d 129 lb 8 oz 122/80 Nega tive -?-?-?-?-?-?-?-?-?-?-?-?- Negative 160 29 -?-?-?-?-?-?-?-?-?-?-?-?- KW- no vb/crampi ng. good fm. feels like she has a cold- repeat WBC in 3-4 weeks. passed 3 hour glucose. had meeting with plastics already. KW- no vb/cramping. good fm. feels like she has a cold- repeat WBC in 1-2 weeks. passed 3 hour glucose. had meeting with plastics already. will send complications worksheetto pedi team. LARC done 01/12/25 -?-?-?-?-?-?-?-?-?-?-?-?- 32w 4d 131 lb 4 oz 129/89 Nega tive -?-?-?-?-?-?-?-?-?-?-?-?- Negative 154 32 -?-?-?-?-?-?-?-?-?-?-?-?- JV- we discussed RSV vaccine. no lof, vaginal bleeding, or dec fm. 01/26/25 -?-?-?-?-?-?-?-?-?-?-?-?- 34w 4d 135 lb 6 oz 125/74 Nega tive -?-?-?-?-?-?-?-?-?-?-?-?- Negative 145 32 -?-?-?-?-?-?-?-?-?-?-?-?- Sm- no vb lof go od fm no regular ctx 02/07/25 -?-?-?-?-?-?-?-?-?-?-?-?- 36w 2d 137 lb 2 oz 122/73 Nega tive -?-?-?-?-?-?-?-?-?-?-?-?- Negative 160 34 -?-?-?-?-?-?-?-?-?-?-?-?- JV- no lof vagin al bleeding, or dec fm. JV- no lof vaginal bleeding, or dec fm. measuring small, however growth and fluid were normal on 01/31 ACOG First Trimester First Trimester: Discussed Results POC Urinalysis 2 Dip (Clinic) Office Urine Glucose Negative Last Edit by Codi Ray on 02/07/25 09:59 Office Urine Protein Negative Last Edit by Codi Ray on 02/07/25 09:59 Coding Level of Care Code OB Routine Diagnoses Positive GBS test B95.1 Abnormal glucose affecting O99.810 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, single or unspecified fetus O35.AXX0 Fetus number: single or unspecified fetus Encounter for supervision of low-risk in second trimester Z34.92 Trimester: second trimester 36 weeks gestation of Z3A.36 Weeks of gestation: 36 weeks Assessment and Plan Assessment and Plan (1) Positive GBS test: Status: Acute Comment: treat in labor (2) Abnormal glucose affecting : Status: Acute Comment: normal 3 hour (3) Cleft lip and palate, , affecting care of mother, antepartum: Status: Acute Qualifiers: Fetus number: single or unspecified fetus Qualified Code(s): O35.AXX0 -Maternal care for other (suspected) abnormality and damage, facial anomalies, not applicable or unspecified Comment: worksheet sent and approved to deliver at [facility], seen on anatomy US, fetaltreatment center referral. echo. Gave info on [facility]. Approved to deliver [facility]. (4) Supervision of low-risk : Status: Acute Qualifiers: Trimester: second trimester Qualified Code(s): Z34.92 - Encounter for supervision of normal , unspecified, second trimester Comment: PRR , JONATHAN 03/05/25, gender surprise for family Nicanor (5) : Status: Acute Qualifiers: Weeks of gestation: 36 weeks Qualified Code(s): Z3A.36 - 36 weeks gestation of Comment: NIPT low risk, carrier neg. . GBS+ in urine. Orders: Orders POC Urinalysis 2 Dip (Clinic) Today 02/07/25 1052 e Miguelangel DO> Date _ Malena Faith Signature: Date (if applicable) CC: ~ [facility]07-03-2025 [facility] [address], [address] [place] [id number] OFFICE VISIT Date of Service: 01/26/25 MR#: [id number] Acct: [id number] Name: JESUS ASHER Rep #: [id number] : 1995 Provider: Dr. Robb Cadena MD Age/Sex: 29/F Location: [facility] Status: Signed Intake Vital Signs 11/28/24 14:48 01/12/25 10:10 01/26/25 15:08 Height 5 ft 3 in 5 ft 3 in 5 ft 3 in Weight: 135 lb 6 oz BMI 24.0 BP 125/74 H Intake Visit Reasons: 34 wk ob Carrot Tier Required: No Is patient in pain?: No Allergies No Known Allergies Allergy (Verified 01/26/25 15:09) Medications ?Medication ?Instructions ?Recorded ?Confirmed ?Type multivitamin no.47-iron fum 27 cap PO 07/29/24 5 History mg-folate no.1 1 mg-dha 300 mg capsule (PNV-DHA) Last Menstrual Period: 05/29/24 Zika: Zika virus screening: Negative : No PFSH PFSH Medical History Complete Dysmenorrhea Surgical History H/O wisdom tooth extraction Family History Grandmother Breast cancer Social History adopted: No household members: spouse current occupational status: employed 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 Date Name GA/Weeks Outcome Route Bth Weight Gen Labor Lgth Anesthesia Del Locatn Provider FOB 02/18/24 6 spontaneous HPI 34 wk ob Details: JESUS ASHER is a 29 year old who presents for routine OB visit. OB Visit JONATHAN Calculator Estimated Delivery Date Method Current WG Current Estimate 03/05/25 LMP (Certain) 34w 4d Other Estimates 03/11/25 Ultrasound #1 33w 5d Expected Delivery Route/Plan Labor Preferences- CB/BF classes: [] labor support person: [] labor intervention preferences: [] pain management options preferred: [] cut cord/dad catch: [] : [] PP control planned: [] discussed possible routes of delivery and associated risks: [] special requests: [] Specific Issue/Plans Covid status: [] Flu vaccine: [] Tdap vaccine: given Rhogam: na LARC form signed: declined] Problem list reviewed and updated with the most current plan of care details andappropriate orders placed. Relevant counseling for the gestational age provided. Continue routine care and follow up unless otherwise noted in visit notes/problem list details Initial Weight: Not Recorded Date -?-?-?-?-?-?-?-?-?-?-?-?- EGA Weight BP Urine Prot -?-?-?-?-?-?-?-?-?-?-?-?- Glucose FHR FuHt Pres Dilation -?-?-?-?-?-?-?-?-?-?-?-?- Effaced St Visit Note 08/16/24 -?--?-?-?-?-?-?-?-?-?-?-?- 11w 2d 104 lb 6 oz 130/80 -?-?-?-?-?-?-?-?-?-?-?-?- 185 -?-?-?-?-?-?-?-?-?-?-?-?- JV- CRL consiste nt with LMP. Desires nipt. 09/09/24 -?-?-?-?-?-?-?-?-?-?-?-?- 14w 5d 106 lb 4 oz 127/84 Nega tive -?-?-?-?-?-?-?-?-?-?-?-?- Negative 150 -?-?-?-?-?-?-?-?-?-?-?-?- KW- no vb/crampi ng. US scheduled. feeling better. AFP discussed and declines at this time. stretching and chiropractor for hip pain. 10/07/24 -?-?-?-?-?-?-?-?-?-?-?-?- 18w 5d 110 lb 6 oz 137/71 Nega tive -?-?-?-?-?-?-?-?-?-?-?-?- Negative 150 -?-?-?-?-?-?-?-?-?-?-?-?- SM- no vb crampi ng 11/02/24 -?-?-?-?-?-?-?-?-?-?-?-?- 22w 3d 116 lb 8 oz 120/72 Nega tive -?-?-?-?-?-?-?-?-?-?-?-?- Negative 150 -?-?-?-?-?-?-?-?-?-?-?-?- MH-No VB, LOF. F eeling movement/ant placenta. Baby with cleft lip & palate. See treatment next week 11/28/24 -?-?-?-?-?-?-?-?-?-?-?-?- 26w 1d 122 lb 4 oz 126/79 Nega tive -?-?-?-?-?-?-?-?-?-?-?-?- Negative 145 26 -?-?-?-?-?-?-?-?-?-?-?-?- JV- no complaint s today. planning GCT and tdap next visit[place] 29 weeks. 12/14/24 -?-?-?-?-?-?-?-?-?-?-?-?- 28w 3d 125 lb 6 oz 122/76 Nega tive -?-?-?-?-?-?-?-?-?-?-?-?- Negative 140 28 -?-?-?-?-?-?-?-?-?-?-?-?- JV- no complaint s. GCT today. tdap given. us from [facility] shows now a cleft lip + palate. following up with plastics december 30. 12/29/24 -?-?-?-?-?-?-?-?-?-?-?-?- 30w 4d 129 lb 8 oz 122/80 Nega tive -?-?-?-?-?-?-?-?-?-?-?-?- Negative 160 29 -?-?-?-?-?-?-?-?-?-?-?-?- KW- no vb/crampi ng. good fm. feels like she has a cold- repeat WBC in 3-4 weeks. passed 3 hour glucose. had meeting with plastics already. KW- no vb/cramping. good fm. feels like she has a cold- repeat WBC in 1-2 weeks. passed 3 hour glucose. had meeting with plastics already. will send complications worksheetto pedi team. LARC done 01/12/25 -?-?-?-?-?-?-?-?-?-?-?-?- 32w 4d 131 lb 4 oz 129/89 Nega tive -?-?-?-?-?-?-?-?-?-?-?-?- Negative 154 32 -?-?-?-?-?-?-?-?-?-?-?-?- JV- we discussed RSV vaccine. no lof, vaginal bleeding, or dec fm. 01/26/25 -?-?-?-?-?-?-?-?-?-?-?-?- 34w 4d 135 lb 6 oz 125/74 Nega tive -?-?-?-?-?-?-?-?-?-?-?-?- Negative 145 32 -?-?-?-?-?-?-?-?-?-?-?-?- Sm- no vb lof go od fm no regular ctx ACOG First Trimester First Trimester: Discussed Results POC Urinalysis 2 Dip (Clinic) Office Urine Glucose Negative Last Edit by Merlyn Hall on 01/26/25 15:15 Office Urine Protein Negative Last Edit by Merlyn Hall on 01/26/25 15:15 Coding Level of Care Code OB Routine Diagnoses Positive GBS test B95.1 Abnormal glucose affecting O99.810 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, single or unspecified fetus O35.AXX0 Fetus number: single or unspecified fetus Encounter for supervision of low-risk in second trimester Z34.92 Trimester: second trimester 34 weeks gestation of Z3A.34 Weeks of gestation: 34 weeks Assessment and Plan Assessment and Plan (1) Positive GBS test: Status: Acute Comment: treat in labor (2) Abnormal glucose affecting : Status: Acute Comment: normal 3 hour (3) Cleft lip and palate, , affecting care of mother, antepartum: Status: Acute Qualifiers: Fetus number: single or unspecified fetus Qualified Code(s): O35.AXX0 -Maternal care for other (suspected) abnormality and damage, facial anomalies, not applicable or unspecified Comment: worksheet sent and approved to deliver at [facility], seen on anatomy US, fetaltreatment center referral. echo. Gave info on [facility]. Approved to deliver [facility]. (4) Supervision of low-risk : Status: Acute Qualifiers: Trimester: second trimester Qualified Code(s): Z34.92 - Encounter for supervision of normal , unspecified, second trimester Comment: PRR , JONATHAN 03/05/25, gender surprise for family Nicanor (5) : Status: Acute Qualifiers: Weeks of gestation: 34 weeks Qualified Code(s): Z3A.34 - 34 weeks gestation of Comment: NIPT low risk, carrier neg. 14. GBS+ in urine. Orders: Orders POC Urinalysis 2 Dip (Clinic) Today 01/26/25 1528 rei VOSS> Date _ Maylin Cadena MD Cosigner Signature: Date (if applicable) CC: ~ [facility]07-03-2025 Progress note Author Maylin Cadena [facility] Note Date/Time January 26, 2025 3:28p [facility] [address], [address] [place] [address] OFFICE VISIT Date of Service: 01/26/25 MR#: [id number] Acct: [id number] Name: JESUS ASHER Rep #: [id number] : 1995 Provider: Dr. Robb Cadena MD Age/Sex: 29/F Location: [facility] Status: Signed Intake Vital Signs 11/28/24 14:48 01/12/25 10:10 01/26/25 15:08 Height 5 ft 3 in 5 ft 3 in 5 ft 3 in Weight: 135 lb 6 oz BMI 24.0 BP 125/74 H Intake Visit Reasons: 34 wk ob Carrot Tier Required: No Is patient in pain?: No Allergies No Known Allergies Allergy (Verified 01/26/25 15:09) Medications ?Medication ?Instructions ?Recorded ?Confirmed ?Type multivitamin no.47-iron fum 27 cap PO 07/29/24 5 History mg-folate no.1 1 mg-dha 300 mg capsule (PNV-DHA) Last Menstrual Period: 05/29/24 Zika: Zika virus screening: Negative : No PFSH PFSH Medical History Complete Dysmenorrhea Surgical History H/O wisdom tooth extraction Family History Grandmother Breast cancer Social History adopted: No household members: spouse current occupational status: employed 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 Date Name GA/Weeks Outcome Route Bth Weight Gen Labor Lgth Anesthesia Del [facility] Provider FOB 02/18/24 6 spontaneous HPI 34 wk ob Details: JESUS ASHER is a 29 year old who presents for routine OB visit. OB Visit JONATHAN Calculator Estimated Delivery Date Method Current WG Current Estimate 03/05/25 LMP (Certain) 34w 4d Other Estimates 03/11/25 Ultrasound #1 33w 5d Expected Delivery Route/Plan Labor Preferences- CB/BF classes: [] labor support person: [] labor intervention preferences: [] pain management options preferred: [] cut cord/dad catch: [] : [] PP control planned: [] discussed possible routes of delivery and associated risks: [] special requests: [] Specific Issue/Plans Covid status: [] Flu vaccine: [] Tdap vaccine: given Rhogam: na LARC form signed: declined] Problem list reviewed and updated with the most current plan of care details andappropriate orders placed. Relevant counseling for the gestational age provided. Continue routine care and follow up unless otherwise noted in visit notes/problem list details Initial Weight: Not Recorded Date -?-?-?-?-?-?-?-?-?-?-?-?- EGA Weight BP Urine Prot -?-?-?-?-?-?-?-?-?-?-?-?- Glucose FHR FuHt Pres Dilation -?-?-?-?-?-?-?-?-?-?-?-?- Effaced St Visit Note 08/16/24 -?--?-?-?-?-?-?-?-?-?-?-?- 11w 2d 104 lb 6 oz 130/80 -?-?-?-?-?-?-?-?-?-?-?-?- 185 -?-?-?-?-?-?-?-?-?-?-?-?- JV- CRL consiste nt with LMP. Desires nipt. 09/09/24 -?-?-?-?-?-?-?-?-?-?-?-?- 14w 5d 106 lb 4 oz 127/84 Nega tive -?-?-?-?-?-?-?-?-?-?-?-?- Negative 150 -?-?-?-?-?-?-?-?-?-?-?-?- KW- no vb/crampi ng. US scheduled. feeling better. AFP discussed and declines at this time. stretching and chiropractor for hip pain. 10/07/24 -?-?-?-?-?-?-?-?-?-?-?-?- 18w 5d 110 lb 6 oz 137/71 Nega tive -?-?-?-?-?-?-?-?-?-?-?-?- Negative 150 -?-?-?-?-?-?-?-?-?-?-?-?- SM- no vb crampi ng 11/02/24 -?-?-?-?-?-?-?-?-?-?-?-?- 22w 3d 116 lb 8 oz 120/72 Nega tive -?-?-?-?-?-?-?-?-?-?-?-?- Negative 150 -?-?-?-?-?-?-?-?-?-?-?-?- MH-No VB, LOF. F eeling movement/ant placenta. Baby with cleft lip & palate. See treatment next week 11/28/24 -?-?-?-?-?-?-?-?-?-?-?-?- 26w 1d 122 lb 4 oz 126/79 Nega tive -?-?-?-?-?-?-?-?-?-?-?-?- Negative 145 26 -?-?-?-?-?-?-?-?-?-?-?-?- JV- no complaint s today. planning GCT and tdap next visit. [place] 29 weeks. 12/14/24 -?-?-?-?-?-?-?-?-?-?-?-?- 28w 3d 125 lb 6 oz 122/76 Nega tive -?-?-?-?-?-?-?-?-?-?-?-?- Negative 140 28 -?-?-?-?-?-?-?-?-?-?-?-?- JV- no complaint s. GCT today. tdap given. us from [facility] shows now a cleft lip + palate. following up with plastics december 30. 12/29/24 -?-?-?-?-?-?-?-?-?-?-?-?- 30w 4d 129 lb 8 oz 122/80 Nega tive -?-?-?-?-?-?-?-?-?-?-?-?- Negative 160 29 -?-?-?-?-?-?-?-?-?-?-?-?- KW- no vb/crampi ng. good fm. feels like she has a cold- repeat WBC in 3-4 weeks. passed 3 hour glucose. had meeting with plastics already. KW- no vb/cramping. good fm. feels like she has a cold- repeat WBC in 1-2 weeks. passed 3 hour glucose. had meeting with plastics already. will send complications worksheet to pedi team. LARC done 01/12/25 -?-?-?-?-?-?-?-?-?-?-?-?- 32w 4d 131 lb 4 oz 129/89 Nega tive -?-?-?-?-?-?-?-?-?-?-?-?- Negative 154 32 -?-?-?-?-?-?-?-?-?-?-?-?- JV- we discussed RSV vaccine. no lof, vaginal bleeding, or dec fm. 01/26/25 -?-?-?-?-?-?-?-?-?-?-?-?- 34w 4d 135 lb 6 oz 125/74 Nega tive -?-?-?-?-?-?-?-?-?-?-?-?- Negative 145 32 -?-?-?-?-?-?-?-?-?-?-?-?- Sm- no vb lof go od fm no regular ctx ACOG First Trimester First Trimester: Discussed Results POC Urinalysis 2 Dip (Clinic) Office Urine Glucose Negative Last Edit by Merlyn Hall on 01/26/25 15:15 Office Urine Protein Negative Last Edit by Merlyn Hall on 01/26/25 15:15 Coding Level of Care Code OB Routine Diagnoses Positive GBS test B95.1 Abnormal glucose affecting O99.810 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, single or unspecified fetus O35.AXX0 Fetus number: single or unspecified fetus Encounter for supervision of low-risk in second trimester Z34.92 Trimester: second trimester 34 weeks gestation of Z3A.34 Weeks of gestation: 34 weeks Assessment and Plan Assessment and Plan (1) Positive GBS test: Status: Acute Comment: treat in labor (2) Abnormal glucose affecting : Status: Acute Comment: normal 3 hour (3) Cleft lip and palate, , affecting care of mother, antepartum: Status: Acute Qualifiers: Fetus number: single or unspecified fetus Qualified Code(s): O35.AXX0 -Maternal care for other (suspected) abnormality and damage, facial anomalies, not applicable or unspecified Comment: worksheet sent and approved to deliver at [facility], seen on anatomy US, fetaltreatment center referral. echo. Gave info on [facility]. Approved to deliver [facility]. (4) Supervision of low-risk : Status: Acute Qualifiers: Trimester: second trimester Qualified Code(s): Z34.92 - Encounter for supervision of normal , unspecified, second trimester Comment: PRR , JONATHAN 03/05/25, gender surprise for family Nicanor (5) : Status: Acute Qualifiers: Weeks of gestation: 34 weeks Qualified Code(s): Z3A.34 - 34 weeks gestation of Comment: NIPT low risk, carrier neg. . GBS+ in urine. Orders: Orders POC Urinalysis 2 Dip (Clinic) Today 01/26/25 1528 <Electronically signed by Maylin minaya MD> Date _ Maylin Cadena MD [facility] Signature: Date (if applicable) CC: ~ [facility] Work Phone: [phone] [facility] [address] [place] [address], [address] [place] [address] OFFICE VISIT Date of Service: 01/12/25 MR#: [id number] Acct: [id number] Name: JESUS ASHER Rep #: [id number] : 1995 Provider: Dr. Amarilis Bean DO Age/Sex: 29/F Location: [facility] Status: Signed Intake Vital Signs 11/28/24 14:48 12/29/24 11:42 01/12/25 10:09 01/12/25 10:10 Height 5 ft 3 in 5 ft 3 in 5 ft 3 in 5 ft 3 in Weight: 129 lb 8 oz 131 lb 4 oz BMI 22.9 23.2 BP 122/80 H 129/89 H Intake Visit Reasons: 32 wk ob Carrot Tier Required: No Is patient in pain?: No Allergies No Known Allergies Allergy (Verified 01/12/25 10:08) Medications ?Medication ?Instructions ?Recorded ?Confirmed ?Type multivitamin no.47-iron fum 27 cap PO 07/29/24 5 History mg-folate no.1 1 mg-dha 300 mg capsule (PNV-DHA) Last Menstrual Period: 05/29/24 Zika: Zika virus screening: Negative : No PFSH PFSH Medical History Complete Dysmenorrhea Surgical History H/O wisdom tooth extraction Family History Grandmother Breast cancer Social History adopted: No household members: spouse current occupational status: employed 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 Date Name GA/Weeks Outcome Route Bth Weight Gen Labor Lgth Anesthesia Del Locatn Provider FOB 02/18/24 6 spontaneous HPI 32 wk ob Details: JESUS ASHER is a 29 year old who presents for routine OB visit. OB Visit JONATHAN Calculator Estimated Delivery Date Method Current WG Current Estimate 03/05/25 LMP (Certain) 32w 4d Other Estimates 03/11/25 Ultrasound #1 31w 5d Expected Delivery Route/Plan Labor Preferences- CB/BF [...] current plan of care details and appropriate ordersplaced. Relevant counseling for the gestational age provided. Continue routine care and follow up unless otherwise noted in visit notes/problem list details Initial Weight: Not Recorded Date -?-?-?-?-?-?-?-?-?-?-?-?- EGA Weight BP Urine Prot -?-?-?-?-?-?-?-?-?-?-?-?- Glucose FHR FuHt Pres Dilation -?-?-?-?-?-?-?-?-?-?-?-?- Effaced St Visit Note 08/16/24 -?-?-?-?-?-?-?-?-?-?-?-?- 11w 2d 104 lb 6 oz 130/80 -?-?-?-?-?-?-?-?-?-?-?-?- 185 -?-?-?--?-?-?-?-?-?-?-?-?- JV- CRL consiste nt with LMP. Desires nipt. 09/09/24 -?-?-?-?-?-?-?-?-?-?-?-?- 14w 5d 106 lb 4 oz 127/84 Nega tive -?-?-?-?-?-?-?-?-?-?-?-?- Negative 150 -?-?-?-?-?-?-?-?-?-?-?-?- KW- no vb/crampi ng. US scheduled. feeling better. AFP discussed and declines at this time. stretching and chiropractor for hip pain. 10/07/24 -?-?-?-?-?-?-?-?-?-?-?-?- 18w 5d 110 lb 6 oz 137/71 Nega tive -?-?-?-?-?-?-?-?-?-?-?-?- Negative 150 -?-?-?-?-?-?--?-?-?-?-?-?- SM- no vb crampi ng 11/02/24 -?-?-?-?-?-?-?-?-?-?-?-?- 22w 3d 116 lb 8 oz 120/72 Nega tive -?-?-?-?-?-?-?-?-?-?-?-?- Negative 150 -?-?-?-?-?-?-?-?-?-?-?-?- MH-No VB, LOF. F eeling movement/ant placenta. Baby with cleft lip & palate. See treatment next week 11/28/24 -?-?-?-?-?-?-?-?--?-?-?-?- 26w 1d 122 lb 4 oz 126/79 Nega tive -?-?-?-?-?-?-?-?-?-?-?-?- Negative 145 26 -?-?-?-?-?-?-?-?-?-?-?-?- JV- no complaint s today. planning GCT and tdap next visit. [place] 29 weeks. 12/14/24 -?-?-?-?-?-?-?-?-?-?-?-?- 28w 3d 125 lb 6 oz 122/76 Nega tive -?-?-?-?-?-?-?-?-?-?-?-?- Negative 140 28 -?-?-?-?-?-?-?-?-?-?-?-?- JV- no complaint s. GCT today. tdap given. us from [facility] shows now a cleft lip + palate. following up with plastics december 30. 12/29/24 -?-?-?-?-?-?-?-?-?-?-?-?- 30w 4d 129 lb 8 oz 122/80 Nega tive -?-?-?-?-?-?-?-?-?-?-?-?- Negative 160 29 -?-?-?-?-?-?-?-?-?-?-?-?- KW- no vb/crampi ng. good fm. feels like she has a cold- repeat WBC in 3-4 weeks. passed 3 hour glucose. had meeting with plastics already. KW- no vb/cramping. good fm. feels like she has a cold- repeat WBC in 1-2 weeks. passed 3 hour glucose. had meeting with plastics already. will send complications worksheetto pedi team. LARC done 01/12/25 -?-?-?-?-?--?-?-?-?-?-?-?- 32w 4d 131 lb 4 oz 129/89 -?-?-?-?-?-?-?-?-?-?-?-?- 154 32 -?-?-?-?-?-?-?-?-?-?-?-?- JV- we discussed RSV vaccine. no lof, vaginal bleeding, or dec fm. ACOG First Trimester First Trimester: Discussed Coding Level of Care Code OB Routine Diagnoses Positive GBS test B95.1 Abnormal glucose affecting O99.810 Elevated white blood cell count D72.829 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, single or unspecified fetus O35.AXX0 Fetus number: single or unspecified fetus Encounter for supervision of low-risk in second trimester Z34.92 Trimester: second trimester 32 weeks gestation of Z3A.32 Weeks of gestation: 32 weeks Assessment and Plan Assessment and Plan (1) Positive GBS test: Status: Acute Comment: treat in labor (2) Abnormal glucose affecting : Status: Acute Comment: normal 3 hour (3) Elevated white blood cell count: Status: Acute Comment: redraw in one week (4) Cleft lip and palate, , affecting care of mother, antepartum: Status: Acute Qualifiers: Fetus number: single or unspecified fetus Qualified Code(s): O35.AXX0 - Maternal care for other (suspected) abnormality and damage, facial anomalies, not applicable or unspecified Comment: worksheet sent and approved to deliver at [facility], seen on anatomy US, treatment center referral. echo. Gave info on [facility]. Approved to deliver [facility]. (5) Supervision of low-risk : Status: Acute Qualifiers: Trimester: second trimester Qualified Code(s): Z34.92 - Encounter for supervision of normal , unspecified, second trimester Comment: PRR , JONATHAN 03/05/25, gender surprise for family Nicanor (6) : Status: Acute Qualifiers: Weeks of gestation: 32 weeks Qualified Code(s): Z3A.32 - 32 weeks gestation of Comment: NIPT low risk, carrier neg. . GBS+ in urine. Orders: Orders POC Urinalysis 2 Dip (Clinic) Today 01/12/25 Summer Means DO> Date _ Malena Faith Signature: Date (if applicable) CC: ~ [facility]06-02-2025 Consult note* Ancillary Consult - Jailene Ayers CCC-BANANA HANDLER - 12/26/2024 8:40 AM EDT [facility] Speech/Language Pathology Pre- Consultation 12/26/2024 Patient Name: Jesus Asher Date of : 1995 Age: 29 y.o. Length of Session: 20 minutes Pain: NPR Pertinent History: Jesus is here today with her self and parent for a consult following aprenatal diagnosis for her baby of cleft lip [...] clefts during feeding (upright, semi-upright, sidelying). Discussed otherfeeding tips related to feeding an with a cleft (i.e., ensuring nipple is under the intact gumline, burping frequently, completing feeds in under 30 minutes, etc.). Discussed the difficulty related to when a cleft palate is present. We discussed thatshe will still be able to put her baby to breast for breast milk production and bonding, but that her baby will need support from a bottle to get the nutrition they need to grow. Mom did express interest in pumping and also putting her child to breast. I encouraged mother to talk with our LactationConsultants, who also work with our cleft population so that they can develop a plan that works forher and her baby. We also discussed the need for a quality breast pump, if they plan to primarily feed with breast milk vs formula. Description of Feeding Team: Reviewed that we have comprehensive cleft feeding teams at [facility]. Discussed the members of the team (speech, [...] Specialty Feeding System Assembly and Feeding Instructions (www.[employer]/medical/products/specialty-feeding/) -Nipple Level Selection Guidelines for Parents & Caregivers (www.[employer]/medical/nipple-guidelines) -Where to Buy Dr. Ray's Specialty Feeding system (www.[employer]/medical/laevb-ro-hqw) Equipment provided included: - bag with contact information on side of bag. -Pack of fully assembled Dr. Ray's Specialty feeding systems with Level 1 nipples -2 Level 2 nipples and 2 Transition nipples -Extra blue infant feeding inserts (blue discs) Recommendations: -Family to contact craniofacial team RN when baby is born to set up initial feeding consultation for an Outpatient Oral Motor Feeding Evaluation, pending initial Plastics visit. Thank you for the referral. MILENA Yeboah [facility]06-02-2025 Miscellaneous Notes* Ancillary Consult - Jailene Ayers CCC-BANANA HANDLER - 12/26/2024 8:40 AM EDT [facility] Speech/Language Pathology Pre-megan Consultation 12/26/2024 Patient Name: Jesus Asher Date of : 1995 Age: 29 y.o. Length of Session: 20 minutes Pain: NPR Pertinent History: Jesus is here today with her self and parent for a consult following aprenatal diagnosis for her baby of cleft lip [...] clefts during feeding (upright, semi-upright, sidelying). Discussed otherfeeding tips related to feeding an infant with a cleft (i.e., ensuring nipple is under the intact gumline, burping frequently, completing feeds in under 30 minutes, etc.). Discussed the difficulty related to when a cleft palate is present. We discussed thatshe will still be able to put her baby to breast for breast milk production and bonding, but that her baby will need support from a bottle to get the nutrition they need to grow. Mom did express interest in pumping and also putting her child to breast. I encouraged mother to talk with our LactationConsultants, who also work with our cleft population so that they can develop a plan that works forher and her baby. We also discussed the need for a quality breast pump, if they plan to primarily feed with breast milk vs formula. Description of Feeding Team: Reviewed that we have comprehensive cleft feeding teams at [facility]. Discussed the members of the team (speech, [...] Specialty Feeding System Assembly and Feeding Instructions (www.[employer]/medical/products/specialty-feeding/) -Nipple Level Selection Guidelines for Parents & Caregivers (www.[employer].tolingo/medical/nipple-guidelines) -Where to Buy Dr. Ray's Specialty Feeding system (www.[employer]/medical/evzlx-ru-gnf) Equipment provided included: - bag with contact [...] the referral. MILENA Yeboah documented in this [facility]05-05-2025 Evaluation note * Diagnosis Onset Date Resolution Status Admit Date Cleft lip and palate, , affecting care of mother, antepartum acute November 28, 2024 2: 42pm acute November 28, 2024 2:42pm Supervision of low-risk acute November 28, 2024 2: 42pm Cleft lip and palate, , affecting care of mother, antepartum acute December 14, 2024 1 :01pm acute December 14, 2024 1:01pm Supervision of low-risk acute December 14, 2024 1 :01pm Abnormal glucose affecting acute December 29, 2024 1 1:33am Cleft lip and palate, , affecting care of mother, antepartum acute December 29, 2024 1 1:33am Positive GBS test acute December 11:33am acute December 29, 2024 11:33am Supervision of low-risk acute December 29, 2024 1 1:33am Elevated white blood cell count resolved December 29, 2024 1 1:33am Abnormal glucose affecting acute January 12, 2025 9:58am Cleft lip and palate, , affecting care of mother, antepartum acute January 12, 2025 9:58am Positive GBS test acute January 122024 9:58am acute January 12 9:58am Supervision of low-risk acute January 12, 2025 9:58am Elevated white blood cell count resolved January 12, 2025 9:58am Abnormal glucose affecting acute January 26, 2025 3 :04pm Cleft lip and palate, , affecting care of mother, antepartum acute January 26, 2025 3 :04pm Positive GBS test acute January 3:04pm acute January 26, 2025 3:04pm Supervision of low-risk acute January 26, 2025 3 :04pm Abnormal glucose affecting acute February 07, 2025 9:34am Cleft lip and palate, , affecting care of mother, antepartum acute February 07, 2025 9:34am Positive GBS test acute February 072024 9:34am acute February 07 9:34am Supervision of low-risk acute February 07, 2025 9:34am Abnormal glucose affecting acute February 13, 2025 2:33pm Cleft lip and palate, , affecting care of mother, antepartum acute February 13, 2025 2:33pm Positive GBS test acute February 132024 2:33pm acute February 13 2:33pm Supervision of low-risk acute February 13, 2025 2:33pm Abnormal glucose affecting acute February 22, 2025 2:23pm Cleft lip and palate, , affecting care of mother, antepartum acute February 22, 2025 2:23pm Positive GBS test acute February 222024 2:23pm acute February 22 2:23pm Supervision of low-risk acute February 22, 2025 2:23pm Abnormal glucose affecting acute March 01, 2025 1:10pm Cleft lip and palate, , affecting care of mother, antepartum acute March 01, 2025 1:10pm Positive GBS test acute March 01, 2025 1:10pm acute March 01 1:10pm Supervision of low-risk acute March 01, 2025 1:10pm Abnormal glucose affecting acute March 06 11:25am Cleft lip and palate, , affecting care of mother, antepartum acute March 06 11:25am Positive GBS test acute March 06, 2025 11:25am acute March 06, 2 025 11:25am Supervision of low-risk acute March 06 11:25am [facility] Work Phone: 1(373) 899-485604-09-2025 Evaluation note* Diagnosis Onset Date Resolution Status Admit Date Cleft lip and palate, , affecting care of mother, antepartum acute November 02, 2024 1:37pm acute November 02 1:37pm Supervision of low-risk acute November 02, 2024 1:37pm Cleft lip and palate, , affecting care of mother, antepartum acute November 28, 2024 2: 42pm acute November 28, 2024 2:42pm Supervision of low-risk acute November 28, 2024 2: 42pm Cleft lip and palate, , affecting care of mother, antepartum acute December 14, 2024 1 :01pm acute December 14, 2024 1:01pm Supervision of low-risk acute December 14, 2024 1 :01pm Abnormal glucose affecting acute December 29, 2024 1 1:33am Cleft lip and palate, , affecting care of mother, antepartum acute December 29, 2024 1 1:33am Positive GBS test acute December 11:33am acute December 29, 2024 11:33am Supervision of low-risk acute December 29, 2024 1 1:33am Elevated white blood cell count reso lved December 29, 2024 11:33am Abnormal glucose affecting acute January 12, 2025 9:58am Cleft lip and palate, , affecting care of mother, antepartum acute January 12, 2025 9:58am Positive GBS test acute January 122024 9:58am acute January 12 9:58am Supervision of low-risk acute January 12, 2025 9:58am Elevated white blood cell count reso lved January 12, 2025 9:58am Abnormal glucose affecting acute January 26, 2025 3 :04pm Cleft lip and palate, , affecting care of mother, antepartum acute January 26, 2025 3 :04pm Positive GBS test acute January 3:04pm acute January 26, 2025 3:04pm Supervision of low-risk acute January 26, 2025 3 :04pm Abnormal glucose affecting acute February 07, 2025 9:34am Cleft lip and palate, , affecting care of mother, antepartum acute February 07, 2025 9:34am Positive GBS test acute February 072024 9:34am acute February 07 9:34am Supervision of low-risk acute February 07, 2025 9:34am [facility] Work Phone: 1(895) 970-138404-09-2025 Evaluation note* Diagnosis Onset Date Resolution Status Admit Date Cleft lip and palate, , affecting care of mother, antepartum acute November 02, 2024 1:37pm acute November 02 1:37pm Supervision of low-risk acute November 02, 2024 1:37pm Cleft lip and palate, , affecting care of mother, antepartum acute November 28, 2024 2: 42pm acute November 28, 2024 2:42pm Supervision of low-risk acute November 28, 2024 2: 42pm Cleft lip and palate, , affecting care of mother, antepartum acute December 14, 2024 1 :01pm acute December 14, 2024 1:01pm Supervision of low-risk acute December 14, 2024 1 :01pm Abnormal glucose affecting acute December 29, 2024 1 1:33am Cleft lip and palate, , affecting care of mother, antepartum acute December 29, 2024 1 1:33am Positive GBS test acute December 11:33am acute December 29, 2024 11:33am Supervision of low-risk acute December 29, 2024 1 1:33am Elevated white blood cell count reso lved December 29, 2024 11:33am Abnormal glucose affecting acute January 12, 2025 9:58am Cleft lip and palate, , affecting care of mother, antepartum acute January 12, 2025 9:58am Positive GBS test acute January 122024 9:58am acute January 12 9:58am Supervision of low-risk acute January 12, 2025 9:58am Elevated white blood cell count reso lved January 12, 2025 9:58am Abnormal glucose affecting acute January 26, 2025 3 :04pm Cleft lip and palate, , affecting care of mother, antepartum acute January 26, 2025 3 :04pm Positive GBS test acute January 3:04pm acute January 26, 2025 3:04pm Supervision of low-risk acute January 26, 2025 3 :04pm Abnormal glucose affecting acute February 07, 2025 9:34am Cleft lip and palate, , affecting care of mother, antepartum acute February 07, 2025 9:34am Positive GBS test acute February 072024 9:34am acute February 07 9:34am Supervision of low-risk acute February 07, 2025 9:34am Abnormal glucose affecting acute February 13, 2025 2:33pm Cleft lip and palate, , affecting care of mother, antepartum acute February 13, 2025 2:33pm Positive GBS test acute February 132024 2:33pm acute February 13 2:33pm Supervision of low-risk acute February 13, 2025 2:33pm [facility] Work Phone: 1(485) 234-124904-09-2025 Evaluation note* Diagnosis Onset Date Resolution Status Admit Date Cleft lip and palate, , affecting care of mother, antepartum acute November 02, 2024 1:37pm acute November 02 1:37pm Supervision of low-risk acute November 02, 2024 1:37pm Cleft lip and palate, , affecting care of mother, antepartum acute November 28, 2024 2: 42pm acute November 28, 2024 2:42pm Supervision of low-risk acute November 28, 2024 2: 42pm Cleft lip and palate, , affecting care of mother, antepartum acute December 14, 2024 1 :01pm acute December 14, 2024 1:01pm Supervision of low-risk acute December 14, 2024 1 :01pm Abnormal glucose affecting acute December 29, 2024 1 1:33am Cleft lip and palate, , affecting care of mother, antepartum acute December 29, 2024 1 1:33am Positive GBS test acute December 11:33am acute December 29, 2024 11:33am Supervision of low-risk acute December 29, 2024 1 1:33am Elevated white blood cell count reso lved December 29, 2024 11:33am Abnormal glucose affecting acute January 12, 2025 9:58am Cleft lip and palate, , affecting care of mother, antepartum acute January 12, 2025 9:58am Positive GBS test acute January 122024 9:58am acute January 12 9:58am Supervision of low-risk acute January 12, 2025 9:58am Elevated white blood cell count reso lved January 12, 2025 9:58am Abnormal glucose affecting acute January 26, 2025 3 :04pm Cleft lip and palate, , affecting care of mother, antepartum acute January 26, 2025 3 :04pm Positive GBS test acute January 3:04pm acute January 26, 2025 3:04pm Supervision of low-risk acute January 26, 2025 3 :04pm Abnormal glucose affecting acute February 07, 2025 9:34am Cleft lip and palate, , affecting care of mother, antepartum acute February 07, 2025 9:34am Positive GBS test acute February 072024 9:34am acute February 07 9:34am Supervision of low-risk acute February 07, 2025 9:34am Abnormal glucose affecting acute February 13, 2025 2:33pm Cleft lip and palate, , affecting care of mother, antepartum acute February 13, 2025 2:33pm Positive GBS test acute February 132024 2:33pm acute February 13 2:33pm Supervision of low-risk acute February 13, 2025 2:33pm Abnormal glucose affecting acute February 22, 2025 2:23pm Cleft lip and palate, , affecting care of mother, antepartum acute February 22, 2025 2:23pm Positive GBS test acute February 222024 2:23pm acute February 22 2:23pm Supervision of low-risk acute February 22, 2025 2:23pm [facility] Work Phone: 1(327) 326-964204-09-2025 Evaluation note* Diagnosis Onset Date Resolution Status Admit Date Cleft lip and palate, , affecting care of mother, antepartum acute November 02, 2024 1:37pm acute November 02 1:37pm Supervision of low-risk acute November 02, 2024 1:37pm Cleft lip and palate, , affecting care of mother, antepartum acute November 28, 2024 2: 42pm acute November 28, 2024 2:42pm Supervision of low-risk acute November 28, 2024 2: 42pm Cleft lip and palate, , affecting care of mother, antepartum acute December 14, 2024 1 :01pm acute December 14, 2024 1:01pm Supervision of low-risk acute December 14, 2024 1 :01pm Abnormal glucose affecting acute December 29, 2024 1 1:33am Cleft lip and palate, , affecting care of mother, antepartum acute December 29, 2024 1 1:33am Positive GBS test acute December 11:33am acute December 29, 2024 11:33am Supervision of low-risk acute December 29, 2024 1 1:33am Elevated white blood cell count resolved December 29, 2024 1 1:33am Abnormal glucose affecting acute January 12, 2025 9:58am Cleft lip and palate, , affecting care of mother, antepartum acute January 12, 2025 9:58am Positive GBS test acute January 122024 9:58am acute January 12 9:58am Supervision of low-risk acute January 12, 2025 9:58am Elevated white blood cell count resolved January 12, 2025 9:58am Abnormal glucose affecting acute January 26, 2025 3 :04pm Cleft lip and palate, , affecting care of mother, antepartum acute January 26, 2025 3 :04pm Positive GBS test acute January 3:04pm acute January 26, 2025 3:04pm Supervision of low-risk acute January 26, 2025 3 :04pm Abnormal glucose affecting acute February 07, 2025 9:34am Cleft lip and palate, , affecting care of mother, antepartum acute February 07, 2025 9:34am Positive GBS test acute February 072024 9:34am acute February 07 9:34am Supervision of low-risk acute February 07, 2025 9:34am Abnormal glucose affecting acute February 13, 2025 2:33pm Cleft lip and palate, , affecting care of mother, antepartum acute February 13, 2025 2:33pm Positive GBS test acute February 132024 2:33pm acute February 13 2:33pm Supervision of low-risk acute February 13, 2025 2:33pm Abnormal glucose affecting acute February 22, 2025 2:23pm Cleft lip and palate, , affecting care of mother, antepartum acute February 22, 2025 2:23pm Positive GBS test acute February 222024 2:23pm acute February 22 2:23pm Supervision of low-risk acute February 22, 2025 2:23pm Abnormal glucose affecting acute March 01, 2025 1:10pm Cleft lip and palate, , affecting care of mother, antepartum acute March 01, 2025 1:10pm Positive GBS test acute March 01, 2025 1:10pm acute March 01 1:10pm Supervision of low-risk acute March 01, 2025 1:10pm [facility] Work Phone: 1(373) 309-771503-14-2025 Evaluation note* Diagnosis Onset Date Resolution Status Admit Date acute October 07 2:50pm Supervision of low-risk acute October 07, 2024 2:50pm Cleft lip and palate, , affecting care of mother, antepartum acute November 02, 2024 1:37pm acute November 02 1:37pm Supervision of low-risk acute November 02, 2024 1:37pm Cleft lip and palate, , affecting care of mother, antepartum acute November 28, 2024 2: 42pm acute November 28, 2024 2:42pm Supervision of low-risk acute November 28, 2024 2: 42pm Cleft lip and palate, , affecting care of mother, antepartum acute December 14, 2024 1 :01pm acute December 14, 2024 1:01pm Supervision of low-risk acute December 14, 2024 1 :01pm Abnormal glucose affecting acute December 29, 2024 1 1:33am Cleft lip and palate, , affecting care of mother, antepartum acute December 29, 2024 1 1:33am Elevated white blood cell count acut e December 29, 2024 11:33am Positive GBS test acute December 11:33am acute December 29, 2024 11:33am Supervision of low-risk acute December 29, 2024 1 1:33am Abnormal glucose affecting acute January 12, 2025 9:58am Cleft lip and palate, , affecting care of mother, antepartum acute January 12, 2025 9:58am Elevated white blood cell count acut e January 12, 2025 9:58am Positive GBS test acute January 122024 9:58am acute January 12 9:58am Supervision of low-risk acute January 12, 2025 9:58am [facility] Work Phone: 1(273) 150-617903-14-2025 Evaluation note* Diagnosis Onset Date Resolution Status Admit Date acute October 07 2:50pm Supervision of low-risk acute October 07, 2024 2:50pm Cleft lip and palate, , affecting care of mother, antepartum acute November 02, 2024 1:37pm acute November 02 1:37pm Supervision of low-risk acute November 02, 2024 1:37pm Cleft lip and palate, , affecting care of mother, antepartum acute November 28, 2024 2: 42pm acute November 28, 2024 2:42pm Supervision of low-risk acute November 28, 2024 2: 42pm Cleft lip and palate, , affecting care of mother, antepartum acute December 14, 2024 1 :01pm acute December 14, 2024 1:01pm Supervision of low-risk acute December 14, 2024 1 :01pm Abnormal glucose affecting acute December 29, 2024 1 1:33am Cleft lip and palate, , affecting care of mother, antepartum acute December 29, 2024 1 1:33am Positive GBS test acute December 11:33am acute December 29, 2024 11:33am Supervision of low-risk acute December 29, 2024 1 1:33am Elevated white blood cell count resolved December 29, 2024 1 1:33am Abnormal glucose affecting acute January 12, 2025 9:58am Cleft lip and palate, , affecting care of mother, antepartum acute January 12, 2025 9:58am Positive GBS test acute January 122024 9:58am acute January 12 9:58am Supervision of low-risk acute January 12, 2025 9:58am Elevated white blood cell count resolved January 12, 2025 9:58am Abnormal glucose affecting acute January 26, 2025 3 :04pm Cleft lip and palate, , affecting care of mother, antepartum acute January 26, 2025 3 :04pm Positive GBS test acute January 3:04pm acute January 26, 2025 3:04pm Supervision of low-risk acute January 26, 2025 3 :04pm [facility] Work Phone: 1(678) 260-341802-14-2025 Evaluation note* Diagnosis Onset Date Resolution Status Admit Date acute September 09, 2024 1:58pm Bleeding in early resolved September 09, 2024 1:58pm Dyspareunia, female resolved 2024 1:58pm History of miscarriage, currently resolved August 1:58pm Supervision of high-risk resolved September 09, 2 025 1:58pm acute October 07 2:50pm Supervision of low-risk acute October 07, 2024 2:50pm Cleft lip and palate, , affecting care of mother, antepartum acute November 02, 2024 1:37pm acute November 02 1:37pm Supervision of low-risk acute November 02, 2024 1:37pm Cleft lip and palate, , affecting care of mother, antepartum acute November 28, 2024 2: 42pm acute November 28, 2024 2:42pm Supervision of low-risk acute November 28, 2024 2: 42pm Cleft lip and palate, , affecting care of mother, antepartum acute December 14, 2024 1 :01pm acute December 14, 2024 1:01pm Supervision of low-risk acute December 14, 2024 1 :01pm Abnormal glucose affecting acute December 29, 2024 1 1:33am Cleft lip and palate, , affecting care of mother, antepartum acute December 29, 2024 1 1:33am Elevated white blood cell count acute December 29, 2024 1 1:33am Positive GBS test acute December 11:33am acute December 29, 2024 11:33am Supervision of low-risk acute December 29, 2024 1 1:33am [facility] Work Phone: 1(341) 989-103001-21-2025 Evaluation note* Diagnosis Onset Date Resolution Status Admit Date acute August 16, 2024 10:15am Bleeding in early resolved August 16, 2024 10:15am Dyspareunia, female resolved 2024 10:15am History of miscarriage, currently resolved August 16, 2024 10:15am Supervision of high-risk resolved August 16 10:15am acute September 09, 2024 1:58pm Bleeding in early resolved September 09, 2024 1:58pm Dyspareunia, female resolved 2024 1:58pm History of miscarriage, currently resolved August 1:58pm Supervision of high-risk resolved September 09, 1:58pm acute October 07 2:50pm Supervision of low-risk acute October 07, 2024 2:50pm Cleft lip and palate, , affecting care of mother, antepartum acute November 02, 2024 1:37pm acute November 02 1:37pm Supervision of low-risk acute November 02, 2024 1:37pm Cleft lip and palate, , affecting care of mother, antepartum acute November 28, 2024 2: 42pm acute November 28, 2024 2:42pm Supervision of low-risk acute November 28, 2024 2: 42pm Cleft lip and palate, , affecting care of mother, antepartum acute December 14, 2024 1 :01pm acute December 14, 2024 1:01pm Supervision of low-risk acute December 14, 2024 1 :01pm [facility] Work Phone: Evaluation + Plan note No data available for this section [facility] Evaluation note* Diagnosis 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, fetus 1 of multiple gestation [facility] C[facility] lip and cleft palate- Primary Cleft lip and cleft palate, unspecified documented in this encounter [facility] No data available for this section [facility] Progress note No data available for this section [facility] Progress note Author Malena Means [facility] Note Date/Time January 12, 2025 10:3 8am [facility] [address], [address] [place] [address] OFFICE VISIT Date of Service: 01/12/25 MR#: [id number] Acct: [id number] Name: JESUS ASHER Rep #: [id number] : 1995 Provider: Dr. Amarilis Bean DO Age/Sex: 29/F Location: [facility] Status: Signed Intake Vital Signs 11/28/24 14:48 12/29/24 11:42 01/12/25 10:09 01/12/25 10:10 Height 5 ft 3 in 5 ft 3 in 5 ft 3 in 5 ft 3 in Weight: 129 lb 8 oz 131 lb 4 oz BMI 22.9 23.2 BP 122/80 H 129/89 H Intake Visit Reasons: 32 wk ob [place] Required: No Is patient in pain?: No Allergies No Known Allergies Allergy (Verified 01/12/25 10:08) Medications ?Medication ?Instructions ?Recorded ?Confirmed ?Type multivitamin no.47-iron fum 27 cap PO 07/29/24 5 History mg-folate no.1 1 mg-dha 300 mg capsule (PNV-DHA) Last Menstrual Period: 05/29/24 Zika: Zika virus screening: Negative : No PFSH PFSH Medical History Complete Dysmenorrhea Surgical History H/O wisdom tooth extraction Family History Grandmother Breast cancer Social History adopted: No household members: spouse current occupational status: employed 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 Date Name GA/Weeks Outcome Route Bth Weight Gen Labor Lgth Anesthesia Del Locatn Provider FOB 02/18/24 6 spontaneous HPI 32 wk ob Details: JESUS ASHER is a 29 year old who presents for routine OB visit. OB Visit JONATHAN Calculator Estimated Delivery Date Method Current WG Current Estimate 03/05/25 LMP (Certain) 32w 4d Other Estimates 03/11/25 Ultrasound #1 31w 5d Expected Delivery Route/Plan Labor Preferences- CB/BF [...] list details Initial Weight: Not Recorded Date -?-?-?-?-?-?-?-?-?-?-?-?- EGA Weight BP Urine Prot -?-?-?-?-?-?-?-?-?-?-?-?- Glucose FHR FuHt Pres Dilation -?-?-?-?-?-?-?-?-?-?-?-?- Effaced St Visit Note 08/16/24 -?-?-?-?-?-?-?-?-?-?-?-?- 11w 2d 104 lb 6 oz 130/80 -?-?-?-?-?-?-?-?-?-?-?-?- 185 -?-?-?--?-?-?-?-?-?-?-?-?- JV- CRL consiste nt with LMP. Desires nipt. 09/09/24 -?-?-?-?-?-?-?-?-?-?-?-?- 14w 5d 106 lb 4 oz 127/84 Nega tive -?-?-?-?-?-?-?-?-?-?-?-?- Negative 150 -?-?-?-?-?-?-?-?-?-?-?-?- KW- no vb/crampi ng. US scheduled. feeling better. AFP discussed and declines at this time. stretching and chiropractor for hip pain. 10/07/24 -?-?-?-?-?-?-?-?-?-?-?-?- 18w 5d 110 lb 6 oz 137/71 Nega tive -?-?-?-?-?-?-?-?-?-?-?-?- Negative 150 -?-?-?-?-?-?--?-?-?-?-?-?- SM- no vb crampi ng 11/02/24 -?-?-?-?-?-?-?-?-?-?-?-?- 22w 3d 116 lb 8 oz 120/72 Nega tive -?-?-?-?-?-?-?-?-?-?-?-?- Negative 150 -?-?-?-?-?-?-?-?-?-?-?-?- MH-No VB, LOF. F eeling movement/ant placenta. Baby with cleft lip & palate. See treatment next week 11/28/24 -?-?-?-?-?-?-?-?--?-?-?-?- 26w 1d 122 lb 4 oz 126/79 Nega tive -?-?-?-?-?-?-?-?-?-?-?-?- Negative 145 26 -?-?-?-?-?-?-?-?-?-?-?-?- JV- no complaint s today. planning GCT and tdap next visit. [place] at 29 weeks. 12/14/24 -?-?-?-?-?-?-?-?-?-?-?-?- 28w 3d 125 lb 6 oz 122/76 Nega tive -?-?-?-?-?-?-?-?-?-?-?-?- Negative 140 28 -?-?-?-?-?-?-?-?-?-?-?-?- JV- no complaint s. GCT today. tdap given. us from [facility] shows now a cleft lip + palate. following up with plastics december 30. 12/29/24 -?-?-?-?-?-?-?-?-?-?-?-?- 30w 4d 129 lb 8 oz 122/80 Nega tive -?-?-?-?-?-?-?-?-?-?-?-?- Negative 160 29 -?-?-?-?-?-?-?-?-?-?-?-?- KW- no vb/crampi ng. good fm. feels like she has a cold- repeat WBC in 3-4 weeks. passed 3 hour glucose. had meeting with plastics already. KW- no vb/cramping. good fm. feels like she has a cold- repeat WBC in 1-2 weeks. passed 3 hour glucose. had meeting with plastics already. will send complications worksheet to pedi team. LARC done 01/12/25 -?-?-?-?-?--?-?-?-?-?-?-?- 32w 4d 131 lb 4 oz 129/89 -?-?-?-?-?-?-?-?-?-?-?-?- 154 32 -?-?-?-?-?-?-?-?-?-?-?-?- JV- we discussed RSV vaccine. no lof, vaginal bleeding, or dec fm. ACOG First Trimester First Trimester: Discussed Coding Level of Care Code OB Routine Diagnoses Positive GBS test B95.1 Abnormal glucose affecting O99.810 Elevated white blood cell count D72.829 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, single or unspecified fetus O35.AXX0 Fetus number: single or unspecified fetus Encounter for supervision of low-risk in second trimester Z34.92 Trimester: second trimester 32 weeks gestation of Z3A.32 Weeks of gestation: 32 weeks Assessment and Plan Assessment and Plan (1) Positive GBS test: Status: Acute Comment: treat in labor (2) Abnormal glucose affecting : Status: Acute Comment: normal 3 hour (3) Elevated white blood cell count: Status: Acute Comment: redraw in one week (4) Cleft lip and palate, , affecting care of mother, antepartum: Status: Acute Qualifiers: Fetus number: single or unspecified fetus Qualified Code(s): O35.AXX0 - Maternal care for other (suspected) abnormality and damage, facial anomalies, not applicable or unspecified Comment: worksheet sent and approved to deliver at [facility], seen on anatomy US, treatment center referral. echo. Gave info on [facility]. Approved to deliver [facility]. (5) Supervision of low-risk : Status: Acute Qualifiers: Trimester: second trimester Qualified Code(s): Z34.92 - Encounter for supervision of normal , unspecified, second trimester Comment: PRR , JONATHAN 03/05/25, gender surprise for family Nican[place] (6) : Status: Acute Qualifiers: Weeks of gestation: 32 weeks Qualified Code(s): Z3A.32 - 32 weeks gestation of Comment: NIPT low risk, carrier neg. /14. GBS+ in urine. Orders: Orders POC Urinalysis 2 Dip (Clinic) Today 01/12/25 1038 <Electronically signed by Malena Kraus DO> Date _ Malena Bean DO Cosigner Signature: Date (if applicable) CC: ~ [facility] Work Phone: Progress note Author Malena Means [facility] Note Date/Time February 07, 2025 10:[address] [facility] [address], [address] [place] [address] OFFICE VISIT Date of Service: 02/07/25 MR#: [id number] Acct: [id number] Name: HYUNJESUSCHRISTOFER CROCKETT Rep #: [id number] : 1995 Provider: Dr. Amarilis Bean DO Age/Sex: 29/F Location: [facility] Status: Signed Intake Vital Signs 11/28/24 14:48 01/26/25 15:08 02/07/25 09:52 Height 5 ft 3 in 5 ft 3 in 5 ft 3 in Weight: 135 lb 6 oz 137 lb 2 oz BMI 24.0 24.3 BP 125/74 H 122/73 H Intake Visit Reasons: 36 wk ob Chief Complaint: 36wk OB Carrot Tier Required: No Is patient in pain?: No Allergies No Known Allergies Allergy (Verified 02/07/25 09:50) Medications ?Medication ?Instructions ?Recorded ?Confirmed ?Type multivitamin no.47-iron fum 27 cap PO 07/29/24 5 History mg-folate no.1 1 mg-dha 300 mg capsule (PNV-DHA) Last Menstrual Period: 05/29/24 : No PFSH PFSH Medical History Complete Dysmenorrhea Surgical History H/O wisdom tooth extraction Family History Grandmother Breast cancer Social History adopted: No household members: spouse current occupational status: employed 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 Date Name GA/Weeks Outcome Route Bth Weight Infant Gen Labor Lgth Anesthesia Del [facility] Provider FOB 02/18/24 6 spontaneous HPI 36 wk ob Details: JESUS ASHER is a 29 year old who presents for routine OB visit. OB Visit JONATHAN Calculator Estimated Delivery Date Method Current WG Current Estimate 03/05/25 LMP (Certain) 36w 2d Other Estimates 03/11/25 Ultrasound #1 35w 3d Expected Delivery Route/Plan Labor Preferences- CB/BF classes: [] labor support person: [] labor intervention preferences: [] pain management options preferred: [] cut cord/dad catch: [] : [] PP control planned: [] discussed possible routes of delivery and associated risks: [] special requests: [] Specific Issue/Plans Covid status: [] Flu vaccine: [] Tdap vaccine: given Rhogam: na LARC form signed: declined] Problem list reviewed and updated with the most current plan of care details andappropriate orders placed. Relevant counseling for the gestational age provided. Continue routine care and follow up unless otherwise noted in visit notes/problem list details Initial Weight: Not Recorded Date -?-?-?-?-?-?-?-?-?-?-?-?- EGA Weight BP Urine Prot -?-?-?-?-?-?-?-?-?-?-?-?- Glucose FHR FuHt Pres Dilation -?-?-?-?-?-?-?-?-?-?-?-?- Effaced St Visit Note 08/16/24 -?-?-?-?-?-?-?-?-?-?-?-?- 11w 2d 104 lb 6 oz 130/80 -?-?-?-?-?-?-?-?-?-?-?-?- 185 -?-?-?-?-?-?-?-?-?-?-?-?- JV- CRL consiste nt with LMP. Desires nipt. 09/09/24 -?-?-?-?-?-?-?-?-?-?-?-?- 14w 5d 106 lb 4 oz 127/84 Nega tive -?-?-?-?-?-?-?-?-?-?-?-?- Negative 150 -?-?-?-?-?-?-?-?-?-?-?-?- KW- no vb/crampi ng. US scheduled. feeling better. AFP discussed and declines at this time. stretching and chiropractor for hip pain. 10/07/24 -?-?-?-?-?-?-?-?-?-?-?-?- 18w 5d 110 lb 6 oz 137/71 Nega tive -?-?-?-?-?-?-?-?-?-?-?-?- Negative 150 -?-?-?-?-?-?-?-?-?-?-?-?- SM- no vb crampi ng 11/02/24 -?-?-?-?-?-?-?-?-?-?-?-?- 22w 3d 116 lb 8 oz 120/72 Nega tive -?-?-?-?-?-?-?-?-?-?-?-?- Negative 150 -?-?-?-?-?-?-?-?-?-?-?-?- MH-No VB, LOF. F eeling movement/ant placenta. Baby with cleft lip & palate. See treatment next week 11/28/24 -?-?-?-?-?-?-?-?-?-?-?-?- 26w 1d 122 lb 4 oz 126/79 Nega tive -?-?-?-?-?-?-?-?-?-?-?-?- Negative 145 26 -?-?-?-?-?-?-?-?-?-?-?-?- JV- no complaint s today. planning GCT and tdap next visit. [place] at 29 weeks. 12/14/24 -?-?-?-?-?-?-?-?-?-?-?-?- 28w 3d 125 lb 6 oz 122/76 Nega tive -?-?-?-?-?-?-?-?-?-?-?-?- Negative 140 28 -?-?-?-?-?-?-?-?-?-?-?-?- JV- no complaint s. GCT today. tdap given. us from [facility] shows now a cleft lip + palate. following up with plastics december 30. 12/29/24 -?-?-?-?-?-?-?-?-?-?-?-?- 30w 4d 129 lb 8 oz 122/80 Nega tive -?-?-?-?-?-?-?-?-?-?-?-?- Negative 160 29 -?-?-?-?-?-?-?-?-?-?-?-?- KW- no vb/crampi ng. good fm. feels like she has a cold- repeat WBC in 3-4 weeks. passed 3 hour glucose. had meeting with plastics already. KW- no vb/cramping. good fm. feels like she has a cold- repeat WBC in 1-2 weeks. passed 3 hour glucose. had meeting with plastics already. will send complications worksheet to pedi team. LARC done 01/12/25 -?-?-?-?-?-?-?-?-?-?-?-?- 32w 4d 131 lb 4 oz 129/89 Nega tive -?-?-?-?-?-?-?-?-?-?-?-?- Negative 154 32 -?-?-?-?-?-?-?-?-?-?-?-?- JV- we discussed RSV vaccine. no lof, vaginal bleeding, or dec fm. 01/26/25 -?-?-?-?-?-?-?-?-?-?-?-?- 34w 4d 135 lb 6 oz 125/74 Nega tive -?-?-?-?-?-?-?-?-?-?-?-?- Negative 145 32 -?-?-?-?-?-?-?-?-?-?-?-?- Sm- no vb lof go od fm no regular ctx 02/07/25 -?-?-?-?-?-?-?-?-?-?-?-?- 36w 2d 137 lb 2 oz 122/73 Nega tive -?-?-?-?-?-?-?-?-?-?-?-?- Negative 160 34 -?-?-?-?-?-?-?-?-?-?-?-?- JV- no lof vagin al bleeding, or dec fm. JV- no lof vaginal bleeding, or dec fm. measuring small, however growth and fluid were normal on 01/31 ACOG First Trimester First Trimester: Discussed Results POC Urinalysis 2 Dip (Clinic) Office Urine Glucose Negative Last Edit by Codi Ray on 02/07/25 09:59 Office Urine Protein Negative Last Edit by Codi Ray on 02/07/25 09:59 Coding Level of Care Code OB Routine Diagnoses Positive GBS test B95.1 Abnormal glucose affecting O99.810 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, single or unspecified fetus O35.AXX0 Fetus number: single or unspecified fetus Encounter for supervision of low-risk in second trimester Z34.92 Trimester: second trimester 36 weeks gestation of Z3A.36 Weeks of gestation: 36 weeks Assessment and Plan Assessment and Plan (1) Positive GBS test: Status: Acute Comment: treat in labor (2) Abnormal glucose affecting : Status: Acute Comment: normal 3 hour (3) Cleft lip and palate, , affecting care of mother, antepartum: Status: Acute Qualifiers: Fetus number: single or unspecified fetus Qualified Code(s): O35.AXX0 -Maternal care for other (suspected) abnormality and damage, facial anomalies, not applicable or unspecified Comment: worksheet sent and approved to deliver at [facility], seen on anatomy US, fetaltreatment center referral. echo. Gave info on [facility]. Approved to deliver [facility]. (4) Supervision of low-risk : Status: Acute Qualifiers: Trimester: second trimester Qualified Code(s): Z34.92 - Encounter for supervision of normal , unspecified, second trimester Comment: PRR , JONATHAN 03/05/25, gender surprise for family Nicanor (5) : Status: Acute Qualifiers: Weeks of gestation: 36 weeks Qualified Code(s): Z3A.36 - 36 weeks gestation of Comment: NIPT low risk, carrier neg. . GBS+ in urine. Orders: Orders POC Urinalysis 2 Dip (Clinic) Today 02/07/25 1052 <Electronically signed by Malena Kraus DO> Date _ Malena Bean DO Cosigner Signature: Date (if applicable) CC: ~ [facility] Work Phone: Reason for referral (narrative)No reason for referral information available[facility] Work Phone: Summary Purpose Family History No Family History Records Found Relationship Condition Age at Onset Recorded Date/T scotty grandmother Malignant neoplasm of breast Unknown Advance Directives No Advanced Directives Records FoundNo Advanced Directives Records FoundNo Advanced Directives Records FoundNo Advanced Directives Records FoundNo Advanced Directives Records Found Chief Complaint and Reason for Visit Chief Complaint Admit Date NOB LMP 11/3 August 16, 2024 1 0:15am 14wk OB September [...] December 142024 1:01pm Chief Complaint Admit Date 14wk OB September 09, 2024 1:58pm 18 [...] December 142024 1:01pm Abnormal glucose affecting Arthur 2024 11:33am Cleft lip and palate, , affecting care of mother, antepartum December 29, 2024 11:33am Elevated white blood cell count December 11:33am Positive GBS test December 29, 2024 11:33 am December 29, 2024 11:33 am Supervision of low-risk December 292024 11:33am Chief Complaint Admit Date 18 wk ob October 07, 2024 2:5 0pm 22wk ob November 02, 2024 1:37 pm 26 WK OB November 28, 2024 2:42pm 28 wk ob/glucose December 14, 2024 1:01p m SCREEN FOR GESTATIONAL DM December 27, 2024 6:48am 30 wk ob December 29, 2024 11:33 am 32 wk ob January 12, 2025 9:58 am Reason for Visit Admit Date October 07, 2024 2:5 0pm Supervision of [...] low-risk December 142024 1:01pm Abnormal glucose affecting Dec 11:33am Cleft lip and palate, , affecting care of mother, antepartum December 29, 2024 11:33am Elevated white blood cell count December 11:33am Positive GBS test December 29, 2024 11:33 am December 29, 2024 11:33 am Supervision of low-risk December 292024 11:33am Abnormal glucose affecting Arthur 2024 9:58am Cleft lip and palate, , affecting care of mother, antepartum January 12, 2025 9:58am Elevated white blood cell count December 9:58am Positive GBS test January 12, 2025 9:58 am January 12, 2025 9:58 am Supervision of low-risk December 252024 9:58am Chief Complaint Admit Date 18 wk ob October 07, 2024 2:5 0pm 22wk ob November 02, 2024 1:37 pm 26 WK OB November 28, 2024 2:42pm 28 wk ob/glucose December 14, 2024 1:01p m SCREEN FOR GESTATIONAL DM December 27, 2024 6:48am 30 wk ob December 29, 2024 11:33 am 32 wk ob January 12, 2025 9:58 am 34 wk ob January 26, 2025 3:04p m Reason for Visit Admit Date October 07, 2024 2:5 0pm Supervision of [...] low-risk December 142024 1:01pm Abnormal glucose affecting Dec 11:33am Cleft lip and palate, , affecting care of mother, antepartum December 29, 2024 11:33am Positive GBS test December 29, 2024 11:33 am December 29, 2024 11:33 am Supervision of low-risk December 292024 11:33am Elevated white blood cell count December 11:33am Abnormal glucose affecting Arthur 2024 9:58am Cleft lip and palate, , affecting care of mother, antepartum January 12, 2025 9:58am Positive GBS test January 12, 2025 9:58 am January 12, 2025 9:58 am Supervision of low-risk December 252024 9:58am Elevated white blood cell count December 9:58am Abnormal glucose affecting Giovanni 2024 3:04pm Cleft lip and palate, , affecting care of mother, antepartum January 26, 2025 3:04pm Positive GBS test January 26, 2025 3:04p m January 26, 2025 3:04p m Supervision of low-risk January 262024 3:04pm Chief Complaint Admit Date 22wk ob November 02, 2024 1:37 pm 26 WK OB November 28, 2024 2:42pm 28 wk ob/glucose December 14, 2024 1:01p m SCREEN FOR GESTATIONAL DM December 27, 2024 6:48am 30 wk ob December 29, 2024 11:33 am 32 wk ob January 12, 2025 9:58 am 34 wk ob January 26, 2025 3:04p m 36 wk ob February 07, 2025 9:34 am Reason for Visit Admit Date Cleft lip and palate, , affecting care [...] low-risk December 142024 1:01pm Abnormal glucose affecting Dec 11:33am Cleft lip and palate, , affecting care of mother, antepartum December 29, 2024 11:33am Positive GBS test December 29, 2024 11:33 am December 29, 2024 11:33 am Supervision of low-risk December 292024 11:33am Elevated white blood cell count December 11:33am Abnormal glucose affecting Dec 9:58am Cleft lip and palate, , affecting care of mother, antepartum January 12, 2025 9:58am Positive GBS test January 12, 2025 9:58 am January 12, 2025 9:58 am Supervision of low-risk December 252024 9:58am Elevated white blood cell count December 9:58am Abnormal glucose affecting Jan 3:04pm Cleft lip and palate, , affecting care of mother, antepartum January 26, 2025 3:04pm Positive GBS test January 26, 2025 3:04p m January 26, 2025 3:04p m Supervision of low-risk January 262024 3:04pm Abnormal glucose affecting Giovanni 2024 9:34am Cleft lip and palate, , affecting care of mother, antepartum February 07, 2025 9:34am Positive GBS test February 07, 2025 9:34 am February 07, 2025 9:34 am Supervision of low-risk January 242024 9:34am Chief Complaint Admit Date 22wk ob November 02, 2024 1:37 pm 26 WK OB November 28, 2024 2:42pm 28 wk ob/glucose December 14, 2024 1:01p m SCREEN FOR GESTATIONAL DM December 27, 2024 6:48am 30 wk ob December 29, 2024 11:33 am 32 wk ob January 12, 2025 9:58 am 34 wk ob January 26, 2025 3:04p m 36 wk ob February 07, 2025 9:34 am 37 wk ob February 13, 2025 2:33 pm Reason for Visit Admit Date Cleft lip and palate, , affecting care [...] low-risk December 142024 1:01pm Abnormal glucose affecting Dec 11:33am Cleft lip and palate, , affecting care of mother, antepartum December 29, 2024 11:33am Positive GBS test December 29, 2024 11:33 am December 29, 2024 11:33 am Supervision of low-risk December 292024 11:33am Elevated white blood cell count December 11:33am Abnormal glucose affecting Arthur e 2024 9:58am Cleft lip and palate, , affecting care of mother, antepartum January 12, 2025 9:58am Positive GBS test January 12, 2025 9:58 am January 12, 2025 9:58 am Supervision of low-risk December 252024 9:58am Elevated white blood cell count December 9:58am Abnormal glucose affecting Jan 3:04pm Cleft lip and palate, , affecting care of mother, antepartum January 26, 2025 3:04pm Positive GBS test January 26, 2025 3:04p m January 26, 2025 3:04p m Supervision of low-risk January 262024 3:04pm Abnormal glucose affecting Jan 9:34am Cleft lip and palate, , affecting care of mother, antepartum February 07, 2025 9:34am Positive GBS test February 07, 2025 9:34 am February 07, 2025 9:34 am Supervision of low-risk January 242024 9:34am Abnormal glucose affecting Jan 2:33pm Cleft lip and palate, , affecting care of mother, antepartum February 13, 2025 2:33pm Positive GBS test February 13, 2025 2:33 pm February 13, 2025 2:33 pm Supervision of low-risk January 252024 2:33pm Chief Complaint Admit Date 22wk ob November 02, 2024 1:37 pm 26 WK OB November 28, 2024 2:42pm 28 wk ob/glucose December 14, 2024 1:01p m SCREEN FOR GESTATIONAL DM December 27, 2024 6:48am 30 wk ob December 29, 2024 11:33 am 32 wk ob January 12, 2025 9:58 am 34 wk ob January 26, 2025 3:04p m 36 wk ob February 07, 2025 9:34 am 37 wk ob February 13, 2025 2:33 pm 38 wk ob February 22, 2025 2:23 pm Reason for Visit Admit Date Cleft lip and palate, , affecting care [...] low-risk December 142024 1:01pm Abnormal glucose affecting Dec 11:33am Cleft lip and palate, , affecting care of mother, antepartum December 29, 2024 11:33am Positive GBS test December 29, 2024 11:33 am December 29, 2024 11:33 am Supervision of low-risk December 292024 11:33am Elevated white blood cell count December 11:33am Abnormal glucose affecting Arthur e 2024 9:58am Cleft lip and palate, , affecting care of mother, antepartum January 12, 2025 9:58am Positive GBS test January 12, 2025 9:58 am January 12, 2025 9:58 am Supervision of low-risk December 252024 9:58am Elevated white blood cell count December 9:58am Abnormal glucose affecting Jan 3:04pm Cleft lip and palate, , affecting care of mother, antepartum January 26, 2025 3:04pm Positive GBS test January 26, 2025 3:04p m January 26, 2025 3:04p m Supervision of low-risk January 262024 3:04pm Abnormal glucose affecting Jan 9:34am Cleft lip and palate, , affecting care of mother, antepartum February 07, 2025 9:34am Positive GBS test February 07, 2025 9:34 am February 07, 2025 9:34 am Supervision of low-risk January 242024 9:34am Abnormal glucose affecting Jan 2:33pm Cleft lip and palate, , affecting care of mother, antepartum February 13, 2025 2:33pm Positive GBS test February 13, 2025 2:33 pm February 13, 2025 2:33 pm Supervision of low-risk January 252024 2:33pm Abnormal glucose affecting Jan 2:23pm Cleft lip and palate, , affecting care of mother, antepartum February 22, 2025 2:23pm Positive GBS test February 22, 2025 2:23 pm February 22, 2025 2:23 pm Supervision of low-risk January 262024 2:23pm Chief Complaint Admit Date 22wk ob November 02, 2024 1:37 pm 26 WK OB November 28, 2024 2:42pm 28 wk ob/glucose December 14, 2024 1:01p m SCREEN FOR GESTATIONAL DM December 27, 2024 6:48am 30 wk ob December 29, 2024 11:33 am 32 wk ob January 12, 2025 9:58 am 34 wk ob January 26, 2025 3:04p m 36 wk ob February 07, 2025 9:34 am 37 wk ob February 13, 2025 2:33 pm 38 wk ob February 22, 2025 2:23 pm 39 wk ob March 01, 2025 1:1 0pm Reason for Visit Admit Date Cleft lip and palate, , affecting care [...] low-risk December 142024 1:01pm Abnormal glucose affecting Dec 11:33am Cleft lip and palate, , affecting care of mother, antepartum December 29, 2024 11:33am Positive GBS test December 29, 2024 11:33 am December 29, 2024 11:33 am Supervision of low-risk December 292024 11:33am Elevated white blood cell count December 11:33am Abnormal glucose affecting Arthur 2024 9:58am Cleft lip and palate, , affecting care of mother, antepartum January 12, 2025 9:58am Positive GBS test January 12, 2025 9:58 am January 12, 2025 9:58 am Supervision of low-risk December 252024 9:58am Elevated white blood cell count December 9:58am Abnormal glucose affecting Jan 3:04pm Cleft lip and palate, , affecting care of mother, antepartum January 26, 2025 3:04pm Positive GBS test January 26, 2025 3:04p m January 26, 2025 3:04p m Supervision of low-risk January 262024 3:04pm Abnormal glucose affecting Jan 9:34am Cleft lip and palate, , affecting care of mother, antepartum February 07, 2025 9:34am Positive GBS test February 07, 2025 9:34 am February 07, 2025 9:34 am Supervision of low-risk January 242024 9:34am Abnormal glucose affecting Jan 2:33pm Cleft lip and palate, , affecting care of mother, antepartum February 13, 2025 2:33pm Positive GBS test February 13, 2025 2:33 pm February 13, 2025 2:33 pm Supervision of low-risk January 252024 2:33pm Abnormal glucose affecting Jan 2:23pm Cleft lip and palate, , affecting care of mother, antepartum February 22, 2025 2:23pm Positive GBS test February 22, 2025 2:23 pm February 22, 2025 2:23 pm Supervision of low-risk January 262024 2:23pm Abnormal glucose affecting Aug us2024 1:10pm Cleft lip and palate, , affecting care of mother, antepartum March 01, 2025 1:10pm Positive GBS test March 01, 2025 1:1 0pm March 01, 2025 1:1 0pm Supervision of low-risk March 01, 2025 1:10pm Chief Complaint Admit Date 26 WK OB November 28, 2024 2:42pm 28 wk ob/glucose December 14, 2024 1:01p m SCREEN FOR GESTATIONAL DM December 27, 2024 6:48am 30 wk ob December 29, 2024 11:33 am 32 wk ob January 12, 2025 9:58 am 34 wk ob January 26, 2025 3:04p m 36 wk ob February 07, 2025 9:34 am 37 wk ob February 13, 2025 2:33 pm 38 wk ob February 22, 2025 2:23 pm 39 wk ob March 01, 2025 1:1 0pm 40 wk ob Due date 03/05March 06, 2025 11:25am Reason for Visit Admit Date Cleft lip and palate, , affecting care of mother, antepartum November 28, 2024 2:42pm November 28, 2024 2:42pm Supervision of low-risk November 2:42pm Cleft lip and palate, , affecting care of mother, antepartum December 14, 2024 1:01pm December 14, 2024 1:01p m Supervision of low-risk December 142024 1:01pm Abnormal glucose affecting Dec 11:33am Cleft lip and palate, , affecting care of mother, antepartum December 29, 2024 11:33am Positive GBS test December 29, 2024 11:33 am December 29, 2024 11:33 am Supervision of low-risk December 292024 11:33am Elevated white blood cell count December 11:33am Abnormal glucose affecting Arthur e 2024 9:58am Cleft lip and palate, , affecting care of mother, antepartum January 12, 2025 9:58am Positive GBS test January 12, 2025 9:58 am January 12, 2025 9:58 am Supervision of low-risk December 252024 9:58am Elevated white blood cell count December 9:58am Abnormal glucose affecting Jan 3:04pm Cleft lip and palate, , affecting care of mother, antepartum January 26, 2025 3:04pm Positive GBS test January 26, 2025 3:04p m January 26, 2025 3:04p m Supervision of low-risk January 262024 3:04pm Abnormal glucose affecting Jan 9:34am Cleft lip and palate, , affecting care of mother, antepartum February 07, 2025 9:34am Positive GBS test February 07, 2025 9:34 am February 07, 2025 9:34 am Supervision of low-risk January 242024 9:34am Abnormal glucose affecting Jan 2:33pm Cleft lip and palate, , affecting care of mother, antepartum February 13, 2025 2:33pm Positive GBS test February 13, 2025 2:33 pm February 13, 2025 2:33 pm Supervision of low-risk January 252024 2:33pm Abnormal glucose affecting Jan 2:23pm Cleft lip and palate, , affecting care of mother, antepartum February 22, 2025 2:23pm Positive GBS test February 22, 2025 2:23 pm February 22, 2025 2:23 pm Supervision of low-risk January 262024 2:23pm Abnormal glucose affecting Feb 1:10pm Cleft lip and palate, , affecting care of mother, antepartum March 01, 2025 1:10pm Positive GBS test March 01, 2025 1:1 0pm March 01, 2025 1:1 0pm Supervision of low-risk March 01, 2025 1:10pm Abnormal glucose affecting Feb 11:25am Cleft lip and palate, , affecting care of mother, antepartum March 06, 2025 11:25am Positive GBS test March 06, 2025 11 :25am March 06, 2025 11 :25am Supervision of low-risk March 06, 2025 11:25am Additional Source Comments INFORMATION SOURCE (unrecogn ized section and content) DATE CREATED AUTHOR 07/01/2019 [employer] DATE CREATED AUTHOR AUTHOR'S ORGANIZ ATION 07/25/2021 [facility] DATE CREATED AUTHOR AUTHOR'S ORGANIZ ATION 04/04/2022 [facility] ([place] DATE CREATED AUTHOR AUTHOR'S ORGANIZ ATION 03/02/2025 [facility] DATE CREATED AUTHOR AUTHOR'S ORGANIZ ATION 03/07/2025 [facility] Care Team (unrecognized sect ion and content) Care Team Personnel Name: ETIENNE DE SANTIAGO DO Position: P4 Physician - Primary Care Member Role: Primary Care Physician Address: Address: [address] [facility] [place], [place] [address] Care Team Related Persons Name: NICANOR ASHER Address: Home [address], [place] [id number] [place] Address: Temporary [address], [place] [id number] Care Teams (unrecognized sec tion and content) Reordering Clerk Relationship Specialty Start Date End Date Etienne De Santiago DO [address] [place] [address] PCP - General 10/08/24 Team Status: Active [...] End: November 02, 2024 Merlyn Rios NP, IT PROJECT COORDINATOR-C Attending Provider Active Start: November 02, 2024 [...] Provider Activ e Start: December 14, 2024 Reordering Clerk Relationship Specialty Start Date End Date Etienne De Santiago DO [address] [place] [id number] PCP - General 10/08/24 Jailene Ayers CCC-[employer] [address] Speech Language Pathologist Speech Pathology 12/26/24 Team [...] December 27, 2024 End: December 27, 2024 Team Status: Inactive Member Role Status Dates Dr. Etienne De Santiago DO Primary Care Provider Active Start: January 03, 2025 End: January 03, 2025 Heather Mahmood CNM Attending Provider Active S tart: January 03, 2025 End: January 03, 2025 Heather Mahmood CNM Referring Provider Active S tart: January 03, 2025 End: January 03, 2025 Team Status: Inactive Member Role Status Dates Dr. Etienne De Santiago DO Primary Care Provider Active Start: January 12, 2025 End: January 12, 2025 Dr. Etienne De Santiago DO Referring Provider Active Start: January 12, 2025 End: January 12, 2025 Dr. Malena Bean DO Attending Provider Activ e Start: January 12, 2025 End: January 12, 2025 Team Status: Active Member Role/Relationship Status Dates Dr. Etienne De Santiago DO Primary Care Provider Active Team Status: Inactive Member Role/Relationship Status Dates Dr. Etienne De Santiago DO Primary Care Provider Active Start: October 07, 2024 End: October 07, 2024 Dr. Etienne De Santiago DO Referring Provider Active Start: October 07, 2024 End: October 07, 2024 Dr. Maylin Cadena MD Attending Provider Active Start: October 07, 2024 End: October 07, 2024 Team Status: Inactive Member Role/Relationship Status Dates Dr. Etienne De Santiago DO Primary Care Provider Active Start: November 02, 2024 End: November 02, 2024 Dr. Etienne De Santiago DO Referring Provider Active Start: November 02, 2024 End: November 02, 2024 Merlyn Rios IT PROJECT COORDINATOR, IT PROJECT COORDINATOR-C Attending Provider Active Start: November 02, 2024 End: November 02, 2024 Team Status: Inactive Member Role/Relationship Status Dates Dr. Etienne De Santiago DO Primary Care Provider Active Start: November 28, 2024 End: November 28, 2024 Dr. Etienne De Santiago DO Referring Provider Active Start: November 28, 2024 End: November 28, 2024 Dr. Malena Bean DO Attending Provider Activ e Start: November 28, 2024 End: November 28, 2024 Team Status: Inactive Member Role/Relationship Status Dates Dr. Etienne De Santiago DO Primary Care Provider Active Start: December 14, 2024 End: December 14, 2024 Dr. Etienne De Santiago DO Referring Provider Active Start: December 14, 2024 End: December 14, 2024 Dr. Malena Bean , DO Attending Provider Activ e Start: December 14, 2024 End: December 14, 2024 Team Status: Inactive Member Role/Relationship Status Dates Dr. Etienne De Santiago DO Primary Care Provider Active Start: December 14, 2024 End: December 14, 2024 Dr. Malena Bean , DO Attending Provider Activ e Start: December 14, 2024 End: December 14, 2024 Team Status: Inactive Member Role/Relationship Status Dates Dr. Etienne De Santiago DO Primary Care Provider Active Start: December 27, 2024 End: December 27, 2024 Dr. Malena Bean , DO Attending Provider Activ e Start: December 27, 2024 End: December 27, 2024 Dr. Malena Bean DO Referring Provider Activ e Start: December 27, 2024 End: December 27, 2024 Team Status: Inactive Member Role/Relationship Status Dates Dr. Etienne De Santiago DO Primary Care Provider Active Start: December 29, 2024 End: December 29, 2024 Dr. Etienne De Santiago DO Referring Provider Active Start: December 29, 2024 End: December 29, 2024 Heather Mahmood CNM Attending Provider Active S tart: December 29, 2024 End: December 29, 2024 Team Status: Inactive Member Role/Relationship Status Dates Dr. Etienne De Santiago DO Primary Care Provider Active Start: January 03, 2025 End: January 03, 2025 Heather Mahmood CNM Attending Provider Active S tart: January 03, 2025 End: January 03, 2025 Heather Mahmood CNM Referring Provider Active S tart: January 03, 2025 End: January 03, 2025 Team Status: Inactive Member Role/Relationship Status Dates Dr. Etienne De Santiago DO Primary Care Provider Active Start: January 12, 2025 End: January 12, 2025 Dr. Etienne De Santiago DO Referring Provider Active Start: January 12, 2025 End: January 12, 2025 Dr. Malena Bean DO Attending Provider Activ e Start: January 12, 2025 End: January 12, 2025 Team Status: Inactive Member Role/Relationship Status Dates Dr. Etienne De Santiago DO Primary Care Provider Active Start: January 26, 2025 End: January 26, 2025 Dr. Etienne De Santiago DO Referring Provider Active Start: January 26, 2025 End: January 26, 2025 Dr. Maylin Cadena MD Attending Provider Active Start: January 26, 2025 End: January 26, 2025 Team Status: Inactive Member Role/Relationship Status Dates Dr. Etienne De Santiago DO Primary Care Provider Active Start: November 02, 2024 End: November 02, 2024 Dr. Etienne De Santiago DO Referring Provider Active Start: November 02, 2024 End: November 02, 2024 Merlyn Rois NP, IT PROJECT COORDINATOR-C Attending Provider Active Start: November 02, 2024 End: November 02, 2024 Team Status: Inactive Member Role/Relationship Status Dates Dr. Etienne De Santiago DO Primary Care Provider Active Start: November 28, 2024 End: November 28, 2024 Dr. Etienne De Santiago DO Referring Provider Active Start: November 28, 2024 End: November 28, 2024 Dr. Malena Bean DO Attending Provider Activ e Start: November 28, 2024 End: November 28, 2024 Team Status: Inactive Member Role/Relationship Status Dates Dr. Etienne De Santiago DO Primary Care Provider Active Start: December 14, 2024 End: December 14, 2024 Dr. Etienne De Santiago DO Referring Provider Active Start: December 14, 2024 End: December 14, 2024 Dr. Malena Bean DO Attending Provider Activ e Start: December 14, 2024 End: December 14, 2024 Team Status: Inactive Member Role/Relationship Status Dates Dr. Etienne De Santiago DO Primary Care Provider Active Start: December 14, 2024 End: December 14, 2024 Dr. Malena Bean DO Attending Provider Activ e Start: December 14, 2024 End: December 14, 2024 Team Status: Inactive Member Role/Relationship Status Dates Dr. Etienne De Santiago DO Primary Care Provider Active Start: December 27, 2024 End: December 27, 2024 Dr. Malena Bean DO Attending Provider Activ e Start: December 27, 2024 End: December 27, 2024 Dr. Malena Bean DO Referring Provider Activ e Start: December 27, 2024 End: December 27, 2024 Team Status: Inactive Member Role/Relationship Status Dates Dr. Etienne De Santiago DO Primary Care Provider Active Start: December 29, 2024 End: December 29, 2024 Dr. Etienne De Santiago DO Referring Provider Active Start: December 29, 2024 End: December 29, 2024 Heather Mahmood CNM Attending Provider Active S tart: December 29, 2024 End: December 29, 2024 Team Status: Inactive Member Role/Relationship Status Dates Dr. Etienne De Santiago DO Primary Care Provider Active Start: January 03, 2025 End: January 03, 2025 Heather Mahmood CNM Attending Provider Active S tart: January 03, 2025 End: January 03, 2025 Heather Mahmood CNM Referring Provider Active S tart: January 03, 2025 End: January 03, 2025 Team Status: Inactive Member Role/Relationship Status Dates Dr. Etienne De Santiago DO Primary Care Provider Active Start: January 12, 2025 End: January 12, 2025 Dr. Etienne De Santiago DO Referring Provider Active Start: January 12, 2025 End: January 12, 2025 Dr. Malena Bean DO Attending Provider Activ e Start: January 12, 2025 End: January 12, 2025 Team Status: Inactive Member Role/Relationship Status Dates Dr. Etienne De Santiago DO Primary Care Provider Active Start: January 26, 2025 End: January 26, 2025 Dr. Etienne De Santiago DO Referring Provider Active Start: January 26, 2025 End: January 26, 2025 Dr. Maylin Cadena MD Attending Provider Active Start: January 26, 2025 End: January 26, 2025 Team Status: Inactive Member Role/Relationship Status Dates Dr. Etienne De Santiago DO Primary Care Provider Active Start: February 07, 2025 End: February 07, 2025 Dr. Etienne De Santiago DO Referring Provider Active Start: February 07, 2025 End: February 07, 2025 Dr. Malena Bean DO Attending Provider Activ e Start: February 07, 2025 End: February 07, 2025 Team Status: Inactive Member Role/Relationship Status Dates Dr. Etienne De Santiago DO Primary Care Provider Active Start: February 13, 2025 End: February 13, 2025 Dr. Etienne De Santiago DO Referring Provider Active Start: February 13, 2025 End: February 13, 2025 Heather Mahmood CNM Attending Provider Active S tart: February 13, 2025 End: February 13, 2025 Team Status: Inactive Member Role/Relationship Status Dates Dr. Etienne De Santiago DO Primary Care Provider Active Start: February 22, 2025 End: February 22, 2025 Dr. Etienne De Santiago DO Referring Provider Active Start: February 22, 2025 End: February 22, 2025 Dr. Malena Bean DO Attending Provider Activ e Start: February 22, 2025 End: February 22, 2025 Team Status: Inactive Member Role/Relationship Status Dates Dr. Etienne De Santiago DO Primary Care Provider Active Start: March 01, 2025 End: March 01, 2025 Dr. Etienne De Santiago DO Referring Provider Active Start: March 01, 2025 End: March 01, 2025 Heather Mahmood CNM Attending Provider Active S tart: March 01, 2025 End: March 01, 2025 Team Status: Inactive Member Role/Relationship Status Dates Dr. Etienne De Santiago DO Primary Care Provider Active Start: November 28, 2024 End: November 28, 2024 Dr. Etienne De Santiago DO Referring Provider Active Start: November 28, 2024 End: November 28, 2024 Dr. Malena Bean DO Attending Provider Activ e Start: November 28, 2024 End: November 28, 2024 Team Status: Inactive Member Role/Relationship Status Dates Dr. Etienne De Santiago DO Primary Care Provider Active Start: December 14, 2024 End: December 14, 2024 Dr. Etienne De Santiago DO Referring Provider Active Start: December 14, 2024 End: December 14, 2024 Dr. Malena Bean DO Attending Provider Activ e Start: December 14, 2024 End: December 14, 2024 Team Status: Inactive Member Role/Relationship Status Dates Dr. Etienne De Santiago DO Primary Care Provider Active Start: December 14, 2024 End: December 14, 2024 Dr. Malena Bean DO Attending Provider Activ e Start: December 14, 2024 End: December 14, 2024 Team Status: Inactive Member Role/Relationship Status Dates Dr. Etienne De Santiago DO Primary Care Provider Active Start: December 27, 2024 End: December 27, 2024 Dr. Malena Bean DO Attending Provider Activ e Start: December 27, 2024 End: December 27, 2024 Dr. Malena Bean DO Referring Provider Activ e Start: December 27, 2024 End: December 27, 2024 Team Status: Inactive Member Role/Relationship Status Dates Dr. Etienne De Santiago DO Primary Care Provider Active Start: December 29, 2024 End: December 29, 2024 Dr. Etienne De Santiago DO Referring Provider Active Start: December 29, 2024 End: December 29, 2024 Heather Mahmood CNM Attending Provider Active S tart: December 29, 2024 End: December 29, 2024 Team Status: Inactive Member Role/Relationship Status Dates Dr. Etienne De Santiago DO Primary Care Provider Active Start: January 03, 2025 End: January 03, 2025 Heather Mahmood CNM Attending Provider Active S tart: January 03, 2025 End: January 03, 2025 Heather Mahmood CNM Referring Provider Active S tart: January 03, 2025 End: January 03, 2025 Team Status: Inactive Member Role/Relationship Status Dates Dr. Etienne De Santiago DO Primary Care Provider Active Start: January 12, 2025 End: January 12, 2025 Dr. Etienne De Santiago DO Referring Provider Active Start: January 12, 2025 End: January 12, 2025 Dr. Malena Bean DO Attending Provider Activ e Start: January 12, 2025 End: January 12, 2025 Team Status: Inactive Member Role/Relationship Status Dates Dr. Etienne De Santiago DO Primary Care Provider Active Start: January 26, 2025 End: January 26, 2025 Dr. Etienne De Santiago DO Referring Provider Active Start: January 26, 2025 End: January 26, 2025 Dr. Maylin Cadena MD Attending Provider Active Start: January 26, 2025 End: January 26, 2025 Team Status: Inactive Member Role/Relationship Status Dates Dr. Etienne De Santiago DO Primary Care Provider Active Start: February 07, 2025 End: February 07, 2025 Dr. Etienne De Santiago DO Referring Provider Active Start: February 07, 2025 End: February 07, 2025 Dr. Malena Bean DO Attending Provider Activ e Start: February 07, 2025 End: February 07, 2025 Team Status: Inactive Member Role/Relationship Status Dates Dr. Etienne De Santiago DO Primary Care Provider Active Start: February 13, 2025 End: February 13, 2025 Dr. Etienne De Santiago DO Referring Provider Active Start: February 13, 2025 End: February 13, 2025 Heather Mahmood CNM Attending Provider Active S tart: February 13, 2025 End: February 13, 2025 Team Status: Inactive Member Role/Relationship Status Dates Dr. Etienne De Santiago DO Primary Care Provider Active Start: February 22, 2025 End: February 22, 2025 Dr. Etienne De Santiago DO Referring Provider Active Start: February 22, 2025 End: February 22, 2025 Dr. Malena Bean DO Attending Provider Activ e Start: February 22, 2025 End: February 22, 2025 Team Status: Inactive Member Role/Relationship Status Dates Dr. Etienne De Santiago DO Primary Care Provider Active Start: March 01, 2025 End: March 01, 2025 Dr. Etienne De Santiago DO Referring Provider Active Start: March 01, 2025 End: March 01, 2025 Heather Mahmood CNM Attending Provider Active S tart: March 01, 2025 End: March 01, 2025 Team Status: Inactive Member Role/Relationship Status Dates Dr. Etienne De Santiago DO Primary Care Provider Active Start: March 06, 2025 End: March 06, 2025 Dr. Etienne De Santiago DO Referring Provider Active Start: March 06, 2025 End: March 06, 2025 Dr. Maylin Cadena MD Attending Provider Active Start: March 06, 2025 End: March 06, 2025 Goals (unrecognized section and content) Goals may [...] BE BASED ON THE PRIMARY CLINICAL RECORDS. [facility] [employer] provides no warranty or guarantee of the accuracy or completeness of information in this document.
--- NOTE | 2025-03-08 07:46 | HP.PCM.OB_ITS ---
HPI - General General Date of Admission: 03/08/25 HPI Narrative JESUS PURVIS, is a 29 y/o @ 40 weeks 3 days who presents to L&D for indution of labor. her baby has a known cleft lip/palate and has an estimated weight of 8-8.5 pounds Maternal Data Information JONATHAN Calculator Estimated Delivery Date Method Current WG Current Estimate 03/05/25 LMP (Certain) 40w 3d Other Estimates 03/11/25 Ultrasound #1 39w 4d PFSH PFSH Medical History Complete Dysmenorrhea Home Medications ?Medication ?Instructions ?Recorded ?Last Taken ?Type multivitamin no.47-iron fum 27 cap PO 07/29/24 Unknown History mg-folate no.1 1 mg-dha 300 mg capsule (PNV-DHA) Allergy/AdvReac Type Severity Reaction Status Date / Time No Known Allergies Allergy Verified 03/06/25 11:29 Family History Grandmother Breast cancer Surgical History H/O wisdom tooth extraction Social History adopted: No household members: spouse current occupational status: employed 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 current occupational exposures/hazards: No pets and animals: Yes pets and animals: dog(s) history of recent travel: Yes ([place]) out of state: Yes out of country: No sexually active: Yes Smoking Status: Never smoker alcohol intake: current details: social- not while substance use type: does not use well-balanced diet: daily or most days caffeine: Yes Type: coffee Number of servings: 1 eating out: 1-3 times/week during the past year weight has: remained stable what type of physical activity do you participate in: walking and yoga frequency: 1-2 times per week duration: 30-45 minutes/day nic/anabaptism: Tenriism seatbelt use: always do you feel safe at home: Yes 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 Date Name GA/Weeks Outcome Route Bth Weight Infant Gen Labor Lgth Anesthesia Del Lacey Provider FOB 02/18/24 6 spontaneous Visit Details Expected Delivery Route/Plan Labor Preferences- CB/BF classes: [] labor support person: [] labor intervention preferences: [] pain management options preferred: [] cut cord/dad catch: [] : [] PP control planned: [] discussed possible routes of delivery and associated risks: [] special requests: [] Plans Covid status: [] Flu vaccine: [] Tdap vaccine: given Rhogam: na LARC form signed: declined] Problem list reviewed and updated with the most current plan of care details and appropriate orders placed. Relevant counseling for the gestational age provided. Continue routine care and follow up unless otherwise noted in visit notes/problem list details OB Flowsheet Initial Weight: Not Recorded Date -?-?-?-?-?-?-?-?-?-?-?-?- EGA Weight BP Urine Prot -?-?-?--?-?-?-?-?-?-?-?-?- Glucose FHR FuHt Pres Dilation -?-?-?-?-?-?-?-?-?--?-?-?- Effaced St Visit Note 08/16/24 -?-?-?-?-?-?-?-?-?-?-?-?- 11w 2d 104 lb 6 oz 130/80 -?-?-?-?-?-?-?-?-?-?-?-?- 185 -?-?-?-?-?-?-?-?-?-?-?-?- JV- CRL consiste nt with LMP. Desires nipt. 09/09/24 -?-?-?-?-?-?-?-?-?-?-?-?- 14w 5d 106 lb 4 oz 127/84 Nega tive -?-?-?-?-?-?-?-?-?-?-?-?- Negative 150 -?-?-?-?-?-?-?-?-?-?-?-?- KW- no vb/crampi ng. US scheduled. feeling better. AFP discussed and declines at this time. stretching and chiropractor for hip pain. 10/07/24 -?-?-?-?-?-?-?-?-?-?-?-?- 18w 5d 110 lb 6 oz 137/71 Nega tive -?-?-?-?-?-?-?-?-?-?-?-?- Negative 150 -?-?-?-?-?-?-?-?-?-?-?-?- SM- no vb crampi ng 11/02/24 -?-?-?-?-?-?-?-?-?-?-?-?- 22w 3d 116 lb 8 oz 120/72 Nega tive -?-?-?-?-?-?-?-?-?-?-?-?- Negative 150 -?-?-?-?-?-?-?-?-?-?-?-?- MH-No VB, LOF. F eeling movement/ant placenta. Baby with cleft lip & palate. See treatment next week 11/28/24 -?-?-?-?-?-?-?-?-?-?-?-?- 26w 1d 122 lb 4 oz 126/79 Nega tive -?-?-?-?-?-?-?-?-?-?-?-?- Negative 145 26 -?-?-?-?-?-?-?-?-?-?-?-?- JV- no complaint s today. planning GCT and tdap next visit. [place] at 29 weeks. 12/14/24 -?-?-?-?-?-?-?-?-?-?-?-?- 28w 3d 125 lb 6 oz 122/76 Nega tive -?-?-?-?-?-?-?-?-?-?-?-?- Negative 140 28 -?-?-?-?-?-?-?-?-?-?-?-?- JV- no complaint s. GCT today. tdap given. us from [facility] shows now a cleft lip + palate. following up with plastics december 30. 12/29/24 -?-?-?-?-?-?-?-?-?-?-?-?- 30w 4d 129 lb 8 oz 122/80 Nega tive -?-?-?--?-?-?-?-?-?-?-?-?- Negative 160 29 -?-?-?-?-?-?-?-?-?-?-?-?- KW- no vb/crampi ng. good fm. feels like she has a cold- repeat WBC in 3-4 weeks. passed 3 hour glucose. had meeting with plastics already. KW- no vb/cramping. good fm. feels like she has a cold- repeat WBC in 1-2 weeks. passed 3 hour glucose. had meeting with plastics already. will send complications worksheet to pedi team. LARC done 01/12/25 -?-?-?-?-?-?-?-?-?-?-?-?- 32w 4d 131 lb 4 oz 129/89 Nega tive -?-?-?-?-?-?-?-?-?-?-?-?- Negative 154 32 -?-?-?-?-?-?-?-?-?-?-?-?- JV- we discussed RSV vaccine. no lof, vaginal bleeding, or dec fm. 01/26/25 -?-?-?-?-?-?-?-?-?-?-?-?- 34w 4d 135 lb 6 oz 125/74 Nega tive -?-?-?-?-?-?-?-?-?-?-?-?- Negative 145 32 -?-?-?-?-?-?-?-?-?-?-?-?- Sm- no vb lof go od fm no regular ctx 02/07/25 -?-?-?-?-?-?-?-?-?-?-?-?- 36w 2d 137 lb 2 oz 122/73 Nega tive -?-?-?-?-?-?-?-?-?-?-?-?- Negative 160 34 -?-?-?-?-?-?-?-?-?-?-?-?- JV- no lof vagin al bleeding, or dec fm. JV- no lof vaginal bleeding, or dec fm. measuring small, however growth and fluid were normal on 01/3102/13/25 -?-?-?-?-?-?-?-?-?-?-?-?- 37w 1d 138 lb 8 oz 116/74 Nega tive -?-?-?-?-?-?-?-?-?-?-?-?- Negative 155 36 Cephalic -?-?-?-?-?-?-?-?-?-?-?-?- KW- no vb/lof/ct x. good fm requesting IOL around 40 weeks. does not want to go to 41 weeks. 02/22/25 -?-?-?-?-?-?-?-?-?-?-?-?- 38w 3d 141 lb 6 oz 137/82 Nega tive -?-?-?-?-?-?-?-?-?-?-?-?- Negative 147 38 Cephalic 1 -?-?-?-?-?-?-?-?-?-?-?-?- 80 -2 JV- pt sta rted spotting right when she got here . on exam she has some bloody show but is overall comfortable. labor precautions discussed. 03/01/25 -?-?-?-?-?-?-?-?-?-?-?-?- 39w 3d 139 lb 9 oz 132/78 Nega tive -?-?-?-?-?-?-?-?-?-?-?-?- Negative 130 39 Cephalic 1 -?-?-?-?-?-?-?-?-?-?-?-?- 80 -1 KW- no vb/ lof/reg ctx. good fm. US reviewed- KW- no vb/lof/reg ctx. good fm. US reviewed- EFW at 85%. Patient requesting IOL or thu next week. KW- no vb/lof/reg ctx. good fm. US reviewed- EFW at 85%. Patient requesting IOL tu or thu next week. IOL for thu due to unit schedule 03/06/25 -?-?-?-?-?-?-?-?-?-?-?-?- 40w 1d 139 lb 4 oz 141/84 131/89 -?-?-?-?-?-?-?-?-?-?-?-?- 140 37 Cephalic 2 -?-?-?-?-?-?-?-?-?-?-?-?- 80 0 Sm- no vb lof good fm no regular ctx Sm- no vb lof good fm no reg ular ctx membranes swept kristen done and 10cm ROS Constitutional Constitutional: Denies change in weight, fatigue, fever(s), headache(s), poor appetite or weakness Eyes Eyes: Denies blurry vision, change in vision, seeing flashes or spots in vision ENT HEENT: Denies dizziness, headache(s), loss taste/smell or sore throat Cardiovascular Cardiovascular: Denies chest pain, dizziness, dyspnea, irregular heart rhythm, leg edema, palpitations, rapid heart rate or vomiting Respiratory/Chest Respiratory/Chest: Denies chest tightness, cough, dyspnea or breast pain Gastrointestinal Gastrointestinal: Denies abdominal pain, anorexia, constipation, cramping, diarrhea, hemorrhoids, vomiting or weight changes Genitourinary Genitourinary: Denies dysuria, flank pain, genital lesions, genital pain, urinary frequency or urinary urgency Musculoskeletal Musculoskeletal: Denies back pain, difficulty walking, joint pain, limited range of motion, muscle cramps or numbness Integumentary Integumentary: Denies lesions or unusual bruising Neurologic Neurologic: Denies abnormal movements, abnormal speech, dizziness, numbness, seizure-like activity or syncope Psychiatric Psychiatric: Denies anxiety, behavioral changes, change in appetite, change in libido, cognitive impairment, confusion, depression, difficulty concentrating, hallucinations or suicidal thoughts Endocrine Endocrinology: Denies excessive sweating, polydipsia or polyuria Hematologic/Lymphatic Hematologic/Lymphatic: Denies easy bleeding, easy bruising or lymphadenopathy Allergic/Immunologic Allergic/Immunologic: Denies itchy eyes, lip swelling, seasonal rhinorrhea, rhinitis, throat swelling, tongue swelling, eczemia, wheezing or asthma Physical Exam Const alert, oriented x3, no apparent distress and healthy appearing General Appearance: cooperative; Negative for anxious HEENT normocephalic Face and Sinus: normal facial exam Eyes EOMs intact bilaterally and no scleral icterus General Eye: normal appearance of both eyes Neck full ROM and supple Lymph Lymphatic: no lymphadenopathy noted Resp normal respiratory effort Effort and Inspection: able to speak in complete sentences Cardio regular rate GI soft to palpation and non-tender Inspection: gravid Palpation: soft; Negative for tender Back/Spine no CVA tenderness Extremity normal to inspection, full ROM and no clubbing, cyanosis or edema General Extremity: Negative for calf tenderness or edema Skin Lesions: no lesions Rashes: no rashes Psych mental status grossly normal Labs Labs Labs: Blood Type B POSITIVE Antibody Screen NEGATIVE Hct 35.8 % (37-47) L Hgb 11.8 g/dL (12.0-15.0) L Syphilis Total Ab Nonreactive (Nonreactive) Rubella IgG Antibody Reactive (Nonreactive) Hep Bs Antigen Non-Reactive (Nonreactive) Hepatitis C Antibody Non-Reactive (Nonreactive) Chlamydia DNA (LUCAS) Negative (Negative) N.gonorrhoeae DNA (LUCAS) Negative (Negative) HIV 1&2 Antibody Nonreactive (Nonreactive) Glucose 1 Hr 50 gm 159 mg/dL (70-140) H Gest Glucose Tolerance mg/dL Assessment & Plan (1) Positive GBS test: COMMENT: treat in labor (2) Abnormal glucose affecting : COMMENT: normal 3 hour (3) Cleft lip and palate, , affecting care of mother, antepartum: QUALIFIERS: Fetus number: single or unspecified fetus Qualified Code(s): O35.AXX0 - Maternal care for other (suspected) abnormality and damage, facial anomalies, not applicable or unspecified COMMENT: worksheet sent and approved to deliver at [facility], seen on anatomy US, treatment center referral. echo. Gave info on [facility]. Approved to deliver [facility]. (4) Supervision of low-risk : QUALIFIERS: Trimester: second trimester Qualified Code(s): Z34.92 - Encounter for supervision of normal , unspecified, second trimester COMMENT: PRR , JONATHAN 03/05/25, gender surprise for family Demetrius (5) : QUALIFIERS: Weeks of gestation: 40 weeks Qualified Code(s): Z3A.40 - 40 weeks gestation of COMMENT: NIPT low risk, carrier neg. . GBS+ in urine. PLAN: Plan Patient presents IOL, plan management for with garcia+ pitocin/AROM. Pain management: plans epidural. GBS positive- start pcn. Management of any complications: see above I have reviewed the [facility] and made any clinically relevant updates.
[2025-03-08] MEDS: Lactated Ringers 1,000 ML 50 ML IV (09:40)
[2025-03-08 10:04] LABS: Hematocrit 36.2 % (37-47); Hemoglobin 12.2 g/dL (12.0-15.0); Immature Granulocytes Count 0.140 X10^3/uL (0.0-0.0); Mean Corp Hgb Conc 33.7 g/dL (32-36); Mean Corpuscular Volume 91.2 fL (81-99); Mean Platelet Vol. 11.4 fl (6.2-12.0); NRBC Flagged by Analyzer 0 % (0-5); Platelet Count 274 K/mm3 (150-450); RBC Distribution Width CV 13.6 % (11.6-14.6); RBC Distribution Width SD 45.6 fl (35.1-43.9); Red Blood Count 3.97 M/mm3 (4.2-5.4); White Blood Count 16.6 K/mm3 (4.4-11.0)
[2025-03-08] MEDS: Oxytocin 15 Units/NS 250ml 15 UNITS/250 ML IV.SOLN 2 UNITS IV (10:26)
[2025-03-08] MEDS: Penicillin G Pot 5,000,000 UNITS in 0.9% Normal Saline (100mL MB+) 100 ML 150 UNITS IV (11:05)
[2025-03-08 11:13] LABS: Syphilis Antibodies Nonreactive (Nonreactive)
--- NOTE | 2025-03-08 12:59 | PCM.PN.BLA ---
Progress Note patient is comfortable in bed. She consents to AROM. current tracing: FHT: Moderate variability reactive no decelerations category I tracing [place]: q 3-5 min Contractions 3/85/-1, membranes ruptured and clear fluid returned. A/P: IOL - continue pitocin epidural prn
[2025-03-08] MEDS: Lactated Ringers 1,000 ML 999 ML IV (13:00)
[2025-03-08] MEDS: fentaNYL-bupivacaine (epidural) 100 ML BAG EPIDURAL (13:58)
[2025-03-08] MEDS: Penicillin G 3,000,000 Units 50 ML 100 UNITS IV (15:17)
[2025-03-08] MEDS: Oxytocin 15 Units/NS 250ml 15 UNITS/250 ML IV.SOLN 83 UNITS IV (16:13)
--- NOTE | 2025-03-08 16:25 | OB.VAGDELI_ITS ---
Assessment & Plan (1) Positive GBS test: COMMENT: treat in labor (2) Abnormal glucose affecting : COMMENT: normal 3 hour (3) Cleft lip and palate, , affecting care of mother, antepartum: QUALIFIERS: Fetus number: single or unspecified fetus Qualified Code(s): O35.AXX0 - Maternal care for other (suspected) abnormality and damage, facial anomalies, not applicable or unspecified COMMENT: worksheet sent and approved to deliver at [facility], seen on anatomy US, treatment center referral. echo. Gave info on [facility]. Approved to deliver [facility]. (4) Supervision of low-risk : QUALIFIERS: Trimester: second trimester Qualified Code(s): Z34.92 - Encounter for supervision of normal , unspecified, second trimester COMMENT: PRR , JONATHAN 03/05/25, gender surprise for family Demetrius (5) : QUALIFIERS: Weeks of gestation: 40 weeks Qualified Code(s): Z3A.40 - 40 weeks gestation of COMMENT: NIPT low risk, carrier neg. . GBS+ in urine. Maternal Data Information JONATHAN Calculator 2 Estimated Delivery Date Method Current WG Current Estimate 03/05/25 LMP (Certain) 40w 3d Other Estimates 03/11/25 Ultrasound #1 39w 4d Final JONATHAN Source: LMP Gestational age: 40 weeks 3 days [place] Doctor Who Attended Delivery: Annamarie Zaldivar Vaginal Delivery Maternal Presentation Maternal Presentation: Elective Induction Type of Induction: Pitocin and Amniotomy Vaginal Delivery Information Procedure Performed: Spontaneous Vaginal Delivery Surgeon/Practitioner: Malena Bean Date of Procedure: 03/08/25 Pre-Procedure Diagnosis: 29 y/o @ 40 weeks 3 days, elective IOL. cleft palate and lip Post-Procedure Diagnosis: 29 y/o @ 40 weeks 3 days, elective IOL. cleft palate and lip Type of anesthesia: Epidural Estimated Blood Loss: 300cc Time of Delivery: 15:39 Findings Description of procedure: Patient began pushing and delivered the head in the ROSANNE presentation. The head was delivered atraumatically. The anterior and posterior shoulders delivered without complication followed by the rest of the and the infant was placed on the maternal abdomen. Delayed cord clamping was employed for approximately 60 seconds. Cord was clamped and cut and gentle traction was applied to the cord and the placenta delivered spontaneously immediately following it was noted to be intact with three-vessel cord. The perineum and vagina were inspected and noted to have a 2nd degree perineal laceration. This was repaired with a 3-0 and 2-0 vicryl suture. EBL was 300cc. Patient and tolerated delivery well. Procedure findings: viable male infant, Doug cleft lip and palate seen. 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
--- NOTE | 2025-03-08 16:29 | DCINST_ITS ---
Discharge Instructions DC O2, CPAP, BIPAP needs Home O2 Discharge instructions: No Dressing / Incision Discharge Activity: Return to Normal Activity, May Not Drive (while taking narcotic pain medications.) and May Shower May resume sexual activity in: 4-6 weeks Dressing / Incision Call your doctor if your incision/area has: Continuous Slow Oozing, Sudden Increased Bleeding, Increased Pain/ Swelling, Increased Redness and Foul Smelling Discharge Follow Up Care Please Follow Up With: Malena Bean DO When: Call [phone] to make an appointment with your doctor in 6 weeks. If you had elevated blood pressure or 4th degree laceration, you will need to be seen in 2 weeks. Test Results: Test results from this visit will be discussed in further detail at your follow- up appointment, if applicable. Discharge Plan Admission Admit Date/Time: 03/08/25 09:29 Primary Reason for Your Visit: vaginal delivery Attending Provider: Malena Bean Primary Care Provider: Ramsey De Santiago Discharge Orders/Prescriptions Prescriptions: No Action PNV-DHA 27 mg iron-1 mg -300 mg capsule PO Referrals / Follow Up: Ramsey De Santiago DO [Primary Care Provider] - Disposition Disposition (needs filled in before D/C Order can be placed): Home, Self Care
--- OUTSIDE RECORDS SUMMARY | 2025-03-08 17:45 | XMS RPT_ITS | CCD ---
Author Organization [facility] CliniSyny Care Team Providers Care Search Developer Name Role Phone Donell Gallitoquan Unavailable Unavailable JONNATHAN , DR ETIENNE Rudd Primary Care Physician [phone] Jonnathan NGUYEN, Etienne Primary Care Provider [phone] Jonnathan NGUYEN, Dr. Mustafa Primary Care Provider Jonnathan NGUYEN, Dr. Mustafa Referring Provider Reggie Means DO, Dr. Guy Attending Provider Reggie Means DO, Dr. Guy Referring Provider Heather Mahmood CNM Attending Provider Dr. Maylin Cadena MD Attending Provider Gabriel CERTIFIED DIABETES EDUCATOR-CMerlyn Attending Provider [phone] [facility], Jailene Rivas Unavailable Un available Jonnathan , Dr. Mustafa Primary Care Provider Jonnathan NGUYEN, Dr. Mustafa Referring Provider Reggie Means DO, Dr. Guy Attending Provider Dr. Malena Bean DO Referring Provider Heather Mahmood CNM Referring Provider Jonnathan NGUYEN, Dr. Mustafa Primary Care Provider Jonnathan NGUYEN, Dr. Mustafa Referring Provider Heather Mahmood CNM Attending Provider Jonnathan NGUYEN, Dr. Mustafa Primary Care Provider [phone] Jonnathan NGUYEN, Dr. Mustafa Referring Provider Dr. Maylin Cadena MD Attending Provider [phone] WINSOME OLIVAS Attending Unavailable IRMA NORIEGA Referring [...] Provider Jonnathan DO, Dr. Mustafa Referring Provider Jonnathan, Etienne Primary Care Unavailable Jonnathan, Etienne Referring Unavailable Vande Malena Means Attending Unavailabl e Jonnathan, Etienne Primary Care Unavailable Jonnathan, Etienne Referring Unavailable Heather Mahmood Attending Unavailable Jonnathan, Etienne Referring Unavailable Jonnathan, Etienne Primary Care Unavailable Vande VeldeMalena Attending Unavailabl e Jonnatahn, Etienne Primary Care Unavailable Jonnathan, Etienne Referring [...] Unavailable Vande Velde, Malena Attending Unavailabl e Jonnahtan, Etienne Primary Care Unavailable Jonnathan, Etienne Referring [...] Class(es) Dates Sig (Normalized) Sig (Original) Multivit 69-Dwzp-Mdqpzc 1-Dha (Pnv-Dha) 27 mg iron-1 mg -300 mg capsule (11 sources) Start: 07-29-2024 Multivit 20-Zzbl-Zyeptn 1-Dha (Pnv-Dha) 27 mg iron-1 mg -300 mg capsule Active NMA PO July 29, 2024 1:00am Vit w/Vv-Zmiicvwyd-MK (PNV PO) (2 sources) Vit w/Ew-Xusoqycge-JJ (PNV PO) Take by mouth daily Active [...] se nt and approved to deliver at [facility], seen on anatomy US, treatment center referral. echo. Gave info on [facility]. Approved to deliver [facility]. Other complications of (16 sources) H/O: miscarriage; [...] Test Name Value Interpretation Reference Range Facility [facility] Office Visit Reporton 03-06-2025 Hand [facility] Office Visit Report [facility] [address], [address] [place] [address] OFFICE VISIT Date of Service: 03/06/25 MR#: [id number] Acct: [id number] Name: JESUS ASHER Rep #: [id number] : 1995 Provider: Dr. Maylin manjarrez MD Age/Sex: 29/F Location: [facility] Status: Signed Intake Vital Signs 01/12/25 10:10 03/01/25 13:15 03/06/25 11:30 03/06/25 11:33 03/06/25 11:33 Height 5 ft 3 in 5 ft 3 in 5 ft 3 in 5 ft 3 in Weight: 139 lb 4 oz BMI 24.6 BP 141/84 H 131/89 H Intake Visit Reasons: 40 wk ob Due date 03/05 Wet Process Assistant Head Miller Required: No Is patient in pain?: No Feel stressed/tense/nervo us/anxious/difficult y sleeping: not at all Allergies No Known Allergies Allergy (Verified 03/06/25 11:29) Medications ???Medication ???Instructions ???Recorded ???Confirmed ???Type multivitamin no.47-iron fum 27 cap PO 07/29/24 03/06/25 History mg-folate no.1 1 mg-dha 300 mg capsule (PNV-DHA) Last Menstrual Period: 05/29/24 Zika: Zika virus screening: Negative : No [facility] Medical History Complete Dysmenorrhea Surgical History H/O wisdom tooth extraction Family History Grandmother Breast cancer Social History adopted: No household members: spouse current occupational status: employed 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 -?? (more content not included)... Normal [facility] Laboratory - Chemistry and C hemistry - challengeOrdered By: Heather Mahmood on 03-01-2025 Glucose Ql (U) Negative [facility] - UrinalysisOrder ed By: Heather Mahmood on 03-01-2025 Protein Ql (U) Negative [facility] Hand Welt [facility] Office Visit Reporton 03-01-2025 Hand [facility] Office Visit Report [facility] [address], [address] [place] [address] OFFICE VISIT Date of Service: 03/01/25 MR#: [id number] Acct: [id number] Name: JESUS ASHER Rep #: [id number] : 1995 Provider: MATT Harrison ams Age/Sex: 29/F Location: [facility] Status: Signed Intake Vital Signs 01/12/25 10:10 02/22/25 14:39 03/01/25 13:15 Height 5 ft 3 in 5 ft 3 in 5 ft 3 in Weight: 139 lb 9 oz BMI 24.7 BP 132/78 H Intake Visit Reasons: 39 wk ob Wet Process Assistant Head Miller Required: No Is patient in pain?: No [...] spouse current occupational status: employed 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 -???-? (more content not included)... Normal [facility] - Chemistry and C hemistry - challengeOrdered By: Malena Means on 02-22-2025 Glucose Ql (U) Negative [facility] - UrinalysisOrder ed By: Malena Means on 02-22-2025 Protein Ql (U) Negative [facility] Hand Welt [facility] Office Visit Reporton 02-22-2025 Hand Welt [facility] Office Visit Report [facility] [address], [address] [place] [address] OFFICE VISIT Date of Service: 02/22/25 MR#: [id number] Acct: [id number] Name: JESUS ASHER Rep #: [id number] : 1995 Provider: Dr. 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 Date Name GA/Weeks Outcome Route Bth Weight Gen Labor Lgth Anesthesia Del [facility] Provider FOB 02/18/24 6 spontaneous HPI 38 [...] 11/02/24 - (more content not included)... Normal [facility] - Chemistry and C hemistry - challengeOrdered By: Heather Mahmood on 02-13-2025 Glucose Ql (U) Negative [facility] - UrinalysisOrder ed By: Heather Mahmood on 02-13-2025 Protein Ql (U) Negative [facility] Hand Welt [facility] Office Visit Reporton 02-13-2025 Hand [facility] Office Visit Report [facility] [address], [address] [place] [address] OFFICE VISIT Date of Service: 02/13/25 MR#: [id number] Acct: [id number] Name: JESUS ASHER Rep #: [id number] : 1995 Provider: MATT Harrison ams Age/Sex: 29/F Location: [facility] Status: Signed Intake Vital Signs 01/12/25 10:10 02/07/25 09:52 02/13/25 14:47 02/13/25 14:47 Height 5 ft 3 in 5 ft 3 in 5 ft 3 in 5 ft 3 in Weight: 138 lb 8 oz BMI 24.5 BP 116/74 Intake Visit Reasons: 37 wk ob Chief Complaint: 37wk OB Wet Process Assistant Head Miller Required: No Is patient in pain?: No [...] spouse current occupational status: employed 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 Date Name GA/Weeks Outcome Route Bth Weight [facility]ant [facility]18[facility]24 6 spontaneous [...] 11/02/24 -???- (more content not included)... Normal [facility] - Chemistry and C hemistry - challengeOrdered By: Malena Means on 02-07-2025 Glucose Ql (U) Negative [facility] - UrinalysisOrder ed By: Malena Means on 02-07-2025 Protein Ql (U) Negative [facility] Hand Welt Butter Office Visit Reporton 02-07-2025 Hand Welt [facility] Office Visit Report [facility] [address], [address] [place] [address] OFFICE VISIT Date of Service: 02/07/25 MR#: [id number] Acct: [id number] Name: JESUS ASHER Rep #: [id number] : 1995 Provider: Dr. 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 -???-???-???-? (more content not included)... Normal [facility] - Chemistry and C hemistry - challengeOrdered By: Maylin Cadena on 01-26-2025 Glucose Ql (U) Negative [facility] - UrinalysisOrder ed By: Maylin Cadena on 01-26-2025 Protein Ql (U) Negative [facility] Hand Welt Butter Office Visit Reporton 01-26-2025 Hand Welt Butter Office Visit Report [facility], [facility] [address] [place] [address] OFFICE VISIT Date of Service: 01/26/25 MR#: [id number] Acct: [id number] Name: JESUS ASHER Rep #: [id number] : 1995 Provider: Dr. 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 -???-???-???-???-? (more content not included)... Normal [facility] Progress Noteon 01-23-2025 Casting Chipper Authentication Interface Message Text Assessment Patient: Jesus [...] Pregnany otherwise uncomplicated. Plan to deliver at [place]. She has not yet ordered a pump. She will be staying home with baby after delivery. Objective Exam: Gen: alert, oriented, no distress. Conversant, mood and affect appropriate. Resp: no distress I Spent 45 minutes on this patient in direct qlcq-ts-ovel care, chart review of OB/MFM notes, and documentation. Normal [facility] Laboratory - Chemistry and C hemistry - challengeOrdered By: Malena Means on 01-12-2025 Glucose Ql (U) Negative [facility] - UrinalysisOrder ed By: Malena Means on 01-12-2025 Protein Ql (U) Negative [facility] Hand Welt Butter Office Visit Reporton 01-12-2025 Hand Welt Butter Office Visit Report [facility] [address], [address] [place] [address] OFFICE VISIT Date of Service: 01/12/25 MR#: [id number] Acct: [id number] Name: JESUS ASHER Rep #: [id number] : 1995 Provider: Dr. 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 Normal [facility] Absolute lymphocyte countOrd ered By: Heather Mahmood on 01-03-2025 Lymphocytes Auto (Unsp spec) [#/Vol] 2.25 10*3/uL 0.83-4.51 [facility] Absolute neutrophil countOrd ered By: Heather Mahmood on 01-03-2025 Neutrophils (Bld) [#/Vol] 13.4 10*3/uL High 2.0-7.7 [facility] Automated lymphocyte count a s percentage of total leukocytesOrdered By: Heather Mahmood on 01-03-2025 Lymphocytes/100 WBC Auto (Unsp spec) 13.2 % Low 19-41 [facility] Basophil percentageOrdered B y: Heather Mahmood on 01-03-2025 Basophils/100 WBC (Bld) 0.4 % 0-1 [facility] CBC W/Diff, Automatedon 12-25 0-2024 Absolute Lymph 2.25 X10 3/uL Normal 0.83-4.51 [facility] Comment on above: Performed By: #### L 100.0100 ####[facility] [address] [place], [address] Absolute Neut 13.4 X10 3/uL High 2.0-7.7 [facility] Comment on above: Performed By: #### L 100.0100 ####[facility] [address] [place], [address] Basophils/100 WBC (Bld) 0.4 % Normal 0-1 [facility] Comment on above: Performed By: #### L 100.0100 ####[facility] [address] [place], [address] Eosinophils/100 WBC (Bld) 0.6 % Normal 0-5 [facility] Comment on above: Performed By: #### L 100.0100 ####[facility] [address] [place], [address] Erythrocyte distribution width (RBC) [Ratio] 13.8 % Normal 11.6-14.6 [facility] Comment on above: Performed By: #### L 100.0100 ####[facility] [address] [place], [address] Hematocrit (Bld) [Volume fraction] 35.8 % Low 37-47 [facility] Comment on above: Performed By: #### L 100.0100 ####[facility] [address] [place], [address] Hemoglobin (Bld) [Mass/Vol] 11.8 g/dL Low 12.0-15.0 [facility] Comment on above: Performed By: #### L 100.0100 ####[facility] [address] [place], [address] IG% 1.400 High 0.0-0.9 [facility] Comment on above: Result Comment: IG% - Immature Granulocytes (promyelocytes, myelocytes and metamyelocytes) > 1% indicates that a LEFT SHIFT is Present. Performed By: #### L 100.0100 ####[facility] [address] [place], [address] Lymphocytes/100 WBC (Bld) 13.2 % Low 19-41 [facility] Comment on above: Performed By: #### L 100.0100 ####[facility] [address] [place], [address] MCH (RBC) [Entitic mass] 31.3 pg Normal 27.0-32.0 [facility] Comment on above: Performed By: #### L 100.0100 ####[facility] [address] [place], [address] MCHC (RBC) [Mass/Vol] 33.0 g/dL Normal 32-36 [facility] Comment on above: Performed By: #### L 100.0100 ####[facility] [address] [place], [address] MCV (RBC) [Entitic vol] 95.0 fL Normal 81-99 [facility] Comment on above: Performed By: #### L 100.0100 ####[facility] [address] [place], [address] Monocytes/100 WBC (Bld) 5.6 % Normal 0-10 [facility] Comment on above: Performed By: #### L 100.0100 ####[facility] [address] [place], [address] Neutrophils/100 WBC (Bld) 78.8 % High 47-70 [facility] Comment on above: Performed By: #### L 100.0100 ####[facility] [address] [place], [address] Nucleated RBC (Bld) [#/Vol] 0 10*3/uL Normal 0-5 [facility] Comment on above: Performed By: #### L 100.0100 ####[facility] [address] [place], [address] Platelet mean volume (Bld) [Entitic vol] 11.6 fL Normal 6.2-12.0 [facility] Comment on above: Performed By: #### L 100.0100 ####[facility] [address] [place], [address] Platelets (Bld) [#/Vol] 256 10*3/uL Normal 150-450 [facility] Comment on above: Performed By: #### L 100.0100 ####[facility] [address] [place], [address] RBC (Bld) [#/Vol] 3.77 10*6/uL Low 4.2-5.4 [facility] Comment on above: Performed By: #### L 100.0100 ####[facility] [address] [place], [address] RDW SD 47.5 fl High 35.1-43.9 [facility] Comment on above: Performed By: #### L 100.0100 ####[facility] [address] [place], [address] WBC (Bld) [#/Vol] 17.0 10*3/uL High 4.4-11.0 [facility] Comment on above: Performed By: #### L 100.0100 ####[facility] [address] [place], [address] Eosinophil percentageOrdered By: Heather Mahmood on 01-03-2025 Eosinophils/100 WBC (Bld) 0.6 % 0-5 [facility] Erythrocyte distribution wid th ratioOrdered By: Heather Mahmood on 01-03-2025 Erythrocyte distribution width (RBC) [Ratio] 13.8 % 11.6-14.6 [facility] Erythrocyte distribution wid th standard deviationOrdered By: Heather Mahmood on 01-03-2025 Erythrocyte distribution width (RBC) [Ratio] 47.5 fl High 35.1-43.9 [facility] Hematocrit Auto (Bld) [Volum e fraction]Ordered By: Heather Mahmood on 01-03-2025 Hematocrit (Bld) [Volume fraction] 35.8 % Low 37-47 [facility] Hemoglobin measurementOrdere d By: Heather Mahmood on 01-03-2025 Hemoglobin (Bld) [Mass/Vol] 11.8 g/dL Low 12.0-15.0 [facility] Immature granulocytes/100 WB C Auto (Bld)Ordered By: eHather Mahmood on 01-03-2025 Immature granulocytes/100 WBC (Bld) 1.400 % High 0.0-0.9 [facility] Comment on above: IG% - Immature Granu locytes (promyelocytes, myelocytes and metamyelocytes) > 1% indicates that a LEFT SHIFT is Present. MCV (mean corpuscular volume ) determinationOrdered By: Heather Mahmood on 01-03-2025 MCV (RBC) [Entitic vol] 95.0 fL 81-99 [facility] Mean corpuscular hemoglobin (MCH) determinationOrdered By: Heather Mahmood on 01-03-2025 MCH (RBC) [Entitic mass] 31.3 pg 27.0-32.0 [facility] Mean corpuscular hemoglobin concentration (MCHC) determinationOrdered By: Heather Mahmood on 01-03-2025 MCHC (RBC) [Mass/Vol] 33.0 g/dL 32-36 [facility] Mean platelet volume determi nationOrdered By: Heather Mahmood on 01-03-2025 Platelet mean volume (Bld) [Entitic vol] 11.6 fL 6.2-12.0 [facility] Monocyte percentageOrdered B y: Heather Mahmood on 01-03-2025 Monocytes/100 WBC (Bld) 5.6 % 0-10 [facility] Neutrophil percentageOrdered By: Heather Mahmood on 01-03-2025 Neutrophils/100 WBC (Bld) 78.8 % High 47-70 [facility] Nucleated red blood cell per centageOrdered By: Heather Mahmood on 01-03-2025 Nucleated RBC/100 WBC (Bld) [Ratio] 0 % 0-5 [facility] Platelet countOrdered By: Deejay Mahmood on 01-03-2025 Platelets (Bld) [#/Vol] 256 10*3/uL 150-450 [facility] RBC Auto (Bld) [#/Vol]Ordere d By: Heather Mahmood on 01-03-2025 RBC (Bld) [#/Vol] 3.77 10*6/uL Low 4.2-5.4 [facility] White blood cell (WBC) count Ordered By: Heather Mahmood on 01-03-2025 WBC (Bld) [#/Vol] 17.0 10*3/uL High 4.4-11.0 [facility] Laboratory - Chemistry and C hemistry - challengeOrdered By: Heather Mahmood on 12-29-2024 Glucose Ql (U) Negative [facility] Laboratory - UrinalysisOrder ed By: Heather Mahmood on 12-29-2024 Protein Ql (U) Negative [facility] Hand [facility] Office Visit Reporton 12-29-2024 Hand Welt Butter Office Visit Report [facility], [address] [place] [address] OFFICE VISIT Date of Service: 12/29/24 MR#: [id number] Acct: [id number] Name: HYUNJESUS KEIRA Rep #: [id number] : 1995 Provider: MATT Harrison ams Age/Sex: 29/F Location: [facility] Status: Signed Intake Vital Signs 11/02/24 13:43 12/14/24 13:09 12/29/24 11:42 Height 5 ft 3 in 5 ft 3 in 5 ft 3 in Weight: 129 lb 8 oz BMI 22.9 BP 122/80 H Intake Visit Reasons: 30 wk ob Chief Complaint: 30wk OB Wet Process Assistant Head Miller Required: No Is patient in pain?: No [...] spouse current occupational status: employed 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 -???-? (more content not included)... Normal [facility] Urine Cultureon 12-29-2024 [facility] Comments: [place] Mixed Gram Positive Organisms [place] Count 25,000-50,000 MIXC Mixed contaminants. Submit a new specimen if indicated. [facility] Comment on above: Performed By: #### M 100.2200 #### [facility] [address] [place], [address] Absolute lymphocyte countOrd ered By: Malena Posadajohny on 12-27-2024 Lymphocytes Auto (Unsp spec) [#/Vol] 3.24 10*3/uL 0.83-4.51 [facility] Absolute neutrophil countOrd ered By: Malena Means on 12-27-2024 Neutrophils (Bld) [#/Vol] 13.9 10*3/uL High 2.0-7.7 [facility] Automated lymphocyte count a s percentage of total leukocytesOrdered By: Malena Posadajohny on 12-27-2024 Lymphocytes/100 WBC Auto (Unsp spec) 17.1 % Low 19-41 [facility] Basophil percentageOrdered B y: Malena Means on 12-27-2024 Basophils/100 WBC (Bld) 0.4 % 0-1 [facility] CBC W/Diff, Automatedon Absolute Lymph 3.24 X10 3/uL Normal 0.83-4.51 [facility] Comment on above: Order Comment: Comme nts: Thai Baldwin [place] Performed By: #### L 100.0100, L500.4710 #### [facility] [address] [place], [address] Absolute Neut 13.9 X10 3/uL High 2.0-7.7 [facility] Comment on above: Order Comment: Comme nts: Thai Baldwin AL Performed By: #### L 100.0100, L500.4710 #### [facility] [address] [place], [address] Basophils/100 WBC (Bld) 0.4 % Normal 0-1 [facility] Comment on above: Order Comment: Comme nts: Thai Baldwin AL Performed By: #### L 100.0100, L500.4710 #### [facility] [address] [place], [address] Eosinophils/100 WBC (Bld) 1.1 % Normal 0-5 [facility] Comment on above: Order Comment: Comme nts: Thai Baldwin [place] Performed By: #### L 100.0100, L500.4710 #### [facility] [address] [place], [address] Erythrocyte distribution width (RBC) [Ratio] 13.4 % Normal 11.6-14.6 [facility] Comment on above: Order Comment: Comme nts: Thai Baldwin AL Performed By: #### L 100.0100, L500.4710 #### [facility] [address] [place], [address] Hematocrit (Bld) [Volume fraction] 35.0 % Low 37-47 [facility] Comment on above: Order Comment: Comme nts: Thai Baldwin AL Performed By: #### L 100.0100, L500.4710 #### [facility] [address] [place], [address] Hemoglobin (Bld) [Mass/Vol] 11.9 g/dL Low 12.0-15.0 [facility] Comment on above: Order Comment: Commanna nts: Thai Baldwin [place] Performed By: #### L 100.0100, L500.4710 #### [facility] [address] [place], [address] IG% 2.100 High 0.0-0.9 [facility] Comment on above: Order Comment: Commanna nts: Thai Baldwin AL Result Comment: IG% - Immature Granulocytes (promyelocytes, myelocytes and metamyelocytes) > 1% indicates that a LEFT SHIFT is Present. Performed By: #### L 100.0100, L500.4710 #### [facility] [address] [place], [address] Lymphocytes/100 WBC (Bld) 17.1 % Low 19-41 [facility] Comment on above: Order Comment: Commanna nts: Thai Baldwin AL Performed By: #### L 100.0100, L500.4710 #### [facility] [address] [place], [address] MCH (RBC) [Entitic mass] 31.3 pg Normal 27.0-32.0 [facility] Comment on above: Order Comment: Comme nts: [place], [place] Performed By: #### L 100.0100, L500.4710 #### [facility] [address] [place], [address] MCHC (RBC) [Mass/Vol] 34.0 g/dL Normal 32-36 [facility] Comment on above: Order Comment: Comme nts: [place], [place] Performed By: #### L 100.0100, L500.4710 #### [facility] [address] [place], [address] MCV (RBC) [Entitic vol] 92.1 fL Normal 81-99 [facility] Comment on above: Order Comment: Comme nts: Thai [place], [place] Performed By: #### L 100.0100, L500.4710 #### [facility] [address] [place], [address] Monocytes/100 WBC (Bld) 6.4 % Normal 0-10 [facility] Comment on above: Order Comment: Comme nts: Thai [place], [place] Performed By: #### L 100.0100, L500.4710 #### [facility] [address] [place], [address] Neutrophils/100 WBC (Bld) 72.9 % High 47-70 [facility] Comment on above: Order Comment: Comme nts: [place], [place] Performed By: #### L 100.0100, L500.4710 #### [facility] [address] [place], [address] Nucleated RBC (Bld) [#/Vol] 0 10*3/uL Normal 0-5 [facility] Comment on above: Order Comment: Comme nts: [place], [place] Performed By: #### L 100.0100, L500.4710 #### [facility] [address] [place], [address] Platelet mean volume (Bld) [Entitic vol] 10.4 fL Normal 6.2-12.0 [facility] Comment on above: Order Comment: Comme nts: [place], [place] Performed By: #### L 100.0100, L500.4710 #### [facility] [address] [place], [address] Platelets (Bld) [#/Vol] 256 10*3/uL Normal 150-450 [facility] Comment on above: Order Comment: Comme nts: [place], [place] Performed By: #### L 100.0100, L500.4710 #### [facility] [address] [place], [address] RBC (Bld) [#/Vol] 3.80 10*6/uL Low 4.2-5.4 [facility] Comment on above: Order Comment: Comme nts: [place], [place] Performed By: #### L 100.0100, L500.4710 #### [facility] [address] [place], [address] RDW SD 45.2 fl High 35.1-43.9 [facility] Comment on above: Order Comment: Comme nts: [place], [place] Performed By: #### L 100.0100, L500.4710 #### [facility] [address] [place], [address] WBC (Bld) [#/Vol] 19.0 10*3/uL High 4.4-11.0 [facility] Comment on above: Order Comment: Comme nts: [place] Performed By: #### L 100.0100, L500.4710 #### [facility] [address] [place], [place], [address] Eosinophil percentageOrdered By: Malena Means on 12-27-2024 Eosinophils/100 WBC (Bld) 1.1 % 0-5 [facility] Erythrocyte distribution wid th ratioOrdered By: Malena Means on 12-27-2024 Erythrocyte distribution width (RBC) [Ratio] 13.4 % 11.6-14.6 [facility] Erythrocyte distribution wid th standard deviationOrdered By: Malena Means on 12-27-2024 Erythrocyte distribution width (RBC) [Ratio] 45.2 fl High 35.1-43.9 [facility] Gestational GTT 3HR 100gon 0 12-27-2024 GEST GTT 100gm Normal [facility] Comment on above: Order Comment: ARASH [...] Performed By: #### L 100.0100, L500.4710 #### [facility] [address] [place], [address] Hematocrit Auto (Bld) [Volum e fraction]Ordered By: Malena Means on 12-27-2024 Hematocrit (Bld) [Volume fraction] 35.0 % Low 37-47 [facility] Hemoglobin measurementOrdere d By: Malena Means on 12-27-2024 Hemoglobin (Bld) [Mass/Vol] 11.9 g/dL Low 12.0-15.0 [facility] Immature granulocytes/100 WB C Auto (Bld)Ordered By: Malena Means on 12-27-2024 Immature granulocytes/100 WBC (Bld) 2.100 % High 0.0-0.9 [facility] Comment on above: IG% - Immature Granu locytes (promyelocytes, myelocytes and metamyelocytes) > 1% indicates that a LEFT SHIFT is Present. MCV (mean corpuscular volume ) determinationOrdered By: Malena Means on 12-27-2024 MCV (RBC) [Entitic vol] 92.1 fL 81-99 [facility] Mean corpuscular hemoglobin (MCH) determinationOrdered By: Malena Means on 12-27-2024 MCH (RBC) [Entitic mass] 31.3 pg 27.0-32.0 [facility] Mean corpuscular hemoglobin concentration (MCHC) determinationOrdered By: Malena Means on 12-27-2024 MCHC (RBC) [Mass/Vol] 34.0 g/dL 32-36 [facility] Mean platelet volume determi nationOrdered By: Malena Means on 12-27-2024 Platelet mean volume (Bld) [Entitic vol] 10.4 fL 6.2-12.0 [facility] Monocyte percentageOrdered B y: Malena Means on 12-27-2024 Monocytes/100 WBC (Bld) 6.4 % 0-10 [facility] Neutrophil percentageOrdered By: Malena Means on 12-27-2024 Neutrophils/100 WBC (Bld) 72.9 % High 47-70 [facility] Nucleated red blood cell per centageOrdered By: Malena Means on 12-27-2024 Nucleated RBC/100 WBC (Bld) [Ratio] 0 % 0-5 [facility] Platelet countOrdered By: Joaquin Means on 12-27-2024 Platelets (Bld) [#/Vol] 256 10*3/uL 150-450 [facility] Quantitative serum or plasma 3 hour gestational glucose tolerance panelOrdered By: Malena Means on 12-27-2024 Glucose tolerance 3 hours gestational panel See comment [facility] Comment on above: FASTING 101 Col: [...] RBC (Bld) [#/Vol] 3.80 10*6/uL Low 4.2-5.4 [facility] Urine cultureOrdered By: Angelica Means on 12-27-2024 Bacteria identified Cx Nom (U) Positive Abnormal [facility] White blood cell (WBC) count Ordered By: Malena Means on 12-27-2024 WBC (Bld) [#/Vol] 19.0 10*3/uL High 4.4-11.0 [facility] Progress Noteon 12-26-2024 [employer] Authentication Interface Message Text Jesus Asher is [...] I will refer this child to our pediatric physical therapy assistant for this process. After alignment of the [...] after . They met with our social services coordinator as well. I spent a total of [...] MD, FACS Chief, Division of Plastic Surgery [facility] 12/26/2024 Normal [facility] Glucose Challenge Gest 1H 50 minh 12-15-2024 GLU GEST 50g 1H 159 mg/dL High 70-140 [facility] Comment on above: Performed By: #### L 501.0250, L3890.6006, L509.8002, L100.0100 ####[facility] [address] [place], [address] HIVon 12-15-2024 HIV Non-Reactive Normal Nonreactive [facility] Comment on above: Result Comment: Non- Reactive Reactive Repeatedly reactive samples must be confirmed according to CDC recommended confirmatory algorithms. The subresults for either HIVAG or AHIV can be used as an aid in the selection of the confirmation algorithm for reactive samples. Send out specimens with Reactive results to [facility] for confirmation. Order the HIV antibody detection and differentiation: #[id number] Performed By: #### L 501.0250, L3890.6006, L509.8002, L100.0100 ####[facility] [address] [place], [address] Syphilis Antibodieson 2024 Syphilis Abs Non-Reactive Normal Nonreactive [facility] Comment on above: Performed By: #### L 501.0250, L3890.6006, L509.8002, L100.0100 ####[facility] [address] [place], [address] Absolute lymphocyte countOrd ered By: Malena Miguelangel on 12-14-2024 Lymphocytes Auto (Unsp spec) [#/Vol] 2.62 10*3/uL 0.83-4.51 [facility] Absolute neutrophil countOrd ered By: Malena Means on 12-14-2024 Neutrophils (Bld) [#/Vol] 13.6 10*3/uL High 2.0-7.7 [facility] Automated lymphocyte count a s percentage of total leukocytesOrdered By: Malena Means on 12-14-2024 Lymphocytes/100 WBC Auto (Unsp spec) 15.1 % Low 19-41 [facility] Basophil percentageOrdered B y: Malena Means on 12-14-2024 Basophils/100 WBC (Bld) 0.3 % 0-1 [facility] CBC W/Diff, Automatedon 11-25 Absolute Lymph 2.62 X10 3/uL Normal 0.83-4.51 [facility] Comment on above: Performed By: #### L 501.0250, L3890.6006, L509.8002, L100.0100 ####[facility] [address] [place], [address] Absolute Neut 13.6 X10 3/uL High 2.0-7.7 [facility] Comment on above: Performed By: #### L 501.0250, L3890.6006, L509.8002, L100.0100 ####[facility] [address] [place], [address] Basophils/100 WBC (Bld) 0.3 % Normal 0-1 [facility] Comment on above: Performed By: #### L 501.0250, L3890.6006, L509.8002, L100.0100 ####[facility] [address] [place], [address] Eosinophils/100 WBC (Bld) 0.7 % Normal 0-5 [facility] Comment on above: Performed By: #### L 501.0250, L3890.6006, L509.8002, L100.0100 ####[facility] [address] [place], [address] Erythrocyte distribution width (RBC) [Ratio] 13.7 % Normal 11.6-14.6 [facility] Comment on above: Performed By: #### L 501.0250, L3890.6006, L509.8002, L100.0100 ####[facility] [address] [place], [address] Hematocrit (Bld) [Volume fraction] 37.2 % Normal 37-47 [facility] Comment on above: Performed By: #### L 501.0250, L3890.6006, L509.8002, L100.0100 ####[facility] [address] [place], [address] Hemoglobin (Bld) [Mass/Vol] 12.3 g/dL Normal 12.0-15.0 [facility] Comment on above: Performed By: #### L 501.0250, L3890.6006, L509.8002, L100.0100 ####[facility] [address] [place], [address] IG% 0.700 Normal 0.0-0.9 [facility] Comment on above: Result Comment: IG% - Immature Granulocytes (promyelocytes, myelocytes and metamyelocytes) > 1% indicates that a LEFT SHIFT is Present. Performed By: #### L 501.0250, L3890.6006, L509.8002, L100.0100 ####[facility] [address] [place], [address] Lymphocytes/100 WBC (Bld) 15.1 % Low 19-41 [facility] Comment on above: Performed By: #### L 501.0250, L3890.6006, L509.8002, L100.0100 ####[facility] [address] [place], [address] MCH (RBC) [Entitic mass] 31.1 pg Normal 27.0-32.0 [facility] Comment on above: Performed By: #### L 501.0250, L3890.6006, L509.8002, L100.0100 ####[facility] [address] [place], [address] MCHC (RBC) [Mass/Vol] 33.1 g/dL Normal 32-36 [facility] Comment on above: Performed By: #### L 501.0250, L3890.6006, L509.8002, L100.0100 ####[facility] [address] [place], [address] MCV (RBC) [Entitic vol] 94.2 fL Normal 81-99 [facility] Comment on above: Performed By: #### L 501.0250, L3890.6006, L509.8002, L100.0100 ####[facility] [address] [place], [address] Monocytes/100 WBC (Bld) 4.6 % Normal 0-10 [facility] Comment on above: Performed By: #### L 501.0250, L3890.6006, L509.8002, L100.0100 ####[facility] [address] [place], [address] Neutrophils/100 WBC (Bld) 78.6 % High 47-70 [facility] Comment on above: Performed By: #### L 501.0250, L3890.6006, L509.8002, L100.0100 ####[facility] [address] [place], [address] Nucleated RBC (Bld) [#/Vol] 0 10*3/uL Normal 0-5 [facility] Comment on above: Performed By: #### L 501.0250, L3890.6006, L509.8002, L100.0100 ####[facility] [address] [place], [address] Platelet mean volume (Bld) [Entitic vol] 11.3 fL Normal 6.2-12.0 [facility] Comment on above: Performed By: #### L 501.0250, L3890.6006, L509.8002, L100.0100 ####[facility] [address] [place], [address] Platelets (Bld) [#/Vol] 272 10*3/uL Normal 150-450 [facility] Comment on above: Performed By: #### L 501.0250, L3890.6006, L509.8002, L100.0100 ####[facility] [address] [place], [address] RBC (Bld) [#/Vol] 3.95 10*6/uL Low 4.2-5.4 [facility] Comment on above: Performed By: #### L 501.0250, L3890.6006, L509.8002, L100.0100 ####[facility] [address] [place], [address] RDW SD 47.5 fl High 35.1-43.9 [facility] Comment on above: Performed By: #### L 501.0250, L3890.6006, L509.8002, L100.0100 ####[facility] [address] [place], [address] WBC (Bld) [#/Vol] 17.4 10*3/uL High 4.4-11.0 [facility] Comment on above: Performed By: #### L 501.0250, L3890.6006, L509.8002, L100.0100 ####[facility] [address] [place], [address] Eosinophil percentageOrdered By: Malena Means on 12-14-2024 Eosinophils/100 WBC (Bld) 0.7 % 0-5 [facility] Erythrocyte distribution wid th ratioOrdered By: Malena Means on 12-14-2024 Erythrocyte distribution width (RBC) [Ratio] 13.7 % 11.6-14.6 [facility] Erythrocyte distribution wid th standard deviationOrdered By: Malena Means on 12-14-2024 Erythrocyte distribution width (RBC) [Ratio] 47.5 fl High 35.1-43.9 [facility] Glucose measurement at 2 nahid rs post-dose gestational glucose tolerance testOrdered By: Malena Means on 12-14-2024 Glucose [Mass/Vol] 159 mg/dL High 70-140 [facility] Hematocrit Auto (Bld) [Volum e fraction]Ordered By: Malena Means on 12-14-2024 Hematocrit (Bld) [Volume fraction] 37.2 % 37-47 [facility] Hemoglobin measurementOrdere d By: Malena Means on 12-14-2024 Hemoglobin (Bld) [Mass/Vol] 12.3 g/dL 12.0-15.0 [facility] Immature granulocytes/100 WB C Auto (Bld)Ordered By: Malena Means on 12-14-2024 Immature granulocytes/100 WBC (Bld) 0.700 % 0.0-0.9 [facility] Comment on above: IG% - Immature Granu locytes (promyelocytes, myelocytes and metamyelocytes) > 1% indicates that a LEFT SHIFT is Present. Laboratory - Chemistry and C hemistry - challengeOrdered By: Malena Means on 12-14-2024 Glucose Ql (U) Negative [facility] - UrinalysisOrder ed By: Malena Means on 12-14-2024 Protein Ql (U) Negative [facility] MCV (mean corpuscular volume ) determinationOrdered By: Malena Means on 12-14-2024 MCV (RBC) [Entitic vol] 94.2 fL 81-99 [facility] Mean corpuscular hemoglobin (MCH) determinationOrdered By: Malena Means on 12-14-2024 MCH (RBC) [Entitic mass] 31.1 pg 27.0-32.0 [facility] Mean corpuscular hemoglobin concentration (MCHC) determinationOrdered By: Malena Means on 12-14-2024 MCHC (RBC) [Mass/Vol] 33.1 g/dL 32-36 [facility] Mean platelet volume determi nationOrdered By: Malena Means on 12-14-2024 Platelet mean volume (Bld) [Entitic vol] 11.3 fL 6.2-12.0 [facility] Monocyte percentageOrdered B y: Malena Means on 12-14-2024 Monocytes/100 WBC (Bld) 4.6 % 0-10 [facility] Neutrophil percentageOrdered By: Malena Means on 12-14-2024 Neutrophils/100 WBC (Bld) 78.6 % High 47-70 [facility] No Panel InformationOrdered By: Malena Means on 12-14-2024 HIV (1&2) Antibody Non-Reactive Nonreactive [facility] Comment on above: Non-ReactiveReactive Repeatedly reactive samples must be confirmed according to CDC recommended confirmatory algorithms. The subresults for either HIVAG or AHIV can be used as an aid in the selection of the confirmation algorithm for reactive samples.Send out specimens with Reactive results to [facility] for confirmation.Order the HIV antibody detection and differentiation: #[id number] Nucleated red blood cell per centageOrdered By: Malena Means on 12-14-2024 Nucleated RBC/100 WBC (Bld) [Ratio] 0 % 0-5 [facility] [employer] Office Visit Reporton 12-14-2024 [employer] Office Visit Report [facility] [address], [address] [place] [address] OFFICE VISIT Date of Service: 12/14/24 MR#: [id number] Acct: [id number] Name: JESUS ASHER Rep #: [id number] : 1995 Provider: Dr. 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 Normal [facility] Platelet countOrdered By: Joaquin Means on 12-14-2024 Platelets (Bld) [#/Vol] 272 10*3/uL 150-450 [facility] RBC Auto (Bld) [#/Vol]Ordere d By: Malena Means on 12-14-2024 RBC (Bld) [#/Vol] 3.95 10*6/uL Low 4.2-5.4 [facility] White blood cell (WBC) count Ordered By: Malena Means on 12-14-2024 WBC (Bld) [#/Vol] 17.4 10*3/uL High 4.4-11.0 [facility] Laboratory - Chemistry and C hemistry - challengeOrdered By: Malena Means on 11-28-2024 Glucose Ql (U) Negative [facility] - UrinalysisOrder ed By: Malena Means on 11-28-2024 Protein Ql (U) Negative [facility] [employer] Office Visit Reporton 11-28-2024 Hand [employer] Office Visit Report [facility] [address], [address] [place] [address] OFFICE VISIT Date of Service: 11/28/24 MR#: [id number] Acct: [id number] Name: HYUNJESUS KEIRA Rep #: [id number] : 1995 Provider: Dr. 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 -?? (more content not included)... Normal [facility] Progress Noteon 11-10-2024 [employer] Authentication Interface Message Text [facility] - NEW PATIENT ASSESSMENT: I [...] interatrial communication after . PLAN: Follow-up appointment, [facility]: As needed. Preferred delivery location: No preference After , follow-up with Pediatric Cardiology: NOT indicated if isolated cleft lip and palate MAY BE indicated IF the baby is diagnosed with a genetic condition that is associated with congenital heart defects (ex: 22q11.2 deletion syndrome, CHARGE syndrome, Stickler Syndrome, etc) MAY BE indicated IF the director of rehabilitation and wellness hears a murmur or otherwise is concerned SUBJECTIVE: We had the pleasure of seeing Jesus Asher in Cardiology at the [facility] on 11/10/2024 at the request of Dr. Irma Noriega. Ms. Asher was referred due to cleft lip and palate. Obstetric History: Ms. Asher is 2 para 0 at [id number] estimated due date 03/05/2025. Number of fetuses: 1 - male Delivery Hospital, preferred: [facility] Past medical history: Past Medical History: Diagnosis Date Treatment Center Plan of Care Current medications: Medications Ordered Prior to Encounter[1] Allergies: Allergies[2] Family history: The family history was reviewed and is otherwise negative for congenital heart disease, sudden unexplained , arrhythmia. Social History: Jesus Asher lives with her family in [place], [place]. OBJECTIVE: Echocardiogram (11/10/2024): (see Epic for [...] voice recognition systems. Winsome Olivas DO (he/him/his) Dish Machine Operator [facility] [place] [address] Toll-Free: [email or web address] [1] Current Outpatient Medications on File Prior to Visit Medication Sig Dispense Refill Vit w/Dp-Mxlelpcgp-MG (PNV PO) Take by mouth daily No current facility-administere d medications on file prior to visit. [2] No Known Allergies Normal [facility] Casting Chipper Authentication Interface Message Text [facility] Consult INDICATION FOR CONSULT: Cleft lip [...] as well. Past Medical History: Diagnosis Date [facility] Plan of Care Past Surgical History: Procedure Laterality Date WISDOM TOOTH EXTRACTION 2013 FAMILY HISTORY: See Genetic Counseling note Outpatient Medications Marked as Taking for the 11/10/24 encounter (Office Visit) with Allan Lutz MD Medication Sig Dispense Refill Vit w/Rl-Cnygehofb-WZ (PNV PO) Take by mouth daily Social [...] general. Patient will be followed with [facility] and meet with pediatric plastics as well as . There is a 2 to 3% recurrence risk in future pregnancies. Patient will meet with genetic counseling to discuss amniocentesis and further genetic testing. All questions concerns addressed. Jesus Asher also met with our genetic counselor, see separate documentation for counseling. She met Rosalinda Julio, Clinical Field Foreman from the [facility]. Rosalinda will continue to help coordinate and care. 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 Cell free DNA aneuploidy screening is low risk. Declined invasive testing. Plan: 1. Continued obstetrical care with her primary insurance sales agent is recommended. 2. Follow up q4 weeks to evaluate biometric parameters and anatomy. These are planned with the [facility]. 3. echocardiogram completed. 4. surveillance as [...] per hospital protocol. 10. Follow up with [facility] within the first week of life. Please call [phone]. 11. Consultation with Medical Genetic (more content not included)... Normal [facility] - Chemistry and C hemistry - challengeOrdered By: Merlyn Rios on 11-02-2024 Glucose Ql (U) Negative [facility] - UrinalysisOrder ed By: Merlyn Rios on 11-02-2024 Protein Ql (U) Negative [facility] Hand [employer] Office Visit Reporton 11-02-2024 Hand [employer] Office Visit Report [facility] [address], [address] [place] [address] OFFICE VISIT Date of Service: 11/02/24 MR#: [id number] Acct: [id number] Name: JESUS ASHER Rep #: [id number] : 1995 Provider: AIDEE crow Age/Sex: 28/F Location: [facility] Status: Signed Intake Vital Signs 09/09/24 14:14 10/07/24 15:03 11/02/24 13:43 Height 5 ft 3 in 5 ft 3 in 5 ft 3 in Weight: 116 lb 8 oz BMI 20.6 BP 120/72 Intake Visit Reasons: 22wk ob Chief Complaint: 22 Week OB Wet Process Assistant Head Miller Required: No Is patient in pain?: No [...] spouse current occupational status: employed 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 Date Name GA/Weeks Outcome Route Bth Weight Gen Labor Lgth Anesthesia Del [facility] Provider FOB 02/18/24 6 spontaneous HPI 22wk [...] -???-???-???-???-??? -?? (more content not included)... Normal [facility] Progress Noteon 10-13-2024 Casting Chipper Authentication Interface Message Text [facility]- MEDICINE CONSULT Referring/Requesting Provider: Malena Schneider, * PCP: Etienne De Santiago DO INDICATION FOR CONSULT: cleft lip and palate This is a telemedicine video visit requested by the patient/guardian that was performed with the patient's location at [facility] and the provider's location at [facility]. HISTORY OF PRESENT ILLNESS: Patient is a [...] Noriega, DO Medication Sig Dispense Refill Vit w/Px-Gmzpznkch-MP (PNV PO) Take by mouth daily ALLERGY: [...] location at 28 weeks. [facility] up with [facility] in 4 weeks. Chart review and preparation: 5 minutes. Face to face: 12 minutes. Documentation and care coordination: 15 minutes. Total time spent on patient care today: 32 minutes. [1] No Known Allergies Normal [facility] - Chemistry and C hemistry - challengeOrdered By: Maylin Cadena on 10-07-2024 Glucose Ql (U) Negative [facility] - UrinalysisOrder ed By: Maylin Cadena on 10-07-2024 Protein Ql (U) Negative [facility] Hand [employer] Office Visit Reporton 10-07-2024 Hand [employer] Office Visit Report [facility] [address], [address] [place] [address] OFFICE VISIT Date of Service: 10/07/24 MR#: [id number] Acct: [id number] Name: JESUS ASHER Rep #: [id number] : 1995 Provider: Dr. Maylin manjarrez MD Age/Sex: 28/F Location: [facility] Status: Signed Intake Vital Signs 08/16/24 10:17 09/09/24 14:14 10/07/24 15:02 10/07/24 15:03 Height 5 ft 3 in 5 ft 3 in 5 ft 3 in 5 ft 3 in Weight: 110 lb 6 oz BMI 19.5 BP 137/71 H Intake Visit Reasons: 18 wk ob Wet Process Assistant Head Miller Required: No Is patient in pain?: No [...] 1-2 times per week duration: 30-45 minutes/day nic/pentecostalism: Latter-Day seatbelt use: always do you feel safe at home: Yes additional social history: Ayr- data analyzation Patient works at [employer] History 2 Elective abortions Hx Para 0 [...] 150 -???-? (more content not included)... Normal [facility] - Chemistry and C hemistry - challengeOrdered By: Heather Mahmood on 09-09-2024 Glucose Ql (U) Negative [facility] - UrinalysisOrder ed By: Heather Mahmood on 09-09-2024 Protein Ql (U) Negative [facility] Hand [employer] Office Visit Reporton 09-09-2024 Hand Welt [employer] Office Visit Report [facility] [address], [address] [place] [address] OFFICE VISIT Date of Service: 09/09/24 MR#: [id number] Acct: [id number] Name: HYUNJESUS KEIRA Rep #: [id number] : 1995 Provider: MATT Harrison ams Age/Sex: 28/F Location: [facility] Status: Signed Intake Vital Signs 03/14/24 09:59 [...] spouse current occupational status: employed 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 Date Name GA/Weeks Outcome Route Bth Weight Gen Labor Lgth Anesthesia Del [facility] Provider FOB 02/18/24 6 spontaneous HPI 14wk [...] no ad (more content not included)... Normal [facility] PAP IG HPV APTIMA 16/18,45on 08-19-2024 ADEQ Comment Normal . [facility] Comment on above: Order Comment: Speci men Comment: [id number] Specimen Comment: Source.............Cervix Specimen Comment: LMP / Prev Treat...[id number] Specimen Comment: Other.............. Specimen Comment: No. of containers..01 ThinPrep Vial Result Comment: Sati sfactory for evaluation. Endocervical and/or squamous metaplastic cells (endocervical component) are present. Performed By: #### L 7400.0280 #### [facility] [address] [place], [place], [address] COMM . Normal . [facility] Comment on above: Order Comment: Speci men Comment: [id number] Specimen Comment: Source.............Cervix Specimen Comment: LMP / Prev Treat...[id number] Specimen Comment: Other.............. Specimen Comment: No. of containers..01 ThinPrep Vial Performed By: #### L 7400.0280 #### [facility] [address] [place], [place], [address] COMMENT Comment Normal . [facility] Comment on above: Order Comment: Speci men Comment: [id number] Specimen Comment: Source.............Cervix Specimen Comment: LMP / Prev Treat...[id number] Specimen Comment: Other.............. Specimen Comment: No. of containers..01 ThinPrep Vial Result Comment: This liquid based ThinPrep(R) pap test was screened with the use of an image guided system. Performed By: #### L 7400.0280 #### [facility] [address] [place], [place], [id number] DIAG Comment Normal . [facility] Comment on above: Order Comment: Speci men Comment: [id number] Specimen Comment: Source.............Cervix Specimen Comment: LMP / Prev Treat...[id number] Specimen Comment: Other.............. Specimen Comment: No. of containers..01 ThinPrep Vial Result Comment: NEGA TIVE FOR INTRAEPITHELIAL LESION OR MALIGNANCY. Performed By: #### L 7400.0280 #### [facility] [address] [place], [place], [address] HPV APTIMA, HR Negative Normal Negative [facility] Comment on above: Order Comment: Speci men Comment: [id number] Specimen Comment: Source.............Cervix Specimen Comment: LMP / Prev Treat...[id number] Specimen Comment: Other.............. Specimen Comment: No. of containers..01 ThinPrep Vial Result Comment: This nucleic acid amplification test detects fourteen high- risk HPV types (16,18,31,33,35,39,45,51,52,56,58,59,66,68) without differentiation. Performed By: #### L 7400.0280 #### [facility] [address] [place], [place], [address] HPV Elina Rfx Comment Normal . [facility] Comment on above: Order Comment: Speci men Comment: [id number] Specimen Comment: Source.............Cervix Specimen Comment: LMP / Prev Treat...[id number] Specimen Comment: Other.............. Specimen Comment: No. of containers..01 ThinPrep Vial Result Comment: Airamt micha not met, HPV Genotype not performed. Performed at: - [address] [id number] Patient Transport Officer: Shabnam Mcnair MD, Phone: [phone] Performed at: = - [facility] [id number] Patient Transport Officer: Shabnam Mcnair MD, Phone: [phone] Performed By: #### L 7400.0280 #### [facility] [address] [place], [address] PAPSMR Comment Normal . [facility] Comment on above: Order Comment: Speci men Comment: [id number] Specimen Comment: Source.............Cervix Specimen Comment: LMP / Prev Treat...[id number] Specimen Comment: Other.............. Specimen Comment: No. of [...] occur. Performed By: #### L 7400.0280 #### [facility] [address] [place], [address] PERFORM Comment Normal . [facility] Comment on above: Order Comment: Speci men Comment: [id number] Specimen Comment: Source.............Cervix Specimen Comment: LMP / Prev Treat...[id number] Specimen Comment: Other.............. Specimen Comment: No. of containers..01 ThinPrep Vial Result Comment: Karolina Griffith, Purchasing Expeditor (ASCP) Performed By: #### L 7400.0280 #### [facility] [address] [place], [address] Urine Cultureon 08-19-2024 [facility] Mixed Gram Positive Organisms [place] Count 11,000-25,000 MIXC Mixed contaminants. Submit a new specimen if indicated. Normal [facility] Comment on above: Performed By: #### M 100.2200, L7000.1800 ####[facility] [address] [place], [address] Chlamydia/GC LUCAS aptimaon CHLAMY,NUC ACID Negative Normal Negative [facility] Comment on above: Performed By: #### M 100.2200, L7000.1800 ####[facility] [address] [place], [address] GC BY NUC ACID Negative Normal Negative [facility] Comment on above: Result Comment: Perf ormed at: =G - [facility] [address] [id number] Patient Transport Officer: Shabnam Mcnair MD, Phone: [phone] Performed By: #### M 100.2200, L7000.1800 ####[facility] [address] [place], [address] Absolute lymphocyte countOrd ered By: Maylin Cadena on 08-16-2024 Lymphocytes Auto (Unsp spec) [#/Vol] 2.32 10*3/uL 0.83-4.51 [facility] Absolute neutrophil countOrd ered By: Maylin Cadena on 08-16-2024 Neutrophils (Bld) [#/Vol] 10.4 10*3/uL High 2.0-7.7 [facility] Automated lymphocyte count a s percentage of total leukocytesOrdered By: Maylin Cadena on 08-16-2024 Lymphocytes/100 WBC Auto (Unsp spec) 17.1 % Low 19-41 [facility] Basophil percentageOrdered B y: Maylin Cadena on 08-16-2024 Basophils/100 WBC (Bld) 0.5 % 0-1 [facility] CBC W/Diff, Automatedon 07-28 Absolute Lymph 2.32 X10 3/uL Normal 0.83-4.51 [facility] Comment on above: Performed By: #### L 3890.6005, L509.8000, L100.0100, L509.4005, BTS, L3890.6300, L900.0098, L3890.6100 ####[facility] [address] [place], [address] Absolute Neut 10.4 X10 3/uL High 2.0-7.7 [facility] Comment on above: Performed By: #### L 3890.6005, L509.8000, L100.0100, L509.4005, BTS, L3890.6300, L900.0098, L3890.6100 ####[facility] [address] [place], [address] Basophils/100 WBC (Bld) 0.5 % Normal 0-1 [facility] Comment on above: Performed By: #### L 3890.6005, L509.8000, L100.0100, L509.4005, BTS, L3890.6300, L900.0098, L3890.6100 ####[facility] [address] [place], [address] Eosinophils/100 WBC (Bld) 0.2 % Normal 0-5 [facility] Comment on above: Performed By: #### L 3890.6005, L509.8000, L100.0100, L509.4005, BTS, L3890.6300, L900.0098, L3890.6100 ####[facility] [address] [place], [address] Erythrocyte distribution width (RBC) [Ratio] 12.8 % Normal 11.6-14.6 [facility] Comment on above: Performed By: #### L 3890.6005, L509.8000, L100.0100, L509.4005, BTS, L3890.6300, L900.0098, L3890.6100 ####[facility] [address] [place], [address] Hematocrit (Bld) [Volume fraction] 40.3 % Normal 37-47 [facility] Comment on above: Performed By: #### L 3890.6005, L509.8000, L100.0100, L509.4005, BTS, L3890.6300, L900.0098, L3890.6100 ####[facility] [address] [place], [address] Hemoglobin (Bld) [Mass/Vol] 14.1 g/dL Normal 12.0-15.0 [facility] Comment on above: Performed By: #### L 3890.6005, L509.8000, L100.0100, L509.4005, BTS, L3890.6300, L900.0098, L3890.6100 ####[facility] [address] [place], [address] IG% 0.400 Normal 0.0-0.9 [facility] Comment on above: Result Comment: IG% - Immature Granulocytes (promyelocytes, myelocytes and metamyelocytes) > 1% indicates that a LEFT SHIFT is Present. Performed By: #### L 3890.6005, L509.8000, L100.0100, L509.4005, BTS, L3890.6300, L900.0098, L3890.6100 ####[facility] [address] [place], [address] Lymphocytes/100 WBC (Bld) 17.1 % Low 19-41 [facility] Comment on above: Performed By: #### L 3890.6005, L509.8000, L100.0100, L509.4005, BTS, L3890.6300, L900.0098, L3890.6100 ####[facility] [address] [place], [address] MCH (RBC) [Entitic mass] 30.7 pg Normal 27.0-32.0 [facility] Comment on above: Performed By: #### L 3890.6005, L509.8000, L100.0100, L509.4005, BTS, L3890.6300, L900.0098, L3890.6100 ####[facility] [address] [place], [address] MCHC (RBC) [Mass/Vol] 35.0 g/dL Normal 32-36 [facility] Comment on above: Performed By: #### L 3890.6005, L509.8000, L100.0100, L509.4005, BTS, L3890.6300, L900.0098, L3890.6100 ####[facility] [address] [place], [address] MCV (RBC) [Entitic vol] 87.6 fL Normal 81-99 [facility] Comment on above: Performed By: #### L 3890.6005, L509.8000, L100.0100, L509.4005, BTS, L3890.6300, L900.0098, L3890.6100 ####[facility] [address] [place], [address] Monocytes/100 WBC (Bld) 5.0 % Normal 0-10 [facility] Comment on above: Performed By: #### L 3890.6005, L509.8000, L100.0100, L509.4005, BTS, L3890.6300, L900.0098, L3890.6100 ####[facility] [address] [place], [address] Neutrophils/100 WBC (Bld) 76.8 % High 47-70 [facility] Comment on above: Performed By: #### L 3890.6005, L509.8000, L100.0100, L509.4005, BTS, L3890.6300, L900.0098, L3890.6100 ####[facility] [address] [place], [address] Nucleated RBC (Bld) [#/Vol] 0 10*3/uL Normal 0-5 [facility] Comment on above: Performed By: #### L 3890.6005, L509.8000, L100.0100, L509.4005, BTS, L3890.6300, L900.0098, L3890.6100 ####[facility] [address] [place], [address] Platelet mean volume (Bld) [Entitic vol] 11.5 fL Normal 6.2-12.0 [facility] Comment on above: Performed By: #### L 3890.6005, L509.8000, L100.0100, L509.4005, BTS, L3890.6300, L900.0098, L3890.6100 ####[facility] [address] [place], [address] Platelets (Bld) [#/Vol] 282 10*3/uL Normal 150-450 [facility] Comment on above: Performed By: #### L 3890.6005, L509.8000, L100.0100, L509.4005, BTS, L3890.6300, L900.0098, L3890.6100 ####[facility] [address] [place], [address] RBC (Bld) [#/Vol] 4.60 10*6/uL Normal 4.2-5.4 [facility] Comment on above: Performed By: #### L 3890.6005, L509.8000, L100.0100, L509.4005, BTS, L3890.6300, L900.0098, L3890.6100 ####[facility] [address] [place], [place], [address] RDW SD 40.5 fl Normal 35.1-43.9 [facility] Comment on above: Performed By: #### L 3890.6005, L509.8000, L100.0100, L509.4005, BTS, L3890.6300, L900.0098, L3890.6100 ####[facility] [address] [place], [address] WBC (Bld) [#/Vol] 13.5 10*3/uL High 4.4-11.0 [facility] Comment on above: Performed By: #### L 3890.6005, L509.8000, L100.0100, L509.4005, BTS, L3890.6300, L900.0098, L3890.6100 ####[facility] [address] [place], [address] Cervical or vaginal specimen microscopic examination by liquid based cytology (reportOrdered By: Malena Means on 08-16-2024 Cytology report Cyto stain.thin prep Doc (Cvx/Vag) Comment . [facility] Comment on above: Criteria not met, HP V Genotype not performed.Performed at: - [address] [id number] Director: Shabnam Mcnair MD, Phone: [phone] at: =[address] [id number] Director: Shabnam Mcnair MD, Phone: [phone] Cervical or vagninal specime n microscopic examination by cytology stain (reported asOrdered By: Malena Means on 08-16-2024 Cytology report Cyto stain Doc (Cvx/Vag) Comment . [facility] Comment on above: The Pap smear [...] rRNA LUCAS+probe Ql (Unsp spec) Negative Negative [facility] Detection in cervical specim en of any of human papilloma virus (HPV) 16, 18, 31, 33,Ordered By: Malena Means on 08-16-2024 HPV 16+18+31+33+35+39+45+51 +52+56+58+59+66+68 DNA Probe+sig amp Ql (Cvx) Negative Negative [facility] Comment on above: This nucleic acid am plification test detects fourteen high-risk HPV types (16,18,31,33,35,39,45,51,52,56,58,59,66,68)without differentiation. Eosinophil percentageOrdered By: Maylin Cadena on 08-16-2024 Eosinophils/100 WBC (Bld) 0.2 % 0-5 [facility] Erythrocyte distribution wid th ratioOrdered By: Maylin Cadena on 08-16-2024 Erythrocyte distribution width (RBC) [Ratio] 12.8 % 11.6-14.6 [facility] Erythrocyte distribution wid th standard deviationOrdered By: Maylin Cadena on 08-16-2024 Erythrocyte distribution width (RBC) [Ratio] 40.5 fl 35.1-43.9 [facility] HIV - WCHon 08-16-2024 HIV Non-Reactive Normal Nonreactive [facility] Comment on above: Order Comment: Reaso n for Exam: Performed By: #### L 3890.6005, L509.8000, L100.0100, L509.4005, BTS, L3890.6300, L900.0098, L3890.6100 ####[facility] [address] [place], [address] HIV 1 and HIV-2 antibody ass ay with HIV-1 p24 antigen detectionOrdered By: Maylin Cadena on 08-16-2024 HIV 1+2 Ab+HIV1 p24 Ag IA Ql Non-Reactive Nonreactive [facility] Hematocrit Auto (Bld) [Volum e fraction]Ordered By: Maylin Clarence on 08-16-2024 Hematocrit (Bld) [Volume fraction] 40.3 % 37-47 [facility] Hemoglobin measurementOrdere d By: Maylin Berhanemaxwell on 08-16-2024 Hemoglobin (Bld) [Mass/Vol] 14.1 g/dL 12.0-15.0 [facility] Hepatitis B Surface Antigeno n 08-16-2024 HEP B Surf Ag Non-Reactive Normal Nonreactive [facility] Comment on above: Order Comment: Reaso n for Exam: Performed By: #### L 3890.6005, L509.8000, L100.0100, L509.4005, BTS, L3890.6300, L900.0098, L3890.6100 ####[facility] [address] [place], [address] Hepatitis C Antibodyon 08-16 Hepatitis C AB Non-Reactive Normal Nonreactive [facility] Comment on above: Order Comment: Reaso n for Exam: Result Comment: Non Reactive: < 0.8 Equivocal: >/= 0.8 to < 1.0 Reactive: >/= 1.0 The CDC requires that a reactive/equivocal HCV antibody result be sent out for confirmation. HCV Quant by PCR testing. Performed By: #### L 3890.6005, L509.8000, L100.0100, L509.4005, BTS, L3890.6300, L900.0098, L3890.6100 ####[facility] [address] [place], [address] Immature granulocytes/100 WB C Auto (Bld)Ordered By: Maylin Cadena on 08-16-2024 Immature granulocytes/100 WBC (Bld) 0.400 % 0.0-0.9 [facility] Comment on above: IG% - Immature Granu locytes (promyelocytes, myelocytes and metamyelocytes) > 1% indicates that a LEFT SHIFT is Present. L509.8000on 08-16-2024 Syphilis Abs Non-Reactive Normal [facility] Comment on above: Order Comment: Reaso n for Exam: Performed By: #### L 3890.6005, L509.8000, L100.0100, L509.4005, BTS, L3890.6300, L900.0098, L3890.6100 ####[facility] [address] [place], [address] Laboratory - CytologyOrdered By: Malena Means on 08-16-2024 Machine Attendant Cyto stain Nom (Cvx/Vag) [ID] Comment . [facility] Comment on above: Karolina Griffith, Cytote chnologist (ASCP) Laboratory - Miscellaneous t estsOrdered By: Malena Means on 08-16-2024 Service comment (Unsp spec) [Interp] . . [facility] MCV (mean corpuscular volume ) determinationOrdered By: Maylin Cadena on 08-16-2024 MCV (RBC) [Entitic vol] 87.6 fL 81-99 [facility] Mean corpuscular hemoglobin (MCH) determinationOrdered By: Maylin Cadena on 08-16-2024 MCH (RBC) [Entitic mass] 30.7 pg 27.0-32.0 [facility] Mean corpuscular hemoglobin concentration (MCHC) determinationOrdered By: Maylin Cadena on 08-16-2024 MCHC (RBC) [Mass/Vol] 35.0 g/dL 32-36 [facility] Mean platelet volume determi nationOrdered By: Maylin Cadena on 08-16-2024 Platelet mean volume (Bld) [Entitic vol] 11.5 fL 6.2-12.0 [facility] Monocyte percentageOrdered B y: Maylin Cadena on 08-16-2024 Monocytes/100 WBC (Bld) 5.0 % 0-10 [facility] NATERAon 08-16-2024 NATURA SEE SCANNED REPORT Normal [facility] Comment on above: Order Comment: Comme nts: elects NIPT Carrier Performed By: #### L 3890.6005, L509.8000, L100.0100, L509.4005, BTS, L3890.6300, L900.0098, L3890.6100 ####[facility] [id number] [place], [address] Neisseria gonorrhoeae nuclei c acid detection by amplified probe techniqueOrdered By: Maylin Cadena on 08-16-2024 N. gonorrhoeae DNA LUCAS+probe Ql (Unsp spec) Negative Negative [facility] Comment on above: Performed at: =[address] [id number] Director: Shabnam Mcnair MD, Phone: [phone] Neutrophil percentageOrdered By: Maylin Cadena on 08-16-2024 Neutrophils/100 WBC (Bld) 76.8 % High 47-70 [facility] No Panel InformationOrdered By: Malena Means on 08-16-2024 Pap Smear Specimen Adequacy Comment . [facility] Comment on above: Satisfactory for tammy luation. Endocervical and/or squamous metaplasticcells (endocervical component) are present. Nucleated red blood cell per centageOrdered By: Maylin Cadena on 08-16-2024 Nucleated RBC/100 WBC (Bld) [Ratio] 0 % 0-5 [facility] Hand Welt Butter Office Visit Reporton 08-16-2024 Hand Welt [facility] Office Visit Report [facility] [address], [address] [place] [address] OFFICE VISIT Date of Service: 08/16/24 MR#: [id number] Acct: [id number] Name: JESUS ASHER KEIRA Rep #: [id number] : 1995 Provider: Dr. 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 current occupational exposures/hazards: No pets and animals: Yes pets and animals: dog(s) history of recent travel: Yes ([facility]) out of state: Yes out of [...] 1-2 times per week duration: 30-45 minutes/day nic/pentecostalism: Latter-Day seatbelt use: always do you feel safe at home: Yes 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 Normal [facility] Platelet countOrdered By: Lebron Cadnea on 08-16-2024 Platelets (Bld) [#/Vol] 282 10*3/uL 150-450 [facility] RBC Auto (Bld) [#/Vol]Ordere d By: Maylin Cadena on 08-16-2024 RBC (Bld) [#/Vol] 4.60 10*6/uL 4.2-5.4 [facility] Rubella IgGon 08-16-2024 Rubella IgG Reactive Normal Nonreactive [facility] Comment on above: Order Comment: Reaso n for Exam: Result Comment: Anti body Results Interpretation of Immune Status Non Reactive Presumed Non-Immune Equivocal Equivocal Reactive Presumed Immune Performed By: #### L 3890.6005, L509.8000, L100.0100, L509.4005, BTS, L3890.6300, L900.0098, L3890.6100 ####[facility] [id number] [place], [address] Serum Treponema species anti body detectionOrdered By: Maylin Cadena on 08-16-2024 Treponema sp Ab Ql (S) Non-Reactive [facility] Type AND Screenon 08-16-2024 ABO and Rh group Nom (Bld) Blood group B Rh(D) positive Normal [facility] Comment on above: Order Comment: PN Performed By: #### L 3890.6005, L509.8000, L100.0100, L509.4005, BTS, L3890.6300, L900.0098, L3890.6100 ####[facility] [id number] [place], [address] Urine cultureOrdered By: Lee Cadena on 08-16-2024 Bacteria identified Cx Nom (U) Positive Abnormal [facility] White blood cell (WBC) count Ordered By: Maylin Cadena on 08-16-2024 WBC (Bld) [#/Vol] 13.5 10*3/uL High 4.4-11.0 [facility] Hand Welt Butter Office Visit Reporton 03-14-2024 Hand Welt Butter Office Visit Report [facility] [address], [address] [place] [address] OFFICE VISIT Date of Service: 03/14/24 MR#: [id number] Acct: [id number] Name: JESUS ASHER Rep #: [id number] : 1995 Provider: Dr. 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 Patient works at [employer] Miscarriage F/U Details: JESUS ASHER is a [...] Faith Signature: Date (if applicable) CC: Normal [facility] .Auto Diffon 03-29-2022 Basophil, Absolute 0.1 10 3/mcL Normal 0.0-0.2 [facility] ([place]) Comment on above: Performed By: #### G FR, CMP, TSH, LIPID #### [address] [address] Basophils/100 WBC (Bld) 1.0 % Normal 0.0-2.5 A [facility] ([place]) Comment on above: Performed By: #### G FR, CMP, TSH, LIPID #### [address] [address] Eosinophil, Absolute 0.1 10 3/mcL Normal 0.0-0.4 [facility] ([place]) Comment on above: Performed By: #### G FR, CMP, TSH, LIPID #### [address] [address] Eosinophils/100 WBC (Bld) 1.0 % Normal 0.0-7.0 [facility] ([place]) Comment on above: Performed By: #### G FR, CMP, TSH, LIPID #### [address] [address] Lymphocyte, Absolute 2.8 10 3/mcL Normal 0.8-3.9 [facility] ([place]) Comment on above: Performed By: #### G FR, CMP, TSH, LIPID #### [address] [address] Lymphocytes/100 WBC (Bld) 32.1 % Normal 10.0-50.0 [facility] ([place]) Comment on above: Performed By: #### G FR, CMP, TSH, LIPID #### [address] [address] Monocyte, Absolute 0.5 10 3/mcL Normal 0.2-1.0 [facility] ([place]) Comment on above: Performed By: #### G FR, CMP, TSH, LIPID #### [address] [address] Monocytes/100 WBC (Bld) 5.7 % Normal 1.7-13.0 A [facility] ([place]) Comment on above: Performed By: #### G FR, CMP, TSH, LIPID #### [address] [address] Neutrophils/100 WBC (Bld) 60.2 % Normal 37.0-80.0 [facility] ([place]) Comment on above: Performed By: #### G FR, CMP, TSH, LIPID #### [address] [address] .GFRon 03-29-2022 GFR 99 ml/min/1.73sqm Normal [facility] ([place]) Comment on above: Result Comment: GFR Population [...] #### G FR, CMP, TSH, LIPID #### [address] [address] GFR Non- 82 ml/min/1.73sqm Normal [facility] ([place]) Comment on above: Result Comment: GFR Population [...] #### G FR, CMP, TSH, LIPID #### [address] [address] .NEUABSon 03-29-2022 Neutrophil, Absolute 5.2 10 3/mcL Normal 2.9-6.2 [facility] ([place]) Comment on above: Performed By: #### G FR, CMP, TSH, LIPID #### [address] [address] CBCon 03-29-2022 Erythrocyte distribution width (RBC) [Ratio] 13.2 % Normal 11.5-14.5 [facility] ([place]) Comment on above: Performed By: #### G FR, CMP, TSH, LIPID #### [address] [address] Hematocrit (Bld) [Volume fraction] 43.4 % Normal 37.0-47.0 [facility] ([place]) Comment on above: Performed By: #### G FR, CMP, TSH, LIPID #### [address] [address] Hgb 14.9 G/dL Normal 12.0-16.0 [facility] ([place]) Comment on above: Performed By: #### G FR, CMP, TSH, LIPID #### [address] [address] MCH (RBC) [Entitic mass] 29.9 pg Normal 27.0-31.2 [facility] ([place]) Comment on above: Performed By: #### G FR, CMP, TSH, LIPID #### [address] [address] MCHC 34.3 G/dL Normal 33.0-37.0 [facility] ([place]) Comment on above: Performed By: #### G FR, CMP, TSH, LIPID #### [address] [address] MCV (RBC) [Entitic vol] 87.4 fL Normal 80.0-94.0 A [facility] ([place]) Comment on above: Performed By: #### G FR, CMP, TSH, LIPID #### [address] [address] Platelet 267 10 3/mcL Normal 130-400 [facility] ([place]) Comment on above: Performed By: #### G FR, CMP, TSH, LIPID #### [address] [address] Platelet mean volume (Bld) [Entitic vol] 9.6 fL Normal 7.4-10.4 [facility] ([place]) Comment on above: Performed By: #### G FR, CMP, TSH, LIPID #### [address] [address] RBC 4.97 10 6/mcL Normal 4.20-5.40 [facility] ([place]) Comment on above: Performed By: #### G FR, CMP, TSH, LIPID #### [address] [address] WBC 8.7 10 3/mcL Normal 4.6-10.8 [facility] ([place]) Comment on above: Performed By: #### G FR, CMP, TSH, LIPID #### [address] [address] CMPon 03-29-2022 Albumin Level 4.0 G/dL Normal 3.5-5.0 [facility] ([place]) Comment on above: Performed By: #### G FR, CMP, TSH, LIPID #### [address] [address] Albumin/Globulin [Mass ratio] 1.1 {ratio} Normal 1.1-2.5 [facility] ([place]) Comment on above: Performed By: #### G FR, CMP, TSH, LIPID #### [address] [address] ALP [Catalytic activity/Vol] 60 U/L Normal 40-135 [facility] ([place]) Comment on above: Performed By: #### G FR, CMP, TSH, LIPID #### [address] [address] ALT [Catalytic activity/Vol] 19 U/L Normal 14-59 [facility] ([place]) Comment on above: Performed By: #### G FR, CMP, TSH, LIPID #### [address] [address] AST [Catalytic activity/Vol] 18 U/L Normal 10-40 [facility] ([place]) Comment on above: Performed By: #### G FR, CMP, TSH, LIPID #### [address] [address] Bili Total 1.2 mg/dL High 0.2-1.0 [facility] ([place]) Comment on above: Result Comment: Use of this assay is not recommended for patients undergoing treatment with eltrombopag due to the potential for falsely elevated results. Performed By: #### G FR, CMP, TSH, LIPID #### [address] [address] BUN/Creatinine Ratio 13 ratio Normal 7-27 [facility] ([place]) Comment on above: Performed By: #### G FR, CMP, TSH, LIPID #### [address] [address] Calcium [Mass/Vol] 9.5 mg/dL Normal 8.4-10.2 [facility] ([place]) Comment on above: Performed By: #### G FR, CMP, TSH, LIPID #### [address] [address] Chloride [Moles/Vol] 104 mmol/L Normal 98-107 [facility] ([place]) Comment on above: Performed By: #### G FR, CMP, TSH, LIPID #### [address] [address] CO2 [Moles/Vol] 28 mmol/L Normal 22-29 [facility] ([place]) Comment on above: Performed By: #### G FR, CMP, TSH, LIPID #### [address] [address] Creatinine [Mass/Vol] 0.83 mg/dL Normal 0.55-1.02 [facility] ([place]) Comment on above: Performed By: #### G FR, CMP, TSH, LIPID #### [address] [address] Electrolyte Balance 7.0 mEq/L Normal 4.0-15.0 [facility] ([place]) Comment on above: Performed By: #### G FR, CMP, TSH, LIPID #### [address] [address] Globulin 3.8 G/dL Normal [facility] ([place]) Comment on above: Performed By: #### G FR, CMP, TSH, LIPID #### [address] [address] Glucose [Mass/Vol] 81 mg/dL Normal 70-105 [facility] ([place]) Comment on above: Performed By: #### G FR, CMP, TSH, LIPID #### [address] [address] Potassium [Moles/Vol] 5.3 mmol/L High 3.5-5.1 [facility] ([place]) Comment on above: Performed By: #### G FR, CMP, TSH, LIPID #### [address] [address] Sodium [Moles/Vol] 139 mmol/L Normal 136-145 [facility] ([place]) Comment on above: Performed By: #### G FR, CMP, TSH, LIPID #### [address] [address] Total Protein 7.8 G/dL Normal 6.4-8.2 [facility] ([place]) Comment on above: Performed By: #### G FR, CMP, TSH, LIPID #### [address] [address] Urea nitrogen [Mass/Vol] 11 mg/dL Normal 7-18 [facility] ([place]) Comment on above: Performed By: #### G FR, CMP, TSH, LIPID #### [address] [address] LABORATORYOrdered By: Cherise Faith on 03-29-2022 Albumin [...] 03-29-2022 Cholesterol [Mass/Vol] 192 mg/dL Normal 0-200 [facility] ([place]) Comment on above: Result Comment: Chol esterol Reference Interval: Less than 200 Desirable 200-239 Borderline high risk 240 and above High risk Performed By: #### G FR, CMP, TSH, LIPID #### [address] [address] Cholesterol in HDL [Mass/Vol] 57 mg/dL Normal 40-60 [facility] ([place]) Comment on above: Performed By: #### G FR, CMP, TSH, LIPID #### [address] [place], [place] [address] Cholesterol in LDL [Mass/Vol] 115 mg/dL Normal 0-130 [facility] ([place]) Comment on above: Performed By: #### G FR, CMP, TSH, LIPID #### [address] [place], [place] [address] Triglyceride [Mass/Vol] 99 mg/dL Normal 0-150 A [facility] ([place]) Comment on above: Result Comment: Trig lyceride Reference Interval: Less than 150 Normal 150-199 Borderline high risk 200-499 High risk 500 or higher Very high risk Performed By: #### G FR, CMP, TSH, LIPID #### [address] [place], [place] [address] TSHon 03-29-2022 TSH Qn 1.45 m[IU]/L Normal 0.36-3.74 [facility] ([place]) Comment on above: Performed By: #### G FR, CMP, TSH, LIPID #### [address] [place], [place] [address] Covid 19 Resultson 1 SARS-CoV-2 (COVID-19) RNA [...] You may also be contacted by the [facility] to see if any of [...] or Naproxen (Aleve) can also be used. Fxcp-hza-lcrmjlv cough and cold medicines can be used according to the instructions on the package. Some aune-uif-hahyiya medicines also contain acetaminophen. Make sure you [...] water are not available, use alcohol-based hand appointment coordinator. Avoid touching your eyes, nose, and mouth [...] You may also be contacted by the [facility] to see if any of your [...] or Naproxen (Aleve) can also be used. Tmrf-ejb-ydcqlkw cough and cold medicines can be used according to the instructions on the package. Some ikut-osl-yzunyuh medicines also contain acetaminophen. Make sure you [...] water are not available, use alcohol-based hand appointment coordinator. Avoid touching your eyes, nose, and mouth [...] You may also be contacted by the [facility] to see if any of your [...] or Naproxen (Aleve) can also be used. Qzmw-aec-wigbaks cough and cold medicines can be used according to the instructions on the package. Some hope-msa-pzcquqk medicines also contain acetaminophen. Make sure you [...] water are not available, use alcohol-based hand appointment coordinator. Avoid touching your eyes, nose, and mouth [...] You may also be contacted by the [facility] to see if any of [...] or Naproxen (Aleve) can also be used. Mziz-eyc-mdebngk cough and cold medicines can be used according to the instructions on the package. Some wpxq-uai-lfcstzi medicines also contain acetaminophen. Make sure you [...] water are not available, use alcohol-based hand appointment coordinator. Avoid touching your eyes, nose, and mouth [...] Dr. Etienne De Santiago DO Work Phone: [facility] 03-06-2025 11:33-0400 Diastolic blood pressure 89 mm[Hg] Dr. Etienne De Santiago DO Work Phone: [facility] 03-06-2025 11:33-0400 Systolic blood pressure 131 mm[Hg] Dr. Etienne De Santiago DO Work Phone: [facility] 03-06-2025 11:30-0400 Body mass index (BMI) [Ratio] 24.6 kg/m2 Dr. Etienne De Santiago DO Work Phone: [facility] 03-06-2025 11:30-0400 Body weight 63.[address] Etienne De Santiago DO Work Phone: [facility] 03-01-2025 13:15-0400 Body height 160.[address] Etienne De Santiago DO Work Phone: [facility] 03-01-2025 13:15-0400 Body mass index (BMI) [Ratio] 24.7 kg/m2 Dr. Etienne De Santiago DO Work Phone: [facility] 03-01-2025 13:15-0400 Body weight 63.[address] Etienne De Santiago DO Work Phone: [facility] 03-01-2025 13:15-0400 Diastolic blood pressure 78 mm[Hg] Dr. Etienne De Santiago DO Work Phone: [facility] 03-01-2025 13:15-0400 Systolic blood pressure 132 mm[Hg] Dr. Etienne De Santiago DO Work Phone: [facility] 02-22-2025 14:39-0400 Body height 160.[address] Etienne De Santiago DO Work Phone: [facility] 02-22-2025 14:34-0400 Body mass index (BMI) [Ratio] 25 kg/m2 Dr. Etienne De Santiago DO Work Phone: [facility] 02-22-2025 14:34-0400 Body weight 64.[address] Etienne De Santiago DO Work Phone: [facility] 02-22-2025 14:34-0400 Diastolic blood pressure 82 mm[Hg] Dr. Etienne De Santiago DO Work Phone: [facility] 02-22-2025 14:34-0400 Systolic blood pressure 137 mm[Hg] Dr. Etienne De Santiago DO Work Phone: [facility] 02-13-2025 14:47-0400 Body height 160.[address] Etienne De Santiago DO Work Phone: [facility] 02-13-2025 14:47-0400 Body mass index (BMI) [Ratio] 24.5 kg/m2 Dr. Etienne De Santiago DO Work Phone: [facility] 02-13-2025 14:47-0400 Body weight 62.[address] Etienne De Santiago DO Work Phone: [facility] 02-13-2025 14:47-0400 Diastolic blood pressure 74 mm[Hg] Dr. Etienne De Santiago DO Work Phone: [facility] 02-13-2025 14:47-0400 Systolic blood pressure 116 mm[Hg] Dr. Etienne De Santiago DO Work Phone: [facility] 02-07-2025 09:52-0400 Body height 160.[address] Etienne De Santiago DO Work Phone: [facility] 02-07-2025 09:52-0400 Body mass index (BMI) [Ratio] 24.3 kg/m2 Dr. Etienne De Santiago DO Work Phone: [facility] 02-07-2025 09:52-0400 Body weight 62.[address] Etienne De Santiago DO Work Phone: [facility] 02-07-2025 09:52-0400 Diastolic blood pressure 73 mm[Hg] Dr. Etienne De Santiago DO Work Phone: [facility] 02-07-2025 09:52-0400 Systolic blood pressure 122 mm[Hg] Dr. Etienne De Santiago DO Work Phone: [facility] 01-26-2025 15:08-0400 Body height 160.[address] Etienne De Santiago DO Work Phone: [facility] 01-26-2025 15:08-0400 Body mass index (BMI) [Ratio] 24 kg/m2 Dr. Etienne De Santiago DO Work Phone: [facility] 01-26-2025 15:08-0400 Body weight 61.[address] Etienne De Santiago DO Work Phone: [facility] 01-26-2025 15:08-0400 Diastolic blood pressure 74 mm[Hg] Dr. Etienne De Santiago DO Work Phone: [facility] 01-26-2025 15:08-0400 Systolic blood pressure 125 mm[Hg] Dr. Etienne De Santiago DO Work Phone: [facility] 01-12-2025 10:10-0400 Body height 160.[address] Etienne De Santiago DO Work Phone: [facility] 01-12-2025 10:09-0400 Body mass index (BMI) [Ratio] 23.2 kg/m2 Dr. Etienne De Santiago DO Work Phone: [facility] 01-12-2025 10:09-0400 Body weight 59.[address] Etienne De Santiago DO Work Phone: [facility] 01-12-2025 10:09-0400 Diastolic blood pressure 89 mm[Hg] Dr. Etienne De Santiago DO Work Phone: [facility] 01-12-2025 10:09-0400 Systolic blood pressure 129 mm[Hg] Dr. Etienne De Santiago DO Work Phone: [facility] 12-29-2024 11:42-0400 Body height 160.[address] Etienne DeS antiago DO Work Phone: [facility] 12-29-2024 11:42-0400 Body mass index (BMI) [Ratio] 22.9 kg/m2 Dr. Etienne De Santiago DO Work Phone: [facility] 12-29-2024 11:42-0400 Body weight 58.[address] Etienne De Santiago DO Work Phone: [facility] 12-29-2024 11:42-0400 Diastolic blood pressure 80 mm[Hg] Dr. Etienne De Santiago DO Work Phone: [facility] 12-29-2024 11:42-0400 Systolic blood pressure 122 mm[Hg] Dr. Etienne De Santiago DO Work Phone: [facility] 12-14-2024 13:09-0400 Body height 160.[address] Etienne De Santiago DO Work Phone: [facility] 12-14-2024 13:09-0400 Body mass index (BMI) [Ratio] 22.1 kg/m2 Dr. Etienne De Santiago DO Work Phone: [facility] 12-14-2024 13:09-0400 Body weight 56.[address] Etienne De Santiago DO Work Phone: [facility] 12-14-2024 13:09-0400 Diastolic blood pressure 76 mm[Hg] Dr. Etienne De Santiago DO Work Phone: [facility] 12-14-2024 13:09-0400 Systolic blood pressure 122 mm[Hg] Dr. Etienne De Santiago DO Work Phone: [facility] 11-28-2024 14:46-0400 Body mass index (BMI) [Ratio] 21.7 kg/m2 Dr. Etienne De Santiago DO Work Phone: [facility] 11-28-2024 14:46-0400 Body weight 55.[address] Etienne De Santiago DO Work Phone: [facility] 11-28-2024 14:46-0400 Diastolic blood pressure 79 mm[Hg] Dr. Etienne De Santiago DO Work Phone: [facility] 11-28-2024 14:46-0400 Systolic blood pressure 126 mm[Hg] Dr. Etienne De Santiago DO Work Phone: [facility] 11-02-2024 13:43-0400 Body mass index (BMI) [Ratio] 20.6 kg/m2 Dr. Etienne De Santiago DO Work Phone: [facility] 11-02-2024 13:43-0400 Body weight 52.[address] Etienne De Santiago DO Work Phone: [facility] 11-02-2024 13:43-0400 Diastolic blood pressure 72 mm[Hg] Dr. Etienne De Santiago DO Work Phone: [facility] 11-02-2024 13:43-0400 Systolic blood pressure 120 mm[Hg] Dr. Etienne De Santiago DO Work Phone: [facility] 10-07-2024 15:02-0400 Body mass index (BMI) [Ratio] 19.5 kg/m2 Dr. Etienne De Santiago DO Work Phone: [facility] 10-07-2024 15:02-0400 Body weight 50.[address] Etienne De Santiago DO Work Phone: [facility] 10-07-2024 15:02-0400 Diastolic blood pressure 71 mm[Hg] Dr. Etienne De Santiago DO Work Phone: [facility] 10-07-2024 15:02-0400 Systolic blood pressure 137 mm[Hg] Dr. Etienne De Santiago DO Work Phone: [facility] 09-09-2024 14:14-0500 Body mass index (BMI) [Ratio] 18.8 kg/m2 Dr. Etienne De Santiago DO Work Phone: [facility] 09-09-2024 14:14-0500 Body weight 48.[address] Etienne De Santiago DO Work Phone: [facility] 09-09-2024 14:14-0500 Diastolic blood pressure 84 mm[Hg] Dr. Etienne De Santiago DO Work Phone: [facility] 09-09-2024 14:14-0500 Systolic blood pressure 127 mm[Hg] Dr. Etienne De Santiago DO Work Phone: [facility] 08-16-2024 10:17-0500 Body mass index (BMI) [Ratio] 18.4 kg/m2 Dr. Etienne De Santiago DO Work Phone: [facility] 08-16-2024 10:17-0500 Body weight 47.[address] Etienne De Santiago DO Work Phone: [facility] 08-16-2024 10:17-0500 Diastolic blood pressure 80 mm[Hg] Dr. Etienne De Santiago DO Work Phone: [facility] 08-16-2024 10:17-0500 Systolic blood pressure 130 mm[Hg] Dr. Etienne De Santiago DO Work Phone: [facility] Encounters Encounter Date Encounter Type Care Provider Facility Start: 03-06-2025 End: 03-06-[address] Maylin Cadena MD -[facility] Work Phone: Start: 03-06-2025 End: 03-06-[address] Etienne De Santiago DO Work Phone: -[facility] Start: 03-01-2025 End: 03-01-2025 Patient encounter procedure Heather Mahmood CNM -[facility] Work Phone: Start: 03-01-2025 End: 03-01-[address] Etienne De Santiago DO Work Phone: -[facility] Start: 02-28-2025 End: 02-28-2025 ambulatory IRMA NORIEGA [facility] Start: 02-22-2025 End: 02-22-[address] Malena Bean DO -[facility] Work Phone: Start: 02-22-2025 End: 02-22-[address] Etienne De Santiago DO Work Phone: [facility] Start: 02-13-2025 End: 02-13-2025 Patient encounter procedure Heather Mahmood CNM -[facility] Work Phone: Start: 02-13-2025 End: 02-13-[address] Etienne De Santiago DO Work Phone: [facility] Start: 02-07-2025 End: 02-07-[address] Malena Bean DO -[facility] Work Phone: Start: 02-07-2025 End: 02-07-[address] Etienne De Santiago DO Work Phone: [facility] Start: 01-31-2025 End: 01-31-2025 [facility] Start: 01-26-2025 End: 01-26-[address] Maylin Cadena MD -[facility] Work Phone: Start: 01-26-2025 End: 01-26-[address] Etienne De Santiago DO Work Phone: [facility] Start: 01-23-2025 End: 01-23-2025 ambulatory ETIENNE DE SANTIAGO [facility] Start: 01-12-2025 End: 01-12-[address] Malena Bean DO -[facility] Work Phone: Start: 01-12-2025 End: 01-12-[address] Etienne De Santiago DO Work Phone: [facility] Work Phone: Start: 01-03-2025 End: 01-03-2025 Patient encounter procedure Heather Mahmood CNM -[facility] Start: 01-03-2025 End: 01-03-[address] Etienne De Santiago DO Work Phone: [facility] Work Phone: Start: 01-03-2025 End: 01-03-2025 ambulatory Etienne Jonnathan Facility:[facility] Start: 12-29-2024 End: 12-29-2024 Patient encounter procedure Heather Mahmood CNM -[facility] Work Phone: Start: 12-29-2024 End: 12-29-[address] Etienne De Santiago DO Work Phone: [facility] Work Phone: Start: 12-27-2024 End: 12-27-[address] Etienne De Santiago DO Work Phone: [facility] Work Phone: Start: 12-27-2024 End: 12-27-[address] Malena Bean DO -Laboratory Work Phone: Start: 12-26-2024 End: 12-26-2024 Subsequent hospital visit by physician Zack Douglass MD Work Phone: [facility] Comment on above: Cleft lip and cleft palate (Primary Dx) Start: 12-26-2024 End: 12-27-2024 ambulatory ETIENNE [facility] Start: 12-14-2024 End: 12-14-[address] Malena Bean DO -[facility] Work Phone: Start: 12-14-2024 End: 12-14-[address] Etienne De Santiago DO Work Phone: [facility] Work Phone: Start: 12-14-2024 End: 12-14-2024 ambulatory Etienne Jonnathan Facility:[facility] Start: 12-06-2024 End: 12-06-2024 [facility] Start: 11-28-2024 End: 11-28-[address] Mlaena Bean DO -[facility] Work Phone: Start: 11-28-2024 End: 11-28-2024 ambulatory Malena Bean Facility:[facility] Start: 11-10-2024 End: 11-10-2024 Subsequent hospital visit by physician Allan Lutz MD Work Phone: [facility] Comment on above: 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, fetus 1 of multiple gestation Start: 11-10-2024 End: 11-10-2024 ambulatory ETIENNE JONNATHAN [facility] Start: 11-10-2024 End: 11-10-2024 ambulatory WINSOME OLIVAS [facility] Start: 11-10-2024 End: 11-10-2024 ambulatory ETIENNE JONNATHAN [facility] Start: 11-02-2024 End: 11-02-2024 Patient encounter procedure Merlyn HOSKINS -[facility] Work Phone: Start: 11-02-2024 End: 11-02-2024 ambulatory Etienne Jonnathan Facility:[facility] Start: 10-13-2024 End: 10-13-2024 [facility] Start: 10-13-2024 End: 10-13-2024 [facility] Start: 10-07-2024 End: 10-07-[address] Maylin Cadena MD -[facility] Work Phone: Start: 10-07-2024 End: 10-07-2024 ambulatory Etienne Jonnathan Facility:[facility] Start: 09-09-2024 End: 09-09-2024 Patient encounter procedure Heather Mahmood CNM -[facility] Work Phone: Start: 09-09-2024 End: 09-09-2024 ambulatory Etienne Jonnathan Facility:[facility] Start: 08-16-2024 End: 08-16-[address] Malena Bean DO -[facility] Work Phone: Start: 08-16-2024 End: 08-16-2024 ambulatory Malena Bean Facility:[facility] Start: 08-16-2024 End: 08-16-2024 ambulatory Malena Bean Facility:[facility] Start: 03-14-2024 End: 03-14-2024 ambulatory Etienne De Santiago Facility:[facility] Start: 03-29-2022 End: 03-29-[address] ETIENNE DE SANTIAGO DO [facility] Procedures Date Procedure Procedure Detail [...] Pertussis Vaccines (3 - Td or Tdap) [facility] Start: 03-27-2025 FLU (Season Ended) FLU (Season Ended ) [facility] Start: 01-31-2025 End: 01-31-2025 Professional / ancillary services management 01/31/2025 8:00 AM EDT Ancillary Procedure Visit [facility] [address] [facility], [address] [place] [address] Patient needs scheduled at [facility] for growth US60 on 01/31 at 8:00 a.m. and 02/28 at 8:00 a.m [facility] Comment on above: Patient needs schedu led at [facility] for growth US60 on 01/31 at 8:00 a.m. and 02/28 at 8:00 a.m Start: 01-03-2025 End: 01-03-2025 Professional / ancillary services management 01/03/2025 8:00 AM EDT Ancillary Procedure Visit [facility] [address] [facility], [facility] [address] [place], [place] [id number] Growth FTC 60 mins [facility] Comment on above: Growth FTC 60 mins Start: 12-14-2024 CBC W Auto Different ial panel - Blood [facility] Start: 12-14-2024 Measurement of gluco se 2 hours after glucose challenge for glucose tolerance test [facility] Start: 12-14-2024 Serologic test for syphilis [facility] Start: 12-14-2024 [facility] Start: 12-06-2024 End: 12-06-2024 Professional / ancillary services management 12/06/2024 1:30 PM EDT Ancillary Procedure Visit Maternal Medicine [facility] [address] [place], [place] [id number] Growth FTC 60 mins [facility] Comment on above: Growth FTC 60 mins Start: 03-27-2024 COVID-19 (2023-08 season) COVID-19 () [facility] Start: 03-27-2024 COVID-19 (2023-08 5 season) COVID-19 ( season) [facility] Start: 03-27-2024 FLU (#1) FLU (#1) [facility] Start: 03-09-2017 Tetanus Diphtheria a nd Pertussis Vaccines (2 - Td or Tdap) Tetanus Diphtheria and Pertussis Vaccines (2 - Td or Tdap) [facility] Start: 2014 Microscopic observat ion [Identifier] in Cervix by Cyto stain Pap Smear [facility] Start: 2012 Hepatitis B (1 of 3 - 19+ 3-dose series) Hepatitis B (1 of 3 - 19+ 3-dose series) [facility] Start: 2009 MenB (1 of 2 - MenB 2-Dose Series Bexsero) MenB (1 of 2 - MenB 2-Dose Series Bexsero) [facility] Start: 2006 Varicella (1 of 2 - 13+ 2-dose series) Varicella (1 of 2 - 13+ 2-dose series) [facility] Start: 1994 MMR (1 of 1 - Standa rd series) MMR (1 of 1 - Standard series) [facility] CBC W Auto Different ial panel - Blood [facility] Erythrocyte mean corpuscular volume determination [facility] Hematocrit [Volume Fraction] of Blood [facility] Hemoglobin [Mass/vol ume] in Blood [facility] Leukocytes [#/volume ] in Blood [facility] Mean corpuscular hemoglobin concentration determination [facility] Mean corpuscular hemoglobin determination [facility] Neutrophil count [facility] Neutrophil percent differential count [facility] Platelets [#/volume] in Blood [facility] Red blood cell count [facility] Red cell distributio n width determination [facility] End: 11-10-2024 [facility]: Comment on above: 1 Occurrences starti ng 11/10/2024 until 11/10/2024 [facility] Immunizations Immunization Date Immunization Notes Care Provider Fa loy 12-14-2024 tetanus toxoid, redu kitty diphtheria toxoid, and acellular pertussis vaccine, adsorbed Dr. Etienne De Santiago DO Work Phone: [facility] Payers Date Payer Category Payer Unknown [employer] [id number] 2024 Self-pay 2024 Unknown [id number] 1993 Unknown [id number] 2.16.840.1.512175.3.579.2 1993 Unknown [id number] 2..840.1.225673.3.579.2 1993 Unknown [id number] 2..840.1.354071.3.579.2 1993 Unknown [id number] 2.16840.1.176795.3.579.2 1993 Unknown [id number] 2.16840.1.284584.3.579.2 1993 Unknown [id number] 2.16840.1.365692.3.579.2 1993 Unknown [id number] 2.16.840.1.025091.3.579.2 1993 Unknown [id number] 2.840.1.072680.3.579.2.479 1993 Unknown [id number] 2..840.1.901402.3.579.2.479 1993 Unknown [id number] 2..840.1.700393.3.579.2.479 1993 Unknown [id number] 2.840.1.556417.3.579.2.479 1993 Unknown [id number] 2.840.1.910154.3.579.2.479 Unknown [id number] 2.840.1.942633.3.579.2.462 Unknown [id number] 2.840.1.959499.3.579.2.462 Unknown [id number] 2.840.1.556480.3.579.2.462 Unknown [id number] 2.840.1.085379.3.579.2.462 Unknown [id number] .840.1.599712.3.579.2.462 Unknown [id number] 2.840.1.672108.3.579.2.462 Unknown [id number] 2.840.1.404956.3.579.2.462 Unknown [id number] 2840.1.848605.3.579.2.462 Unknown [id number] .840.1.055192.3.579.2.462 Unknown [id number] .840.1.950081.3.579.2.462 Unknown [id number] 2.840.1.533364.3.579.2.462 Unknown [id number] 2.840.1.093562.3.579.2.462 Unknown [id number] 2.840.1.124397.3.579.2.462 Unknown [id number] 2.16.840.1.183516.3.579.2.462 Unknown [id number] 2.16.840.1.761791.3.579.2.462 Unknown [id number] 2.16.840.1.984799.3.579.2.462 Unknown [id number] 2.16.840.1.363536.3.579.2.462 Unknown [id number] 2.16.840.1.502141.3.579.2.462 Unknown [id number] 2.16.840.1.534704.3.579.2.462 Social History Date Type Detail Facility Assertion Unknown if ever smoked [employer] Work Phone: Start: 11-23-2019 End: 07-29-2024 Tobacco smoking status Never smoked tobacco (finding) [facility] Start: 1995 Sex Assigned At Female A [facility] Start: 10-13-2024 Tobacco use and exposure Smokeless tobacco non-user [facility] Start: 11-10-2024 End: 12-26-2024 Alcoholic beverage intake Ex-drinker (finding) [facility] Start: 06-12-2024 [facility] Start: 1995 Sex assigned at Not on file [facility] Gender identity Not on file [facility] Functional Status Date Assessment Result Facility NEGATED: Highlighted row Functional performance Functional status health issues are not documented Disease [employer] Work Phone: Mental Status Date Assessment Result Facility NEGATED: Highlighted row Cognitive function [Interpretation] Cognitive status health issues are not documented Disease [email or web address] Work Phone: Clinical Notes 08-16-2024 to 02-22-2025 Note Date & Type Note Facility 02-22-2025 Progress note [facility] 02-22-2025 Progress note Note Date/Time February 22, 2025 2:57pm [facility] [address] [place] [address], [address] [place] [address] OFFICE VISIT Date of Service: 02/22/25 MR#: [id number] Acct: [id number] Name: JESUS ASHER Rep #: [id number] : 1995 Provider: Dr. 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: No Is patient in pain?: No Allergies No Known Allergies Allergy (Verified 02/22/25 14:34) Medications ?Medication ?Instructions ?Recorded ?Confirmed ?Type multivitamin no.47-iron fum 27 cap PO 07/29/24 5 History mg-folate no.1 1 mg-dha 300 mg capsule (PNV-DHA) Last Menstrual Period: 05/29/24 Zika: Zika virus screening: Negative : No [facility] Medical History Complete Dysmenorrhea Surgical History H/O wisdom tooth extraction Family History Grandmother Breast cancer Social History adopted: No household members: spouse current occupational status: employed 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 GCT today. [facility] shows now a cleft lip + [...] worksheet sent and approved to deliver at [facility], seen on anatomy US, fetaltreatment center referral. echo. Gave info on [facility]. Approved to deliver [facility]. (4) Supervision of low-risk : Status: Acute [...] POC Urinalysis 2 Dip (Clinic) Today 02/22/25 [id number] <Electronically signed by Malena Kraus DO> Date _ Malena Bean DO Cosigner Signature: Date (if applicable) CC: ~ [facility] Work Phone: 1(552) 396-346807-21-2025 Progress [facility] [address], [address] [place] [address] OFFICE VISIT Date of Service: 02/13/25 MR#: [id number] Acct: [id number] Name: JESUS ASHER Rep #: [id number] : 1995 Provider: MATT Mahmood Age/Sex: 29/F Location: [facility] Status: Signed Intake Vital Signs 01/12/25 10:10 02/07/25 09:52 02/13/25 14:47 02/13/25 14:47 Height 5 ft 3 in 5 ft 3 in 5 ft 3 in 5 ft 3 in Weight: 138 lb 8 oz BMI 24.5 BP 116/74 Intake Visit Reasons: 37 wk ob Chief Complaint: 37wk OB Wet Process Assistant Head Miller Required: No Is patient in pain?: No [...] 1-2 times per week duration: 30-45 minutes/day nic/pentecostalism: Latter-Day seatbelt use: always do you feel safe at home: Yes 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 Date Name GA/Weeks Outcome Route Bth Weight Infant Gen Labor Lgth Anesthesia Del [facility] Provider FOB 02/18/24 6 spontaneous HPI 37 [...] s. GCT today. tdap [facility]. [facility] shows now a cleft lip + [...] worksheet sent and approved to deliver at [facility], seen on anatomy US, fetaltreatment center referral. echo. Gave info on [facility]. Approved to deliver [facility]. (4) Supervision of low-risk : Status: Acute [...] Cosigner Signature: Date (if applicable) CC: ~ [facility] [id number] Progress note Author Heather Mahmood [facility] Note Date/Time February 13, 2025 3:06 pm [facility] [address] [place] [address], [address] [place] [address] OFFICE VISIT Date of Service: 02/13/25 MR#: [id number] Acct: [id number] Name: JESUS ASHER Rep #: [id number] : 1995 Provider: MATT Mahmood Age/Sex: 29/F Location: [facility] Status: Signed Intake Vital Signs 01/12/25 10:10 02/07/25 09:52 02/13/25 14:47 02/13/25 14:47 Height 5 ft 3 in 5 ft 3 in 5 ft 3 in 5 ft 3 in Weight: 138 lb 8 oz BMI 24.5 BP 116/74 Intake Visit Reasons: 37 wk ob Chief Complaint: 37wk OB Wet Process Assistant Head Miller Required: No Is patient in pain?: No [...] spouse current occupational status: employed 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 GCT today. [facility]ap [facility]. [facility] shows now a cleft lip + [...] worksheet sent and approved to deliver at [facility], seen on anatomy US, fetaltreatment center referral. echo. Gave info on [facility]. Approved to deliver [facility]. (4) Supervision of low-risk : Status: Acute [...] Cosigner Signature: Date (if applicable) CC: ~ [facility] [employer] Work Phone: 1(198) 695-192807-15-2025 [facility] [address], [place] [address] OFFICE VISIT Date of Service: 02/07/25 MR#: [id number] Acct: [id number] Name: HYUNJESUS KEIRA Rep #: [id number] : 1995 Provider: Dr. 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 Date Name GA/Weeks Outcome Route Bth Weight Gen Labor Lgth Anesthesia Del [facility] Provider FOB 02/18/24 6 spontaneous HPI 36 [...] s. GCT today. [facility] shows now a cleft lip + [...] worksheet sent and approved to deliver at [facility], seen on anatomy US, fetaltreatment center referral. echo. Gave info on [facility]. Approved to deliver [facility]. (4) Supervision of low-risk : Status: Acute [...] Faith Signature: Date (if applicable) CC: ~ [facility]07-03-2025 [facility] [address], [address] [place] [id number] OFFICE VISIT Date of Service: 01/26/25 MR#: [id number] Acct: [id number] Name: JESUS ASHER Rep #: [id number] : 1995 Provider: Dr. 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 GCT today. tdap given. [facility] shows now a cleft lip + [...] worksheet sent and approved to deliver at [facility], seen on anatomy US, fetaltreatment center referral. echo. Gave info on [facility]. Approved to deliver [facility]. (4) Supervision of low-risk : Status: Acute [...] Cosigner Signature: Date (if applicable) CC: ~ [facility]07-03-2025 Progress note Author Maylin Cadena [facility] Note Date/Time January 26, 2025 3:28p [facility] [address], [address] [place] [address] OFFICE VISIT Date of Service: 01/26/25 MR#: [id number] Acct: [id number] Name: JESUS ASHER Rep #: [id number] : 1995 Provider: Dr. 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 Date Name GA/Weeks Outcome Route Bth Weight Gen Labor Lgth Anesthesia Del [facility] Provider FOB 02/18/24 6 spontaneous HPI 34 [...] s. GCT today. tdap [facility]. [facility] shows now a cleft lip + [...] worksheet sent and approved to deliver at [facility], seen on anatomy US, fetaltreatment center referral. echo. Gave info on [facility]. Approved to deliver [facility]. (4) Supervision of low-risk : Status: Acute [...] minaya MD> Date _ Maylin Cadena MD [facility] Signature: Date (if applicable) CC: ~ [facility] Work Phone: 1(599) 867-858206-19-2025 [facility] [address] [place] [address], [address] [place] [address] OFFICE VISIT Date of Service: 01/12/25 MR#: [id number] Acct: [id number] Name: JESUS ASHER Rep #: [id number] : 1995 Provider: Dr. 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 GCT today. tdap given. [facility] shows now a cleft lip + [...] worksheet sent and approved to deliver at [facility], seen on anatomy US, treatment center referral. echo. Gave info on [facility]. Approved to deliver [facility]. (5) Supervision of low-risk : Status: Acute [...] Faith Signature: Date (if applicable) CC: ~ [facility]06-02-2025 Consult note* Ancillary Consult - Jailene Ayers CCC-SEAT MENDER - 12/26/2024 8:40 AM EDT [facility] Speech/Language Pathology Pre- Consultation 12/26/2024 Patient [...] we have comprehensive cleft feeding teams at [facility]. Discussed the members of the team [...] Specialty Feeding System Assembly and Feeding Instructions (www[employer]/medical/products/specialty-feeding/) -Nipple Level Selection Guidelines for Parents & Caregivers (www[employer]/medical/nipple-guidelines) -Where to Buy Dr. Ray's Specialty Feeding system (www[employer]/medical/mjmfn-oo-ufw) Equipment provided included: - bag with contact [...] Thank you for the referral. MILENA Yeboah [facility]06-02-2025 Miscellaneous Notes* Ancillary Consult - Jailene Ayres CCC-SEAT MENDER - 12/26/2024 8:40 AM EDT [facility] Speech/Language Pathology Pre-megan Consultation 12/26/2024 Patient [...] we have comprehensive cleft feeding teams at [facility]. Discussed the members of the team [...] Specialty Feeding System Assembly and Feeding Instructions (www.[employer]/medical/products/specialty-feeding/) -Nipple Level Selection Guidelines for Parents & Caregivers (www.[employer]/medical/nipple-guidelines) -Where to Buy Dr. Ray's Specialty Feeding system (www.[employer]/medical/daawl-if-kmp) Equipment provided included: - bag with contact [...] the referral. MILENA Yeboah documented in this [facility]05-05-2025 Evaluation note * Diagnosis Onset Date Resolution [...] Supervision of low-risk acute March 06 11:25am [facility] Work Phone: [phone]) 950-699404-09-2025 Evaluation note* Diagnosis Onset Date Resolution Status [...] of low-risk acute February 07, 2025 9:34am [facility] [employer] [facility] Work Phone: 1(910) 635-965904-09-2025 Evaluation note* Diagnosis Onset Date Resolution Status [...] of low-risk acute February 13, 2025 2:33pm [facility] Work Phone: 1(291) 246-524404-09-2025 Evaluation note* Diagnosis Onset Date Resolution Status [...] of low-risk acute February 22, 2025 2:23pm [facility] Work Phone: 1([phone]) 549-730504-09-2025 Evaluation note* Diagnosis Onset Date Resolution Status [...] of low-risk acute March 01, 2025 1:10pm [facility] Work Phone: 1(219) 647-476103-14-2025 Evaluation note* Diagnosis Onset Date Resolution Status [...] of low-risk acute January 12, 2025 9:58am [facility] Work Phone: 1(212) 243-405203-14-2025 Evaluation note* Diagnosis Onset Date Resolution Status [...] low-risk acute January 26, 2025 3 :04pm [facility] Work Phone: 1([phone] 308-161502-14-2025 Evaluation note* Diagnosis Onset Date Resolution Status [...] low-risk acute December 29, 2024 1 1:33am [facility] Work Phone: 1(300) 193-253001-21-2025 Evaluation note* Diagnosis Onset Date Resolution Status [...] low-risk acute December 14, 2024 1 :01pm [facility] [employer] [facility] Work Phone: Evaluation + Plan note No data available for this section [facility] Evaluation note* Diagnosis 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, fetus 1 of multiple gestation [facility] Cleft lip and cleft palate- Primary Cleft lip and cleft palate, unspecified [facility] in this encounter [facility] No data available for this section [facility] Progress note No data available for this section [facility] Progress note Author Malena Means [facility] Note Date/Time January 12, 2025 10:3 8am [facility] [address], [address] [place] [address] OFFICE VISIT Date of Service: 01/12/25 MR#: [id number] Acct: [id number] Name: JESUS ASHER Rep #: [id number] : 1995 Provider: Dr. 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 GCT today. tdap given. us from [facility] shows now a cleft lip + [...] worksheet sent and approved to deliver at [facility], seen on anatomy US, treatment center referral. echo. Gave info on [facility]. Approved to deliver [facility]. (5) Supervision of low-risk : Status: Acute [...] Cosigner Signature: Date (if applicable) CC: ~ [facility] Work Phone: Progress note Author Malena Means [facility] Note Date/Time February 07, 2025 10:5 2am [facility] [address], [address] [place] [address] OFFICE VISIT Date of Service: 02/07/25 MR#: [id number] Acct: [id number] Name: HYUNJESUSCHRISTOFER CROCKETT Rep #: [id number] : 1995 Provider: Dr. 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 Date Name GA/Weeks Outcome Route Bth Weight Infant Gen Labor Lgth Anesthesia Del [facility] Provider FOB 02/18/24 6 spontaneous HPI 36 [...] s. GCT today. tdap given. [facility] shows now a cleft lip + [...] worksheet sent and approved to deliver at [facility], seen on anatomy US, fetaltreatment center referral. echo. Gave info on [facility]. Approved to deliver [facility]. (4) Supervision of low-risk : Status: Acute [...] Cosigner Signature: Date (if applicable) CC: ~ [facility] Work Phone: Reason for referral (narrative)No reason for referral information [facility] Work Phone: Summary Purpose Family History [...] section and content) DATE CREATED AUTHOR 07/01/2019 [employer] DATE CREATED AUTHOR AUTHOR'S ORGANIZ ATION 07/25/2021 [facility] DATE CREATED AUTHOR AUTHOR'S ORGANIZ ATION 04/04/2022 [facility] DATE CREATED AUTHOR AUTHOR'S ORGANIZ ATION 03/02/2025 [facility] DATE CREATED AUTHOR AUTHOR'S ORGANIZ ATION 03/07/2025 [facility] Care Team (unrecognized sect ion and content) Care Team Personnel Name: ETIENNE DE SANTIAGO DO Position: P4 Physician - Primary Care Member Role: Primary Care Physician Address: Address: [address] [facility] [place], [place] [address] Care Team Related Persons Name: NICANOR ASHER Address: Home [address], [place] [id number] [place] Address: Temporary [address], [place] [id number] Care Teams (unrecognized sec tion and content) Search Developer Relationship Specialty Start Date End Date Etienne De Santiago DO [address] [place] [address] PCP - General 10/08/24 Team Status: Active [...] 2024 End: August 16, 2024 Dr. Malena eBan DO Referring Provider Activ e Start: August [...] End: November 02, 2024 Merlyn Rios NP, CERTIFIED DIABETES EDUCATOR-C Attending Provider Active Start: November 02, 2024 [...] Provider Activ e Start: December 14, 2024 Search Developer Relationship Specialty Start Date End Date Etienne De Santiago DO [address] [place] [id number] PCP - General 10/08/24 Jail[place] [address] Speech Language Pathologist Speech Pathology 12/26/24 Team Status: Inactive Member Role Status Dates Dr. Etienne De Santiago DO Primary Care Provider Active Start: December 14, 2024 End: December 14, 2024 Dr. Malena Baen DO Attending Provider Activ e Start: December [...] 2024 End: November 02, 2024 Merlyn Rios CERTIFIED DIABETES EDUCATOR, CERTIFIED DIABETES EDUCATOR-C Attending Provider Active Start: November 02, 2024 [...] End: November 02, 2024 Merlyn Rios NP, CERTIFIED DIABETES EDUCATOR-C Attending Provider Active Start: November 02, 2024 [...] Member Role/Relationship Status Dates Dr. Etienne De Santigao DO Primary Care Provider Active Start: January [...] BE BASED ON THE PRIMARY CLINICAL RECORDS. [facility] [employer] provides no warranty or guarantee of the accuracy or completeness of information in this document.
[2025-03-08] MEDS: 0.9% Saline Lock 10 ML Syringe IV (20:45)
[2025-03-08 21:40] LABS: Hematocrit 33.4 % (37-47); Hemoglobin 11.4 g/dL (12.0-15.0); Immature Granulocytes Count 0.190 X10^3/uL (0.0-0.0); Mean Corp Hgb Conc 34.1 g/dL (32-36); Mean Corpuscular Volume 90.8 fL (81-99); Mean Platelet Vol. 11.6 fl (6.2-12.0); NRBC Flagged by Analyzer 0 % (0-5); POSITIVE DIFFERENTIAL YES; Platelet Count 254 K/mm3 (150-450); RBC Distribution Width CV 13.5 % (11.6-14.6); RBC Distribution Width SD 44.6 fl (35.1-43.9); Red Blood Count 3.68 M/mm3 (4.2-5.4); White Blood Count 29.4 K/mm3 (4.4-11.0)
[2025-03-08 21:47] LABS: Differential Indicated SCAN CRITERIA MET
[2025-03-08 22:50] LABS: Differential Comment SCANNED
[2025-03-09] VITALS (31 sets, daily range): BP systolic 93–112; BP diastolic 54–68; PULSE 77–120; RESP 16–17; TEMP 36.1–36.6; O2SAT 96–100
[2025-03-09] MEDS: 0.9% Saline Lock 10 ML Syringe IV ×5 (00:53→18:05)
[2025-03-09] MEDS: TRANEXAMIC ACID 1,000 MG in 0.9% Normal Saline (100mL Bag) 100 ML 440 MG IV (01:30)
[2025-03-09 01:37] LABS: Hematocrit 28.4 % (37-47); Hemoglobin 9.7 g/dL (12.0-15.0); Immature Granulocytes Count 0.380 X10^3/uL (0.0-0.0); Mean Corp Hgb Conc 34.2 g/dL (32-36); Mean Corpuscular Volume 91.0 fL (81-99); Mean Platelet Vol. 11.3 fl (6.2-12.0); NRBC Flagged by Analyzer 0 % (0-5); POSITIVE COUNT YES; POSITIVE DIFFERENTIAL YES; Platelet Count 256 K/mm3 (150-450); RBC Distribution Width CV 13.6 % (11.6-14.6); RBC Distribution Width SD 45.0 fl (35.1-43.9); Red Blood Count 3.12 M/mm3 (4.2-5.4)
[2025-03-09 01:39] LABS: Differential Indicated SCAN CRITERIA MET; White Blood Count 30.8 K/mm3 (4.4-11.0)
[2025-03-09] MEDS: Lactated Ringers 1,000 ML 999 ML IV (01:50)
[2025-03-09 02:25] LABS: Differential Comment SCANNED
[2025-03-09] MEDS: Ampicillin/Sulbactam 3 GM in 0.9% Normal Saline (100mL MB+) 100 ML IV ×4 (05:03→23:57)
[2025-03-09 08:15] LABS: Hematocrit 22.7 % (37-47); Hemoglobin 7.9 g/dL (12.0-15.0); Mean Corp Hgb Conc 34.8 g/dL (32-36); Mean Corpuscular Volume 91.5 fL (81-99); Mean Platelet Vol. 11.4 fl (6.2-12.0); Platelet Count 233 K/mm3 (150-450); RBC Distribution Width CV 13.6 % (11.6-14.6); RBC Distribution Width SD 45.6 fl (35.1-43.9); Red Blood Count 2.48 M/mm3 (4.2-5.4); White Blood Count 24.3 K/mm3 (4.4-11.0)
[2025-03-09 08:16] LABS: Differential Indicated SCAN CRITERIA MET; Immature Granulocytes Count 0.240 X10^3/uL (0.0-0.0)
[2025-03-09 08:46] LABS: Differential Comment SCANNED
--- NOTE | 2025-03-09 18:13 | PCM.PN.OB ---
Subjective Subjective late entry seen at 8:55 Patient doing well without complaints. Tolerating PO. Ambulating and voiding without difficulty. Feeding well. Denies chest pain, shortness of breath, calf pain/swelling, fevers, chills, lightheadedness. Objective Data Objective Data Vital Signs: Vital Signs Temp Pulse Resp BP Pulse Ox O2 Del Method 97.7 F L 96 17 112/61 98 Room Air 03/09/25 11:18 03/09/25 16:40 03/09/25 16:40 03/09/25 16:40 03/09/25 11:18 03/09/25 16:40 Oxygen Delivery Method Room Air Weight: 132 lb Body Mass Index (BMI) 23.3 Intake & Output: Intake and Output for Last 24 Hours 03/07/25 03/08/25 03/09/25 23:59 23:59 23:59 Intake Total 2350.96 / 2350.96 1310 / 1310 Output Total 1966 / 1966 1586 / 1586 Balance 383.96 / 383.96 -276 / -276 Lab / Micro Data 03/09/25 07:50 Labs: Laboratory Results - last 24 hr 03/08/25 21:08: WBC 29.4 H, RBC 3.68 L, Hgb 11.4 L, Hct 33.4 L, MCV 90.8, MCH 31.0, MCHC 34.1, RDW Std Deviation 44.6 H, RDW Coeff of Taurus 13.5, Plt Count 254, MPV 11.6, Immature Gran % (Auto) 0.600, Neut % (Auto) 85.7 H, Lymph % (Auto) 7.6 L, [place] % (Auto) 5.9, Eos % (Auto) 0.0, Baso % (Auto) 0.2, Absolute Neuts (auto) 25.2 H, Absolute Lymphs (auto) 2.22, Nucleated RBC % 0, Differential Comment SCANNED 03/09/25 01:30: WBC 30.8 H*, RBC 3.12 L, Hgb 9.7 L, Hct 28.4 L, MCV 91.0, MCH 31.1, MCHC 34.2, RDW Std Deviation 45.0 H, RDW Coeff of [place] 13.6, Plt Count 256, MPV 11.3, Immature Gran % (Auto) 1.200 H, Neut % (Auto) 84.0 H, Lymph % (Auto) 9.9 L, [place] % (Auto) 4.7, Eos % (Auto) 0.0, Baso % (Auto) 0.2, Absolute Neuts (auto) 25.8 H, Absolute Lymphs (auto) 3.06, Nucleated RBC % 0, Differential Comment SCANNED, Diff Path Review November03/09/25 07:50: WBC 24.3 H, RBC 2.48 L, Hgb 7.9 L, Hct 22.7 L, MCV 91.5, MCH 31.9, MCHC 34.8, RDW Std Deviation 45.6 H, RDW Coeff of [place]aurus 13.6, Plt Count 233, MPV 11.4, Immature Gran % (Auto) 1.000 H, Neut % (Auto) 78.5 H, Lymph % (Auto) 13.9 L, [place] % (Auto) 6.3, Eos % (Auto) 0.1, Baso % (Auto) 0.2, Absolute Neuts (auto) 19.0 H, Absolute Lymphs (auto) 3.38, Differential Comment SCANNED ROS Constitutional Constitutional: Reports systems reviewed and no addt'l complaints, except as documented Cardiovascular Cardiovascular: Reports systems reviewed and no addt'l complaints, except as documented Respiratory/Chest Respiratory/Chest: Reports systems reviewed and no addt'l complaints, except as documented Gastrointestinal Gastrointestinal: Reports systems reviewed and no addt'l complaints, except as documented Physical Exam Const alert, oriented x3 and no apparent distress HEENT Head and Scalp: atraumatic Resp normal respiratory effort GI soft to palpation and non-tender Bimanual Exam - Vag & Uterus: uterus non-tender Uterus Palpation: uterus fundus firm (below Umbilicus) Assessment & Plan (1) Delayed hemorrhage: (2) Vaginal delivery: COMMENT: jonny PAYNE 03/08/25 PLAN: Plan repeat Hg stabilizing, on antibiotics sec to uterine exploraiton. feeling better. continue to monitor repeat cbc in am
[2025-03-10] VITALS (21 sets, daily range): BP systolic 82–124; BP diastolic 44–75; PULSE 76–93; RESP 15–18; TEMP 36.1–36.6; O2SAT 98–100
[2025-03-10] MEDS: Senna/Docusate Sodium 1 Tablet PO (06:52)
[2025-03-10 07:03] LABS: Hematocrit 19.7 % (37-47); Hemoglobin 6.6 g/dL (12.0-15.0); Immature Granulocytes Count 0.160 X10^3/uL (0.0-0.0); Mean Corp Hgb Conc 33.5 g/dL (32-36); Mean Corpuscular Volume 92.5 fL (81-99); Mean Platelet Vol. 11.3 fl (6.2-12.0); NRBC Flagged by Analyzer 0 % (0-5); Platelet Count 212 K/mm3 (150-450); RBC Distribution Width CV 13.9 % (11.6-14.6); RBC Distribution Width SD 46.6 fl (35.1-43.9); Red Blood Count 2.13 M/mm3 (4.2-5.4); White Blood Count 15.2 K/mm3 (4.4-11.0)
--- NOTE | 2025-03-10 08:30 | PN.OBGYN_ITS ---
Subjective Subjective Patient doing well without complaints. Tolerating PO. Ambulating and voiding without difficulty. Feeding well. Denies chest pain, shortness of breath, calf pain/swelling, fevers, chills, lightheadedness. Objective Data Objective Data Vital Signs: Vital Signs Temp Pulse Resp BP Pulse Ox O2 Del Method 97.1 F L 87 18 107/55 L 98 Room Air 03/10/25 08:16 03/10/25 08:24 03/10/25 08:16 03/10/25 08:17 03/10/25 08:24 03/10/25 08:16 Oxygen Delivery Method Room Air Weight: 132 lb Body Mass Index (BMI) 23.3 Intake & Output: Intake and Output for Last 24 Hours 03/08/25 03/09/25 03/10/25 23:59 23:59 23:59 Intake Total 2350.96 / 2350.96 1410 / 1410 100 / 100 Output Total 1966 / 1966 1586 / 1586 Balance 383.96 / 383.96 -176 / -176 100 / 100 Lab / Micro Data Attestation: I reviewed the patient's lab results. 03/10/25 06:45 Labs: Laboratory Results - last 24 hr 03/08/25 09:50: Crossmatch See Detail 03/09/25 07:50: Differential Comment SCANNED 03/10/25 06:45: WBC 15.2 H, RBC 2.13 L, Hgb 6.6 L, Hct 19.7 L, MCV 92.5, MCH 31.0, MCHC 33.5, RDW Std Deviation 46.6 H, RDW Coeff of Taurus 13.9, Plt Count 212, MPV 11.3, Immature Gran % (Auto) 1.100 H, Neut % (Auto) 73.6 H, Lymph % (Auto) 18.1 L, [place] % (Auto) 5.3, Eos % (Auto) 1.3, Baso % (Auto) 0.6, Absolute Neuts (auto) 11.2 H, Absolute Lymphs (auto) 2.74, Nucleated RBC % 0 Physical Exam Const alert, oriented x3 and no apparent distress HEENT Head and Scalp: atraumatic Resp normal respiratory effort GI soft to palpation and non-tender Bimanual Exam - Vag & Uterus: uterus non-tender Uterus Palpation: uterus fundus firm (below Umbilicus) Assessment & Plan (1) Delayed hemorrhage: COMMENT: H&H this AM 6.6/19.7 PLAN: transfuse 1u PRBC repeat cbc 4 hours post transfusion (2) Vaginal delivery: COMMENT: jonny PAYNE 03/08/25 (3) Cleft lip and palate, , affecting care of mother, antepartum: QUALIFIERS: Fetus number: single or unspecified fetus Qualified Code(s): O35.AXX0 - Maternal care for other (suspected) abnormality and damage, facial anomalies, not applicable or unspecified COMMENT: worksheet sent and approved to deliver at [facility], seen on anatomy US, treatment center referral. echo. Gave info on [facility]. Approved to deliver [facility]. PLAN: Plan s/p PPD # 1 1. routine post delivery care 2. breast feeding- support given 3. rh positive 4. rubella immune 5. anticipate d/c tomorrrow
[2025-03-10 15:04] LABS: Hematocrit 23.4 % (37-47); Hemoglobin 8.0 g/dL (12.0-15.0); Immature Granulocytes Count 0.150 X10^3/uL (0.0-0.0); Mean Corp Hgb Conc 34.2 g/dL (32-36); Mean Corpuscular Volume 91.8 fL (81-99); Mean Platelet Vol. 11.4 fl (6.2-12.0); NRBC Flagged by Analyzer 0 % (0-5); Platelet Count 243 K/mm3 (150-450); RBC Distribution Width CV 13.9 % (11.6-14.6); RBC Distribution Width SD 46.7 fl (35.1-43.9); Red Blood Count 2.55 M/mm3 (4.2-5.4); White Blood Count 17.4 K/mm3 (4.4-11.0)
[2025-03-11 01:22] VITALS: BP 108/58; PULSE 74; PULSE 78; RESP 16; TEMP 36.3; O2SAT 98
[2025-03-11 08:09] VITALS: BP 119/64; PULSE 75
[2025-03-11 08:10] VITALS: BP 119/64; PULSE 75; RESP 18; TEMP 36.6
--- NOTE | 2025-03-11 08:50 | PN.OBGYN_ITS ---
Subjective Subjective Patient doing well without complaints. Tolerating PO. Ambulating and voiding without difficulty. Feeding well. Denies chest pain, shortness of breath, calf pain/swelling, fevers, chills, lightheadedness. Objective Data Objective Data Vital Signs: Vital Signs Temp Pulse Resp BP Pulse Ox O2 Del Method 98 F 75 18 119/64 98 Room Air 03/11/25 08:10 03/11/25 08:10 03/11/25 08:10 03/11/25 08:10 03/11/25 01:22 03/11/25 08:10 Oxygen Delivery Method Room Air Weight: 132 lb Body Mass Index (BMI) 23.3 Intake & Output: Intake and Output for Last 24 Hours 03/09/25 03/10/25 03/11/25 23:59 23:59 23:59 Intake Total 1410 / 1410 500 / 500 Output Total 1586 / 1586 Balance -176 / -176 500 / 500 Lab / Micro Data Attestation: I reviewed the patient's lab results. 03/10/25 14:40 Labs: Laboratory Results - last 24 hr 03/08/25 09:50: Crossmatch See Detail 03/10/25 14:40: WBC 17.4 H, RBC 2.55 L, Hgb 8.0 L, Hct 23.4 L, MCV 91.8, MCH 31.4, MCHC 34.2, RDW Std Deviation 46.7 H, RDW Coeff of Taurus 13.9, Plt Count 243, MPV 11.4, Immature Gran % (Auto) 0.900, Neut % (Auto) 71.8 H, Lymph % (Auto) 18.5 L, [place] % (Auto) 6.3, Eos % (Auto) 2.0, Baso % (Auto) 0.5, Absolute Neuts (auto) 12.5 H, Absolute Lymphs (auto) 3.21, Nucleated RBC % 0 Micro: Microbiology 03/09/25 08:50 Urine, Clean Catch Urine Culture - Final Culture exhibits no growth. Physical Exam Const alert, oriented x3 and no apparent distress HEENT Head and Scalp: atraumatic Resp normal respiratory effort GI soft to palpation and non-tender Bimanual Exam - Vag & Uterus: uterus non-tender Uterus Palpation: uterus fundus firm (below Umbilicus) Assessment & Plan (1) Delayed hemorrhage: COMMENT: H&H this AM 6.6/19.7 PLAN: PRBC x1, repeat cbc increased to 8.0 iron supplement x30 days (2) Vaginal delivery: COMMENT: jonny PAYNE 03/08/25 (3) Cleft lip and palate, , affecting care of mother, antepartum: QUALIFIERS: Fetus number: single or unspecified fetus Qualified Code(s): O35.AXX0 - Maternal care for other (suspected) abnormality and damage, facial anomalies, not applicable or unspecified COMMENT: worksheet sent and approved to deliver at [facility], seen on anatomy US, treatment center referral. echo. Gave info on [facility]. Approved to deliver [facility]. PLAN: Plan s/p PPD # 3 1. routine post delivery care 2. breast feeding- support given 3. rh positive 4. rubella immune
--- NOTE | 2025-03-11 08:53 | PCM.DC.SUM ---
Providers Date of Admission: 03/08/25 Primary Care Physician: Dr. Ramsey De Santiago DO Reason For Visit: VAGINAL DELIVERY Diagnosis Discharge Diagnosis (1) Delayed hemorrhage: Status: Acute Code(s): O72.2 - Delayed and secondary hemorrhage Plan: PRBC x1, repeat cbc increased to 8.0 iron supplement x30 days (2) Vaginal delivery: Status: Acute Code(s): O80 - Encounter for full-term uncomplicated delivery (3) Cleft lip and palate, , affecting care of mother, antepartum: Status: Acute Code(s): O35.AXX0 - Maternal care for other (suspected) abnormality and damage, facial anomalies, not applicable or unspecified Qualifiers: Fetus number: single or unspecified fetus Qualified Code(s): O35.AXX0 - Maternal care for other (suspected) abnormality and damage, facial anomalies, not applicable or unspecified Plan s/p PPD # 3 1. routine post delivery care 2. breast feeding- support given 3. rh positive 4. rubella immune Medications at Discharge Home Medications multivitamin no.47-iron fum 27 mg-folate no.1 1 mg-dha 300 mg capsule (PNV-DHA) cap PO 07/29/24 Hospital Course Operations None Procedures None Summary of Care Provided Hospital Course: with on 03/08, had delayed pph requiring methergine and TXA. hgb next morning 6.6, and received x1 PRBC with repeat Hbg 8.0. started on iron supplementation. Physical Exam Const alert, oriented x3 and no apparent distress HEENT Head and Scalp: atraumatic Resp normal respiratory effort GI soft to palpation and non-tender Bimanual Exam - Vag & Uterus: uterus non-tender Uterus Palpation: uterus fundus firm (below Umbilicus) Weight / BMI Weight Weight: 132 lb Body Mass Index (BMI) 23.3 ABG / Lab / Microbiology Data 03/10/25 14:40 Laboratory: Laboratory Results - last 24 hr 03/08/25 09:50: Crossmatch See Detail 03/10/25 14:40: WBC 17.4 H, RBC 2.55 L, Hgb 8.0 L, Hct 23.4 L, MCV 91.8, MCH 31.4, MCHC 34.2, RDW Std Deviation 46.7 H, RDW Coeff of Taurus 13.9, Plt Count 243, MPV 11.4, Immature Gran % (Auto) 0.900, Neut % (Auto) 71.8 H, Lymph % (Auto) 18.5 L, [place] % (Auto) 6.3, Eos % (Auto) 2.0, Baso % (Auto) 0.5, Absolute Neuts (auto) 12.5 H, Absolute Lymphs (auto) 3.21, Nucleated RBC % 0 Microbiology: Microbiology 03/09/25 08:50 Urine, Clean Catch Urine Culture - Final Culture exhibits no growth. D/C Instructions May resume sexual activity in: 4-6 weeks Call your doctor if your incision/area has: Continuous Slow Oozing, Sudden Increased Bleeding, Increased Pain/ Swelling, Increased Redness and Foul Smelling Discharge DC O2, CPAP, BIPAP Needs Home O2 Discharge instructions: No Please Follow Up With: Malena Bean DO When: Call [phone] to make an appointment with your doctor in 6 weeks. If you had elevated blood pressure or 4th degree laceration, you will need to be seen in 2 weeks. Meaningful Use Info Meaningful Use Meaningful Use Diagnoses (Choose all that apply): None applicable Discharge Plan Admission Admit Date/Time: 03/08/25 09:29 Primary Reason for Your Visit: vaginal delivery Attending Provider: Malena Bean Primary Care Provider: Ramsey De Santiago Discharge Orders/Prescriptions Prescriptions: No Action PNV-DHA 27 mg iron-1 mg -300 mg capsule PO Referrals / Follow Up: Ramsey De Santiago DO [Primary Care Provider] - Disposition Disposition (needs filled in before D/C Order can be placed): Home, Self Care
== END 2025-03-11 11:35 | disposition home or self-care (01) | DRG 806 ==
PROVIDERS: Obstetrics & Gynecology; Registered Nurse; Admitting Provider Obstetrics & Gynecology; PCP Family Medicine; Referring Provider Obstetrics & Gynecology; Visit Provider Obstetrics & Gynecology
DX: O35.AXX0 Maternal care for other (suspected) fetal abnormality and damage, fetal facial anomalies, not applicable or unspecified (principal); Z37.0 Single live birth; O72.2 Delayed and secondary postpartum hemorrhage; O48.0 Post-term pregnancy; O99.824 Streptococcus B carrier state complicating childbirth; Z3A.40 40 weeks gestation of pregnancy; O70.1 Second degree perineal laceration during delivery
CPT/HCPCS: 59025; 59050; 85025; 86780; 86850; 86900; 86901; 87086; 99221; P9016; A4216; G0378; J0295; J2405

== ENCOUNTER → 2025-04-21 | Outpatient (CLI) | payer OTHER, SELFPAY ==
[2025-04-21 10:19] LABS: Hematocrit 45.5 % (37-47); Hemoglobin 15.3 g/dL (12.0-15.0); Immature Granulocytes Count 0.010 X10^3/uL (0.0-0.0); Mean Corp Hgb Conc 33.6 g/dL (32-36); Mean Corpuscular Volume 91.7 fL (81-99); Mean Platelet Vol. 11.1 fl (6.2-12.0); NRBC Flagged by Analyzer 0 % (0-5); Platelet Count 372 K/mm3 (150-450); RBC Distribution Width CV 11.9 % (11.6-14.6); RBC Distribution Width SD 39.8 fl (35.1-43.9); Red Blood Count 4.96 M/mm3 (4.2-5.4); White Blood Count 8.5 K/mm3 (4.4-11.0)
== END | disposition home or self-care (01) ==
PROVIDERS: Nurse Practitioner Women's Health; PCP Family Medicine; Visit Provider Obstetrics & Gynecology
DX: D50.9 Iron deficiency anemia, unspecified (principal)
CPT/HCPCS: 36415; 85025